=== PATIENT | female | born 1985 | race Caucasian/White ===

== ENCOUNTER 2020-01-23 15:28 | Outpatient (REF) | payer OTHER, SELFPAY ==
[2020-01-23 14:27] LABS: Blood Urea Nitrogen 6 mg/dL (9-16); Estimated Glomerular Filt Rate > 60
--- NOTE | 2020-01-23 16:00 | MR_ITS ---
EXAMINATION: MR CERVICAL SPINE WITHOUT AND WITH CONTRAST CLINICAL INFORMATION: Myelitis. Numbness and tingling in the bilateral feet. Weakness in the left leg COMPARISON: None available. TECHNIQUE: MRI of the cervical spine was obtained using routine sequences following the administration of 9 mL of Gadavist intravenous contrast. FINDINGS: Minimal degenerative retrolisthesis of C5 on C6. Otherwise, normal anatomic alignment. Mild degenerative disc disease from C4-C7 and at T1-T2 with partial disc desiccation. Mild Modic type II discogenic changes. Mild marrow edema and enhancement right-sided transverse process of C7. No additional suspicious marrow edema. The vertebral body heights are maintained. No additional abnormal contrast enhancement. The spinal cord is normal in appearance. Limited evaluation of the soft tissues of the neck without demonstrated abnormalities. The flow voids of the major cervical vessels are maintained. Normal appearance of the cervicomedullary junction and visualized posterior fossa. Normal positioning of the cerebellar tonsils. SPINAL LEVELS: C2-C3: Mild disc-osteophyte complex. There is no uncovertebral joint arthropathy. There is mild left and no right facet joint arthropathy. There is no neural foraminal stenosis. There is no spinal canal stenosis. C3-C4: Normal annular contour. There is no uncovertebral joint arthropathy. There is mild bilateral facet joint arthropathy. There is no neural foraminal stenosis. There is no spinal canal stenosis. C4-C5: Mild to moderate disc-osteophyte complex with superimposed central disc herniation. There is mild bilateral uncovertebral joint arthropathy. There is mild bilateral facet joint arthropathy. There is no neural foraminal stenosis. There is mild indentation of the ventral cord with no overt spinal canal stenosis. C5-C6: Mild to moderate disc-osteophyte complex with superimposed central disc herniation. There is mild bilateral uncovertebral joint arthropathy. There is mild bilateral facet joint arthropathy. There is no neural foraminal stenosis. There is mild indentation of the ventral cord with no overt spinal canal stenosis. C6-C7: Mild disc-osteophyte complex. There is no uncovertebral joint arthropathy. There is no facet joint arthropathy. There is no neural foraminal stenosis. There is no spinal canal stenosis. C7-T1: Normal annular contour. There is no uncovertebral joint arthropathy. There is no facet joint arthropathy. There is no neural foraminal stenosis. There is no spinal canal stenosis. MR/MR cervical spine wo/w con IMPRESSION: 1. No abnormal spinal cord signal abnormality. No demonstrated spinal cord compression. 2. Nonspecific mild edema/enhancement within the C7 right transverse process. This may represent mild stress edema or a small atypical hemangioma. There is no demonstrated displacement of this exam. However, if there is clinical concern for prior trauma or localized symptoms, CT may provide better evaluation for osseous integrity. 3. 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
== END 2020-01-23 15:29 | disposition home or self-care (01) ==
LOC: HO.MRI 15:28
PROVIDERS: PCP Internal Medicine; Visit Provider Psychiatry & Neurology Neurology
DX: G04.91 Myelitis, unspecified (principal)
CPT/HCPCS: 72156; 82565; 84520; A9585

== ENCOUNTER 2020-01-27 18:52 | Outpatient (REF) | payer OTHER, SELFPAY ==
--- NOTE | 2020-01-27 | MR_ITS ---
MR THORACIC SPINE WITHOUT AND WITH CONTRAST CLINICAL INFORMATION: Myelitis. COMPARISON: None available. TECHNIQUE: MRI of the thoracic spine was obtained using routine sequences with and without contrast. Intravenous contrast: Gadavist 9 mL. FINDINGS: There are 12 rib-bearing thoracic type vertebral bodies. Thoracic alignment is normal. The vertebral body heights are maintained. The disc volumes are preserved. There is no bone marrow edema. Bone marrow signal is homogenous and normal. Thoracic cord morphology is normal. There is no thoracic cord compression. Artifact versus intramedullary T2 signal changes throughout the entire thoracic cord seen on the axial series. This could reflect truncation artifact however some of the signal changes appear to be affecting the ventral horns of the min matter. This cannot be confirmed on the sagittal series and therefore may be artifactual. Consider follow-up with a 3T MRI of the thoracic spine. No enhancing thoracic cord lesions. No pathologic intrathecal enhancement. No enhancing intraosseous lesions. No significant soft tissue findings. No significant thoracic disc herniations. No central canal stenosis and no foraminal stenosis within the thoracic spine. MR/MR thoracic spine wo/w con IMPRESSION: Artifact versus intramedullary T2 signal changes throughout the entire thoracic cord seen on the axial series. This could reflect truncation artifact however some of the signal changes appear to be affecting the ventral horns of the min matter. This cannot be confirmed on the sagittal series and therefore may be artifactual. Consider follow-up with a 3T MRI of the thoracic spine. There is no pathologic enhancement.
== END 2020-01-27 19:00 | disposition home or self-care (01) ==
LOC: HO.MRI 18:52
PROVIDERS: PCP Internal Medicine; Visit Provider Psychiatry & Neurology Neurology
DX: G04.91 Myelitis, unspecified (principal)
CPT/HCPCS: 72157; A9585

== ENCOUNTER 2020-09-14 20:27 | Emergency (ER) | payer OTHER, SELFPAY ==
--- NOTE | ~2020-09-14 | US_ITS ---
EXAMINATION: US ABDOMEN LIMITED CLINICAL INFORMATION: Right upper quadrant pain.. COMPARISON: 08/22/[address] dated 09/08/2017 TECHNIQUE: Real-time imaging of the right upper quadrant abdominal viscera. FINDINGS: PANCREAS: The pancreas itself is normal in appearance. Lymph nodes adjacent to the pancreas measured 1 cm in short axis, at the upper limits of normal in size. A 1.0 cm (short axis) lymph node is evident near the pancreatic head. LIVER: There is increased hepatic echogenicity, most consistent with steatosis. There is decreased sonographic through transmission. No focal hepatic lesions are identified. The liver is normal in size. The liver contour is normal. There is no intrahepatic biliary duct dilatation seen. A portocaval lymph node is identified, measuring 1.4 cm in short axis. GALLBLADDER: Normal. The gallbladder is physiologically distended without evidence of stones, sludge, polyps, wall thickening or pericholecystic fluid. COMMON BILE DUCT: Normal in caliber measuring 0.5 cm in diameter. RIGHT KIDNEY: Normal. No hydronephrosis. No renal calculi or focal parenchymal lesions. The kidney measures 11 cm in maximum dimension. FREE FLUID: None. US/US abdomen limited IMPRESSION: Hepatic steatosis. No acute findings. Borderline prominent periportal lymph nodes.
--- NOTE | ~2020-09-14 | XR_ITS ---
EXAMINATION: XR CHEST, 2 VIEWS CLINICAL INFORMATION: Right breast pain. Chest wall pain. COMPARISON: 10/20/2019 TECHNIQUE: PA and lateral views of the chest were obtained. FINDINGS: Lungs are clear. No consolidation, pneumothorax, or pleural effusion. Cardiac and mediastinal contours are normal. Pulmonary vasculature is unremarkable. Trachea is midline. Osseous structures are unremarkable. XR/XR chest 2V IMPRESSION: Normal chest radiographs.
[2020-09-14 21:21] VITALS: BP 122/69; PULSE 81; RESP 18; TEMP 36.4; O2SAT 98; BMI 39.4
[2020-09-14 22:20] LABS: MANUAL DIFF FLAG NO
[2020-09-14 22:22] LABS: Basophils Percent Auto 0.2 % (0-2); Eosinophils Absolute Auto 0.1 X10*3/uL (0.0-0.4); Eosinophils Percent Auto 1.4 % (0-4); Imm Gran Abs Auto 0.03 X10*3/uL (0.00-0.03); Imm Gran Pct Auto 0.3 % (0.0-0.4); Lymphocytes Absolute Auto 3.1 X10*3/uL (1.2-4.9); Lymphocytes Percent Auto 29.8 % (20-40); Mean Corpuscular HGB Conc 33.3 g/dl (31.0-35.0); Mean Corpuscular Hemoglobin 29.5 pg (27.0-33.0); Mean Corpuscular Volume 88.6 fL (80-98); Mean Platelet Volume 9.7 fL (9.4-12.3); Monocytes Absolute Auto 0.6 X10*3/uL (0.1-1.2); Monocytes Percent Auto 5.7 % (2-11); Neutrophils Absolute Auto 6.4 X10*3/uL (2.0-8.3); Neutrophils Percent Auto 62.6 % (45-73); Platelet Count 399 X10*3/uL (160-400); Red Cell Distribution Width 13.3 % (11.0-16.0); White Blood Count 10.2 X10*3/uL (4.8-10.8)
[2020-09-14 22:54] LABS: Alanine Aminotransferase 58 U/L (0-31); Albumin Level 4.2 g/dL (3.5-5.0); Alkaline Phosphatase 99 U/L (39-117); Anion Gap 11 (12-20); Aspartate Amino Transferase 35 U/L (5-31); Bilirubin Total 0.4 mg/dL (0.0-1.0); Blood Urea Nitrogen 8 mg/dL (9-16); Calcium 9.3 mg/dL (8.4-10.2); Carbon Dioxide 27 mmol/L (22-29); Chloride 107 mmol/L (96-108); Creatinine Clr Calc Pharmacy 99.3; Estimated Glomerular Filt Rate > 60; Glucose Random 116 mg/dL (60-115); Potassium 4.3 mmol/L (3.3-5.1); Sodium 141 mmol/L (135-145); Total Protein 7.6 g/dL (6.5-8.0)
--- NOTE | 2020-09-15 01:11 | ED_ITS ---
HPI - General Adult General Chief complaint: General Medical Stated complaint: under breast pain Time Seen by Provider: 09/15/20 01:11 Source: patient Mode of arrival: ambulatory History of Present Illness HPI narrative: This is a 35-year-old female who presents with right inframammary/lower right anterior rib pain that began approximately 2 weeks ago and is not been associated with any sore throat, cough and does not worsen with deep inspiration and patient denies fever, chills, GI symptoms or symptoms. Patient states that she becomes exceedingly uncomfortable with laying back or even sitting. It is worse on self palpation. Related Data Previous Rx's Medication Instructions Recorded ketorolac 10 mg PO Q6H PRN 5 Days #20 tab 09/15/20 Allergies Allergy/AdvReac Type Severity Reaction Status Date / Time peanut [PEANUT] Allergy Severe ANAPHYLAXIS Verified 09/14/20 21:19 Review of Systems Review of Systems: Pertinent positives and negatives as stated in HPI 10 point review systems is otherwise negative. PMFSH Past Medical History Source: nursing notes reviewed Medical History Asthma Bipolar 1 disorder Depression Diabetes Social History Social History Alcohol intake: current Patient Tobacco Use Status: Current everyday Tobacco user Substance Use Type: Marijuana Advance Directives: No Advance Directives Information Provided: No Patient : No Physical Exam Vital Signs: Vital Signs: Last Vital Signs Temp 98.2 F 09/15/20 01:27 Pulse 16 L 09/15/20 04:00 Resp 16 09/15/20 01:27 BP 121/61 09/15/20 01:27 Pulse Ox 98 09/15/20 01:27 Body Mass Index 39.4 VITAL SIGNS: Reviewed. GENERAL: Well developed, well nourished, in no acute distress. HEAD: Normocephalic/atraumatic EYES: PERRLA, EOMI NOSE: Nares patent bilateral OROPHARYNX: no oral lesions noted, posterior pharynx clear NECK: Supple, no adenopathy LUNGS: Normal breath sounds. No adventitious sounds or accessory muscle use. SpO2<98> CHEST WALL: Opinion palpation over anterior rib area, approximately 5/6/7 without crepitus, no erythema/induration noted CARDIOVASCULAR: Regular rate and rhythm without noted murmurs ABDOMEN: Obese, Soft, non-tender, non-distended with bowel sounds. NEUROLOGIC: Alert and oriented x 4. Course Course Course Narrative: 35-year-old female with history and clinical presentation suggestive of possible abscess, breast mass although the latter was not appreciated on exam, doubt rib fracture and no evidence to suggest hepatobiliary pathology or pneumonia. Review of all investigations negative for acute findings. On further questioning it appears that patient coughs a lot after smoking and feels that this may have contributed. All results were discussed at bedside and patient was discharged in stable condition. Medical Decision Making Lab Data Result diagrams: 09/14/20 22:15 09/14/20 22:15 Labs: Lab Results 09/14/20 09/14/20 09/15/20 Range/Units 22:15 22:15 01:30 WBC 10.2 (4.8-10.8) X10*3/uL RBC 4.40 (4.20-5.50) X10*6/uL Hgb 13.0 (12.0-16.0) g/dl Hct 39.0 (37-47) % MCV 88.6 (80-98) fL MCH 29.5 (27.0-33.0) pg MCHC 33.3 (31.0-35.0) g/dl RDW 13.3 (11.0-16.0) % Plt Count 399 (160-400) X10*3/uL MPV 9.7 (9.4-12.3) fL Immature Gran % (Auto) 0.3 (0.0-0.4) % Neut % (Auto) 62.6 (45-73) % Lymph % (Auto) 29.8 (20-40) % [place] % (Auto) 5.7 (2-11) % Eos % (Auto) 1.4 (0-4) % Baso % (Auto) 0.2 (0-2) % Lymph # (Auto) 3.1 (1.2-4.9) X10*3/uL [place] # (Auto) 0.6 (0.1-1.2) X10*3/uL Eos # (Auto) 0.1 (0.0-0.4) X10*3/uL Baso # (Auto) 0.0 (0.0-0.2) X10*3/uL Abs Immat Gran (auto) 0.03 (0.00-0.03) X10*3/uL Absolute Neuts (auto) 6.4 (2.0-8.3) X10*3/uL Absolute Nucleated RBC 0.000 (0.0-0.012) X10*3/uL Nucleated RBC % (auto) 0.0 (0.0-0.2) /100WBC PT 12.2 (10.8-13.0) SEC INR 1.0 (0.9-1.1) Sodium 141 (135-145) mmol/L Potassium 4.3 (3.3-5.1) mmol/L Chloride 107 (96-108) mmol/L Carbon Dioxide 27 (22-29) mmol/L Anion Gap 11 L (12-20) BUN 8 L (9-16) mg/dL Creatinine 0.72 (0.5-1.4) mg/dL Estim Creat Clear Calc 99.3 Estimated GFR > 60 Random Glucose 116 H (60-115) mg/dL Calcium 9.3 (8.4-10.2) mg/dL Total Bilirubin 0.4 (0.0-1.0) mg/dL AST 35 H (5-31) U/L ALT 58 H (0-31) U/L Alkaline Phosphatase 99 (39-117) U/L Total Protein 7.6 (6.5-8.0) g/dL Albumin 4.2 (3.5-5.0) g/dL Discharge Plan Discharge Clinical Impression: Atypical chest pain, Muscle strain of anterior chest wall, Acute c ostochondritis Patient Disposition: Home, Self-Care Instructions: Muscle Strain (ED), Costochondritis (ED) Additional Instructions: 1. Tylenol 1000 mg, orally, every 6 hours as needed for pain control. Do not exceed 4000 mg within 24 hours. 2. Lidocaine patch, this is available [id number] and should be apply to area of maximal pain as directed on the outside packaging. 3. Please follow-up with your primary care provider in the next 2-3 days for re- evaluation. Return to the ER for any acute worsening of her symptoms. Prescriptions: New ketorolac 10 mg tablet 10 mg PO Q6H PRN (Reason: pain) 5 Days Qty: 20 RF: 0 Referrals: Chantale Scott MD [Primary Care Provider] - 2 days
[2020-09-15 01:27] VITALS: BP 121/61; PULSE 72; RESP 16; TEMP 36.8; O2SAT 98
[2020-09-15] MEDS: Ketorolac Tromethamine 15 MG/ML VIAL IVPUSH (01:43)
[2020-09-15 01:48] LABS: Prothrombin Time 12.2 SEC (10.8-13.0)
[2020-09-15 04:00] VITALS: PULSE 16
== END 2020-09-15 06:43 | disposition home or self-care (01) ==
PROVIDERS: Emergency Provider Student in an Organized Health Care Education/Training Program; PCP Internal Medicine
DX: S29.011A Strain of muscle and tendon of front wall of thorax, initial encounter (principal); M94.0 Chondrocostal junction syndrome [Tietze]; R07.89 Other chest pain; E11.9 Type 2 diabetes mellitus without complications; J45.909 Unspecified asthma, uncomplicated; X58.XXXA Exposure to other specified factors, initial encounter; Y93.9 Activity, unspecified; Y92.9 Unspecified place or not applicable; Y99.9 Unspecified external cause status
CPT/HCPCS: 36415; 71046; 76705; 80053; 85025; 85610; 96374; 99284; J1885

== ENCOUNTER 2021-02-14 23:22 | Observation (INO) | payer OTHER, SELFPAY ==
--- NOTE | ~2021-02-14 | XR_ITS ---
EXAMINATION: XR ABDOMEN KUB CLINICAL INDICATION: Abdominal pain COMPARISON: 09/08/2017 TECHNIQUE: AP view of the abdomen. FINDINGS: The bowel gas pattern is nonobstructive. Gas is present throughout much of the colon. No suspicious calcifications are seen. Included lung bases appear well-aerated. No acute osseous findings are seen. XR/XR KUB IMPRESSION: No acute findings identified.
--- NOTE | ~2021-02-14 | CT_ITS ---
EXAMINATION: CT ABDOMEN AND PELVIS WITH CONTRAST CLINICAL INFORMATION: Abdominal pain. COMPARISON: Abdominal ultrasound dated from 09/15/2020. CT abdomen/pelvis dated from 09/08/2017. TECHNIQUE: Multidetector volumetric images were obtained from the superior aspect of the liver through the pubic symphysis following administration 85 mL of Omnipaque 350 intravenous contrast. Sagittal and coronal reformatted images were obtained on the technologist's workstation. Oral contrast: No This CT examination was performed using dose optimization techniques as appropriate, variously including the following: *Automated exposure control *Adjustment of mA and/or kV according to patient size (this includes techniques or standardized protocols for targeted exams where dose is matched to indication/reason for exam; i.e. extremities or head) *Use of iterative reconstruction technique DLP: 759 mGy-cm FINDINGS: LUNG BASES: The visualized lung bases are unremarkable. LIVER, GALLBLADDER, AND BILIARY TREE: The liver measures up to 19.7 cm in maximum craniocaudal dimension which is similar since 2018. There is diffuse decreased parenchymal attenuation when compared to the spleen suggesting hepatic steatosis. There is differential fat infiltration adjacent to the falciform ligament. Otherwise, the liver is normal in shape without focal abnormalities. No evidence of gallbladder stones, gallbladder wall thickening or pericholecystic fluid. No biliary ductal dilatation. PANCREAS: No focal abnormalities. No significant surrounding fat stranding or free fluid. The main pancreatic duct is nondilated. SPLEEN: Unremarkable. ADRENAL GLANDS: Unremarkable. KIDNEYS AND URETERS: The kidneys are normal in size, shape, and attenuation. No hydronephrosis, hydroureter, or calculi seen. No perinephric stranding. BLADDER: Unremarkable. GASTROINTESTINAL TRACT: The stomach and small bowel are nondilated. There are postsurgical changes at the cecal base, likely from prior appendectomy. No pericolic inflammatory changes or bowel obstruction. ABDOMINAL WALL: Tiny fat-containing umbilical hernia. A few foci of air in the fat of the right abdominal wall (3:41) likely from an injection site. LYMPH NODES: No lymphadenopathy by size criteria. VASCULAR: Unremarkable. PELVIC VISCERA: Prior hysterectomy. The left ovary appears to be in a high position and it is asymmetrically enlarged (3:70). OSSEOUS STRUCTURES: No acute or aggressive osseous abnormalities. CT/CT abdomen pelvis w con IMPRESSION: Mild hepatomegaly and hepatic steatosis. No active inflammatory bowel changes or bowel obstruction. Asymmetrically elevated and enlarged left ovary. Correlate with pain and if indicated consider further evaluation with a targeted pelvic ultrasound.
[2021-02-15] VITALS (9 sets, daily range): BP systolic 106–147; BP diastolic 52–85; PULSE 74–114; RESP 16–20; TEMP 36.4–36.8; O2SAT 92–98; BMI 37.3
--- NOTE | 2021-02-15 01:47 | ED.GENADULT ---
HPI - General Adult General Chief complaint: Dyspnea Stated complaint: Throat Pain ? Med reaction Time Seen by Provider: 02/15/21 00:40 Source: patient and family Mode of arrival: ambulatory Limitations: no limitations History of Present Illness HPI narrative: 35-year-old female was seen yesterday at [facility] and was diagnosed with UTI, patient was started on cefpodoxime 200 mg tablet twice a day, patient started the antibiotic earlier today then started to have swelling of her tongue ( patient bit her tongue), no shortness of breath. no change of voice, no rash, no itching. Related Data Home Medications Medication Instructions Recorded Confirmed bupropion HCl 200 mg tablet,12 hr 1 tab PO BID 02/15/21 02/15/21 sustained-release buspirone 10 mg tablet 1 tab PO DAILY 02/15/21 02/15/21 cholecalciferol (vitamin D3) 50 1 tab PO DAILY 02/15/21 02/15/21 mcg (2,000 unit) tablet (Vitamin D3) colestipol 1 gram tablet 1 tab PO DAILY 02/15/21 02/15/21 dicyclomine 20 mg tablet 1 tab PO QID 02/15/21 02/15/21 ergocalciferol (vitamin D2) 50 mcg 1 tab PO DAILY 02/15/21 02/15/21 (2,000 unit) tablet fluticasone propionate 100 1 inh INHALATION DAILY 02/15/21 02/15/21 mcg/actuation blister powder for inhalation (Flovent Diskus) risperidone 0.5 mg tablet 1 tab PO BEDTIME 02/15/21 02/15/21 risperidone 1 mg tablet 1 tab PO BEDTIME 02/15/21 02/15/21 Allergies Allergy/AdvReac Type Severity Reaction Status Date / Time peanut [PEANUT] Allergy Severe ANAPHYLAXIS Verified 09/14/20 21:19 Review of Systems Review of Systems: All other systems are reviewed and are negative Constitutional: Reports as per HPI and Reports no additional constitutional complaints Eyes: Reports as per HPI and Reports no additional eye complaints Reports system reviewed and no additional complaints, except as documented Cardiovascular: Reports as per HPI and Reports no additional cardiovascular complaints Respiratory: Reports as per HPI and Reports no additional respiratory complaints Gastrointestinal: Reports as per HPI and Reports no additional gastrointestinal complaints Genitourinary: Reports no additional female genitourinary complaints Musculoskeletal: Reports no additional musculoskeletal complaints Skin/Breast: Reports system reviewed and no additional complaints, except as docu Psychiatric: Reports no additional psychiatric complaints Endocrine: Reports no additional endocrine complaints Hematologic/Lymphatic: Reports no additional hematologic/lymphatic complaints Allergic/Immunologic: Reports no additional allergic/immunologic complaints Reports system reviewed and no additional complaints, except as documented and Reports Abnormal speech present [facility] Past Medical History Medical History Asthma Bipolar 1 disorder Depression Diabetes Social History Social History Alcohol intake: unknown Patient Tobacco Use Status: Current everyday Tobacco user Use of substances other than those prescribed or required for medical reasons: Yes Substance Use Type: Marijuana Substance Use Frequency: Occasionally Last Used Substance: Hours (ago) Advance Directives: No Advance Directives Information Provided: No Physical Exam Vital Signs: Vital Signs: Last Vital Signs Temp 98.3 F 02/15/21 00:38 Pulse 114 H 02/15/21 00:38 Resp 20 02/15/21 00:38 BP 147/85 H 02/15/21 00:38 Pulse Ox 98 02/15/21 00:38 Body Mass Index 37.3 vital signs have been reviewed as appeared to be correct. Blood pressure normal. Heart rate elevated. Respiration rate normal. Temperature normal. Oxygen saturation normal. Appearance: Alert. Oriented X3. No acute distress. Head: Normal external exam. Normocephalic. Atraumatic. No Duckworth signs noted. No raccoon eyes noted. Mouth exam: Swelling of the tongue, no stridor, patent airway. Eyes: PERRLA. EOMI. Conjunctiva and sclera normal. Eyelids normal. ENT: TM's Normal. Pharynx normal. Uvula midline. Moist mucous membranes. No trismus noted. No drooling noted. No muffled voice noted. Neck: Normal inspection. Neck supple. FROM. No adenopathy. Thyroid Normal. No meningeal signs. No neck mass noted. CVS: Normal heart rate and rhythm. Heart sound normal. No murmurs noted. Pulses normal throughout. Respiratory: No respiratory distress. Painless inspiration. Breath sounds normal. No wheezes/rales/rhonchi noted. Chest nontender. No accessory muscle usage noted or decreased air movement noted. Abdomen: Soft and nontender. Bowel sounds normal in all 4 quadrants. No distention noted. No organomegaly noted. No visible injury noted. Back: No CVA tenderness. Full range of motion noted. Skin: Skin warm and dry. Normal skin color. Normal skin turgor. No rashes/lesions/lacerations noted. Extremities: No lower extremity edema. Extremities exhibit normal range of motion. Extremities nontender. Neuro: Oriented X 3. Cranial nerve exam: II-XII are grossly intact No motor deficit. No sensory deficit. Reflexes normal. Course Course Course Narrative: 35-year-old female came in for allergic reaction to cefpodoxime that was prescribed yesterday at [facility] for treating UTI, patient came in with swelling tongue, patent airway, patient received IV fluids/Solu-Medrol /Benadryl, UA came back clean will not start the patient on new antibiotic will be awaiting for urine culture. Case discussed with Dr. Morales. Admit the patient for airway monitoring. Medical Decision Making Lab Data Lab results reviewed: Yes I reviewed the patient's lab results. Result diagrams: 02/15/21 02:17 02/15/21 02:17 Labs: Lab Results 02/15/21 02/15/21 02/15/21 Range/Units 02:16 02:16 02:17 WBC 11.1 H (4.8-10.8) X10*3/uL RBC 4.24 (4.20-5.50) X10*6/uL Hgb 12.9 (12.0-16.0) g/dl Hct 37.8 (37.0-47.0) % MCV 89.2 (80.0-98.0) fL MCH 30.4 (27.0-33.0) pg MCHC 34.1 (31.0-35.0) g/dl RDW 13.5 (11.0-16.0) % Plt Count 429 H (160-400) X10*3/uL MPV 9.7 (9.4-12.3) fL Immature Gran % (Auto) 0.3 (0.0-0.4) % Neut % (Auto) 66.1 (45-73) % Lymph % (Auto) 26.8 (20-40) % [place] % (Auto) 5.6 (2-11) % Eos % (Auto) 1.0 (0-4) % Baso % (Auto) 0.2 (0-2) % Lymph # (Auto) 3.0 (1.2-4.9) X10*3/uL [place] # (Auto) 0.6 (0.1-1.2) X10*3/uL Eos # (Auto) 0.1 (0.0-0.4) X10*3/uL Baso # (Auto) 0.0 (0.0-0.2) X10*3/uL Abs Immat Gran (auto) 0.03 (0.00-0.03) X10*3/uL Absolute Neuts (auto) 7.4 (2.0-8.3) x10*3/uL Absolute Nucleated RBC 0.000 (0.0-0.012) X10*3/uL Nucleated RBC % (auto) 0.0 (0.0-0.2) /100WBC Sodium (135-145) mmol/L Potassium (3.3-5.1) mmol/L Chloride (96-108) mmol/L Carbon Dioxide (22-29) mmol/L Anion Gap (12-20) BUN (9-16) mg/dL Creatinine (0.5-1.4) mg/dL Estim Creat Clear Calc Estimated GFR Random Glucose (60-115) mg/dL Calcium (8.4-10.2) mg/dL Lipase (8-78) U/L Urine Color YELLOW Urine Appearance CLEAR Urine pH 6.0 (5.0-8.0) Ur Specific Halfway >= 1.030 H (1.005-1.025) Urine Protein NEG (NEG-TRACE) MG/DL Urine Glucose (UA) NEG (NEG) MG/DL Urine Ketones 15 (NEG) MG/DL Urine Blood NEG (NEG) Urine Nitrite NEG (NEG) Ur Leukocyte Esterase NEG (NEG) Urine Test NEGATIVE (NEGATIVE) 02/15/21 Range/Units 02:17 WBC (4.8-10.8) X10*3/uL RBC (4.20-5.50) X10*6/uL Hgb (12.0-16.0) g/dl Hct (37.0-47.0) % MCV (80.0-98.0) fL MCH (27.0-33.0) pg MCHC (31.0-35.0) g/dl RDW (11.0-16.0) % Plt Count (160-400) X10*3/uL MPV (9.4-12.3) fL Immature Gran % (Auto) (0.0-0.4) % Neut % (Auto) (45-73) % Lymph % (Auto) (20-40) % [place] % (Auto) (2-11) % Eos % (Auto) (0-4) % Baso % (Auto) (0-2) % Lymph # (Auto) (1.2-4.9) X10*3/uL [place] # (Auto) (0.1-1.2) X10*3/uL Eos # (Auto) (0.0-0.4) X10*3/uL Baso # (Auto) (0.0-0.2) X10*3/uL Abs Immat Gran (auto) (0.00-0.03) X10*3/uL Absolute Neuts (auto) (2.0-8.3) x10*3/uL Absolute Nucleated RBC (0.0-0.012) X10*3/uL Nucleated RBC % (auto) (0.0-0.2) /100WBC Sodium 139 (135-145) mmol/L Potassium 3.5 (3.3-5.1) mmol/L Chloride 106 (96-108) mmol/L Carbon Dioxide 22 (22-29) mmol/L Anion Gap 15 (12-20) BUN 5 L (9-16) mg/dL Creatinine 0.71 (0.5-1.4) mg/dL Estim Creat Clear Calc 97.5 Estimated GFR > 60 Random Glucose 139 H (60-115) mg/dL Calcium 9.6 (8.4-10.2) mg/dL Lipase 18 (8-78) U/L Urine Color Urine Appearance Urine pH (5.0-8.0) Ur Specific Halfway (1.005-1.025) Urine Protein (NEG-TRACE) MG/DL Urine Glucose (UA) (NEG) MG/DL Urine Ketones (NEG) MG/DL Urine Blood (NEG) Urine Nitrite (NEG) Ur Leukocyte Esterase (NEG) Urine Test (NEGATIVE) Discharge Plan Discharge Clinical Impression: Tongue swelling, Allergic reaction Patient Disposition: Admitted As Inpatient Prescriptions: No Action dicyclomine 20 mg tablet 1 tab PO QID RF: 0 Flovent Diskus 100 mcg/actuation blister with device 1 inh inhalation DAILY RF: 0 buspirone 10 mg tablet 1 tab PO DAILY RF: 0 risperidone 1 mg tablet 1 tab PO BEDTIME RF: 0 colestipol 1 gram tablet 1 tab PO DAILY RF: 0 risperidone 0.5 mg tablet 1 tab PO BEDTIME RF: 0 bupropion HCl 200 mg tablet sustained-release 12 hr 1 tab PO BID RF: 0 cholecalciferol (vitamin D3) [Vitamin D3] 50 mcg (2,000 unit) tablet 1 tab PO DAILY RF: 0 ergocalciferol (vitamin D2) 50 mcg (2,000 unit) tablet 1 tab PO DAILY RF: 0
[2021-02-15] MEDS: 0.9 % Sodium Chloride 1,000 ML 999 ML IVCONT (02:20)
[2021-02-15 02:21] LABS: MANUAL DIFF FLAG NO
[2021-02-15 02:22] LABS: Basophils Percent Auto 0.2 % (0-2); Eosinophils Absolute Auto 0.1 X10*3/uL (0.0-0.4); Hematocrit 37.8 % (37.0-47.0); Hemoglobin 12.9 g/dl (12.0-16.0); Imm Gran Abs Auto 0.03 X10*3/uL (0.00-0.03); Imm Gran Pct Auto 0.3 % (0.0-0.4); Lymphocytes Percent Auto 26.8 % (20-40); Mean Corpuscular HGB Conc 34.1 g/dl (31.0-35.0); Mean Corpuscular Hemoglobin 30.4 pg (27.0-33.0); Mean Corpuscular Volume 89.2 fL (80.0-98.0); Mean Platelet Volume 9.7 fL (9.4-12.3); Monocytes Absolute Auto 0.6 X10*3/uL (0.1-1.2); Monocytes Percent Auto 5.6 % (2-11); Neutrophils Absolute Auto 7.4 x10*3/uL (2.0-8.3); Neutrophils Percent Auto 66.1 % (45-73); Platelet Count 429 X10*3/uL (160-400); Red Blood Count 4.24 X10*6/uL (4.20-5.50); Red Cell Distribution Width 13.5 % (11.0-16.0); White Blood Count 11.1 X10*3/uL (4.8-10.8)
[2021-02-15 02:22] LABS: Color Urine YELLOW; Glucose Urine UA NEG (NEG); Leukocyte Esterase Urine NEG (NEG); Nitrite Urine NEG (NEG); Specific Gravity - Urine >= 1.030 (1.005-1.025); Urine Blood NEG (NEG); Urine Ketones 15 MG/DL (NEG); Urine Protein NEG (NEG-TRACE)
[2021-02-15 02:23] LABS: Appearance Urine CLEAR
[2021-02-15 02:25] LABS: UPreg QC Valid YES; Urine Pregnancy NEGATIVE (NEGATIVE)
[2021-02-15] MEDS: methylPREDNISolone Sod Succ 125 MG/2 ML VIAL IVPUSH (02:29)
[2021-02-15] MEDS: Famotidine/PF 20 MG/2 ML VIAL IVPUSH ×3 (02:29→21:10)
[2021-02-15] MEDS: diphenhydrAMINE HCL 50 MG/ML VIAL 25 MG IVPUSH (02:29)
[2021-02-15 02:41] LABS: Anion Gap 15 (12-20); Blood Urea Nitrogen 5 mg/dL (9-16); Calcium 9.6 mg/dL (8.4-10.2); Carbon Dioxide 22 mmol/L (22-29); Chloride 106 mmol/L (96-108); Creatinine Clr Calc Pharmacy 97.5; Estimated Glomerular Filt Rate > 60; Glucose Random 139 mg/dL (60-115); Lipase 18 U/L (8-78); Potassium 3.5 mmol/L (3.3-5.1); Sodium 139 mmol/L (135-145)
--- NOTE | 2021-02-15 02:56 | PM.IMHP ---
History of Present Illness Date of Service: 02/15/21 Chief Complaint: Tongue swelling/shortness of breath 35-year-old female with a past medical history of anxiety, depression, bipolar disorder, ESTEVAN, question diabetes, history of urinary incontinence/UTIs presented to the hospital today with a chief complaint of tongue swelling/shortness of breath. Patient reported that on Sunday she started to have nausea and vomiting and unable to tolerate p.o. she went to the [facility] ER where she was noted to have UTI and was given cefuroxime IV followed by given ceftriaxone pain and subsequently sent her home. Patient mentioned that after she went home she took the 1st dose of cefpodoxime and felt different and after to the 2nd dose in the evening she felt like her tongue is swollen, unable to breathe; subsequently came to the ER for further evaluation. Denies any itching or hives. Denies any rash. Patient mentioned that she has been having issues with her GI-having nausea vomiting unable to tolerate p.o. for the past few days; also reports an episode of blood in the vomitus; follows with banjo repairer at [facility]. Complains of mild abdominal discomfort; Denies any diarrhea Denies any chest pain palpitations lightheadedness or dizziness. Review of all other systems is negative except mentioned above ER course: Per ER team patient exam was essentially benign; no significant swelling or hives or rash noted; patient was given Solu-Medrol, admitted to the hospital for observation. [facility] Medical History Asthma Bipolar 1 disorder Depression Diabetes Social History Alcohol intake: unknown Patient Tobacco Use Status: Current everyday Tobacco user Use of substances other than those prescribed or required for medical reasons: Yes Substance Use Type: Marijuana Substance Use Frequency: Occasionally Last Used Substance: Hours (ago) Advance Directives: No Advance Directives Information Provided: No Meds Allergies Allergy/AdvReac Type Severity Reaction Status Date / Time peanut [PEANUT] Allergy Severe ANAPHYLAXIS Verified 09/14/20 21:19 Active Medications: Current Medications Sodium Chloride (Ns) 1,000 mls @ 999 mls/hr IVCONT .Q1H1M SAHIL Stop: 02/15/21 03:00 Last Admin: 02/15/21 02:20 Dose: 999 mls/hr Documented by: Home Medications Medication Instructions Recorded Confirmed Last Taken Type bupropion HCl 200 mg tablet,12 hr 1 tab PO BID 02/15/21 02/15/21 Unknown History sustained-release buspirone 10 mg tablet 1 tab PO DAILY 02/15/21 02/15/21 Unknown History cholecalciferol (vitamin D3) 50 1 tab PO DAILY 02/15/21 02/15/21 Unknown History mcg (2,000 unit) tablet (Vitamin D3) colestipol 1 gram tablet 1 tab PO DAILY 02/15/21 02/15/21 Unknown History dicyclomine 20 mg tablet 1 tab PO QID 02/15/21 02/15/21 Unknown History ergocalciferol (vitamin D2) 50 mcg 1 tab PO DAILY 02/15/21 02/15/21 Unknown History (2,000 unit) tablet fluticasone propionate 100 1 inh INHALATION DAILY 02/15/21 02/15/21 Unknown History mcg/actuation blister powder for inhalation (Flovent Diskus) risperidone 0.5 mg tablet 1 tab PO BEDTIME 02/15/21 02/15/21 Unknown History risperidone 1 mg tablet 1 tab PO BEDTIME 02/15/21 02/15/21 Unknown History Physical Exam Vital Signs and Narrative: Vital Signs: Last Vital Signs Temp 98.3 F 02/15/21 00:38 Pulse 114 H 02/15/21 00:38 Resp 20 02/15/21 00:38 BP 147/85 H 02/15/21 00:38 Pulse Ox 98 02/15/21 00:38 Body Mass Index 37.3 Gen: Appears be in no acute distress HEENT: NCAT, Moist mucosa. Tongue is normal in size. No stridor. Pulmonary: Vesicular breath sounds, fair air entry CVS: Normal S1-S2 Abdomen: BS+, Soft, Nontender Extremities: Warm well perfused Neuro: Alert and awake. Results Labs CBC and Chem 7: 02/15/21 02:17 02/15/21 02:17 Labs: Laboratory Results - last 24 hr 02/15/21 02/15/21 02/15/21 02:16 02:16 02:17 MCV 89.2 MCH 30.4 MCHC 34.1 RDW 13.5 Plt Count 429 H MPV 9.7 Immature Gran % (Auto) 0.3 Neut % (Auto) 66.1 Lymph % (Auto) 26.8 [place] % (Auto) 5.6 Eos % (Auto) 1.0 Baso % (Auto) 0.2 Lymph # (Auto) 3.0 [place] # (Auto) 0.6 Eos # (Auto) 0.1 Baso # (Auto) 0.0 Abs Immat Gran (auto) 0.03 Absolute Neuts (auto) 7.4 Absolute Nucleated RBC 0.000 Nucleated RBC % (auto) 0.0 Anion Gap Estim Creat Clear Calc Estimated GFR Random Glucose Calcium Lipase Urine Color YELLOW Urine Appearance CLEAR Urine pH 6.0 Ur Specific [place] >= 1.030 H Urine Protein NEG Urine Glucose (UA) NEG Urine Ketones 15 Urine Blood NEG Urine Nitrite NEG Ur Leukocyte Esterase NEG Urine Test NEGATIVE 02/15/21 02:17 MCV MCH MCHC RDW Plt Count MPV Immature Gran % (Auto) Neut % (Auto) Lymph % (Auto) [place] % (Auto) Eos % (Auto) Baso % (Auto) Lymph # (Auto) [place] # (Auto) Eos # (Auto) Baso # (Auto) Abs Immat Gran (auto) Absolute Neuts (auto) Absolute Nucleated RBC Nucleated RBC % (auto) Anion Gap 15 Estim Creat Clear Calc 97.5 Estimated GFR > 60 Random Glucose 139 H Calcium 9.6 Lipase 18 Urine Color Urine Appearance Urine pH Ur Specific [place] Urine Protein Urine Glucose (UA) Urine Ketones Urine Blood Urine Nitrite Ur Leukocyte Esterase Urine Test Assessment and Plan (1) Tongue swelling: Status: Acute (2) Nausea & vomiting: Status: Acute (3) Hematemesis: Status: Acute 35-year-old female with a past medical history of anxiety, depression, bipolar disorder, ESTEVAN, question diabetes, history of urinary incontinence/UTIs presented to the hospital today with a chief complaint of tongue swelling/shortness of breath, after she took Suboxone tablets, concern for allergic reaction. Admitted for further management. Shortness of breath/tongue swelling: Currently resolved. Breathing comfortably. No stridor or wheezing. Tongue swelling improved. Continue the patient on prednisone, famotidine, pantoprazole, Bentyl p.r.n.. Nausea/vomiting/blood in the vomitus/poor oral intake: IV ppi. NPO. IV fluids. GI consult. If any further episodes of vomiting will obtain guaiac test for the gastric contents. ? Diabetes: Hemoglobin A1c pending. UTI: Patient repeat urinalysis was negative. Follow up cultures. Will hold off antibiotics for now. History of anxiety/depression/bipolar: Continue home bupropion, buspirone, risperidone. DVT prophylaxis: Lovenox Code status: Full code Things to follow up by the Day hospitalist was care taken over at 7:00 a.m. on 02/15/2021: Gastroenterology recommendations Monitor for continued clinical improvement for allergic reaction. Quality Stroke Does the patient have a stroke diagnosis?: No VTE Prior VTE?: No VTE Risk Level:: Medical - moderate - high VTE Device Contraindication: Treatment Not Indicated VTE Drug Contraindication: N/A - Med Ordered
[2021-02-15 03:15] LABS: Basophils Percent Auto 0.2 % (0-2); Eosinophils Percent Auto 0.4 % (0-4); Hematocrit 35.2 % (37.0-47.0); Hemoglobin 11.7 g/dl (12.0-16.0); Imm Gran Abs Auto 0.03 X10*3/uL (0.00-0.03); Imm Gran Pct Auto 0.3 % (0.0-0.4); Lymphocytes Absolute Auto 3.4 X10*3/uL (1.2-4.9); Lymphocytes Percent Auto 31.3 % (20-40); MANUAL DIFF FLAG NO; Mean Corpuscular HGB Conc 33.2 g/dl (31.0-35.0); Mean Corpuscular Hemoglobin 30.1 pg (27.0-33.0); Mean Corpuscular Volume 90.5 fL (80.0-98.0); Mean Platelet Volume 9.8 fL (9.4-12.3); Monocytes Absolute Auto 0.7 X10*3/uL (0.1-1.2); Monocytes Percent Auto 6.4 % (2-11); Neutrophils Absolute Auto 6.6 x10*3/uL (2.0-8.3); Neutrophils Percent Auto 61.4 % (45-73); Platelet Count 406 X10*3/uL (160-400); Red Blood Count 3.89 X10*6/uL (4.20-5.50); Red Cell Distribution Width 13.4 % (11.0-16.0); White Blood Count 10.7 X10*3/uL (4.8-10.8)
[2021-02-15 03:36] LABS: Anion Gap 14 (12-20); Blood Urea Nitrogen 4 mg/dL (9-16); Carbon Dioxide 21 mmol/L (22-29); Chloride 108 mmol/L (96-108); Creatinine Clr Calc Pharmacy 104.9; Estimated Glomerular Filt Rate > 60; Glucose Random 117 mg/dL (60-115); Potassium 3.6 mmol/L (3.3-5.1); Sodium 139 mmol/L (135-145)
[2021-02-15 04:37] LABS: Estimated Average Glucose 94 mg/dL; Hemoglobin A1c % 4.9 %
[2021-02-15 06:11] LABS: COVID-19 Test Negative (Negative); IDNOW Serial# 9DD0AD1C
[2021-02-15] MEDS: Pantoprazole Sodium 40 MG/10 ML VIAL IVPUSH (06:21)
--- NOTE | 2021-02-15 08:07 | PC.NURSE ---
pt a/o x 3 no sob/dari noted skin pink warm dry speaks in full sentences. no tongue swelling noted. pt states, now i can talk and closed my mouth pt denies any diff breathing.l
[2021-02-15] MEDS: 0.9 % Sodium Chloride Flush 3 ML SYRINGE IVFLUSH ×3 (08:10→23:48)
--- NOTE | 2021-02-15 09:16 | MHC.CM.PN ---
Addendum entered by Faiza Sutherland 02/15/21 09:34: Received notification from [facility] that they will be able to accept patient. Addendum entered by Faiza Sutherland 02/15/21 09:22: [facility] is not able to accept patient at this time. Referral broadcasted to all agencies that are contracted with [email or web address] and can assist with medication administration. Original Note: Met with patient in regards to discharge planning. Patient lives with her , is legally blind, uses a walking stick for mobility and had no services prior to coming to the hospital. Patient was active with [facility] for medication administration in the past and is requesting referral back there. Patient voices concerns about medication consistency and her anxiety with taking medication. Referral made via [employer]. PCP verified. Copy of HCP obtained from PCP's office. Patient received 2 Moderna vaccines. Obs notice explained and signed. Patient's will transport patient home when medically stable. Continue to monitor for d/c needs.
[2021-02-15] MEDS: busPIRone HCl 10 MG TABLET PO (10:30)
[2021-02-15] MEDS: buPROPion HCL 100 MG TABLET 200 MG PO ×2 (10:30→21:17)
[2021-02-15] MEDS: Cholecalciferol (Vitamin D3) 25 MCG TABLET 50 MCG PO (10:30)
[2021-02-15] MEDS: Enoxaparin Sodium 40 MG/0.4 ML SYRINGE SUBCUT (10:31)
[2021-02-15] MEDS: predniSONE 20 MG TABLET 40 MG PO (10:32)
[2021-02-15] MEDS: risperiDONE 0.25 MG TABLET PO (11:49)
--- NOTE | 2021-02-15 13:06 | P.EN_ITS ---
Event Note Date of Service: 02/15/21 Event Note: 35-year-old female with a past medical history of anxiety, depress ion, bipolar disorder, ESTEVAN, question diabetes, history of urinary incontinence/UTIs presented to the hospital today with a chief complaint of tongue swelling/shortness of breath, after she took Suboxone tablets, concern for allergic reaction.? Admitted for further management.? Shortness of breath/tongue swelling. Currently resolved.? ? allergic reaction after taking cefpodoxime will stop prednisone Epigastric pain with reported bloody emesis on sunday GI consult May need EGD continue PPI History of anxiety/depression/bipolar Continue home bupropion, buspirone, risperidone. DISPO home depending on GI, inpatient vs o/p EGD DVT prophylaxis SCD boots Code status: Full code Attending Dr. Son
--- NOTE | 2021-02-15 15:39 | PC.NURSE ---
no sign of allergic reaction noted.
[2021-02-15] MEDS: Dicyclomine HCl 10 MG CAPSULE 20 MG PO ×2 (18:37→21:23)
[2021-02-15] MEDS: risperiDONE 0.5 MG TABLET PO (21:10)
[2021-02-15] MEDS: risperiDONE 1 MG TABLET PO (21:10)
--- NOTE | 2021-02-15 21:28 | PC.NURSE ---
Report given to RN on IMC.
[2021-02-15] MEDS: HYDROmorphone HCl 0.5 MG/0.5 ML SYRINGE IVPUSH (23:48)
[2021-02-16] VITALS (7 sets, daily range): BP systolic 98–134; BP diastolic 54–71; PULSE 66–118; RESP 17–22; TEMP 35.5–36.7; O2SAT 98–100
--- NOTE | 2021-02-16 02:24 | CONS_ITS ---
DATE OF SERVICE: 02/15/2021 REFERRING PHYSICIAN: Yariel Morales MD REASON FOR CONSULTATION: History of hematemesis. HISTORY OF PRESENT ILLNESS: The patient is a pleasant 35-year-old woman who was admitted to the hospital after presenting to the emergency room with tongue swelling and shortness of breath following antibiotic treatment. She has a long history of nausea, vomiting, abdominal pain with diarrhea and cramping and has been followed by her primary associate professor of philosophy at [facility]. She states since her hysterectomy earlier in the year, which was done for menorrhagia, she has had difficulty with postprandial nausea, vomiting, diarrhea, and generalized crampy abdominal pain. The diarrhea has been watery. The vomiting usually is postprandial and occurs after eating, although she did report 1 episode of a small amount of hematemesis 2 nights prior to admission. She has reportedly undergone endoscopy and colonoscopy at her primary GI office and has been treated with various medications, but is unsure of her present medical regimen. Since admission to the hospital, she has been treated with omeprazole as well as Pepcid and does report some postprandial nausea, but was able to tolerate breakfast. She has been treated with steroids for her allergic reaction. Evaluation in the emergency department included lab work, which is reviewed. Hematocrit has been stable and she has had no hematemesis in the emergency department. She does have a history of fatty liver and had mild elevations of her transaminases. An ultrasound done in August of this year was consistent with fatty liver. PAST MEDICAL HISTORY: 1. Bipolar disorder. 2. Sleep apnea. 3. Elevated blood sugar. 4. Asthma. 5. Irritable bowel syndrome. 6. Fatty liver. 7. Gastroesophageal reflux disease. CURRENT MEDICATIONS: Her current medication list is reviewed in the chart. ALLERGIES: PEANUTS AND CEFPODOXIME. FAMILY HISTORY: This is reviewed with the patient and is noncontributory. SOCIAL HISTORY: There is tobacco use. She denies significant alcohol intake. REVIEW OF SYSTEMS: SKIN: No pruritus. HEENT: Negative. CARDIOPULMONARY: She denies shortness of breath or chest pain. GASTROINTESTINAL: As above. GENITOURINARY: Negative. NEUROPSYCHIATRIC: Negative. PHYSICAL EXAMINATION: GENERAL: Shows a pleasant female, lying comfortably in bed. VITAL SIGNS: Stable. SKIN: Anicteric. HEENT: Shows no scleral icterus. NECK: Without lymphadenopathy or thyromegaly. LUNGS: Clear. HEART: Shows a regular rate and rhythm. S1, S2. No murmur. ABDOMEN: Soft. She complains of generalized tenderness to palpation. There is no guarding or rebound. Bowel sounds are present. No organomegaly is noted. EXTREMITIES: Without edema. LABORATORY DATA: Reviewed. IMPRESSION: History of hematemesis. She did have one self-limited episode of hematemesis which could have been caused by a Stefani-Antoine tear or gastroesophageal reflux disease. She does not appear to have any significant ongoing GI bleeding at this time and is tolerating a diet. I agree treating her with a proton pump inhibitor as you are doing. I would recommend restarting dicyclomine which she has apparently been on as an outpatient, although she does not recall her medications to help with any abdominal cramping for her IBS. I recommended she follow up with her primary GI provider as an outpatient. Thanks for asking me to see her. I will follow her as needed. MD ELDER Hoover/ANIL / [phone]
[2021-02-16] MEDS: Pantoprazole Sodium 40 MG/10 ML VIAL IVPUSH (05:48)
[2021-02-16 06:54] LABS: Hematocrit 36.4 % (37.0-47.0); Hemoglobin 11.9 g/dl (12.0-16.0); Mean Corpuscular HGB Conc 32.7 g/dl (31.0-35.0); Mean Corpuscular Hemoglobin 29.6 pg (27.0-33.0); Mean Corpuscular Volume 90.5 fL (80.0-98.0); Mean Platelet Volume 10.2 fL (9.4-12.3); Platelet Count 433 X10*3/uL (160-400); Red Blood Count 4.02 X10*6/uL (4.20-5.50); Red Cell Distribution Width 13.7 % (11.0-16.0)
[2021-02-16] MEDS: buPROPion HCL 100 MG TABLET 200 MG PO ×2 (07:52→20:20)
[2021-02-16] MEDS: busPIRone HCl 10 MG TABLET PO (07:53)
[2021-02-16] MEDS: risperiDONE 0.25 MG TABLET PO (07:53)
[2021-02-16] MEDS: Dicyclomine HCl 10 MG CAPSULE 20 MG PO ×4 (07:53→20:20)
[2021-02-16] MEDS: Famotidine/PF 20 MG/2 ML VIAL IVPUSH ×2 (07:54→20:19)
[2021-02-16] MEDS: Cholecalciferol (Vitamin D3) 25 MCG TABLET 50 MCG PO (07:54)
[2021-02-16] MEDS: 0.9 % Sodium Chloride Flush 3 ML SYRINGE IVFLUSH ×3 (07:54→20:20)
[2021-02-16] MEDS: Enoxaparin Sodium 40 MG/0.4 ML SYRINGE SUBCUT (07:57)
[2021-02-16] MEDS: Sennosides 8.6 MG TABLET 17.2 MG PO (11:55)
--- NOTE | 2021-02-16 16:03 | P.PNIM_ITS ---
Subjective Subjective Date of Service: 02/16/21 Interval History: Persistent abdominal pain overnight. States she still can not eat anything without Review of Systems Denies chest pain Denies shortness of breath Admits nausea vomiting Physical Exam Vital Signs: Vital Signs: Last Vital Signs Temp 97.8 F 02/16/21 15:05 Pulse 75 02/16/21 15:05 Resp 20 02/16/21 15:05 BP 119/71 02/16/21 15:05 Pulse Ox 99 02/16/21 15:05 Body Mass Index 37.3 Const: Other: Awake alert uncomfortable due to abdominal pain Resp: Other: Clear to auscultation bilaterally no rales rhonchi wheezes Cardio: Other: No S4; positive S1-S2; no S3 murmurs or gallops GI: Other: Mild diffuse mid epigastric tenderness without rebound Extrem: Other: No edema bilaterally Objective Data Active Medications Acetaminophen (Acetaminophen 325 Mg Tablet) 650 mg PO Q6H PRN PRN Reason: Pain, Mild (Pain Scale 1-3) Al Hydroxide/Mg Hydroxide (Magnesium Hydrox/Alum Hydrox 30 Ml Oral.Susp) 30 ml PO Q4H PRN PRN Reason: stomach upset Bupropion HCl (Bupropion Hcl 100 Mg Tablet) 200 mg PO BID [facility] Last Admin: 02/16/21 07:52 Dose: 200 mg Documented by: DORENE Buspirone HCl (Buspirone Hcl 10 Mg Tablet) 10 mg PO DAILY [facility] Last Admin: 02/16/21 07:53 Dose: 10 mg Documented by: DORENE Dicyclomine HCl (Dicyclomine Hcl 10 Mg Capsule) 20 mg PO QIDACHS [facility] Last Admin: 02/16/21 11:56 Dose: 20 mg Documented by: DORENE Diphenhydramine HCl (Diphenhydramine Hcl 50 Mg/Ml Vial) 25 mg IVPUSH Q6H PRN PRN Reason: Allergic Reaction Enoxaparin Sodium (Enoxaparin Sodium 40 Mg/0.4 Ml Syringe) 40 mg SUBCUT Q24H [facility] Last Admin: 02/16/21 07:57 Dose: 40 mg Documented by: DORENE Famotidine (Famotidine/Pf 20 Mg/2 Ml Vial) 20 mg IVPUSH BID [facility] Last Admin: 02/16/21 07:54 Dose: 20 mg Documented by: DORENE Fluticasone Propionate (Fluticasone Propionate 100 Mcg Blst.W.Dev) 1 puff INHALE DAILY [facility] Last Admin: 02/16/21 07:46 Dose: Not Given Documented by: RAMIRO Non-Admin Reason: Med Not Available Loratadine (Loratadine 10 Mg Tablet) 10 mg PO DAILY [facility] Melatonin (Melatonin 3 Mg Tablet) 6 mg PO BEDTIME PRN PRN Reason: Insomnia Morphine Sulfate (Morphine Sulfate 2 Mg/Ml Cartridge) 2 mg IVPUSH Q4H PRN; Protocol PRN Reason: Pain, Moderate (Pain Scale 4-6 Pantoprazole Sodium (Pantoprazole Sodium 40 Mg/10 Ml Vial) 40 mg IVPUSH DAILY@0630 [facility] Last Admin: 02/16/21 05:48 Dose: 40 mg Documented by: DEIRDRE Pharmacy Consult (Consult Rx Perform Med Rec) 1 each MISCELLANE ONCE PRN PRN Reason: Consult order Risperidone (Risperidone 0.5 Mg Tablet) 0.5 mg PO BEDTIME [facility] Last Admin: 02/15/21 21:10 Dose: 0.5 mg Documented by: ARSLAN Risperidone (Risperidone 1 Mg Tablet) 1 mg PO BEDTIME [facility] Last Admin: 02/15/21 21:10 Dose: 1 mg Documented by: ARSLAN Risperidone (Risperidone 0.25 Mg Tablet) 0.25 mg PO DAILY [facility] Last Admin: 02/16/21 07:53 Dose: 0.25 mg Documented by: DORENE Risperidone (Risperidone 0.25 Mg Tablet) 0.25 mg PO DAILY [facility] Senna (Sennosides 8.6 Mg Tablet) 17.2 mg PO BEDTIME PRN PRN Reason: Constipation Last Admin: 02/16/21 11:55 Dose: 17.2 mg Documented by: DORENE Sodium Chloride (0.9 % Sodium Chloride Flush 3 Ml Syringe) 3 ml IVFLUSH QSHIFT [facility] Last Admin: 02/16/21 07:54 Dose: 3 ml Documented by: DORENE Vitamin D (Cholecalciferol (Vitamin D3) 25 Mcg Tablet) 50 mcg PO DAILY [facility] Last Admin: 02/16/21 07:54 Dose: 50 mcg Documented by: DORENE Labs CBC & Chem 7: 02/16/21 06:08 02/15/21 03:11 Labs: Laboratory Results - last 24 hr 02/16/21 06:08 MCV 90.5 MCH 29.6 MCHC 32.7 RDW 13.7 Plt Count 433 H MPV 10.2 Absolute Nucleated RBC 0.000 Nucleated RBC % (auto) 0.0 Assessment and Plan (1) Hematemesis: Status: Acute (2) Nausea & vomiting: Status: Acute Assessment and Plan: 35-year-old female with a past medical history of anxiety, depression, bipolar disorder, ESTEVAN, question diabetes, history of urinary incontinence/UTIs presented to the hospital today with a chief complaint of tongue swelling/shortness of breath after taking initial dose of Bactrim DS. Continues to have mid epigastric pain worse after eating which is not new 1. Query allergic reaction to back room Symptoms resolved spontaneously after dose of Pepcid and prednisone. Given GI upset no further steroids were given. Follow-up clinically 2. Hematemesis by history Will continue IV PPI/Pepcid. No further vomiting noted Continues with diffuse abdominal pain; limited imaging thus far. Continue current therapies and check CT scan of the abdomen with IV contrast 3. Anxiety/depression/bipolar Continue outpatient therapies included bupropion, Buspar, risperidone. DVT prophylaxis: Lovenox Code status: Full code Quality Stroke Does the patient have a stroke diagnosis?: No VTE Prior VTE?: No VTE Risk Level:: Medical - moderate - high VTE Device Contraindication: Treatment Not Indicated VTE Drug Contraindication: N/A - Med Ordered
[2021-02-16] MEDS: Morphine Sulfate 2 MG/ML CARTRIDGE IVPUSH ×2 (16:18→20:19)
[2021-02-16] MEDS: iohexoL 350 MG/ML 100 ML INFUS..BTL IV (17:13)
[2021-02-16] MEDS: risperiDONE 1 MG TABLET PO (20:20)
[2021-02-16] MEDS: risperiDONE 0.5 MG TABLET PO (20:20)
[2021-02-17] VITALS (7 sets, daily range): BP systolic 104–119; BP diastolic 57–75; PULSE 60–85; RESP 18–20; TEMP 36.1–36.6; O2SAT 95–99
[2021-02-17] MEDS: Pantoprazole Sodium 40 MG/10 ML VIAL IVPUSH (05:47)
[2021-02-17] MEDS: Magnesium Hydrox/Alum Hydrox 30 ML ORAL.SUSP PO (06:44)
[2021-02-17 07:01] LABS: MANUAL DIFF FLAG NO
[2021-02-17 07:11] LABS: Basophils Percent Auto 0.2 % (0-2); Eosinophils Percent Auto 0.4 % (0-4); Hematocrit 36.7 % (37.0-47.0); Hemoglobin 11.9 g/dl (12.0-16.0); Imm Gran Abs Auto 0.03 X10*3/uL (0.00-0.03); Imm Gran Pct Auto 0.3 % (0.0-0.4); Lymphocytes Absolute Auto 4.2 X10*3/uL (1.2-4.9); Lymphocytes Percent Auto 41.9 % (20-40); Mean Corpuscular HGB Conc 32.4 g/dl (31.0-35.0); Mean Corpuscular Hemoglobin 29.7 pg (27.0-33.0); Mean Corpuscular Volume 91.5 fL (80.0-98.0); Monocytes Absolute Auto 0.6 X10*3/uL (0.1-1.2); Neutrophils Absolute Auto 5.1 x10*3/uL (2.0-8.3); Neutrophils Percent Auto 51.2 % (45-73); Platelet Count 390 X10*3/uL (160-400); Red Blood Count 4.01 X10*6/uL (4.20-5.50); Red Cell Distribution Width 13.8 % (11.0-16.0)
[2021-02-17] MEDS: Fluticasone Propionate 100 MCG BLST.W.DEV 1 PUFF INHALE (07:31)
[2021-02-17 07:41] LABS: Alanine Aminotransferase 56 U/L (0-31); Albumin Level 3.8 g/dL (3.5-5.0); Alkaline Phosphatase 67 U/L (39-117); Anion Gap 15 (12-20); Aspartate Amino Transferase 27 U/L (5-31); Bilirubin Total 0.2 mg/dL (0.0-1.0); Blood Urea Nitrogen 11 mg/dL (9-16); Calcium 8.7 mg/dL (8.4-10.2); Carbon Dioxide 25 mmol/L (22-29); Chloride 105 mmol/L (96-108); Creatinine Clr Calc Pharmacy 86.5; Estimated Glomerular Filt Rate > 60; Glucose Fasting 116 mg/dL (60-99); Potassium 3.5 mmol/L (3.3-5.1); Sodium 141 mmol/L (135-145); Total Protein 6.7 g/dL (6.5-8.0)
[2021-02-17] MEDS: Dicyclomine HCl 10 MG CAPSULE 20 MG PO ×3 (08:27→20:14)
[2021-02-17] MEDS: Enoxaparin Sodium 40 MG/0.4 ML SYRINGE SUBCUT (08:27)
[2021-02-17] MEDS: Famotidine/PF 20 MG/2 ML VIAL IVPUSH ×2 (08:27→20:15)
[2021-02-17] MEDS: buPROPion HCL 100 MG TABLET 200 MG PO ×2 (08:28→20:14)
[2021-02-17] MEDS: Loratadine 10 MG TABLET PO (08:28)
[2021-02-17] MEDS: risperiDONE 0.25 MG TABLET PO (08:28)
[2021-02-17] MEDS: busPIRone HCl 10 MG TABLET PO (08:28)
[2021-02-17] MEDS: Cholecalciferol (Vitamin D3) 25 MCG TABLET 50 MCG PO (08:28)
[2021-02-17] MEDS: 0.9 % Sodium Chloride Flush 3 ML SYRINGE IVFLUSH ×3 (08:29→20:15)
--- NOTE | 2021-02-17 13:11 | HO.PM.IMPN ---
Subjective Subjective Date of Service: 02/17/21 Interval History: Still with mid epigastric pain whenever p.o. intake Review of Systems Denies chest pain Denies shortness of breath States nausea vomiting no diarrhea Physical Exam Vital Signs: Vital Signs: Last Vital Signs Temp 97.6 F 02/17/21 12:00 Pulse 62 02/17/21 12:00 Resp 18 02/17/21 12:00 BP 108/60 02/17/21 12:00 Pulse Ox 95 02/17/21 12:00 Body Mass Index 37.3 Const: Other: Awake alert uncomfortable due to abdominal pain Resp: Other: Clear to auscultation bilaterally no rales rhonchi wheezes Cardio: Other: No S4; positive S1-S2; no S3 murmurs or gallops GI: Other: Mild diffuse mid epigastric tenderness without rebound Extrem: Other: No edema bilaterally Objective Data Active Medications Acetaminophen (Acetaminophen 325 Mg Tablet) 650 mg PO Q6H PRN PRN Reason: Pain, Mild (Pain Scale 1-3) Al Hydroxide/Mg Hydroxide (Magnesium Hydrox/Alum Hydrox 30 Ml Oral.Susp) 30 ml PO Q4H PRN PRN Reason: stomach upset Last Admin: 02/17/21 06:44 Dose: 30 ml Documented by: ANA Bupropion HCl (Bupropion Hcl 100 Mg Tablet) 200 mg PO BID [facility] Last Admin: 02/17/21 08:28 Dose: 200 mg Documented by: PAU Buspirone HCl (Buspirone Hcl 10 Mg Tablet) 10 mg PO DAILY [facility] Last Admin: 02/17/21 08:28 Dose: 10 mg Documented by: PAU Dicyclomine HCl (Dicyclomine Hcl 10 Mg Capsule) 20 mg PO QIDACHS [facility] Last Admin: 02/17/21 11:34 Dose: Not Given Documented by: DONNIE Non-Admin Reason: Patient Refused Diphenhydramine HCl (Diphenhydramine Hcl 50 Mg/Ml Vial) 25 mg IVPUSH Q6H PRN PRN Reason: Allergic Reaction Enoxaparin Sodium (Enoxaparin Sodium 40 Mg/0.4 Ml Syringe) 40 mg SUBCUT Q24H [facility] Last Admin: 02/17/21 08:27 Dose: 40 mg Documented by: PAU Famotidine (Famotidine/Pf 20 Mg/2 Ml Vial) 20 mg IVPUSH BID [facility] Last Admin: 02/17/21 08:27 Dose: 20 mg Documented by: PAU Fluticasone Propionate (Fluticasone Propionate 100 Mcg Blst.W.Dev) 1 puff INHALE DAILY [facility] Last Admin: 02/17/21 07:31 Dose: 1 puff Documented by: ANTOINETTE Loratadine (Loratadine 10 Mg Tablet) 10 mg PO DAILY [facility] Last Admin: 02/17/21 08:28 Dose: 10 mg Documented by: PAU Melatonin (Melatonin 3 Mg Tablet) 6 mg PO BEDTIME PRN PRN Reason: Insomnia Morphine Sulfate (Morphine Sulfate 2 Mg/Ml Cartridge) 2 mg IVPUSH Q4H PRN; Protocol PRN Reason: Pain, Moderate (Pain Scale 4-6 Last Admin: 02/16/21 20:19 Dose: 2 mg Documented by: GENEVIEVE Ondansetron HCl (Ondansetron Hcl 4 Mg/2 Ml Vial) 4 mg IVPUSH Q4H PRN PRN Reason: Nausea and Vomiting Pantoprazole Sodium (Pantoprazole Sodium 40 Mg/10 Ml Vial) 40 mg IVPUSH DAILY@0630 [facility] Last Admin: 02/17/21 05:47 Dose: 40 mg Documented by: ANA Pharmacy Consult (Consult Rx Perform Med Rec) 1 each MISCELLANE ONCE PRN PRN Reason: Consult order Risperidone (Risperidone 0.5 Mg Tablet) 0.5 mg PO BEDTIME [facility] Last Admin: 02/16/21 20:20 Dose: 0.5 mg Documented by: GENEVIEVE Risperidone (Risperidone 1 Mg Tablet) 1 mg PO BEDTIME [facility] Last Admin: 02/16/21 20:20 Dose: 1 mg Documented by: GENEVIEVE Risperidone (Risperidone 0.25 Mg Tablet) 0.25 mg PO DAILY [facility] Last Admin: 02/17/21 08:29 Dose: Not Given Documented by: PAU Non-Admin Reason: duplicate Risperidone (Risperidone 0.25 Mg Tablet) 0.25 mg PO DAILY [facility] Last Admin: 02/17/21 08:28 Dose: 0.25 mg Documented by: PAU Senna (Sennosides 8.6 Mg Tablet) 17.2 mg PO BEDTIME PRN PRN Reason: Constipation Last Admin: 02/16/21 11:55 Dose: 17.2 mg Documented by: DORENE Sodium Chloride (0.9 % Sodium Chloride Flush 3 Ml Syringe) 3 ml IVFLUSH QSHIFT [facility] Last Admin: 02/17/21 08:29 Dose: 3 ml Documented by: PAU Vitamin D (Cholecalciferol (Vitamin D3) 25 Mcg Tablet) 50 mcg PO DAILY [facility] Last Admin: 02/17/21 08:28 Dose: 50 mcg Documented by: PAU Labs CBC & Chem 7: 02/17/21 06:38 02/17/21 06:38 Labs: Laboratory Results - last 24 hr 02/17/21 02/17/21 06:38 06:38 MCV 91.5 MCH 29.7 MCHC 32.4 RDW 13.8 Plt Count 390 MPV 10.0 Immature Gran % (Auto) 0.3 Neut % (Auto) 51.2 Lymph % (Auto) 41.9 H [place] % (Auto) 6.0 Eos % (Auto) 0.4 Baso % (Auto) 0.2 Lymph # (Auto) 4.2 [place] # (Auto) 0.6 Eos # (Auto) 0.0 Baso # (Auto) 0.0 Abs Immat Gran (auto) 0.03 Absolute Neuts (auto) 5.1 Absolute Nucleated RBC 0.000 Nucleated RBC % (auto) 0.0 Anion Gap 15 Estim Creat Clear Calc 86.5 Estimated GFR > 60 Fasting Glucose 116 H Calcium 8.7 Total Bilirubin 0.2 AST 27 ALT 56 H Alkaline Phosphatase 67 D Total Protein 6.7 Albumin 3.8 Assessment and Plan (1) Hematemesis: Status: Acute (2) Abdominal pain: Status: Acute Assessment and Plan: 35-year-old female with a past medical history of anxiety, depression, bipolar disorder, ESTEVAN, question diabetes, history of urinary incontinence/UTIs presented to the hospital today with a chief complaint of tongue swelling/shortness of breath after taking initial dose of Bactrim DS. Continues to have mid epigastric pain worse after eating which is not new 1. Query allergic reaction to back room Symptoms resolved spontaneously after dose of Pepcid and prednisone. Given GI upset no further steroids were given. Follow-up clinically 2. Hematemesis /abdominal pain with oral intake Will continue IV PPI/Pepcid. Continues with diffuse abdominal pain; CT scan negative for acute pathology Will discuss EGD which GI in a.m. 3. Anxiety/depression/bipolar Continue outpatient therapies included bupropion, Buspar, risperidone. DVT prophylaxis: Lovenox Code status: Full code Quality Stroke Does the patient have a stroke diagnosis?: No VTE Prior VTE?: No VTE Risk Level:: Medical - moderate - high VTE Device Contraindication: Treatment Not Indicated VTE Drug Contraindication: N/A - Med Ordered
[2021-02-17] MEDS: Dextrose 5 % and 0.45 % NaCl 1,000 ML 125 ML IVCONT ×2 (13:39→23:13)
[2021-02-17] MEDS: Sucralfate Oral Suspension 1 GM/10 ML ORAL.SUSP PO (18:05)
[2021-02-17] MEDS: risperiDONE 0.5 MG TABLET PO (20:15)
[2021-02-17] MEDS: risperiDONE 1 MG TABLET PO (20:15)
[2021-02-17] MEDS: oxyCODONE HCl Immed Release 5 MG TABLET PO (23:13)
[2021-02-18 03:24] VITALS: BP 100/64; PULSE 89; RESP 20; TEMP 36.1; O2SAT 99
[2021-02-18] MEDS: Pantoprazole Sodium 40 MG/10 ML VIAL IVPUSH (06:25)
[2021-02-18] MEDS: Dextrose 5 % and 0.45 % NaCl 1,000 ML 125 ML IVCONT (06:26)
[2021-02-18 06:55] LABS: MANUAL DIFF FLAG NO
[2021-02-18 07:01] LABS: Basophils Percent Auto 0.2 % (0-2); Eosinophils Absolute Auto 0.1 X10*3/uL (0.0-0.4); Eosinophils Percent Auto 0.6 % (0-4); Hemoglobin 11.2 g/dl (12.0-16.0); Imm Gran Abs Auto 0.04 X10*3/uL (0.00-0.03); Imm Gran Pct Auto 0.4 % (0.0-0.4); Lymphocytes Percent Auto 28.8 % (20-40); Mean Corpuscular HGB Conc 32.9 g/dl (31.0-35.0); Mean Corpuscular Hemoglobin 29.8 pg (27.0-33.0); Mean Corpuscular Volume 90.4 fL (80.0-98.0); Mean Platelet Volume 10.1 fL (9.4-12.3); Monocytes Absolute Auto 0.6 X10*3/uL (0.1-1.2); Monocytes Percent Auto 5.8 % (2-11); Neutrophils Absolute Auto 6.6 x10*3/uL (2.0-8.3); Neutrophils Percent Auto 64.2 % (45-73); Platelet Count 353 X10*3/uL (160-400); Red Blood Count 3.76 X10*6/uL (4.20-5.50); Red Cell Distribution Width 13.7 % (11.0-16.0); White Blood Count 10.3 X10*3/uL (4.8-10.8)
[2021-02-18 07:13] LABS: Alanine Aminotransferase 51 U/L (0-31); Albumin Level 3.5 g/dL (3.5-5.0); Alkaline Phosphatase 65 U/L (39-117); Anion Gap 11 (12-20); Aspartate Amino Transferase 26 U/L (5-31); Bilirubin Total 0.4 mg/dL (0.0-1.0); Blood Urea Nitrogen 7 mg/dL (9-16); Calcium 8.4 mg/dL (8.4-10.2); Carbon Dioxide 25 mmol/L (22-29); Chloride 103 mmol/L (96-108); Creatinine Clr Calc Pharmacy 101.7; Estimated Glomerular Filt Rate > 60; Glucose Fasting 140 mg/dL (60-99); Potassium 3.4 mmol/L (3.3-5.1); Sodium 136 mmol/L (135-145); Total Protein 6.2 g/dL (6.5-8.0)
[2021-02-18 07:37] VITALS: BP 112/68; PULSE 85; RESP 20; TEMP 36.4; O2SAT 97
[2021-02-18] MEDS: Cholecalciferol (Vitamin D3) 25 MCG TABLET 50 MCG PO (08:02)
[2021-02-18] MEDS: Dicyclomine HCl 10 MG CAPSULE 20 MG PO ×2 (08:02→13:00)
[2021-02-18] MEDS: busPIRone HCl 10 MG TABLET PO (08:02)
[2021-02-18] MEDS: risperiDONE 0.25 MG TABLET PO (08:02)
[2021-02-18] MEDS: Enoxaparin Sodium 40 MG/0.4 ML SYRINGE SUBCUT (08:03)
[2021-02-18] MEDS: Famotidine/PF 20 MG/2 ML VIAL IVPUSH (08:03)
[2021-02-18] MEDS: 0.9 % Sodium Chloride Flush 3 ML SYRINGE IVFLUSH (08:03)
[2021-02-18] MEDS: buPROPion HCL 100 MG TABLET 200 MG PO (08:03)
[2021-02-18] MEDS: Loratadine 10 MG TABLET PO (08:03)
[2021-02-18] MEDS: Fluticasone Propionate 100 MCG BLST.W.DEV 1 PUFF INHALE (08:06)
[2021-02-18 08:09] VITALS: PULSE 111; O2SAT 98
[2021-02-18 12:00] VITALS: BP 145/86; PULSE 82; RESP 18; TEMP 36.4; O2SAT 98
--- NOTE | 2021-02-18 12:18 | MHC.CM.PN ---
Patient is not yet medically cleared for dc (c/o epigastic pain with PO/IV Pepcid required today).Home with [facility] is the goal for dc and CM will follow for possible need to adjust the dc plan.
[2021-02-18 15:34] VITALS: BP 145/64; PULSE 91; RESP 20; TEMP 36.1; O2SAT 97
--- NOTE | 2021-02-18 15:53 | P.DS_ITS ---
DS: Providers Provider Date of Service: 02/18/21 Date of admission: 02/15/21 02:53 Date of discharge: 02/18/21 Primary care physician: Chantale Scott MD Consults: 02/15/21 02:56 Consult to Gastroenterology Routine Consulting Provider: Marlon Bledsoe Reason for consultation: Blood in vomitus DS: Diagnosis Discharge Diagnosis (1) Hematemesis: Status: Acute (2) Abdominal pain: Status: Acute DS: Summary Hospital Course Hospital Course: 35-year-old female with a past medical history of anxiety, depression, bipolar disorder, ESTEVAN, question diabetes, history of urinary incontinence/UTIs presented to the hospital today with a chief complaint of tongue swelling/shortness of breath after taking initial dose of Bactrim DS.? Continues to have mid epigastric pain worse after eating which is not new. Hospital course patient was admitted to hospital started on a brief course of IV steroids for presumed tongue swelling. Predominant problem was mid epigastric pain that was worse after eating. seen in consultation by Dr. Herrera (GI) who felt the patient did not need further imaging as she was chest scope 3 months ago. He recommended continuation of IV Protonix IV Pepcid and Zofran and outpatient follow-up with patient's private GI. Patient's pain continued despite these conservative therapies; CT scan of the abdomen was done which fail to demonstrate any acute pathology which could account for the patient's pain. She was also seen in consultation by coverage who again felt the given the GI workup within the last 3 months is unlikely to find any acute pathology. Patient continued to complain of similar complaints however they did improve. At this point in time will send her home with omeprazole, Pepcid, Zofran, and short script oxycodone. She will follow-up with her prior GI Time Spent with Patient Time attestation: Total time spent providing and/or coordinating discharge services: Discharge coordination time: Greater than 30 minutes Quality: Stroke Does the patient have a stroke diagnosis?: No Physical Exam Vital Signs: Vital Signs: Last Vital Signs Temp 96.9 F 02/18/21 15:34 Pulse 91 02/18/21 15:34 Resp 20 02/18/21 15:34 BP 145/64 H 02/18/21 15:34 Pulse Ox 97 02/18/21 15:34 Body Mass Index 37.3 Const: Other: Awake alert uncomfortable due to abdominal pain Resp: Other: Clear to auscultation bilaterally no rales rhonchi wheezes Cardio: Other: No S4; positive S1-S2; no S3 murmurs or gallops GI: Other: Mild diffuse mid epigastric tenderness without rebound Extrem: Other: No edema bilaterally DS: Data Data Completed and Pending Labs on day of discharge: Laboratory Results - last 24 hr 02/18/21 02/18/21 06:22 06:22 WBC 10.3 RBC 3.76 L Hgb 11.2 L Hct 34.0 L MCV 90.4 MCH 29.8 MCHC 32.9 RDW 13.7 Plt Count 353 MPV 10.1 Immature Gran % (Auto) 0.4 Neut % (Auto) 64.2 Lymph % (Auto) 28.8 [place] % (Auto) 5.8 Eos % (Auto) 0.6 Baso % (Auto) 0.2 Lymph # (Auto) 3.0 [place] # (Auto) 0.6 Eos # (Auto) 0.1 Baso # (Auto) 0.0 Abs Immat Gran (auto) 0.04 H Absolute Neuts (auto) 6.6 Absolute Nucleated RBC 0.000 Nucleated RBC % (auto) 0.0 Sodium 136 Potassium 3.4 Chloride 103 Carbon Dioxide 25 Anion Gap 11 L BUN 7 L Creatinine 0.68 Estim Creat Clear Calc 101.7 Estimated GFR > 60 Fasting Glucose 140 H Calcium 8.4 Total Bilirubin 0.4 AST 26 ALT 51 H Alkaline Phosphatase 65 Total Protein 6.2 L Albumin 3.5 Discharge Plan Discharge Patient Disposition: Home, Self-Care Discharge Diagnosis: abdominal pain Referrals: Daniel [Outside] - 1 Week Chantale Scott MD [Primary Care Provider] - 1 Week Discharge Medications: New famotidine [Pepcid] 40 mg tablet 40 mg PO BEDTIME Qty: 30 RF: 2 omeprazole 40 mg capsule,delayed release(DR/EC) 40 mg PO DAILY Qty: 30 RF: 0 ondansetron HCl [Zofran] 4 mg tablet 4 mg PO TID PRN (Reason: nausea and vomiting) 5 Days Qty: 15 RF: 0 oxycodone 10 mg tablet 10 mg PO TID PRN (Reason: pain) Qty: 20 RF: 0 Continued Flovent Diskus 100 mcg/actuation blister with device 1 inh inhalation DAILY RF: 0 buspirone 10 mg tablet 1 tab PO DAILY RF: 0 risperidone 1 mg tablet 1 mg PO BEDTIME RF: 0 colestipol 1 gram tablet 1 tab PO DAILY RF: 0 risperidone 0.5 mg tablet 0.5 mg PO BEDTIME RF: 0 bupropion HCl 200 mg tablet sustained-release 12 hr 1 tab PO BID RF: 0 cholecalciferol (vitamin D3) [Vitamin D3] 50 mcg (2,000 unit) tablet 1 tab PO DAILY RF: 0 ergocalciferol (vitamin D2) 50 mcg (2,000 unit) tablet 1 tab PO DAILY RF: 0 pantoprazole 40 mg tablet,delayed release (DR/EC) 1 tab PO DAILY RF: 0 loratadine 10 mg tablet 1 tab PO DAILY RF: 0 risperidone 0.5 mg tablet 0.25 mg PO DAILY RF: 0 Discharge Orders: Discharge Order (Routine); Ordered 02/18/21 Ordered By: Peter Fuentes Diet: advance to usual diet Activity on Discharge: As tolerated Stand Alone Forms: Patient Portal Discharge page Care Plan Goals: meds as ordered Health Concerns: follow-up with GI as scheduled Plan of Treatment: Pepcid, omeprazole, Zofran Assessment: dyspepsia
--- NOTE | 2021-02-18 15:57 | MHC.CM.PN ---
Patient has been medically cleared for dc to home today, with services. A referral was made to [facility], who has been made aware of today's dc.
--- NOTE | 2021-02-18 16:06 | MHC.CM.PN ---
CORRECTION- Patient is going home with [facility], NOT [facility].
--- NOTE | 2021-02-18 16:17 | W.MHC.F2F ---
Service Date Service Date: 02/18/21 Encounter Date of encounter: 02/18/21 Encounter: admission for abdominal pain and vomiting Reasons for Services Signs and symptoms assessed: patient with intractable abdominal pain with nausea and vomiting; unable to leave home Homebound: Leaving the home is medically contraindicated at this time without the asist of a device and/or another person due th the listed conditions above and below. Certification: Based on the above findings, I certify that this patient is confined to the home and needs intermittent prison care, physical therapy and/or speech therapy, or continues to need occupational therapy. The patient is under my care, and I have initiated the establishment of the plan of care. The patient will be followed by a physician who will periodically review the plan of care.
== END 2021-02-18 16:00 | disposition home health service (06) ==
LOC: HO.ED 02-15 03:10 → HO.EDOVER 02-15 03:28 → HO.IMC 02-15 20:33
PROVIDERS: Nurse Practitioner Acute Care; Admitting Provider Hospitalist; Emergency Provider Emergency Medicine; PCP Internal Medicine; Visit Provider Hospitalist
DX: K92.0 Hematemesis (principal); R10.9 Unspecified abdominal pain; K21.9 Gastro-esophageal reflux disease without esophagitis; K76.0 Fatty (change of) liver, not elsewhere classified; R74.01 Elevation of levels of liver transaminase levels; R22.0 Localized swelling, mass and lump, head; T36.1X5A Adverse effect of cephalosporins and other beta-lactam antibiotics, initial encounter; Y92.9 Unspecified place or not applicable; F17.210 Nicotine dependence, cigarettes, uncomplicated; Z20.822 Contact with and (suspected) exposure to COVID-19; Z90.710 Acquired absence of both cervix and uterus; Z88.1 Allergy status to other antibiotic agents; Z91.010 Allergy to peanuts
CPT/HCPCS: 36415; 74018; 74177; 80048; 80053; 81003; 81025; 83036; 83690; 85025; 85027; 87635; 96361; 96372; 96374; 96375; 96376; 99219; 99285; J1170; J1200; J1650; J2270; J2930; Q9967

== ENCOUNTER 2021-12-12 09:10 | Emergency (ER) | payer OTHER, SELFPAY ==
--- NOTE | ~2021-12-12 | XR_ITS ---
EXAMINATION: XR CHEST CLINICAL INFORMATION: Shortness of breath. COMPARISON: September 15, 2020. TECHNIQUE: 2 views of the chest were obtained. FINDINGS: No significant abnormality is noted involving the heart, lungs, mediastinum, bony thorax or soft tissues. XR/XR chest 2V IMPRESSION: Unremarkable examination.
[2021-12-12 09:16] VITALS: BP 135/78; PULSE 91; RESP 20; O2SAT 98; BMI 38.4
--- NOTE | 2021-12-12 10:12 | ED.URI ---
HPI - URI/Sore Throat General Chief Complaint: Upper Respiratory Symptoms Stated Complaint: Cough/SOB/Headache Time Seen by Provider: 12/12/21 10:11 Source: patient Mode of arrival: ambulatory Limitations: no limitations History of Present Illness HPI Narrative: 36 yo female with history of asthma, anxiety, depression, bipolar disorder, ESTEVAN, urinary incontinence who presents to the ER for evaluation of cough and SOB for the last 6 days. She reports 8 days ago she was exposed to RSV when she babysat her friend's child. She has developed symptoms 2 days later. Her symptoms included dry cough that has progressed to the point where she is not sleeping well at night. She has been using her albuterol nebulizers and her prescribed inhalers for her asthma with minimal relief. She has not tried any [id number] antitussives. She denies any fever or chills. No chest pain or difficulty breathing. She reports when she has a coughing fit it is hard for her to catch her breath at times. MD elicited complaint: cough Pertinent past history: asthma Onset (ago): day(s) (6) Consistency: intermittent and progressively worsening Severity: moderate Able to tolerate fluids by mouth: Yes Exacerbating factors: supine positioning Relieving factors: nothing Context: sick contacts Associated symptoms: cough and shortness of breath Treatments prior to arrival: none Related Data Home Medications Medication Instructions Recorded Confirmed bupropion HCl 200 mg tablet,12 hr 1 tab PO BID 02/15/21 02/15/21 sustained-release buspirone 10 mg tablet 1 tab PO DAILY 02/15/21 02/15/21 cholecalciferol (vitamin D3) 50 1 tab PO DAILY 02/15/21 02/15/21 mcg (2,000 unit) tablet (Vitamin D3) colestipol 1 gram tablet 1 tab PO DAILY 02/15/21 02/15/21 ergocalciferol (vitamin D2) 50 mcg 1 tab PO DAILY 02/15/21 02/15/21 (2,000 unit) tablet fluticasone propionate 100 1 inh inhalation DAILY 02/15/21 02/15/21 mcg/actuation blister powder for inhalation (Flovent Diskus) loratadine 10 mg tablet 1 tab PO DAILY 02/15/21 02/15/21 pantoprazole 40 mg tablet,delayed 1 tab PO DAILY 02/15/21 02/15/21 release risperidone 0.5 mg tablet 0.25 mg PO DAILY 02/15/21 02/15/21 risperidone 0.5 mg tablet 0.5 mg PO BEDTIME 02/15/21 02/15/21 risperidone 1 mg tablet 1 mg PO BEDTIME 02/15/21 02/15/21 Previous Rx's Medication Instructions Recorded famotidine 40 mg tablet (Pepcid) 40 mg PO BEDTIME #30 tabs 02/18/21 omeprazole 40 mg capsule,delayed 40 mg PO DAILY #30 caps 02/18/21 release ondansetron HCl 4 mg tablet 4 mg PO TID PRN nausea and 02/18/21 (Zofran) vomiting 5 days #15 tabs oxycodone 10 mg tablet 10 mg PO TID PRN pain #20 tabs 02/18/21 benzonatate 200 mg capsule 200 mg PO TID PRN cough #30 caps 12/12/21 hydrocodone-homatropine 5 mg-1.5 5 ml PO Q6H PRN cough #60 mL 12/12/21 mg/5 mL (5 mL) oral syrup (Hycodan) prednisone 20 mg tablet 40 mg PO DAILY #10 tabs 12/12/21 Allergies Allergy/AdvReac Type Severity Reaction Status Date / Time peanut [PEANUT] Allergy Severe ANAPHYLAXIS Verified 09/14/20 21:19 cefpodoxime Allergy Swelling Verified 02/15/21 03:18 Review of Systems Review of Systems: Constitutional: No Fever, No Chills ENT/Mouth: No sore throat, No Rhinorrhea Cardiovascular: No Chest Pain, No SOB Respiratory: +Cough, No Sputum, + Wheezing, + dyspnea Gastrointestinal: No Nausea, No Vomiting, No Diarrhea, No abdominal Pain Musculoskeletal: No joint pain, No Myalgias Skin: No Skin Lesions, No rash Neuro: No Weakness, No Numbness, No Dizziness, No Headache Psych: + Anxiety/Panic, No Depression Heme/Lymph: No Bruising, No Lymphadenopathy PMFSH Past Medical History Medical History Asthma Bipolar 1 disorder Depression Diabetes Social History Social History Household Members: Spouse and Other Household Members Other:: dogs Housing: House Alcohol intake: unknown Patient Tobacco Use Status: Current everyday Tobacco user Substance Use Type: Marijuana Advance Directives: Yes Advance Directives on File: Yes Advance Directives Date on File: 02/15/21 service: No Current occupational status: disabled Physical Exam Vital Signs: Vital Signs: Last Vital Signs Pulse 91 12/12/21 09:16 Resp 20 12/12/21 09:16 BP 135/78 12/12/21 09:16 Pulse Ox 98 12/12/21 09:16 O2 Del Method 12/12/21 09:16 BMI result Body Mass Index 38.4 Appearance: Alert. Oriented X3. No acute distress. Eyes: Pupils equal, round and reactive to light. ENT: Pharynx normal. Neck: Normal inspection. Neck supple. CVS: Normal heart rate and rhythm. Pulses normal. Respiratory: No respiratory distress. Dry hacking cough. Breath sounds are slightly coarse bilaterally with good air entry. No expiratory or inspiratory wheezes. upper airway with some forced end expiratory adventitious sounds, no stridor, speaking complete sentences Abdomen: Soft and nontender. +BS x4 Skin: Skin warm and dry. Normal skin color. Normal skin turgor. No rashes. Extremities: No lower extremity edema. No calf tenderness. Neuro: Oriented X 3. nonfocal Course Course Course Narrative: 28-year-old female with history of bipolar, asthma, anxiety, depression, incontinence who presents to the ER for evaluation cough and shortness of breath for the last 6 days after known exposure to RSV. She has been using her nebulizers at home with minimal relief. She states she is not sleeping because of the cough. She denies any fever or chills. No sputum production, no chest pain. On arrival to the ER patient's afebrile with normal SpO2. Her lungs are slightly coarse but without expiratory wheezes. She has a dry hacking cough with some upper airway adventitious sounds and forced upper airway wheezing. No stridor. She is able to speak in complete sentences. Her symptoms are most likely due to RSV. She is negative for COVID at home. Chest x-ray today does not show any evidence of pneumonia. Will start her on prednisone and antitussives. She will continue to use her albuterol nebulizers while she is ill and experiencing shortness of breath. She was encourage follow-up with her primary care doctor. Return precautions were discussed. Stable for discharge home with outpatient follow-up. Critical Care Time Critical Care Time Critical Care Time: No Discharge Plan Discharge Clinical Impression: Viral infection Patient Disposition: Home, Self-Care Instructions: Respiratory Syncytial Virus (ED), Acute Bronchitis (ED) Additional Instructions: Your chest x-ray today did not show any evidence of pneumonia. Your oxygen levels were normal. Continue using your albuterol nebulizer treatments at home, every 4-6 hours as needed for wheezing or shortness of breath. Start taking the prescribed prednisone as directed - start tomorrow, you were given 1st dose in the ER today Take the prescribed cough medication as needed - do not drive after taking the cough syrup, it has a narcotic in it that can make you sleepy Follow up with your doctor this week. If you develop new or worsening symptoms call 911 or come back to the ER for further evaluation. Prescriptions: New prednisone 20 mg tablet 40 mg PO DAILY Qty: 10 0RF hydrocodone-homatropine [Hycodan] 5-1.5 mg/5 mL (5 mL) syrup 5 ml PO Q6H PRN (Reason: cough) Qty: 60 0RF Rx Instructions: Partial Fill upon patient request. benzonatate 200 mg capsule 200 mg PO TID PRN (Reason: cough) Qty: 30 0RF No Action Flovent Diskus 100 mcg/actuation blister with device 1 inh inhalation DAILY buspirone 10 mg tablet 1 tab PO DAILY risperidone 1 mg tablet 1 mg PO BEDTIME colestipol 1 gram tablet 1 tab PO DAILY risperidone 0.5 mg tablet 0.5 mg PO BEDTIME bupropion HCl 200 mg tablet sustained-release 12 hr 1 tab PO BID cholecalciferol (vitamin D3) [Vitamin D3] 50 mcg (2,000 unit) tablet 1 tab PO DAILY ergocalciferol (vitamin D2) 50 mcg (2,000 unit) tablet 1 tab PO DAILY pantoprazole 40 mg tablet,delayed release (DR/EC) 1 tab PO DAILY loratadine 10 mg tablet 1 tab PO DAILY risperidone 0.5 mg tablet 0.25 mg PO DAILY famotidine [Pepcid] 40 mg tablet 40 mg PO BEDTIME Qty: 30 2RF omeprazole 40 mg capsule,delayed release(DR/EC) 40 mg PO DAILY Qty: 30 0RF ondansetron HCl [Zofran] 4 mg tablet 4 mg PO TID PRN (Reason: nausea and vomiting) 5 Days Qty: 15 0RF oxycodone 10 mg tablet 10 mg PO TID PRN (Reason: pain) Qty: 20 0RF Referrals: Sakina Schaeffer MD [Primary Care Provider] - Stand Alone Forms: Work/School Release
[2021-12-12] MEDS: predniSONE 10 MG TABLET 50 MG PO (10:40)
[2021-12-12] MEDS: methylPREDNISolone Sod Succ 40 MG/ML VIAL IM (11:05)
[2021-12-12] MEDS: Ondansetron ODT 4 MG TAB.RAPDIS TRANSLINGU (11:05)
[2021-12-12] MEDS: guaiFEN/Codeine SF 200/20/10ML 10 ML LIQUID PO (11:21)
== END 2021-12-12 11:43 | disposition home or self-care (01) ==
PROVIDERS: Emergency Provider Emergency Medicine; PCP Internal Medicine
DX: B34.9 Viral infection, unspecified (principal); R06.02 Shortness of breath; E11.9 Type 2 diabetes mellitus without complications; J45.909 Unspecified asthma, uncomplicated; F17.200 Nicotine dependence, unspecified, uncomplicated; F12.90 Cannabis use, unspecified, uncomplicated; Z79.899 Other long term (current) drug therapy
CPT/HCPCS: 71046; 96372; 99283; 99284; J2920

== ENCOUNTER 2022-06-20 11:41 | Emergency (ER) | payer OTHER, SELFPAY ==
--- NOTE | ~2022-06-20 | XR_ITS ---
EXAMINATION: XR HIP, RIGHT CLINICAL INFORMATION: Right hip pain. COMPARISON: None available. TECHNIQUE: Two views of the right hip. FINDINGS: Bones and soft tissues are normal. No fracture. Alignment is anatomic. Hip joint space is maintained. XR/XR hip RT min 2V IMPRESSION: Unremarkable right hip.
--- NOTE | ~2022-06-20 | US_ITS ---
EXAMINATION: RIGHT LOWER EXTREMITY VENOUS ULTRASOUND CLINICAL INFORMATION: Pain. COMPARISON: None. TECHNIQUE: Doppler spectral analysis and color flow Doppler imaging was performed of the right lower extremity. Compression maneuvers were not performed in all areas secondary to patient discomfort. FINDINGS: The right common femoral, femoral, popliteal and calf veins demonstrate normal color fill-in. Venous flow appears somewhat slowed in the right greater saphenous vein. US/US venous duplex LE RT IMPRESSION: Somewhat limited exam. However, no evidence of deep vein thrombosis of the right lower extremity.
[2022-06-20 11:49] VITALS: BP 134/63; PULSE 94; O2SAT 100
[2022-06-20 12:03] VITALS: BP 136/79; PULSE 90; RESP 18; TEMP 36.8; O2SAT 97; BMI 38.4
--- NOTE | 2022-06-20 12:14 | ED.GENADULT ---
HPI - General Adult General Chief complaint: Arrhythmia/Palpitations Stated complaint: anxiety Time Seen by Provider: 06/20/22 11:57 Source: patient, family, RN notes reviewed and old records reviewed Mode of arrival: EMS Limitations: no limitations History of Present Illness HPI narrative: 36-year-old female past medical history significant for asthma, bipolar disorder, anxiety presents for evaluation of palpitations. Patient reports that her right leg has tingling for the last week with pain that starts in her hip radiates down the leg She reports that she had some tingling in her right leg again this morning as well as in her right hand. She states that she then began to feel like her heart was racing She did complain of some chest tightness has since resolved Denies any history of DVTs Denies any history of coronary artery disease No other complaints or concerns at this time. Related Data Home Medications Medication Instructions Recorded Confirmed bupropion HCl 200 mg tablet,12 hr 1 tab PO BID 02/15/21 02/15/21 sustained-release buspirone 10 mg tablet 1 tab PO DAILY 02/15/21 02/15/21 cholecalciferol (vitamin D3) 50 1 tab PO DAILY 02/15/21 02/15/21 mcg (2,000 unit) tablet (Vitamin D3) colestipol 1 gram tablet 1 tab PO DAILY 02/15/21 02/15/21 ergocalciferol (vitamin D2) 50 mcg 1 tab PO DAILY 02/15/21 02/15/21 (2,000 unit) tablet fluticasone propionate 100 1 inh inhalation DAILY 02/15/21 02/15/21 mcg/actuation blister powder for inhalation (Flovent Diskus) loratadine 10 mg tablet 1 tab PO DAILY 02/15/21 02/15/21 pantoprazole 40 mg tablet,delayed 1 tab PO DAILY 02/15/21 02/15/21 release risperidone 0.5 mg tablet 0.25 mg PO DAILY 02/15/21 02/15/21 risperidone 0.5 mg tablet 0.5 mg PO BEDTIME 02/15/21 02/15/21 risperidone 1 mg tablet 1 mg PO BEDTIME 02/15/21 02/15/21 Previous Rx's Medication Instructions Recorded famotidine 40 mg tablet (Pepcid) 40 mg PO BEDTIME #30 tabs 02/18/21 omeprazole 40 mg capsule,delayed 40 mg PO DAILY #30 caps 02/18/21 release ondansetron HCl 4 mg tablet 4 mg PO TID PRN nausea and 02/18/21 (Zofran) vomiting 5 days #15 tabs oxycodone 10 mg tablet 10 mg PO TID PRN pain #20 tabs 02/18/21 benzonatate 200 mg capsule 200 mg PO TID PRN cough #30 caps 12/12/21 hydrocodone-homatropine 5 mg-1.5 5 ml PO Q6H PRN cough #60 mL 12/12/21 mg/5 mL (5 mL) oral syrup (Hycodan) prednisone 20 mg tablet 40 mg PO DAILY #10 tabs 12/12/21 Allergies Allergy/AdvReac Type Severity Reaction Status Date / Time peanut [PEANUT] Allergy Severe ANAPHYLAXIS Verified 06/20/22 12:10 cefpodoxime Allergy Swelling Verified 06/20/22 12:10 Review of Systems Constitutional: Constitutional: Reports as per HPI, Denies chills, Denies fatigue, Denies fever(s) and Denies headache(s) ENT: Denies headache(s) Cardiovascular: Cardiovascular: Denies chest pain, Reports palpitations and Denies dyspnea Respiratory: Respiratory: Denies cough and Denies dyspnea Gastrointestinal: Gastrointestinal: Denies abdominal pain, Denies constipation and Denies vomiting Genitourinary: Genitourinary: Denies dysuria Neurologic: Denies headache(s) and Denies focal weakness Endocrine: Endocrine: Denies fatigue and Reports palpitations PMFSH Past Medical History Medical History Asthma Bipolar 1 disorder Depression Diabetes Social History Social History Household Members: Spouse and Other Household Members Other:: dogs Housing: House Alcohol intake: unknown Patient Tobacco Use Status: Current everyday Tobacco user Substance Use Type: Marijuana Advance Directives: Yes Advance Directives on File: Yes Advance Directives Date on File: 02/15/21 service: No Current occupational status: disabled Physical Exam ED Vital Signs: Vital Signs - 24 hr 06/20/22 12:03 Temperature 98.3 F Pulse Rate 90 Respiratory Rate 18 Blood Pressure 136/79 Pulse Oximetry 97 Oxygen Delivery Method Room Air BMI result Body Mass Index 38.4 Const General: healthy appearing, comfortable, no acute distress, alert and awake Nutritional Appearance: well nourished Orientation/consciousness: patient oriented x3 [facility] Head: Yes normocephalic and Yes atraumatic Throat: Yes posterior oropharynx normal Eyes Eyelids: Yes eyelids normal Conjunctivae: conjunctivae normal Sclerae: sclerae normal Corneas: corneas normal Pupils: Equal, round and reactive pupils present EOM: EOMs intact bilaterally Neck Neck: Yes full ROM Resp Effort & Inspection: normal respiratory effort, able to speak in complete sentences, no audible wheezes and not labored Auscultation: clear to auscultation bilaterally Cardio Rate: regular rate Rhythm: regular rhythm GI Inspection: No distended Palpation (GI): Soft to palpation, not firm, nontender, no guarding and not rigid Auscultation: normoactive bowel sounds Skin General skin exam: no rashes or lesions noted and elasticity normal Neuro General: patient oriented x3 Cranial nerves: Yes CN's II-XII intact bilaterally, Yes Equal, round and reactive pupils present and Yes Bilaterally intact EOM present Cognition (Neuro): normal cognition Extrem Other: Moving all extremities well without any obvious deformities. There is tenderness to palpation of the right hip. Straight leg raise negative bilaterally. No pedal edema Course Reevaluation(s) Reevaluation #1: Patient's vital signs within normal limits. She continues to complain of right hip numbness. EKG, labs, hip x-ray and ultrasound all negative for acute findings. Patient likely has bursitis on the right hip. Other symptoms likely attributed to anxiety. All this was discussed with the patient and she is stable for discharge. Her come pick her up Time: 14:25 Medical Decision Making Medical Decision Making MDM Narrative: 36-year-old female presents via EMS complaining of palpitations and numbness and tingling. This is most consistent with an anxiety attack. The patient's vital found the staple removal pain we will get an EKG, labs, ultrasound right lower extremity to evaluate for DVT. X-ray the right hip to evaluate for arthritis. This may be the cause of the patient's right hip pain that radiates down the leg. Differential Diagnosis Anxiety Panic disorder DVT Hip bursitis Cardiac arrhythmia PE less likely Lab Data 06/20/22 12:21 03/28/23 12:21 Labs: Lab Results 06/20/22 06/20/22 Range/Units 12:21 12:21 WBC 8.8 (4.8-10.8) X10*3/uL RBC 4.53 D (4.20-5.50) X10*6/uL Hgb 13.5 D (12.0-16.0) g/dl Hct 40.2 (37.0-47.0) % MCV 88.7 (80.0-98.0) fL MCH 29.8 (27.0-33.0) pg MCHC 33.6 (31.0-35.0) g/dl RDW 13.2 (11.0-16.0) % Plt Count 384 (160-400) X10*3/uL MPV 10.1 (9.4-12.3) fL Immature Gran % (Auto) 0.2 (0.0-0.4) % Neut % (Auto) 71.2 (45-73) % Lymph % (Auto) 22.3 (20-40) % [place] % (Auto) 5.5 (2-11) % Eos % (Auto) 0.6 (0-4) % Baso % (Auto) 0.2 (0-2) % Lymph # (Auto) 2.0 (1.2-4.9) X10*3/uL [place] # (Auto) 0.5 (0.1-1.2) X10*3/uL Eos # (Auto) 0.1 (0.0-0.4) X10*3/uL Baso # (Auto) 0.0 (0.0-0.2) X10*3/uL Abs Immat Gran (auto) 0.02 (0.00-0.03) X10*3/uL Absolute Neuts (auto) 6.3 (2.0-8.3) x10*3/uL Absolute Nucleated RBC 0.000 (0.0-0.012) X10*3/uL Nucleated RBC % (auto) 0.0 (0.0-0.2) /100WBC Sodium 141 (135-145) mmol/L Potassium 4.2 D (3.3-5.1) mmol/L Chloride 108 (96-108) mmol/L Carbon Dioxide 23 (22-29) mmol/L Anion Gap 14 (12-20) BUN 7 L (9-16) mg/dL Creatinine 0.84 (0.5-1.4) mg/dL Estim Creat Clear Calc 83.0 Estimated GFR > 60 Random Glucose 105 (60-115) mg/dL Calcium 9.3 D (8.4-10.2) mg/dL Discharge Plan Discharge Clinical Impression: Anxiety, Bursitis of hip, right Patient Disposition: Home, Self-Care Instructions: Hip Bursitis (ED) Additional Instructions: Your workup in the emergency department was reassuring. This includes her blood work, EKG, x-ray the right hip and ultrasound. Your pain and numbness to the right hip and leg is likely related to hip bursitis. Take ibuprofen 600 mg every 6 hours for the next 3 days to treat this Prescriptions: No Action Flovent Diskus 100 mcg/actuation blister with device 1 inh inhalation DAILY buspirone 10 mg tablet 1 tab PO DAILY risperidone 1 mg tablet 1 mg PO BEDTIME colestipol 1 gram tablet 1 tab PO DAILY risperidone 0.5 mg tablet 0.5 mg PO BEDTIME bupropion HCl 200 mg tablet sustained-release 12 hr 1 tab PO BID cholecalciferol (vitamin D3) [Vitamin D3] 50 mcg (2,000 unit) tablet 1 tab PO DAILY ergocalciferol (vitamin D2) 50 mcg (2,000 unit) tablet 1 tab PO DAILY pantoprazole 40 mg tablet,delayed release (DR/EC) 1 tab PO DAILY loratadine 10 mg tablet 1 tab PO DAILY risperidone 0.5 mg tablet 0.25 mg PO DAILY famotidine [Pepcid] 40 mg tablet 40 mg PO BEDTIME Qty: 30 2RF omeprazole 40 mg capsule,delayed release(DR/EC) 40 mg PO DAILY Qty: 30 0RF ondansetron HCl [Zofran] 4 mg tablet 4 mg PO TID PRN (Reason: nausea and vomiting) 5 Days Qty: 15 0RF oxycodone 10 mg tablet 10 mg PO TID PRN (Reason: pain) Qty: 20 0RF prednisone 20 mg tablet 40 mg PO DAILY Qty: 10 0RF hydrocodone-homatropine [Hycodan] 5-1.5 mg/5 mL (5 mL) syrup 5 ml PO Q6H PRN (Reason: cough) Qty: 60 0RF Rx Instructions: Partial Fill upon patient request. benzonatate 200 mg capsule 200 mg PO TID PRN (Reason: cough) Qty: 30 0RF
--- NOTE | 2022-06-20 12:15 | ECG_ITS ---
Test Reason : ARRYTHMIA Blood Pressure : / mmHG Vent. Rate : 080 BPM Atrial Rate : 080 BPM P-R Int : 128 ms QRS Dur : 074 ms QT Int : 408 ms P-R-T Axes : 057 068 038 degrees QTc Int : 470 ms Normal sinus rhythm Nonspecific T wave abnormality Abnormal ECG When compared with ECG of 20-OCT-2019 02:24, No significant change was found Referred By: Chidi Matute Electronically Signed By:MACHELLE PULIDO
[2022-06-20 12:25] LABS: MANUAL DIFF FLAG NO
[2022-06-20 12:28] LABS: Basophils Percent Auto 0.2 % (0-2); Eosinophils Absolute Auto 0.1 X10*3/uL (0.0-0.4); Eosinophils Percent Auto 0.6 % (0-4); Hematocrit 40.2 % (37.0-47.0); Hemoglobin 13.5 g/dl (12.0-16.0); Imm Gran Abs Auto 0.02 X10*3/uL (0.00-0.03); Imm Gran Pct Auto 0.2 % (0.0-0.4); Lymphocytes Percent Auto 22.3 % (20-40); Mean Corpuscular HGB Conc 33.6 g/dl (31.0-35.0); Mean Corpuscular Hemoglobin 29.8 pg (27.0-33.0); Mean Corpuscular Volume 88.7 fL (80.0-98.0); Mean Platelet Volume 10.1 fL (9.4-12.3); Monocytes Absolute Auto 0.5 X10*3/uL (0.1-1.2); Monocytes Percent Auto 5.5 % (2-11); Neutrophils Absolute Auto 6.3 x10*3/uL (2.0-8.3); Neutrophils Percent Auto 71.2 % (45-73); Platelet Count 384 X10*3/uL (160-400); Red Blood Count 4.53 X10*6/uL (4.20-5.50); Red Cell Distribution Width 13.2 % (11.0-16.0); White Blood Count 8.8 X10*3/uL (4.8-10.8)
[2022-06-20 12:45] LABS: Anion Gap 14 (12-20); Blood Urea Nitrogen 7 mg/dL (9-16); Calcium 9.3 mg/dL (8.4-10.2); Carbon Dioxide 23 mmol/L (22-29); Chloride 108 mmol/L (96-108); Estimated Glomerular Filt Rate > 60; Glucose Random 105 mg/dL (60-115); Potassium 4.2 mmol/L (3.3-5.1); Sodium 141 mmol/L (135-145)
[2022-06-20 14:50] VITALS: BP 121/80; PULSE 73; RESP 16; O2SAT 100
== END 2022-06-20 14:51 | disposition home or self-care (01) ==
PROVIDERS: Physician Assistant; Emergency Provider Emergency Medicine; PCP Internal Medicine
DX: F41.9 Anxiety disorder, unspecified (principal); M70.71 Other bursitis of hip, right hip; Z79.899 Other long term (current) drug therapy
CPT/HCPCS: 36415; 73502; 80048; 85025; 93005; 93971; 99283; 99284

== ENCOUNTER 2022-09-13 21:24 | Emergency (ER) | payer OTHER, SELFPAY ==
--- NOTE | ~2022-09-13 | XR_ITS ---
EXAMINATION: XR HAND, LEFT CLINICAL INFORMATION: Injury. COMPARISON: None available. TECHNIQUE: PA, lateral, and oblique views of the left hand. FINDINGS: The bones and soft tissues are normal. No fracture. Alignment is anatomic. Joint spaces are maintained. No erosions or soft tissue calcifications. XR/XR hand LT 2V IMPRESSION: Normal left hand.
[2022-09-13 21:39] VITALS: BP 132/84; PULSE 89; RESP 18; TEMP 36.5; O2SAT 99; BMI 34.3
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
[2022-09-13 22:55] VITALS: BP 132/84; PULSE 89; RESP 18; TEMP 36.5; O2SAT 99
--- NOTE | 2022-09-13 22:58 | PC.NURSE ---
Pt ca&ox3, no signs of distress. Provider in with pt. Will continue to monitor.
[2022-09-13] MEDS: Ibuprofen 600 MG TABLET PO (23:01)
--- NOTE | 2022-09-13 23:02 | PC.NURSE ---
Pt medicated per may. leslie.
== END 2022-09-13 23:16 | disposition home or self-care (01) ==
PROVIDERS: Emergency Provider Internal Medicine
DX: S63.617A Unspecified sprain of left little finger, initial encounter (principal); Y04.2XXA Assault by strike against or bumped into by another person, initial encounter; Y93.89 Activity, other specified; Y92.481 Parking lot as the place of occurrence of the external cause; Y99.9 Unspecified external cause status
CPT/HCPCS: 29130; 73120; 99283; 99284

== ENCOUNTER 2023-03-19 08:32 | Emergency (ER) | payer OTHER, SELFPAY ==
--- NOTE | ~2023-03-19 | XR_ITS ---
EXAMINATION: XR CHEST CLINICAL INFORMATION: Cough COMPARISON: 2021 TECHNIQUE: Frontal view of the chest was obtained. FINDINGS: No significant abnormality is noted involving the heart, lungs, mediastinum, bony thorax or soft tissues. XR/XR chest 1V IMPRESSION: Unremarkable examination.
[2023-03-19 08:40] VITALS: BP 116/84; PULSE 106; RESP 26; TEMP 37.1; O2SAT 98; BMI 34.8
--- NOTE | 2023-03-19 09:34 | ED.URI ---
HPI - URI/Sore Throat General Chief Complaint: Upper Respiratory Symptoms Stated Complaint: cough ear pain vomiting Time Seen by Provider: 03/19/23 09:03 Source: patient Mode of arrival: ambulatory Limitations: no limitations History of Present Illness HPI Narrative: 37 year old female with pmhx significant for bipolar 1 disorder, asthma, and diabetes presents to the ED today for evaluation of upper respiratory symptoms x1 day. Admits to attending her day program 2 days ago. The next morning, woke up with a cough, chest discomfort on coughing, nasal congestion, chills, and bilateral ear pain. Cough is nonproductive of sputum. Has been using her albuterol nebulizer at home without relief. Reports ear pain is worse on the left. Denies drainage from the ears. Denies fever, sore throat, dyspnea, shortness of breath, wheezing, abdominal pain, n/v, diarrhea, LE swelling/pain. Denies known sick contacts. Denies recent travel or long car rides. Related Data Home Medications Medication Instructions Recorded Confirmed bupropion HCl 200 mg tablet,12 hr 1 tab PO BID 02/15/21 02/15/21 sustained-release buspirone 10 mg tablet 1 tab PO DAILY 02/15/21 02/15/21 cholecalciferol (vitamin D3) 50 1 tab PO DAILY 02/15/21 02/15/21 mcg (2,000 unit) tablet (Vitamin D3) colestipol 1 gram tablet 1 tab PO DAILY 02/15/21 02/15/21 ergocalciferol (vitamin D2) 50 mcg 1 tab PO DAILY 02/15/21 02/15/21 (2,000 unit) tablet fluticasone propionate 100 1 inh inhalation DAILY 02/15/21 02/15/21 mcg/actuation blister powder for inhalation (Flovent Diskus) loratadine 10 mg tablet 1 tab PO DAILY 02/15/21 02/15/21 pantoprazole 40 mg tablet,delayed 1 tab PO DAILY 02/15/21 02/15/21 release risperidone 0.5 mg tablet 0.25 mg PO DAILY 02/15/21 02/15/21 risperidone 0.5 mg tablet 0.5 mg PO BEDTIME 02/15/21 02/15/21 risperidone 1 mg tablet 1 mg PO BEDTIME 02/15/21 02/15/21 Previous Rx's Medication Instructions Recorded famotidine 40 mg tablet (Pepcid) 40 mg PO BEDTIME #30 tabs 02/18/21 omeprazole 40 mg capsule,delayed 40 mg PO DAILY #30 caps 02/18/21 release ondansetron HCl 4 mg tablet 4 mg PO TID PRN nausea and 02/18/21 (Zofran) vomiting 5 days #15 tabs oxycodone 10 mg tablet 10 mg PO TID PRN pain #20 tabs 02/18/21 benzonatate 200 mg capsule 200 mg PO TID PRN cough #30 caps 12/12/21 hydrocodone-homatropine 5 mg-1.5 5 ml PO Q6H PRN cough #60 mL 12/12/21 mg/5 mL (5 mL) oral syrup (Hycodan) prednisone 20 mg tablet 40 mg (2 x 20 mg) PO DAILY #10 tabs 12/12/21 amoxicillin 875 mg-potassium 1 tab PO BID 10 days #20 tabs 03/19/23 clavulanate 125 mg tablet ondansetron 4 mg disintegrating 4 mg PO DAILY PRN nausea and 03/19/23 tablet vomiting 5 days #10 tabs prednisone 20 mg tablet 20 mg PO DAILY 5 days #5 tabs 03/19/23 Allergies Allergy/AdvReac Type Severity Reaction Status Date / Time peanut [PEANUT] Allergy Severe ANAPHYLAXIS Verified 03/19/23 08:40 cefpodoxime Allergy Swelling Verified 03/19/23 08:40 Review of Systems Review of Systems: Constitutional: No fever, chills, fatigue, night sweats, weight changes ENT/Mouth: +ear pain, No hearing loss, +nasal congestion, No sinus pain, rhinorrhea, sore throat Eyes: No eye pain, swelling, redness, vision changes, discharge Cardio: No chest pain, palpitations, ALMANZAR, orthopnea, peripheral edema Pulm: No SOB, +cough, No sputum, wheezing, dyspnea, hemoptysis GI: No nausea, vomiting, hematemesis, abdominal pain, diarrhea, constipation, hematochezia, melena : No irregular bleeding, dysuria, frequency, urgency, hesitancy, hematuria, flank pain, urinary flow changes, urinary incontinence or retention MSK: No back pain, neck pain, joint pain, myalgias Skin: No lesions, rashes Neuro: No weakness, numbness, paresthesias, LOC, dizziness, headache All other systems reviewed and are negative. [facility] Past Medical History Attestation statement: The following information was validated with the patient. Source: old records reviewed and nursing notes reviewed Medical History Depression Bipolar 1 disorder Asthma Diabetes Social History Social History Household Members: Spouse and Other Household Members Other:: dogs Housing: House Alcohol intake: unknown Patient Tobacco Use Status: Current everyday Tobacco user Substance Use Type: Marijuana Advance Directives: Yes Advance Directives on File: Yes Advance Directives Date on File: 02/15/21 service: No Current occupational status: disabled Physical Exam Vital Signs: Vital Signs: Last Vital Signs Temp 101.3 F H 03/19/23 09:44 Pulse 98 03/19/23 09:44 Resp 20 03/19/23 09:44 BP 120/69 03/19/23 09:44 Pulse Ox 99 03/19/23 09:44 O2 Del Method Room Air 03/19/23 09:44 BMI result Body Mass Index 34.8 Vital signs are notable for tachypnea and tachycardia Const: General: cooperative, no acute distress, alert and awake Orientation/consciousness: patient oriented x3 Limitations: no limitations HEENT: Other: + no pain on manipulation of the right pinna or tragus. No mastoid tenderness. right EAC erythematous. Right TM erythematous, bulging. Intact. No drainage from the ear. + pain on manipulation of the left pinna. No mastoid tenderness. Left EAC erythematous. Left TM erythematous, bulging. Intact. No drainage from the ear. + posterior oropharynx without erythema or edema. Uvula midline. No tonsillar exudates or peritonsillar masses. Controlling secretions and speaking complete sentences. Head: Yes normal to inspection Ears: hearing grossly normal bilaterally and no periauricular adenopathy General nose exam: Normal external nose present and No nasal discharge present Face and sinus: Yes normal facial exam and Yes sinuses nontender Eyes: General: appearance normal, both eyes and all related structures Periorbital: periorbital findings normal Conjunctivae: conjunctivae normal Sclerae: sclerae normal Pupils: Equal, round and reactive pupils present Neck: Neck: Yes normal visual inspection and Yes no lymphadenopathy Chest: Chest palpation & inspection: normal inspection of the chest and normal palpation of entire chest wall Resp: Effort & Inspection: normal respiratory effort, able to speak in complete sentences, Actively coughing, no respiratory distress, no tripod positioning and no use of accessory muscles Auscultation: clear to auscultation bilaterally and no wheezes Cardio: Rate: regular rate Rhythm: regular rhythm GI: Inspection: Yes normal to inspection Palpation (GI): Soft to palpation, nontender and no guarding Skin: General skin exam: no rashes or lesions noted Neuro: General: patient oriented x3, gait normal and moves all extremities Cranial nerves: Yes Equal, round and reactive pupils present Extrem: General: Yes normal to inspection Course Course Course Narrative: 943-- patient tested positive for influenza A. Chest x-ray unremarkable. Patient initially noted to be tachycardic and is tachypneic however on repeat vitals, now resolved. She is noted to be febrile to 101.3. Tylenol ordered. 1025-- patient tolerating it Tylenol and water after Zofran administration. She is well appearing. She received a dose of Solu-Medrol in ED today. Will send prednisone and Zofran to patient's pharmacy. Will also send Augmentin for treatment of bilateral otitis externa. I do not have concern for mastoiditis or malignant otitis externa at this time. Discussed worrisome signs and symptoms and when to return to the emergency department. Patient has remained stable throughout ED visit today. All questions answered at this time. Patient is agreeable with disposition and stable for discharge. Medications Administered Discontinued Medications Generic Name Dose Route Start Last Admin Trade Name Yumiko PRN Reason Stop Dose Admin Acetaminophen 975 mg 03/19/23 09:47 03/19/23 09:50 Acetaminophen 325 Mg Tablet PO 03/19/23 09:48 975 mg ONCE ONE Administration Methylprednisolone Sodium Succinate 60 mg 03/19/23 09:26 03/19/23 09:46 Methylprednisolone Sod Succ 125 Mg/2 Ml Vial IM 03/19/23 09:27 60 mg ONCE ONE Administration Ondansetron HCl 4 mg 03/19/23 09:52 03/19/23 09:55 Ondansetron Odt 4 Mg Tab.Rapdis TRANSLINGU 03/19/23 09:53 4 mg ONCE ONE Administration Medical Decision Making Medical Decision Making [facility] Narrative: 37 year old female with pmhx significant for bipolar 1 disorder, asthma, and diabetes presents to the ED today for evaluation of upper respiratory symptoms x1 day. Vital signs initially notable for tachycardia tachypnea. Now normalized. Patient is febrile to 101.3. Tylenol given. She is nontoxic-appearing and in no acute distress. On exam, there is no pain on manipulation of the right pinna or tragus. No mastoid tenderness. right EAC erythematous. Right TM erythematous, bulging. Intact. No drainage from the ear. There is pain on manipulation of the left pinna. No mastoid tenderness. Left EAC erythematous. Left TM erythematous, bulging. Intact. No drainage from the ear. Lungs are CTA bilaterally. No wheezing. Coughing on exam. Posterior oropharynx without erythema or edema, no tonsillar exudates or peritonsillar masses. Uvula midline. Controlling secretions speaking complete sentences. Clinical concern for viral syndrome, pneumonia, asthma exacerbation, otitis externa, otitis media. Unlikely epiglottitis, [employer], retropharyngeal abscess, mono, strep throat, malignant otitis externa, respiratory distress. Plan for serology, chest x-ray and re-evaluation. Differential Diagnosis Differential Diagnoses: The differential diagnosis associated with the presentation includes As above. Admission/Observation Not indicated. Lab Data [facility] Lab Attestation statement: I reviewed the patient's lab results. As above. Labs: Lab Results 03/19/23 Range/Units 08:49 Influenza Type A (PCR) POSITIVE A (Negative) Influenza Type B (PCR) NEGATIVE (Negative) RSV RNA Qual (PCR) NEGATIVE (Negative) SARS-CoV-2 RNA (RT-PCR) NEGATIVE (Negative) Independent Interpretation I performed an independent interpretation of an: Plain X-Ray Interpretation: Chest x-ray without consolidation or infiltrate, agree with radiologist's interpretation. Radiology Impression Discussion of test interpretation with radiology: I have reviewed the radiologist's reading. Radiologist Impression: XR chest 1V IMPRESSION: Unremarkable examination. External Record Review External record reviewed: Inpatient record Prescription Management I considered prescription management with: Pain Medication, Antibiotic and Other (steroid) Chronic Conditions Patient?s care impacted by: Diabetes and Other (asthma) Social Determinants Patient?s care significantly limited by Social Determinants of Health including: Other Social Determinant of Health Critical Care Time Critical Care Time Critical Care Time: No Discharge Plan Discharge Clinical Impression: Influenza A, Bilateral acute otitis media Patient Disposition: Home, Self-Care Instructions: Influenza (ED), Flu Shot (Vaccine) for Adults (ED) Additional Instructions: Today you tested positive for influenza A. Your chest xray was normal. You received a dose of steroids in ED today. Prednisone has been sent to your pharmacy. Take this over the next 5 days as directed. Zofran has been sent to your pharmacy. Take this as needed for nausea/vomiting. You may purchase [id number] cough medicine. Take Ibuprofen or Tylenol as needed for fevers or body aches.?? Practice social distancing and good hand hygiene. Drink plenty of fluids. Follow-up with your primary care provider this week. Return to the emergency department with new or worsening symptoms. In case of emergency call 911 You can purchase a pulse oximeter from your local pharmacy or grocery store, and monitor your oxygen saturation if it goes below 94% you should return to the emergency department for further evaluation. You were also noted to have a bilateral ear infection. Augmentin is an antibiotic that has been sent to your pharmacy. Take this as directed and do not skip any doses or finish them early as this may cause infection to worsen or return. Please follow-up with your primary care provider to ensure infection has resolved after treatment. If symptoms persist or worsen despite treatment return to the emergency department. The case of an emergency call 911. On Augmentin, softer bowel movements are to be expected. Call your provider if you move her bowels more than 4 times a day, your bowel movements are was all liquid, or even a rash. Prescriptions: New prednisone 20 mg tablet 20 mg PO DAILY 5 Days Qty: 5 0RF amoxicillin-pot clavulanate 875-125 mg tablet 1 tab PO BID 10 Days Qty: 20 0RF ondansetron 4 mg tablet,disintegrating 4 mg PO DAILY PRN (Reason: nausea and vomiting) 5 Days Qty: 10 0RF No Action Flovent Diskus 100 mcg/actuation blister with device 1 inh inhalation DAILY buspirone 10 mg tablet 1 tab PO DAILY risperidone 1 mg tablet 1 mg PO BEDTIME colestipol 1 gram tablet 1 tab PO DAILY risperidone 0.5 mg tablet 0.5 mg PO BEDTIME bupropion HCl 200 mg tablet sustained-release 12 hr 1 tab PO BID cholecalciferol (vitamin D3) [Vitamin D3] 50 mcg (2,000 unit) tablet 1 tab PO DAILY ergocalciferol (vitamin D2) 50 mcg (2,000 unit) tablet 1 tab PO DAILY pantoprazole 40 mg tablet,delayed release (DR/EC) 1 tab PO DAILY loratadine 10 mg tablet 1 tab PO DAILY risperidone 0.5 mg tablet 0.25 mg PO DAILY famotidine [Pepcid] 40 mg tablet 40 mg PO BEDTIME Qty: 30 2RF omeprazole 40 mg capsule,delayed release(DR/EC) 40 mg PO DAILY Qty: 30 0RF ondansetron HCl [Zofran] 4 mg tablet 4 mg PO TID PRN (Reason: nausea and vomiting) 5 Days Qty: 15 0RF oxycodone 10 mg tablet 10 mg PO TID PRN (Reason: pain) Qty: 20 0RF prednisone 20 mg tablet 40 mg PO DAILY Qty: 10 0RF hydrocodone-homatropine [Hycodan] 5-1.5 mg/5 mL (5 mL) syrup 5 ml PO Q6H PRN (Reason: cough) Qty: 60 0RF Rx Instructions: Partial Fill upon patient request. benzonatate 200 mg capsule 200 mg PO TID PRN (Reason: cough) Qty: 30 0RF Referrals: Physician,Unknown J [Primary Care Provider] -
[2023-03-19 09:39] LABS: Influenza A PCR POSITIVE (Negative); Influenza B PCR NEGATIVE (Negative); Resp Syncy Virus RNA Qual PCR NEGATIVE (Negative); SARS COV2 PCR INHOUSE NEGATIVE (Negative)
[2023-03-19 09:44] VITALS: BP 120/69; PULSE 98; RESP 20; TEMP 38.5; O2SAT 99
[2023-03-19] MEDS: methylPREDNISolone Sod Succ 125 MG/2 ML VIAL 60 MG IM (09:46)
[2023-03-19] MEDS: Acetaminophen 325 MG TABLET 975 MG PO (09:50)
[2023-03-19] MEDS: Ondansetron ODT 4 MG TAB.RAPDIS TRANSLINGU (09:55)
--- NOTE | 2023-03-19 09:58 | PC.NURSE ---
medicated per the MAR, unable to take tylenol at this time d/t vomiting. zofran provided.
--- NOTE | 2023-03-19 10:11 | PC.NURSE ---
reports improvement with nausea, able to take PO tylenol
== END 2023-03-19 10:48 | disposition home or self-care (01) ==
PROVIDERS: Emergency Provider Student in an Organized Health Care Education/Training Program
DX: J10.1 Influenza due to other identified influenza virus with other respiratory manifestations (principal); H66.93 Otitis media, unspecified, bilateral; E11.9 Type 2 diabetes mellitus without complications; J45.909 Unspecified asthma, uncomplicated; Z20.822 Contact with and (suspected) exposure to COVID-19; Z20.828 Contact with and (suspected) exposure to other viral communicable diseases
CPT/HCPCS: 0241U; 71045; 96372; 99283; 99284; J2930

== ENCOUNTER 2023-05-13 09:56 | Emergency (ER) | payer OTHER, SELFPAY ==
--- NOTE | ~2023-05-13 | XR_ITS ---
EXAMINATION: XR LUMBOSACRAL SPINE CLINICAL INFORMATION: Pain no trauma COMPARISON: None available. TECHNIQUE: Three views of the lumbosacral spine. FINDINGS: The vertebral bodies and posterior elements are normal. The disc spaces are preserved and the vertebral alignment is normal. The paraspinal soft tissues are normal. Stimulator projecting over the right pelvis the lead of which projecting over the left side of the sacrum. XR/XR lumbar spine 2-3V IMPRESSION: No significant osseous changes to explain patient's pain symptoms.
[2023-05-13 10:04] VITALS: BP 124/69; PULSE 82; RESP 20; TEMP 36.4; O2SAT 99; BMI 34.3
--- NOTE | 2023-05-13 10:34 | ED_ITS ---
HPI - Back Pain/Injury General Chief Complaint: Back Pain/Injury Stated Complaint: Back pain Time Seen by Provider: 05/13/23 10:03 Source: patient Mode of arrival: ambulatory Limitations: no limitations History of Present Illness HPI Narrative: 37 yo female with history of diet controlled DM, asthma, bipolar disorder here with complaints of 2 months of lower back pain with no known injury or trauma. Initially thought it originated in her hip so she went to orthopedics who felt this pain was from her back. Has first appt with PCP to discuss her concerns. Was taking motrin/tylenol for the first few weeks but didnt feel it was helping so she has not taken anything in more then one month. Pain is in the lower back and radiates to both legs L>R. No associated numbness/tingling. NO numbness in the groin. No bowel or bladder incontinence. No fevers, chills. Related Data Home Medications Medication Instructions Recorded Confirmed bupropion HCl 200 mg tablet,12 hr 1 tab PO BID 02/15/21 02/15/21 sustained-release buspirone 10 mg tablet 1 tab PO DAILY 02/15/21 02/15/21 cholecalciferol (vitamin D3) 50 1 tab PO DAILY 02/15/21 02/15/21 mcg (2,000 unit) tablet (Vitamin D3) colestipol 1 gram tablet 1 tab PO DAILY 02/15/21 02/15/21 ergocalciferol (vitamin D2) 50 mcg 1 tab PO DAILY 02/15/21 02/15/21 (2,000 unit) tablet fluticasone propionate 100 1 inh inhalation DAILY 02/15/21 02/15/21 mcg/actuation blister powder for inhalation (Flovent Diskus) loratadine 10 mg tablet 1 tab PO DAILY 02/15/21 02/15/21 pantoprazole 40 mg tablet,delayed 1 tab PO DAILY 02/15/21 02/15/21 release risperidone 0.5 mg tablet 0.25 mg PO DAILY 02/15/21 02/15/21 risperidone 0.5 mg tablet 0.5 mg PO BEDTIME 02/15/21 02/15/21 risperidone 1 mg tablet 1 mg PO BEDTIME 02/15/21 02/15/21 Previous Rx's Medication Instructions Recorded famotidine 40 mg tablet (Pepcid) 40 mg PO BEDTIME #30 tabs 02/18/21 omeprazole 40 mg capsule,delayed 40 mg PO DAILY #30 caps 02/18/21 release ondansetron HCl 4 mg tablet 4 mg PO TID PRN nausea and 02/18/21 (Zofran) vomiting 5 days #15 tabs oxycodone 10 mg tablet 10 mg PO TID PRN pain #20 tabs 02/18/21 benzonatate 200 mg capsule 200 mg PO TID PRN cough #30 caps 12/12/21 hydrocodone-homatropine 5 mg-1.5 5 ml PO Q6H PRN cough #60 mL 12/12/21 mg/5 mL (5 mL) oral syrup (Hycodan) prednisone 20 mg tablet 40 mg (2 x 20 mg) PO DAILY #10 tabs 12/12/21 amoxicillin 875 mg-potassium 1 tab PO BID 10 days #20 tabs 03/19/23 clavulanate 125 mg tablet ondansetron 4 mg disintegrating 4 mg PO DAILY PRN nausea and 03/19/23 tablet vomiting 5 days #10 tabs prednisone 20 mg tablet 20 mg PO DAILY 5 days #5 tabs 03/19/23 cyclobenzaprine 10 mg tablet 10 mg PO TID PRN muscle spasm #15 05/13/23 tabs lidocaine 5 % topical patch 1 patch topical DAILY #15 ea 05/13/23 (Lidoderm) naproxen 500 mg tablet 500 mg PO BID PRN pain #30 tabs 05/13/23 Allergies Allergy/AdvReac Type Severity Reaction Status Date / Time peanut [PEANUT] Allergy Severe ANAPHYLAXIS Verified 03/19/23 08:40 cefpodoxime Allergy Swelling Verified 03/19/23 08:40 Review of Systems Review of Systems: Yes all other systems are reviewed and are negative Constitutional: Constitutional: Reports no additional constitutional complaints, Denies body ache(s), Denies chills, Denies fever(s), Denies headache(s) and Denies weakness Eyes: Eyes: Reports no additional eye complaints and Denies change in vision ENT: Reports system reviewed and no additional complaints, except as documented, Denies dizziness, Denies headache(s), Denies nasal congestion, Denies nasal discharge and Denies neck pain Cardiovascular: Cardiovascular: Reports no additional cardiovascular complaints, Denies chest pain, Denies leg edema and Denies dyspnea Respiratory: Respiratory: Reports no additional respiratory complaints, Denies cough and Denies dyspnea Gastrointestinal: Gastrointestinal: Reports no additional gastrointestinal complaints, Denies abdominal pain, Denies diarrhea, Denies nausea and Denies vomiting Genitourinary: Genitourinary: Reports no additional female genitourinary complaints and Denies urinary incontinence Musculoskeletal: Musculoskeletal: Reports no additional musculoskeletal complaints, Reports back pain, Denies arthralgias, Denies joint swelling, Denies neck pain, Denies numbness and Denies tingling Integumentary/Breasts: Skin/Breast: Reports system reviewed and no additional complaints, except as docu and Denies rash Neurologic: Reports system reviewed and no additional complaints, except as documented, Denies Abnormal speech present, Denies dizziness, Denies headache(s), Denies numbness, Denies tingling and Denies weakness PMFSH Past Medical History Attestation statement: The following information was validated with the patient. Source: old records reviewed and nursing notes reviewed Medical History Depression Bipolar 1 disorder Asthma Diabetes Social History Social History Household Members: Spouse and Other Household Members Other:: dogs Housing: House Alcohol intake: unknown Patient Tobacco Use Status: Current everyday Tobacco user Smoked in Last 30 Days: Yes Use of substances other than those prescribed or required for medical reasons: No Substance Use Type: Marijuana Advance Directives: Yes Advance Directives on File: Yes Advance Directives Date on File: 02/15/21 service: No Current occupational status: disabled Physical Exam Vital Signs: Vital Signs: Last Vital Signs Temp 97.5 F 05/13/23 10:04 Pulse 82 05/13/23 10:04 Resp 20 05/13/23 10:04 BP 124/69 05/13/23 10:04 Pulse Ox 99 05/13/23 10:04 O2 Del Method Room Air 05/13/23 10:04 BMI result Body Mass Index 34.3 Const: General: cooperative, healthy appearing, comfortable and no acute distress Orientation/consciousness: patient oriented x3 Limitations: no limitations HEENT: Head: Yes normal to inspection Ears: hearing grossly normal bilaterally and TM's normal bilaterally General nose exam: Normal external nose present Face and sinus: Yes normal facial exam Mouth: Normal oral and palatal mucosa present Throat: Yes posterior oropharynx normal, Yes tonsils normal and Yes uvula midline Eyes: General: appearance normal, both eyes and all related structures Pupils: Equal, round and reactive pupils present Neck: Neck: Yes normal visual inspection, Yes full ROM, Yes no lymphadenopathy and Yes no meningeal signs Chest: Chest palpation & inspection: normal inspection of the chest Resp: Effort & Inspection: normal respiratory effort Auscultation: clear to auscultation bilaterally Cardio: Rate: regular rate Rhythm: regular rhythm Peripheral pulses: Peripheral pulses 2+ throughout GI: Inspection: Yes normal to inspection Palpation (GI): Soft to palpation and nontender Auscultation: normal bowel sounds Back/Spine/Pelvis: Other: Tenderness to the lumbar mid spine and bilateral soft tissues with no midline step-offs or deformities. Pain is worsened with flexion and extension of the lumbar spine Thoracic/Lumbar Spine: thoracic and lumbar spine normal to inspection Skin: General skin exam: no rashes or lesions noted Neuro: General: patient oriented x3, moves all extremities, no meningeal signs, no focal motor deficits and normal sensation to monofilament Cranial nerves: Yes Equal, round and reactive pupils present Cognition (Neuro): normal cognition Speech: No Abnormal speech present Gait exam (Neuro): Normal gait present Motor exam (neuro): 5/5 motor strength present throughout Sensory Exam: Normal double simultaneous stimulation for sensation Deep tendon reflexes (DTR's): Right patellar reflex intensity grade: 2+ and Left patellar reflex intensity grade: 2+ Extrem: General: Yes normal to inspection, Yes no pedal edema and Yes no calf tenderness Course Course Course Narrative: x-ray show no bony abnormality. Patient is still having some pain but it is improved from previous after receiving analgesia here in the emergency room. She is ambulatory for short distances. Will discharge her home with NSAIDs, muscle relaxants, medicated patches recommendations follow up outpatient with primary care doctor. Reviewed worrisome signs and symptoms of when to return to the emergency room. Comfortable plan for discharge home. Medications Administered Discontinued Medications Generic Name Dose Route Start Last Admin Trade Name Freq PRN Reason Stop Dose Admin Cyclobenzaprine HCl 10 mg 05/13/23 10:41 05/13/23 10:51 Cyclobenzaprine Hcl 10 Mg Tablet PO 05/13/23 10:42 10 mg ONCE ONE Administration Ketorolac Tromethamine 30 mg 05/13/23 10:41 05/13/23 10:51 Ketorolac Tromethamine 30 Mg/Ml Vial IM 05/13/23 10:42 30 mg ONCE ONE Administration Medical Decision Making Medical Decision Making MDM Narrative: 37 yo female with history of diet controlled DM, asthma, bipolar disorder here with complaints of 2 months of lower back pain with no known injury or trauma. Initially thought it originated in her hip so she went to orthopedics who felt this pain was from her back. Has first appt with PCP to discuss her concerns. Was taking motrin/tylenol for the first few weeks but didnt feel it was helping so she has not taken anything in more then one month. Pain is in the lower back and radiates to both legs L>R. No associated numbness/tingling. NO numbness in the groin. No bowel or bladder incontinence. No fevers, chills. Tenderness to the lumbar mid spine and bilateral soft tissues with no midline step-offs or deformities. Pain is worsened with flexion and extension of the lumbar spine normal neurological exam with no focal deficits or red flag symptoms. Will provide analgesia, obtain x-rays Differential Diagnosis Differential Diagnoses: The differential diagnosis associated with the presentation includes lumbar strain, herniated disc, lumbar radiculopathy low suspicion for cord compression, cauda equina, malignancy, epidural abscess, fracture, AAA, renal colic, pyelonephritis Admission/Observation Consideration of admission/observation: Escalation of care including admission/observation considered low suspicion for cord compression, cauda equina, malignancy, epidural abscess requiring urgent MRI, NSY consultation Independent Interpretation I performed an independent interpretation of an: Plain X-Ray Interpretation: I independently reviewed the x-ray and agree with the radiology report Radiology Impression Discussion of test interpretation with radiology: I have reviewed the radiologist's reading. Radiologist Impression: [address] [address] XRay Report Signed Patient: Brianna Callaway MR#: [id number] : 1985 Acct:[id number] Age/Sex: 37 / F ADM Date: 05/13/23 Loc: HO.ED Attending Dr: Ordering Physician: Carine Lundy NP Date of Service: 05/13/23 Procedure(s): XR lumbar spine 2-3V Accession Number(s): [id number] cc: SHERRIE METCALF MD; Carine Lundy NP~ EXAMINATION: XR LUMBOSACRAL SPINE CLINICAL INFORMATION: Pain no trauma COMPARISON: None available. TECHNIQUE: Three views of the lumbosacral spine. FINDINGS: The vertebral bodies and posterior elements are normal. The disc spaces are preserved and the vertebral alignment is normal. The paraspinal soft tissues are normal. Stimulator projecting over the right pelvis the lead of which projecting over the left side of the sacrum. XR/XR lumbar spine 2-3V IMPRESSION: No significant osseous changes to explain patient's pain symptoms. Independent Historian Clinical information obtained from an independent historian. History obtained from or confirmed by: Friend Tests considered The following testing was considered but not selected: low suspicion for cord compression, cauda equina, malignancy, epidural abscess requiring urgent MRI Prescription Management I considered prescription management with: Pain Medication Discharge Plan Discharge Clinical Impression: Back pain Patient Disposition: Home, Self-Care Instructions: Back Pain (ED) Additional Instructions: heat or ice Gentle stretching No heavy lifting or bending Keep your appointment on the with her primary care doctor return for worsening symptoms as discussed Prescriptions: New cyclobenzaprine 10 mg tablet 10 mg PO TID PRN (Reason: muscle spasm) Qty: 15 0RF naproxen 500 mg tablet 500 mg PO BID PRN (Reason: pain) Qty: 30 0RF lidocaine [Lidoderm] 5 % adhesive patch,medicated 1 patch topical DAILY Qty: 15 0RF Rx Instructions: leave on most painful area for up to 12 hrs No Action Flovent Diskus 100 mcg/actuation blister with device 1 inh inhalation DAILY buspirone 10 mg tablet 1 tab PO DAILY risperidone 1 mg tablet 1 mg PO BEDTIME colestipol 1 gram tablet 1 tab PO DAILY risperidone 0.5 mg tablet 0.5 mg PO BEDTIME bupropion HCl 200 mg tablet sustained-release 12 hr 1 tab PO BID cholecalciferol (vitamin D3) [Vitamin D3] 50 mcg (2,000 unit) tablet 1 tab PO DAILY ergocalciferol (vitamin D2) 50 mcg (2,000 unit) tablet 1 tab PO DAILY pantoprazole 40 mg tablet,delayed release (DR/EC) 1 tab PO DAILY loratadine 10 mg tablet 1 tab PO DAILY risperidone 0.5 mg tablet 0.25 mg PO DAILY famotidine [Pepcid] 40 mg tablet 40 mg PO BEDTIME Qty: 30 2RF omeprazole 40 mg capsule,delayed release(DR/EC) 40 mg PO DAILY Qty: 30 0RF ondansetron HCl [Zofran] 4 mg tablet 4 mg PO TID PRN (Reason: nausea and vomiting) 5 Days Qty: 15 0RF oxycodone 10 mg tablet 10 mg PO TID PRN (Reason: pain) Qty: 20 0RF prednisone 20 mg tablet 40 mg PO DAILY Qty: 10 0RF hydrocodone-homatropine [Hycodan] 5-1.5 mg/5 mL (5 mL) syrup 5 ml PO Q6H PRN (Reason: cough) Qty: 60 0RF Rx Instructions: Partial Fill upon patient request. benzonatate 200 mg capsule 200 mg PO TID PRN (Reason: cough) Qty: 30 0RF prednisone 20 mg tablet 20 mg PO DAILY 5 Days Qty: 5 0RF amoxicillin-pot clavulanate 875-125 mg tablet 1 tab PO BID 10 Days Qty: 20 0RF ondansetron 4 mg tablet,disintegrating 4 mg PO DAILY PRN (Reason: nausea and vomiting) 5 Days Qty: 10 0RF Referrals: Sherrie Metcalf MD [Primary Care Provider] - 2 weeks
[2023-05-13] MEDS: Cyclobenzaprine HCl 10 MG TABLET PO (10:51)
[2023-05-13] MEDS: Ketorolac Tromethamine 30 MG/ML VIAL IM (10:51)
[2023-05-13 12:57] VITALS: BP 114/40; PULSE 63; RESP 19; TEMP 36.6; O2SAT 99
== END 2023-05-13 13:06 | disposition home or self-care (01) ==
PROVIDERS: Emergency Provider Emergency Medicine; PCP Internal Medicine
DX: M54.50 Low back pain, unspecified (principal); Z79.899 Other long term (current) drug therapy
CPT/HCPCS: 72100; 96372; 99284; J1885

== ENCOUNTER 2023-12-17 17:09 | Emergency (ER) | payer OTHER, SELFPAY ==
--- NOTE | ~2023-12-17 | CT_ITS ---
EXAMINATION: CT ABDOMEN AND PELVIS WITHOUT CONTRAST CLINICAL INFORMATION: Pain. COMPARISON: February 16, 2021. TECHNIQUE: Multidetector volumetric imaging was performed from the superior aspect of the liver through the pubic symphysis. Sagittal and coronal reformatted images were obtained on the technologist's workstation. This CT examination was performed using dose optimization techniques as appropriate, variously including the following: *Automated exposure control *Adjustment of mA and/or kV according to patient size (this includes techniques or standardized protocols for targeted exams where dose is matched to indication/reason for exam; i.e. extremities or head) *Use of iterative reconstruction technique DLP: 617 mGy-cm FINDINGS: LUNG BASES: The visualized lung bases are unremarkable. LIVER, GALLBLADDER, AND BILIARY TREE: The liver is normal in size, shape, and attenuation. No focal hepatic lesion or biliary ductal dilatation is present. The gallbladder is unremarkable with no evidence of radiopaque gallstones, gallbladder wall thickening, or obvious pericholecystic inflammatory changes. PANCREAS: Unremarkable. SPLEEN: Unremarkable. ADRENAL GLANDS: Unremarkable. KIDNEYS AND URETERS: The kidneys are normal in size, shape, and attenuation. No hydronephrosis, hydroureter, or calculi seen. No perinephric stranding. BLADDER: Unremarkable. GASTROINTESTINAL TRACT: The small and large bowel are unremarkable. The appendix is not seen. There are surgical clips at the base of the cecum. ABDOMINAL WALL: No significant hernia is appreciated. LYMPH NODES: Normal. VASCULAR: Unremarkable. PELVIC VISCERA: Unremarkable. OSSEOUS STRUCTURES: Unremarkable. CT/CT abdomen pelvis wo IV con IMPRESSION: No significant abnormality. Fleischner guidelines were followed. Electronically signed by: Chevy Pelayo MD 12/18/2023 01:52 AM EDT
[2023-12-17 17:26] VITALS: BP 146/81; PULSE 100; RESP 19; TEMP 36.6; O2SAT 100; BMI 35.3
--- NOTE | 2023-12-17 17:27 | ED.GENADULT ---
HPI - General Adult General Chief complaint: Abdominal Pain Stated complaint: abd pain Time Seen by Provider: 12/17/23 23:07 Source: patient Mode of arrival: ambulatory Limitations: no limitations History of Present Illness ED Provider: Dr. Fitch HPI narrative: Patient presents with epigastric pain for one week states that she can't eat anything. She has had similar episodes in the past, she has had a cholecystectomy, appendectomy, , hernia surgery in the past. Related Data Home Medications ?Medication ?Instructions ?Recorded ?Confirmed bupropion HCl 200 mg tablet,12 hr 1 tab PO BID 02/15/21 02/15/21 sustained-release buspirone 10 mg tablet 1 tab PO DAILY 02/15/21 02/15/21 cholecalciferol (vitamin D3) 50 1 tab PO DAILY 02/15/21 02/15/21 mcg (2,000 unit) tablet (Vitamin D3) colestipol 1 gram tablet 1 tab PO DAILY 02/15/21 02/15/21 ergocalciferol (vitamin D2) 50 mcg 1 tab PO DAILY 02/15/21 02/15/21 (2,000 unit) tablet fluticasone propionate 100 1 inh inhalation DAILY 02/15/21 02/15/21 mcg/actuation blister powder for inhalation (Flovent Diskus) loratadine 10 mg tablet 1 tab PO DAILY 02/15/21 02/15/21 pantoprazole 40 mg tablet,delayed 1 tab PO DAILY 02/15/21 02/15/21 release risperidone 0.5 mg tablet 0.25 mg PO DAILY 02/15/21 02/15/21 risperidone 0.5 mg tablet 0.5 mg PO BEDTIME 02/15/21 02/15/21 risperidone 1 mg tablet 1 mg PO BEDTIME 02/15/21 02/15/21 Previous Rx's ?Medication ?Instructions ?Recorded famotidine 40 mg tablet (Pepcid) 40 mg PO BEDTIME #30 tabs 02/18/21 omeprazole 40 mg capsule,delayed 40 mg PO DAILY #30 caps 02/18/21 release ondansetron HCl 4 mg tablet 4 mg PO TID PRN nausea and 02/18/21 (Zofran) vomiting 5 days #15 tabs oxycodone 10 mg tablet 10 mg PO TID PRN pain #20 tabs 02/18/21 benzonatate 200 mg capsule 200 mg PO TID PRN cough #30 caps 12/12/21 hydrocodone-homatropine 5 mg-1.5 5 ml PO Q6H PRN cough #60 mL 12/12/21 mg/5 mL (5 mL) oral syrup (Hycodan) prednisone 20 mg tablet 40 mg (2 x 20 mg) PO DAILY #10 tabs 12/12/21 amoxicillin 875 mg-potassium 1 tab PO BID 10 days #20 tabs 03/19/23 clavulanate 125 mg tablet ondansetron 4 mg disintegrating 4 mg PO DAILY PRN nausea and 03/19/23 tablet vomiting 5 days #10 tabs prednisone 20 mg tablet 20 mg PO DAILY 5 days #5 tabs 03/19/23 cyclobenzaprine 10 mg tablet 10 mg PO TID PRN muscle spasm #15 05/13/23 tabs lidocaine 5 % topical patch 1 patch topical DAILY #15 ea 05/13/23 (Lidoderm) naproxen 500 mg tablet 500 mg PO BID PRN pain #30 tabs 05/13/23 pantoprazole 40 mg tablet,delayed 40 mg PO DAILY #20 tabs 12/18/23 release (Protonix) Allergies Allergy/AdvReac Type Severity Reaction Status Date / Time peanut [PEANUT] Allergy Severe ANAPHYLAXIS Verified 12/17/23 17:28 cefpodoxime Allergy Swelling Verified 12/17/23 17:28 Review of Systems Review of Systems: Yes all other systems are reviewed and are negative Neurologic: Denies Sensory deficit (Neuro) [facility] Past Medical History Medical History Depression Bipolar 1 disorder Asthma Diabetes Social History Social History Household Members: Spouse and Other Household Members Other:: dogs Housing: House Alcohol intake: unknown Patient Tobacco Use Status: Current everyday Tobacco user Smoked in Last 30 Days: Yes Use of substances other than those prescribed or required for medical reasons: Yes Substance Use Type: Marijuana Substance Use Frequency: Chronic Longstanding Advance Directives: Yes Advance Directives on File: Yes Advance Directives Date on File: 02/15/21 Do you have a plan to hurt others: No Plan Patient : No service: No Current occupational status: disabled Physical Exam ED Vital Signs: Vital Signs - 24 hr 12/17/23 17:26 12/18/23 01:02 Temperature 98 F 97.8 F Pulse Rate 100 88 Respiratory Rate 19 19 Blood Pressure 146/81 H 137/82 Pulse Oximetry 100 98 Oxygen Delivery Method Room Air BMI result Body Mass Index 35.3 Const Other: Patient with pain ambulating well Nutritional Appearance: obese Orientation/consciousness: oriented to person and patient oriented x3 Limitations: no limitations HENMT Head: Yes normal to inspection Ears: external ears normal General nose exam: Normal external nose present Mouth: Normal oral and palatal mucosa present and oropharynx normal Throat: Yes posterior oropharynx normal Eyes General: appearance normal, both eyes and all related structures Neck Neck: Yes normal visual inspection Chest Chest palpation & inspection: normal inspection of the chest Resp Auscultation: clear to auscultation bilaterally Cardio Jugular venous distension: no JVD Rate: regular rate Rhythm: regular rhythm Heart sounds: S1 normal heart sound present and S2 normal heart sound present GI Other: diffuse tenderness with guarding General: Yes no CVA tenderness Back/Spine/Pelvis Back: no CVA tenderness Skin General skin exam: no rashes or lesions noted Neuro General: oriented to person and patient oriented x3 Cranial nerves: Yes CN's II-XII intact bilaterally Motor exam (neuro): 5/5 motor strength present throughout Sensory Exam: No Sensory deficit (Neuro) Extrem General: Yes normal to inspection Psych Appearance: grossly normal Course Course Course Narrative: RME performed by Kelsey Richards PA-C. Patient is a 38 year old assigned female at presenting to the emergency department with epigastric pain. Detailed physical exam and review of systems are deferred to the hospitality host. Labs and swabs ordered. Patient placed back in the waiting room pending room availability and results. Reevaluation(s) Reevaluation #1: Patient with epigastric pain, physical significant for diffuse pain, CT negative will dc on protonix for gastritis Time: 03:37 Medications Administered Discontinued Medications Generic Name Dose Route Start Last Admin Trade Name Freq PRN Reason Stop Dose Admin Ketorolac Tromethamine 60 mg 12/17/23 23:14 12/17/23 23:21 Ketorolac Tromethamine 60 Mg/2 Ml Vial IM 12/17/23 23:15 60 mg ONCE ONE Administration Medical Decision Making Differential Diagnosis Differential Diagnoses: The differential diagnosis associated with the presentation includes (perforated bowel, pancreatitis, hepatitis, gastritis were all considered) Admission/Observation Consideration of admission/observation: Escalation of care including admission/observation considered (upon arrival patient was considered for admission) Lab Data 12/17/23 18:43 12/17/23 18:43 Labs: Lab Results 12/17/23 Range/Units 18:43 WBC 12.2 H (4.8-10.8) X10*3/uL RBC 4.42 (4.20-5.50) X10*6/uL Hgb 13.5 (12.0-16.0) g/dl Hct 39.4 (37.0-47.0) % MCV 89.1 (80.0-98.0) fL MCH 30.5 (27.0-33.0) pg MCHC 34.3 (31.0-35.0) g/dl RDW 13.1 (11.0-16.0) % Plt Count 379 (160-400) X10*3/uL MPV 10.0 (9.4-12.3) fL Immature Gran % (Auto) 0.3 (0.0-0.4) % Neut % (Auto) 63.2 (45-73) % Lymph % (Auto) 28.8 (20-40) % [place] % (Auto) 6.5 (2-11) % Eos % (Auto) 1.0 (0-4) % Baso % (Auto) 0.2 (0-2) % Lymph # (Auto) 3.5 (1.2-4.9) X10*3/uL [place] # (Auto) 0.8 (0.1-1.2) X10*3/uL Eos # (Auto) 0.1 (0.0-0.4) X10*3/uL Baso # (Auto) 0.0 (0.0-0.2) X10*3/uL Abs Immat Gran (auto) 0.04 H (0.00-0.03) X10*3/uL Absolute Neuts (auto) 7.7 (2.0-8.3) x10*3/uL Absolute Nucleated RBC 0.000 (0.0-0.012) X10*3/uL Nucleated RBC % (auto) 0.0 (0.0-0.2) /100WBC Sodium 140 (135-145) mmol/L Potassium 4.0 (3.3-5.1) mmol/L Chloride 109 H (96-108) mmol/L Carbon Dioxide 22 (22-29) mmol/L Anion Gap 13 (12-20) BUN 8 L (9-16) mg/dL Creatinine 0.76 (0.5-1.4) mg/dL Estim Creat Clear Calc 85.7 Estimated GFR > 60 Random Glucose 88 (60-115) mg/dL Calcium 9.6 (8.4-10.2) mg/dL Magnesium 2.0 (1.6-2.6) mg/dL Total Bilirubin 0.3 (0.0-1.0) mg/dL AST 19 (5-31) U/L ALT 32 H (0-31) U/L Alkaline Phosphatase 76 (39-117) U/L Total Protein 8.1 H (6.5-8.0) g/dL Albumin 4.4 (3.5-5.0) g/dL Beta HCG, Quant < 2 mIU/mL Influenza Type A (PCR) NEGATIVE (Negative) Influenza Type B (PCR) NEGATIVE (Negative) RSV RNA Qual (PCR) NEGATIVE (Negative) SARS-CoV-2 RNA (RT-PCR) NEGATIVE (Negative) Independent Interpretation I performed an independent interpretation of an: CT Scan (no free air) Radiology Impression Discussion of test interpretation with radiology: I have reviewed the radiologist's reading. (and agree) Prescription Management I considered prescription management with: Antibiotic (no evidence of diverticulitis will not place on abx) Chronic Conditions Patient?s care impacted by: Other (psychiatric illness) Social Determinants Patient?s care significantly limited by Social Determinants of Health including: Low income Discharge Plan Discharge Clinical Impression: Gastritis Patient Disposition: Home, Self-Care Instructions: Gastritis (ED) Prescriptions: New pantoprazole [Protonix] 40 mg tablet,delayed release (DR/EC) 40 mg PO DAILY Qty: 20 0RF No Action Flovent Diskus 100 mcg/actuation blister with device 1 inh inhalation DAILY buspirone 10 mg tablet 1 tab PO DAILY risperidone 1 mg tablet 1 mg PO BEDTIME colestipol 1 gram tablet 1 tab PO DAILY risperidone 0.5 mg tablet 0.5 mg PO BEDTIME bupropion HCl 200 mg tablet sustained-release 12 hr 1 tab PO BID cholecalciferol (vitamin D3) [Vitamin D3] 50 mcg (2,000 unit) tablet 1 tab PO DAILY ergocalciferol (vitamin D2) 50 mcg (2,000 unit) tablet 1 tab PO DAILY pantoprazole 40 mg tablet,delayed release (DR/EC) 1 tab PO DAILY loratadine 10 mg tablet 1 tab PO DAILY risperidone 0.5 mg tablet 0.25 mg PO DAILY famotidine [Pepcid] 40 mg tablet 40 mg PO BEDTIME Qty: 30 2RF omeprazole 40 mg capsule,delayed release(DR/EC) 40 mg PO DAILY Qty: 30 0RF ondansetron HCl [Zofran] 4 mg tablet 4 mg PO TID PRN (Reason: nausea and vomiting) 5 Days Qty: 15 0RF oxycodone 10 mg tablet 10 mg PO TID PRN (Reason: pain) Qty: 20 0RF prednisone 20 mg tablet 40 mg PO DAILY Qty: 10 0RF hydrocodone-homatropine [Hycodan] 5-1.5 mg/5 mL (5 mL) syrup 5 ml PO Q6H PRN (Reason: cough) Qty: 60 0RF Rx Instructions: Partial Fill upon patient request. benzonatate 200 mg capsule 200 mg PO TID PRN (Reason: cough) Qty: 30 0RF prednisone 20 mg tablet 20 mg PO DAILY 5 Days Qty: 5 0RF amoxicillin-pot clavulanate 875-125 mg tablet 1 tab PO BID 10 Days Qty: 20 0RF ondansetron 4 mg tablet,disintegrating 4 mg PO DAILY PRN (Reason: nausea and vomiting) 5 Days Qty: 10 0RF cyclobenzaprine 10 mg tablet 10 mg PO TID PRN (Reason: muscle spasm) Qty: 15 0RF naproxen 500 mg tablet 500 mg PO BID PRN (Reason: pain) Qty: 30 0RF lidocaine [Lidoderm] 5 % adhesive patch,medicated 1 patch topical DAILY Qty: 15 0RF Rx Instructions: leave on most painful area for up to 12 hrs Referrals: Poornima Metcalf MD [Primary Care Provider] - 3 days Print Language: Vincentian
[2023-12-17 18:49] LABS: MANUAL DIFF FLAG NO
[2023-12-17 18:50] LABS: Basophils Percent Auto 0.2 % (0-2); Eosinophils Absolute Auto 0.1 X10*3/uL (0.0-0.4); Hematocrit 39.4 % (37.0-47.0); Hemoglobin 13.5 g/dl (12.0-16.0); Imm Gran Abs Auto 0.04 X10*3/uL (0.00-0.03); Imm Gran Pct Auto 0.3 % (0.0-0.4); Lymphocytes Absolute Auto 3.5 X10*3/uL (1.2-4.9); Lymphocytes Percent Auto 28.8 % (20-40); Mean Corpuscular HGB Conc 34.3 g/dl (31.0-35.0); Mean Corpuscular Hemoglobin 30.5 pg (27.0-33.0); Mean Corpuscular Volume 89.1 fL (80.0-98.0); Monocytes Absolute Auto 0.8 X10*3/uL (0.1-1.2); Monocytes Percent Auto 6.5 % (2-11); Neutrophils Absolute Auto 7.7 x10*3/uL (2.0-8.3); Neutrophils Percent Auto 63.2 % (45-73); Platelet Count 379 X10*3/uL (160-400); Red Blood Count 4.42 X10*6/uL (4.20-5.50); Red Cell Distribution Width 13.1 % (11.0-16.0); White Blood Count 12.2 X10*3/uL (4.8-10.8)
[2023-12-17 19:04] LABS: Alanine Aminotransferase 32 U/L (0-31); Albumin Level 4.4 g/dL (3.5-5.0); Alkaline Phosphatase 76 U/L (39-117); Anion Gap 13 (12-20); Aspartate Amino Transferase 19 U/L (5-31); Bilirubin Total 0.3 mg/dL (0.0-1.0); Blood Urea Nitrogen 8 mg/dL (9-16); Calcium 9.6 mg/dL (8.4-10.2); Carbon Dioxide 22 mmol/L (22-29); Chloride 109 mmol/L (96-108); Creatinine Clr Calc Pharmacy 85.7; Estimated Glomerular Filt Rate > 60; Glucose Random 88 mg/dL (60-115); Sodium 140 mmol/L (135-145); Total Protein 8.1 g/dL (6.5-8.0)
[2023-12-17 19:17] LABS: HCG Quantitative < 2 mIU/mL
[2023-12-17 19:29] LABS: Influenza A PCR NEGATIVE (Negative); Influenza B PCR NEGATIVE (Negative); Resp Syncy Virus RNA Qual PCR NEGATIVE (Negative); SARS COV2 PCR INHOUSE NEGATIVE (Negative)
[2023-12-17] MEDS: Ketorolac Tromethamine 60 MG/2 ML VIAL IM (23:21)
[2023-12-18 01:02] VITALS: BP 137/82; PULSE 88; RESP 19; TEMP 36.6; O2SAT 98
[2023-12-18] MEDS: Famotidine 20 MG TABLET PO (03:45)
[2023-12-18 03:49] VITALS: BP 137/82; PULSE 88; RESP 19; TEMP 36.6; O2SAT 98
== END 2023-12-18 03:59 | disposition home or self-care (01) ==
PROVIDERS: Physician Assistant Medical; Emergency Provider Emergency Medicine; PCP Internal Medicine
DX: K29.70 Gastritis, unspecified, without bleeding (principal); R10.13 Epigastric pain; E11.9 Type 2 diabetes mellitus without complications; J45.909 Unspecified asthma, uncomplicated; Z79.899 Other long term (current) drug therapy; Z03.818 Encounter for observation for suspected exposure to other biological agents ruled out
CPT/HCPCS: 0241U; 36415; 74176; 80053; 83735; 84702; 85025; 96372; 99284; J1885

== ENCOUNTER 2024-10-01 14:44 | Outpatient (AMB) | payer OTHER, SELFPAY ==
--- NOTE | 2024-10-01 14:56 | A.OFFVIS_ITS ---
Vital Signs 10/01/24 14:58 Height 4 ft 10 in Weight 150 lb BMI 31.3 BP 159/86 H Blood Pressure Location Lt brachial Position Sitting Respiration 18 Pulse 87 Pulse Source Pulse Oximeter Pulse Oximetry (%) 98 Intake Visit Reasons: Neuritis/Fybromialgia Provider Relations Advocate Required: No Allergies peanut (PEANUT) Allergy (Severe, Verified 10/01/24 15:00) ANAPHYLAXIS cefpodoxime Allergy (Verified 10/01/24 15:00) Swelling HPI Comments Details: Brianna is very pleasant 39 years old lady who presents in my office with complain on pain all over the body. Was in her normal health until February of 2024 not complaining on multiple arthralgias in all over the body however in February she got her bladder stimulator sacral stimulator implanted and since then she started to complain on pain in the back pain in bilateral shoulders pain in bilateral scapular areas pain in bilateral groins pain in bilateral k nees and pain in bilateral feet. With diagnosis of fibromyalgia she was sent to me. However attention was attracted to the fact that patient reports breaking rash with attempt to wear metallic jewelry. [facility] Medical History Depression Bipolar 1 disorder Asthma Diabetes Social History Household Members: Spouse and Other Household Members Other:: dogs Housing: House Alcohol intake: unknown Patient Tobacco Use Status: Current everyday Tobacco user Substance Use Type: Marijuana Advance Directives Date on File: 02/15/21 service: No Current occupational status: disabled Review of Systems Const All systems reviewed & are unremarkable except as noted in HPI and below ENT Reports Normal hearing present Neuro Reports Normal hearing present, Denies Abnormal speech present, Denies confusion and Denies Sensory deficit (Neuro) Psych Denies confusion Physical Exam Vital Signs: Last Vital Signs Pulse 87 10/01/24 14:58 Resp 18 10/01/24 14:58 BP 159/86 H 10/01/24 14:58 Pulse Ox 98 10/01/24 14:58 BMI result Body Mass Index 31.3 Const General: no acute distress; No confusion Nutritional Appearance: obese morbidly obese Orientation/consciousness: patient oriented x3 and No confusion Eyes General: appearance normal, both eyes and all related structures Pupils: Equal, round and reactive pupils present EOM: EOMs intact bilaterally Neck Neck: Yes full ROM Chest Chest palpation & inspection: normal inspection of the chest Resp Effort & Inspection: normal respiratory effort, able to speak in complete sentences, normal respiratory pattern, no audible wheezes and no cough Cardio Jugular venous distension: no JVD GI Inspection: Yes normal to inspection Neuro General: patient oriented x3, gait normal and No confusion Cranial nerves: Yes CN's II-XII intact bilaterally, Yes Equal, round and reactive pupils present, Yes Normal hearing present and Yes Ability to bilaterally elevate shoulders present Speech: No Abnormal speech present Gait exam (Neuro): Normal gait present Motor exam (neuro): 5/5 motor strength present throughout Sensory Exam: No Sensory deficit (Neuro) Extrem General: No pedal edema Psych Speech and movement: Normal speech and movement present Affect: normal affect Attitude: cooperative Thought process: Normal thought process present Thought content: Normal thought content present Insight: Good insight present (Psych) Judgement: Good judgement present (Psych) Assessment & Plan Assessment & Plan (1) Allergy to metal: Code(s): Z91.09 - Other allergy status, other than to drugs and biological substances Category: Medical Plan Arthralgia could be a result of metallic allergy for implantable device. I will refer this patient to metal grocery specialist to diagnose and establish if she has a allergic reaction. I truly believe that removal of the device could help this patient's pain. She may start to were diaper again because of her incontinence but she will not be in pain. If after the establishment of diagnosis and removal of the device she will continue to have pain in the above-mentioned areas of the body she is welcome to come back and we will discuss treatment of her condition further. Orders: Referrals Allergy & Immunology Referral Z91.09 - Other allergy status, other than to drugs and biological substances Coding Level of Care Code New Pt Level 3 (98809) Diagnoses Allergy to metal Z91.09
[2024-10-01 14:58] VITALS: BP 159/86; PULSE 87; RESP 18; O2SAT 98; BMI 31.3
--- OUTSIDE RECORDS SUMMARY | 2024-10-01 15:13 | XMS_ITS | Clinical Summary ---
Author Organization [facility] Address [address] [place] [address] Phone Care Team Providers Care Antique Finisher Name Role Phone Lana Branch Primary Care Provider + Allergies Active Allergy Reactions Criticality Noted Date Comments Adhesive Tape-Silicones 04/22/2021 Cat Dander 03/23/2020 Cefpodoxime Anaphylaxis High 03/21/2021 Dog Dander 03/23/2020 House Dust Mite 03/23/2020 Lactose 09/06/2017 Peanut 02/06/2017 Medications albuterol 2.5 mg /3 mL (0.083 %) nebulizer solution Take 1 Vial by nebulization every 4 hours as needed for Wheezing, Shortness of Breath or Cough. 01/05/20 23 Active atorvastatin (LIPITOR) 40 mg tablet Take 1 Tablet by mouth daily. 09/07/19 24 Active azelastine (ASTELIN) 137 mcg (0.1 %) nasal spray INSTILL 2 SPRAYS IN EACH NOSTRIL TWICE A DAY DIRECTED 06/02/19 22 Active cholecalciferol (VITAMIN D-3) 50 mcg (2,000 unit) tablet Take 1 Tablet by mouth daily. 11/07/19 23 Active colestipoL (COLESTID) 1 gram tablet Take 2 Tablets by mouth 2 times daily (with meals). 02/23/20 22 Active diclofenac (VOLTAREN) 1 % topical gel Apply 4 g topically 2 times daily. 03/14/20 23 Active dicyclomine (BENTYL) 20 mg tablet Take 1 Tablet by mouth 4 times daily as needed (abd cram) for up to 90 days. 07/08/19 22 Active docusate sodium (COLACE) 100 mg capsule Take 1 Capsule by mouth 2 times daily as needed for Constipation for up to 360 days. Active famotidine (PEPCID) 40 mg tablet Take 40 mg by mouth daily. 03/16/20 21 Active fluticasone propionate (FLONASE) 50 mcg/actuation nasal spray 1 Meherrin by Nasal route 2 times daily. 02/23/20 22 Active fluticasone propionate (FLOVENT DISKUS) 50 mcg/actuation diskus inhaler by Nasal route. 11/22/19 23 Active FREESTYLE LANCETS [facility] Use to test blood sugar one times daily 02/23/20 22 Active hydrocortisone (ANUSOL-HC) [address] 1 Suppository rectally 2 times daily for 14 days. 11/20/19 24 Active ketoconazole 1 % shampoo Apply 1 g topically daily. Rub into scalp, leave in for 10 minutes, then rinse out thoroughly. Active lidocaine (LIDODERM) 5 % patch 05/14/19 24 Active loratadine (CLARITIN) 10 mg tablet Take 1 Tablet by mouth daily. 07/06/19 24 Active montelukast (SINGULAIR) 10 mg tablet Take 1 Tablet by mouth. 11/22/19 23 Active ondansetron ODT (ZOFRAN-ODT) 4 mg disintegrating tablet DISSOLVE 1 TABLET BY MOUTH EVERY 8 HOURS NEEDED FOR NAUSEA 08/14/19 24 Active pantoprazole (PROTONIX) 40 mg EC tablet Take 1 tablet by mouth daily for 180 days. 03/21/20 21 Active potassium chloride (KLOR-CON) 10 mEq CR tablet Take 1 Tablet by mouth daily. 12/20/19 24 Active sucralfate (CARAFATE) 1 gram tablet TAKE 1 TABLET BY MOUTH FOUR TIMES A DAY (BEFORE MEALS & NIGHTLY) 120 tablet 02/29/20 24 Active ketoconazole (NIZORAL) 2 % shampoo Apply to scalp topically a few times per week leave on for 10 minutes then rinse 120 mL 1 05/01/19 25 Active hydrocortisone (ANUSOL-HC) 2.5 % rectal creamIndications:H emorrhoids, unspecified hemorrhoid type Insert into the rectum 4 (four) times a day if needed for hemorrhoids (rectal discomfort). Apply to affected areas 30 g 05/19/19 25 026 Active EPINEPHrine (EpiPen 2-Emre) 0.3 mg/0.3 mL injection Inject 0.3 mL (0.3 mg total) into the thigh 1 (one) time if needed for anaphylaxis for up to 1 dose. 2 each 1 07/15/19 25 Active triamcinolone (KENALOG) 0.1 % ointmentIndication s:Eczema, unspecified type Apply topically 2 (two) times a day if needed for irritation or rash. 60 g 07/22/19 25 025 Active Hospital, Clinic, or Other Facility Administered Medication Ordered Dose Route Frequency Start Date End Date Status cyanocobalamin (VITAMIN B-12) injection 1,000 mcgIndications:B12 deficiency 1000 mcg IM Every 30 days 02/20/2024 Active Active Problems Problem Noted Date Diagnosed Date B12 deficiency 02/26/2024 PTSD (post-traumatic stress disorder) 01/18/2024 Overview (01/18/2024): F/u [facility] H. pylori infection 11/18/2020 IBS (irritable bowel syndrome) 08/27/2020 Marijuana use 08/27/2020 Urinary incontinence without sensory awareness 0 06/06/2020 Overview (01/18/2024): Last Assessment & Plan: Encouraged patient to follow-up with urologist Obstructive sleep apnea 12/12/2019 Overview (01/18/2024): [facility] Polysomnogram: Date 12/09/2019; Wt 189#; BMI 40; SE 78%; SM 81%; REM 0%; RDI 6 (AHI 6), Central apneas 0; Obstructive apneas 12; Mixed apneas 0; hypopneas 13; RERAs 0; average oxygen saturation 97% (lowest 92% - without saturations <88% for 5% or more of study); PLMs 0. - Obstructive Sleep Apnea - mild overall (no REM sleep); mostly hypopneas and obstructive apneas; without sleep related hypoventilation by 2019 polysomnogram. Fatty liver 04/17/2019 Overview (01/18/2024): Ordered Hepatitis panel, US of liver, TSH, and Will discontinue statin therapy at this time. Anxiety 08/21/2017 Asthma 08/21/2017 Bipolar disorder ([facility] V24, [facility] V28) 07/25 Major depression 08/21/2017 Hyperlipidemia 08/21/2017 Allergic rhinitis GERD (gastroesophageal reflux disease) Eczema Overview (07/21/2024): DX:Eczema Obesity (BMI 30.0-34.9) Fibromyalgia Resolved Problems Problem Noted Date Diagnosed Date Resolved Date Diarrhea 02/23/2020 07/21/2024 Overview (01/18/2024): Normal cnsp and biopsy negative for collagenous collitis Last Assessment & Plan: I recommended she follow up with GI to discuss results and further evaluation of her ongoing diarrhea. I did explain that the only test that was not performed on her stool was C Diff as it was a solid sample that day and did not thus meet criteria. If she has watery diarrhea at times as she describes, she was instructed to discuss with GI and ask if Cdiff can be repeated. She voiced understanding and agreed. Atypical chest pain 11/18/2019 07/22/19 Overview (01/18/2024): Normal echo on11/03/19 Normal loop recorder March 2020 Snoring 09/23/2019 07/21/2024 Overview (01/18/2024): 08/2019 Home Sleep Study did not reveal sleep apnea or nocturnal hypoxia. Severe obesity (BMI >= 40) ( [facility] V24, [facility] V28) 03/12/2019 07/21/2024 Diabetes mellitus type 2, un complicated ([facility] V24, [facility] V28) 08/21/2017 07/21/2024 Encounters Date Type Department Care Team Description 09/12/2024 10:00 AM EDT Clinical Support Internal Medicine - [address] [place] [address] 09/03/2024 1:00 PM EDT Office Visit Orthopedic Surgery [facility] [address] [facility] [address] [place] [phone] Adria Powell DPM Joint stiffness (Primary Dx); Fibromyalgia; Neuritis 08/13/2024 Telephone Gastroenterology [address] [phone] Susan Arambula NP Provider call back 08/12/2024 10:00 AM EDT Clinical Support Internal Medicine [address] [phone] 2024 Telephone Internal Medicine [address] [phone] Katrin Conte MA faxed form ([facility]) 07/21/2024 3:30 PM EDT Office Visit Internal Medicine [facility] [address] [phone] Lana Branch PA Routine physical examination (Primary Dx); Fibromyalgia; Eczema, unspecified type; B12 deficiency; Pure hypercholesterolemia 07/14/2024 2:11 PM EDT - 07/14/2024 11:59 PM EDT Hospital Encounter [facility] [address] [place] [phone] Neuritis; Fibromyalgia Discharge Disposition: Home or Self Care 07/02/2024 10:00 AM EDT Clinical Support Internal Medicine [address] [phone] Savannah Koehler, RN B12 deficiency (Primary Dx) from Last 3 Months Immunizations Name Administration Dates Next Due Influenza Quadravalent, MDCK , 0.5ml, preservative free (Flucelvax) 6mo and older 01/06/2022,12/14/2020,01/26/2020 Influenza, Unspecified 01/09/2024 PPD Test 02/20/2018 Tdap Tetanus diptheria acell ular pertussis (Boostrix; Adacel) 7yo and older 05/22/2017 Surgical History Surgery Date Site/Laterality Comments APPENDECTOMY 11/10/2015 PROCEDURE: HISTORICAL APPENDECTOMY; COMMENT: Appendicitis SECTION PROCEDURE: HISTORICAL ; COMMENT: 2003, 2008 HERNIA REPAIR 2016 PROCEDURE: HISTORICAL HERNIA REPAIR/UMB OTHER SURGICAL HISTORY 2016 Left PROCEDURE: ---- OTHER ----; COMMENT: removal ovarian cyst TUBAL LIGATION 2008 PROCEDURE: HISTORICAL TUBAL LIGATION OTHER SURGICAL HISTORY 12/2019 PROCEDURE: NV TOTAL ABDOMINAL HYSTERECT W/WO RMVL TUBE OVARY Medical History Medical History Date Comments Asthma DX:Asthma Bipolar disorder ([facility] V2 4, [facility] V28) DX:Bipolar disorder ([facility]) Anxiety DX:Anxiety Major depression DX:Major depres johnathon PTSD (post-traumatic stress disorder) DX:PTSD (post-traumatic stress disorder) Hyperlipidemia 03/05/2017 DX:Hyperlipidemi a Preeclampsia DX:Preeclampsia Eczema 12/13/2017 DX:Eczema Fatty liver DX:Fatty liver Allergic rhinitis GERD (gastroesophageal reflux disease) IBS (irritable bowel syndrome) Obesity (BMI 30.0-34.9) Fibromyalgia Social History Tobacco Use Types Packs/Day Years Used Date Smoking Tobacco: Every Day Cigarettes Smokeless Tobacco: Never Alcohol Use Standard Drinks/Week Comments No 0 (1 standard drink = 0.6 oz pur e alcohol) Housing Instability Answer Date Recorde d Are you worried that in the next 2 months you may not have stable housing? No 06/24/2024 Food Access & Nutrition Answer Date Rec orded Do you have access to a vari ety of food including fruits and vegetables? Yes 06/24/2024 Access to Healthcare Answer Date Record ed Within the last 3 months, ho w many times did you visit the emergency department for your medical care? 0 06/24/2024 Health Literacy Answer Date Recorded How often do you need to hav e someone help you when you read instructions, pamphlets, or other written material from your doctor or pharmacy? Always 06/24/2024 Caregiver: How often do you need to have someone help you when you read instructions, pamphlets, or other written material from your doctor or pharmacy? Not on file 06/24/2024 Financial Risk Answer Date Recorded How hard is it for you to pa y for the very basics like food, housing, medical care, and air conditioning / heating? Not very hard 06/24/2024 Transportation Answer Date Recorded Has the lack of transportati on kept you from meetings, work, or from getting things needed for daily living? No Has the lack of transportati on kept you from medical appointments or from getting medications? No 06/24/2024 Social Isolation Answer Date Recorded How often do you feel lonely or isolated from those around you? Sometimes 06/24/2024 Food Risk Answer Date Recorded Within the past 12 months we worried whether our food would run out before we got money to buy more. Never true 06/24/2024 Within the past 12 months th e food we bought just didn't last and we didn't have money to get more. Never true 06/24/2024 Dependent Care Answer Date Recorded Do you need help finding or paying for care for your loved ones. For example, director of early childhood or elderly care for an older adult? No 06/24/2024 Education Answer Date Recorded Do you think completing more education or training, like finishing a GED, going to college, or learning a trade, would be helpful for you? Yes 06/24/2024 Employment and Income Answer Date Recor ded During the last four weeks, have you been actively looking for work? No 06/24/2024 Living Situation Answer Date Recorded What is your living situation? 0 06/24/2024 Comments Unknown Sex and Gender Information Value Date Recorded Sex Assigned at Female 04/08/2024 8:57 AM EST Legal Sex Female 10:01 PM EST Gender Identity Female 04/08/2024 8:57 AM EST Sexual Orientation Lesbian or Jorgensen 04/08/2024 8: 58 AM EST Obstetrics History Last Filed Vital Signs Vital Sign Reading Time Taken Comments Blood Pressure 118/80 07/21/2024 3:13 PM EDT Pulse 88 07/21/2024 3:13 PM EDT Temperature 36.6 C (97.8 F) 07/21/2024 3:13 PM EDT Respiratory Rate - - Oxygen Saturation 98% 07/21/2024 3:13 PM EDT Inhaled Oxygen Concentration - - Weight 75.6 kg (166 lb 9.6 oz) 07/21/2024 3:13 P M EDT Height 147.3 cm (4' 10 ) 07/21/2024 3:13 PM EDT Body Mass Index 34.82 07/21/2024 3:13 PM EDT Plan of Treatment Upcoming Encounters Date Type Department Care Team (Late st Contact Info) Description 10/08/2024 10:30 AM EDT Evaluation [facility] [place] 175 [facility] [address] [place] [phone] Cullen Mcnair, PT [address] [place] [address] 10/14/2024 9:30 AM EDT Clinical Support Internal Medicine [facility] 175 [facility] [address] [place] [phone] 10/16/2024 9:00 AM EDT Office Visit Orthopedic Surgery [place] [address] [phone] Adria Powell DPM [address] [phone] 12/03/2024 10:15 AM EDT Office Visit Orthopedic Surgery [place] [address] [phone] Adria Powell DPM [address] [phone] 01/21/2025 9:30 AM EDT Office Visit Internal Medicine [facility] [address] [phone] Lana Branch, PA [address] [phone] Health Maintenance Due Date Last Done Comments Hepatitis B Vaccines (1 of 3 - 19+ 3-dose series) 08/03/2002 Pneumococcal Vaccine: Pediatrics (0 to 5 Years) and At-Risk Patients (6 to 49 Years) (1 of 2 - PCV) 08/03/2002 Cervical Cancer Screening: Pap Smear 03/14/2020 03/14/2017, 03/14/2017 HIV Screening 03/04/2022 COVID-19 Vaccine ( season) 2023 06/16/2020, 05/19/2020 Influenza Vaccine (#1) 2024 4, 01/06/2022, 12/14/2020, Additional history exists Breast Cancer Screening 03/08/2025 03/08/20 23, 12/01/2021, 07/07/2020, Additional history exists Depression Screening 06/24/2025 06/24/2024 Social Influencers of Health Screening 06/24/2025 06/24/2024 DTaP,Tdap,and Td Vaccines (2 - Td or Tdap) 05/22/2027 05/22/2017 Cholesterol Screening (Lipid Panel) 08/22/2028 08/23/2023, 08/23/2023 Hepatitis C Screening Completed 04/18/2019 HIB Vaccines Aged Out No longer eligi ble based on patient's age to complete this topic HPV Vaccines Aged Out No longer eligi ble based on patient's age to complete this topic Hepatitis A Vaccines Aged Out No long er eligible based on patient's age to complete this topic IPV Vaccines Aged Out No longer eligi ble based on patient's age to complete this topic MMR Vaccines Aged Out No longer eligi ble based on patient's age to complete this topic Meningococcal ACWY Vaccine Aged Out N o longer eligible based on patient's age to complete this topic Meningococcal B Vaccine Aged Out No l onger eligible based on patient's age to complete this topic RSV Immunization Patients Under 20 months Aged Out No longer eligible based on patient's age to complete this topic Varicella Vaccines Aged Out No longer eligible based on patient's age to complete this topic Goals Goal Patient Goal Type Associated Problems Recent Progress Patient-Stated? Author PLOF General Yes Cullen Mcnair PT STG General No Cullen Mcnair, PT Note: Pt will report an average pain level decrease of 2/10 Pt will improve sleep by 1hr/night Pt will improve sitting capacity to 30 min Pt will improve active R hip flexion to 90deg LTG General No Cullen Mcnair PT Note: Pt will be able to sit through a 2 hr movie Pt will be able to negotiate stairs to enter/exiting home without having to rest due to back/R LE pain Pt will be able to fully prepare meal without having to rest due to current Sx. Procedures Procedure Name Priority Date/Time Associated Diagnosis Comments EMG 2 LIMBS Routine 07/14/2024 3:14 PM EDT Neuritis Fibromyalgia LIPID PANEL Routine 08/23/2023 [facility] SCREENING DIGITAL Routine 03/08/2023 12:31 PM EST Encounter for screening mammogram for malignant neoplasm of breast HEPATITIS C SCREENING Routine 04/18/2019 HM HPV Routine 03/14/2017 from Last 3 Months or Most Recently Relevant to Health Maintenance Results * EMG two limbs (07/14/2024 3:14 PM EDT) Narrative Brianna Jaime MD - 07/14/2024 4:26 PM EDT See report in chart review Procedure Note Brianna Jaime MD - 07/14/2024 See report in chart review Adria Powell DPM NEUROLOGY ORDERABLES Elidia l Result * (ABNORMAL) Lipid panel (08/23/2023) LDL/HDL Ratio 6(A) 0 - 4 Triglycerides 110 0 - 150 mg/dL Cholesterol 265(A) 0 - 200 mg/dL HDL 47 >=40 mg/dL LDL Cholesterol 196(A) 0 - 100 mg/dL Blood Venous blood specimen / Unknown Historical Provider LAB BLOOD ORDERABLES Elidia l Result * [facility] SCREENING DIGITAL (03/08/2023 12:31 PM EST) Anatomical Region Laterality Modality Mammography 03/07/2023 12:4 0 PM EST Narrative 03/08/2023 12:[address] [facility] Diagnostic Imaging Department [address] [place] [id number] Patient: XENA FORTE /Age/Sex: 1985 - 37 - F Unit#: [id number] Location/Status: SPDIMAM/REG CLI Mnemonic/Ordering Site: [facility] Ordering Physician: SHERRIE METCALF MD [facility] Screening Digital - 03/07/23 - 1519 Report Status:Signed EXAM: [facility] Screening Digital EXAM DATE AND TIME: 03/07/2023 3:19 PM HISTORY: Screening. COMPARISON: 12/01/21, 07/07/20, 04/23/19 ([facility], [place], [place]) TECHNIQUE: Bilateral digital breast tomosynthesis was performed in the CC and MLO projections. Computer aided detection with [employer] 3D 3.1 was employed. TISSUE DENSITY: a. The breasts are almost entirely fatty. FINDINGS: No suspicious masses, grouped microcalcifications, or areas of architectural distortion are seen. The skin and vascularity are unremarkable. IMPRESSION: Stable mammographic appearance of the breasts. No evidence of malignancy is seen. A negative mammogram in the presence of a clinically suspicious palpable abnormality does not preclude the possibility of malignancy or alter the indications for biopsy. BI-RADS: Category 1: Negative RECOMMENDATION(S): 1: Routine screening mammogram BILATERAL in 1 year. Dictating Physician: DARIANA SCHMIDT MD Electronically Signed by: DARIANA SCHMIDT MD Dic Date/Time: 03/08/23 1231 Sign date/Time: 03/08/23 1231 Procedure Note Dariana Schmidt MD - 05/01/2023 [facility] Diagnostic Imaging Department [address] [place] [id number] Patient: XENA FORTE /Age/Sex: 1985 - 37 - F Unit#: [id number] Location/Status: [facility] CLI Mnemonic/Ordering Site: [facility] Ordering Physician: SHERRIE METCALF MD [facility] Screening Digital - 03/07/23 - 1519 Report Status:Signed EXAM: [facility] Screening Digital EXAM DATE AND TIME: 03/07/2023 3:19 PM HISTORY: Screening. COMPARISON: 12/01/21, 07/07/20, 04/23/19 ([facility], [place], [place]) TECHNIQUE: Bilateral digital breast tomosynthesis was performed in the CCand MLO projections. Computer aided detection with [employer] 3D 3.1was employed. TISSUE DENSITY: a. The breasts are almost entirely fatty. FINDINGS: No suspicious masses, grouped microcalcifications, or areas ofarchitectural distortion are seen. The skin and vascularity are unremarkable. IMPRESSION: Stable mammographic appearance of the breasts. No evidence of malignancyis seen. A negative mammogram in the presence of a clinically suspicious palpable abnormality does not preclude the possibility of malignancy or alter the indications for biopsy. BI-RADS: Category 1: Negative RECOMMENDATION(S): 1: Routine screening mammogram BILATERAL in 1 year. Dictating Physician: DARIANA SCHMIDT MD Electronically Signed by: DARIANA SCHMIDT MD Dic Date/Time: 03/08/23 1231 Sign date/Time: 03/08/23 1231 Sherrie Metcalf MD IMG BI PROCEDURES Final Result * Hepatitis C Screening (04/18/2019) Hepatitis C Screening abstracted Historical Provider HEALTH MAINTENANCE Final Result * Cervical Cancer Screening: HPV (03/14/2017) Cervical Cancer Screening: HPV no interpretation , abstracted Historical Provider HEALTH MAINTENANCE Final Result from Last 3 Months or Most Recently Relevant to Health Maintenance Insurance [facility] Care Teams Antique Finisher Relationship Specialty Start Date End Date Lana Branch PA [address] [place] [address] PCP - General 01/24/24
== END 2024-10-01 15:29 | disposition home or self-care (01) ==
LOC: HO.PMC 14:44
PROVIDERS: PCP Physician Assistant; Referring Provider Podiatrist Foot & Ankle Surgery; Visit Provider Anesthesiology
DX: Z91.09 Other allergy status, other than to drugs and biological substances (principal)
CPT/HCPCS: 99203

== ENCOUNTER → 2024-10-01 14:44 | Outpatient (BNVA) | payer OTHER, SELFPAY | PROVIDERS: PCP Physician Assistant; Referring Provider Podiatrist Foot & Ankle Surgery; Visit Provider Anesthesiology | DX: Z91.09 Other allergy status, other than to drugs and biological substances (principal) | CPT/HCPCS: 99202 ==

== ENCOUNTER 2024-12-16 10:15 | Outpatient (AMB) | payer OTHER, SELFPAY ==
--- OUTSIDE RECORDS SUMMARY | 2024-12-15 08:30 | XMS_ITS | Encounter Summary ---
Author Organization [facility] Address [address] [place] [address] Care Team Providers Care Ict Help Desk Officer Name Role Phone Lana Branch Primary Care Provider + Reason for Visit * Consultation (Routine) - Authorized Specialty Diagnoses / Procedures Referred By Lynn miranda Referred To Contact Physical Therapy Diagnoses Joint stiffness Fibromyalgia Neuritis Adria Powell, DPM 175 [facility] [address] [place] [address] Phone: tel: fax: Referral ID Status Reason Start Date Expiration Date Visits Requested Visits Authorized [id number] Authorized Specialty Services Required 09/03/2024 09/03/2025 21 21 Encounter Details Date Type Department Care Team ([facility] Contact Info) Description 12/15/2024 8:30 AM EDT Treatment [facility] [place] [address] [address] Cullen Mcnair, PT 175 [place] [address] Joint stiffness (Primary Dx) Social History Tobacco Use Types Packs/Day Years [...] care for your loved ones. For example, child care cook or elderly care for an older adult? [...] or Jorgensen 04/08/2024 8: 58 AM EST documented as of this encounter Progress Notes * Cullen Mcnair PT - 12/15/2024 8:30 AM EDT [facility] - Outpatient PHYSICAL THERAPY DAILY TREATMENT NOTE - OP Date: 12/15/2024 Visit Number: [id number] Patient Name: Brianna Callaway : 1985 Age: 39 y.o. Gender: female Diagnosis: ICD-10-CM ICD-9-CM 1. Joint stiffness M25.60 719.50 Date of Onset/Surgery: 10/07/2023 Referring Provider: Adria Powell DPM Insurance: Payor: [email or web address] PLAN / Plan: [employer]ICA[employer] / Product Type: *No Product type* / Patient Identified by: Cullen Mcnair PT Language: Speaks and understands Occitan as preferred language with no yarn examiner required Medications: Current Outpatient Medications on File Prior to Visit Medication Sig Dispense Refill albuterol 2.5 mg /3 mL (0.083 %) nebulizer solution Take 1 Vial by nebulization every 4 hours as needed for Wheezing, Shortness of Breath or Cough. atorvastatin (LIPITOR) 40 mg tablet Take 1 Tablet by mouth daily. azelastine (ASTELIN) 137 mcg (0.1 %) nasal spray INSTILL 2 SPRAYS IN EACH NOSTRIL TWICE A DAY DIRECTED cholecalciferol (VITAMIN D-3) 50 mcg (2,000 unit) tablet colestipoL (COLESTID) 1 gram tablet Take 2 Tablets by mouth 2 times daily (with meals). dexAMETHasone (DECADRON) 4 mg/mL injection 1 mL (4 mg total) by Other route every 12 (twelve) hours. Use with Physical therapy under iontophoresis 30 mL 2 diclofenac (VOLTAREN) 1 % topical gel Apply 4 g topically 2 times daily. dicyclomine (BENTYL) 20 mg tablet Take 1 Tablet by mouth 4 times daily as needed (abd cram) for up to 90 days. docusate sodium (COLACE) 100 mg capsule Take 1 Capsule by mouth 2 times daily as needed for Constipation for up to 360 days. EPINEPHrine (EpiPen 2-Emre) 0.3 mg/0.3 mL injection Inject 0.3 mL (0.3 mg total) into the thigh 1 (one) time if needed for anaphylaxis for up to 1 dose. 2 each 1 famotidine (PEPCID) 40 mg tablet Take 40 mg by mouth daily. fluticasone propionate (FLONASE) 50 mcg/actuation nasal spray 1 [place] by Nasal route 2 times daily. fluticasone propionate (FLOVENT DISKUS) 50 mcg/actuation diskus inhaler by Nasal route. FREESTYLE LANCETS [facility] Use to test blood sugar one times daily hydrocortisone (ANUSOL-HC) 2.5 % rectal cream Insert into the rectum 4 (four) times a day if neededfor hemorrhoids (rectal discomfort). Apply to affected areas 30 g 0 hydrocortisone (ANUSOL-HC) [address] 1 Suppository rectally 2 times daily for 14 days. ketoconazole (NIZORAL) 2 % shampoo Apply to scalp topically a few times per week leave on for 10 minutes then rinse 120 mL 1 ketoconazole 1 % shampoo Apply 1 g topically daily. Rub into scalp, leave in for 10 minutes, then rinse out thoroughly. lidocaine (LIDODERM) 5 % patch loratadine (CLARITIN) 10 mg tablet Take 1 Tablet by mouth daily. montelukast (SINGULAIR) 10 mg tablet Take 1 Tablet by mouth. ondansetron ODT (ZOFRAN-ODT) 4 mg disintegrating tablet DISSOLVE 1 TABLET BY MOUTH EVERY 8 HOURS ASNEEDED FOR NAUSEA pantoprazole (PROTONIX) 40 mg EC tablet Take 1 tablet by mouth daily for 180 days. potassium chloride (KLOR-CON) 10 mEq CR tablet Take 1 Tablet by mouth daily. sucralfate (CARAFATE) 1 gram tablet TAKE 1 TABLET BY MOUTH FOUR TIMES A DAY (BEFORE MEALS & NIGHTLY) 120 tablet 0 Current Facility-Administered Medications on File Prior to Visit Medication Dose Route Frequency Provider Last Rate Last Admin cyanocobalamin (VITAMIN B-12) injection 1,000 mcg 1,000 mcg intramuscular q30 days JOE Canales 1,000 mcg at 10/14/24 0905 Allergies: is allergic to cefpodoxime, adhesive tape-silicones, cat dander, dog dander, house dust mite, lactose, and peanut. Precautions: *BLADDER SIMULATOR* with HX back pain Fall risk: No SUBJECTIVE Subjective Report: Pt 15 min late. Reports continued to do well. Some temporary mild pain the other day when WB, otherwise good. Chart Reviewed: Yes Pain: No pain TREATMENT INTERVENTION: [NuStep x 5 min lv 5 Slant board x 5 20 sec holds ASSESSMENT/Response to Treatment Good No ionto this visit. Pt will return in aprox 3 wks for a re-eval. At that point it'll be aprox1 month without iontophoresis. PLAN POC Development/Review: No Change in the Plan of Care; Participants: Patient Interventions Time Entry: Modalities: Therapeutic procedures: Therapeutic Exercise Time Entry: 15 Total Treatment Time:15 Documentation completed by Cullen Mcnair PT documented in this encounter Plan of Treatment Upcoming Encounters Date Type Department Care Team (Late st Contact Info) Description 12/31/2024 11:00 AM EDT Treatment [facility] [place] 175 [facility] [address] [place] [phone] Cullen Mcnair PT 175 [place] [address] 01/21/2025 9:30 AM EDT Office Visit Internal Medicine - [place] 175 [facility] [address] [place] [id number] Lana Branch PA 175 [facility] [address] [place] [address] 03/05/2025 10:15 AM EST Office Visit Orthopedic Surgery - [place] [address] [facility] [address] [place] [phone] Adria Powell DPM 175 [facility] [address] [place] [phone] documented as of this encounter Goals Goal Patient Goal Type Associated Problems Recent Progress Patient-Stated? Author PLOF General Yes Tabby, Freddy, PT less pain General Yes Cullen Mcnair, PT STG x [address] [facility] 11/13/2024 General No Cullen Mcnair PT Note: [x] = goal MET [] = goal NOT MET [] Pt will be able to negotiate front steps reciprocally without being limited by ankle/foot pain , [] Pt will improve SLS on right to 12 seconds, [] Pt will improve great toe flexion to 20 deg LTG x [address] [facility] 11/13/24 General No Cullen Mcnair PT Note: [x] = goal MET [] = goal NOT MET [] Pt will wake < 3/wk due to pain [] Pt will be able to go on toes to reach top cupboards [] Pt will have no limitations in stair negotiation as it relates to R foot pain documented as of this encounter Visit Diagnoses Diagnosis Joint stiffness- Primary Stiffness of joint, not elsewhere classified, unspecified site documented in this encounter Additional Health Concerns Assessment Noted Time PHQ-9 Depression Total Score: 9 06/25/19 25 1:39 PM EDT documented as of this encounter Care Teams Ict Help Desk Officer Relationship Specialty Start Date End Date Lana Branch PA [address] [place] [address] PCP - General 01/24/24 documented as of this encounter
--- NOTE | 2024-12-16 10:21 | MHC.OFFVIS ---
Intake Visit Reasons: follow Allergies peanut (PEANUT) Allergy (Severe, Verified 12/16/24 10:27) ANAPHYLAXIS cefpodoxime Allergy (Verified 12/16/24 10:27) Swelling Medication List - Last Reconciled 12/16/24 by Blossom Casiano CNP atorvastatin (Lipitor) 40 mg PO DAILY azelastine 2 sprays intranasal BID benzonatate 200 mg PO TID PRN cholecalciferol (vitamin D3) (Vitamin D3) 1 tab PO DAILY colestipol (Colestid) 2 grams PO BID diclofenac sodium 1% 4 grams topical BID docusate sodium (Colace) 100 mg PO BID ergocalciferol (vitamin D2) 1 tab PO DAILY famotidine (Pepcid) 40 mg PO BEDTIME fluticasone propionate 100 mcg/actuation (Flovent Diskus) 1 inh inhalation DAILY lidocaine 5% (Lidoderm) 1 patch topical DAILY lidocaine 5% (Lidoderm) 1 patch topical DAILY loratadine 1 tab PO DAILY naproxen 500 mg PO BID PRN omeprazole 40 mg PO DAILY ondansetron 4 mg PO DAILY PRN 5 days HPI Comments Details: She was having more headaches over the last month. Pain was all over head, throbbing-type, with photophobia. No sonophobia, nausea, or vomiting. Head was sensitive to touch. Paresethesia to R side of head like animals crawling at times. Using dual ibuprofen-Tylenol as needed with minimal relief. Ongoing generalized body pains with lot of pain to hips, cannot sleep on sides. Has not been taking gabapentin or cyclobenzaprine as medication causing constipation, has IBS and following with GI. Saw pain management in 09/2024 who thought symptoms/arthralgia may be related to allergy to metal from bladder stimulator, and has appointment with [facility] later this week. Ongoing intermittent numbness and tingling in feet since 2023. Whole body hurts, weather makes it worse. Meds work for 1-2 hrs. She has?severe back pain, sometimes from the neck all the way down to her feet.? She says that this started about 2 months after she had a bladder stimulator implanted in her lower right buttock area in 11/2022. She also says that she has fibromyalgia and her current medications do not help.? In the past, she has been seen for poor balance and tripping and falling frequently. Feet swell. Has a lot of numbness and tingling in feet since around 2023. Lot of bladder control problems with urgency. Still complains of decreased vision in both eyes. She has a history of bipolar disorder, depression, anxiety and PTSD. She's had vision problems since 2014, but was doing okay with her glasses till she started to lose her vision. She says that she had an eye exam on 08/03/17 and was told that she is legally blind because she cannot see on her sides. Her hearing is also going. She says she can see straight ahead. She also noted that the eye doctor did not find anything wrong with. She also gets constant headaches without any other associated symptoms. [facility] Medical History Depression Bipolar 1 disorder Asthma Diabetes Social History Household Members: Spouse and Other Household Members Other:: dogs Housing: House Alcohol intake: unknown Patient Tobacco Use Status: Current everyday Tobacco user Substance Use Type: Marijuana Advance Directives Date on File: 02/15/21 service: No Current occupational status: disabled Review of Systems Const Denies chills, Denies daytime sleepiness, Reports difficulty sleeping, Denies fatigue, Denies fever(s), Denies frequent falls, Reports headache(s), Denies increased appetite, Denies poor appetite, Denies snoring, Denies weakness, Denies weight gain and Denies weight loss Eyes Denies loss of vision ENT Denies vertigo, Reports dizziness, Reports headache(s) and Reports neck pain Card Denies chest pain at rest, Denies chest pain with activity, Denies syncope, Denies leg edema, Denies palpitations, Denies dyspnea and Denies dyspnea on exertion Resp Denies cough, Denies dyspnea, Denies dyspnea on exertion and Denies snoring GI Denies abdominal pain, Denies constipation, Denies heartburn, Denies diarrhea and Denies nausea Denies urinary frequency, Denies urinary incontinence and Denies urinary urgency Musc Denies abnormal gait, Reports back pain, Reports myalgias, Reports arthralgias, Reports neck pain, Reports numbness and Reports tingling Neuro Denies abnormal gait, Denies vertigo, Reports dizziness, Denies syncope, Denies frequent falls, Reports headache(s), Denies lack of coordination, Denies loss of vision, Reports memory loss, Reports numbness, Denies Other visual disturbances, Denies restless legs, Denies seizure-like activity, Reports tingling, Denies paresthesias, Denies tremor(s) and Denies weakness Psych Reports anxiety, Reports depression, Denies auditory hallucinations, Reports memory loss and Denies visual hallucinations Endo Denies fatigue and Denies palpitations Physical Exam Const Other: General Appearance:? normal, in no acute distress. Heart:? S1, S2 normal, no murmurs. Lungs:? clear anteriorly and posteriorly. Musculoskeletal:? normal. Extremities:? no edema. Psych:? alert, oriented, cognitive function intact, cooperative with exam. Neuro Other: Abnormal Neurological Findings:?DTRs 3+. Plantars are flexor on left and equivocal on right. Mental Status: alert and oriented X 3. Normal attention, orientation, memory, and affect. Cranial Nerves: Pupils are equal, round, and reactive to light. External ocular muscles are intact. Visual martínez are full, no ptosis. Face is symmetrical, no facial weakness or droop. Facial sensations are normal. Tongue protrudes in midline. Palate elevates symmetrically. Shoulder shrugging is normal Motor Examination: Normal muscle tone, bulk and strength. No atrophy or fasciculations. No drift of the extended upper extremities. DTRs 3+. Plantars are flexor on left and equivocal on right. Sensory Exam: Normal light touch, temperature, pinprick, vibration, and joint-position sensations. Rhomberg sign is absent. Coordination: No ataxia. No titubation. Gait Exam: Within normal limits. Cerebellar Signs: [id number] is okay. Extrapyramidal System: No tremor, rigidity with normal facial expressions. No bradykinesia. No bradyphrenia. Normal arm swing and posture. No propulsion or retropulsion. Speech: Normal. Assessment & Plan Assessment & Plan (1) Back pain: Code(s): M54.9 - Dorsalgia, unspecified Category: Medical Qualifiers: Back pain location: back pain in unspecified location Chronicity: unspecified Back pain laterality: unspecified Qualified Code(s): M54.9 - Dorsalgia, unspecified Plan: She was having side effect of constipation with gabapentin three times a day and cyclobenzaprine twice a day. Will try lower dose to see if that will help reduce side effects. Increase fluid and fiber intake which may also help to reduce side effect. Decrease gabapentin 400mg 1 capsule at bedtime. May continue cyclobenzaprine 10mg 1 tablet twice a day as needed for muscle spasms/pain. (2) Fibromyalgia: Code(s): M79.7 - Fibromyalgia Category: Medical Plan: Amitriptyline may also help with pain. (3) Tension headache: Code(s): G44.209 - Tension-type headache, unspecified, not intractable Category: Medical Plan: Start amitriptyline 25mg 1 tablet at bedtime x1 week, then 2 tablets at bedtime, use/side effects reviewed. Medications: New amitriptyline 25 mg orally 1 tablet at bedtime x1 week then 2 tablets at bedtime; 60 tabs 2RF 30 days gabapentin 400 mg PO BEDTIME 30 caps 2RF 30 days cyclobenzaprine 10 mg PO BID PRN 60 tabs 1RF muscle spasm 30 days Coding Level of Care Code Est Pt Level 4 (76759) Diagnoses Back pain, unspecified back location, unspecified back pain laterality, unspecified chronicity M54.9 Back pain location: back pain in unspecified location Chronicity: unspecified Back pain laterality: unspecified Fibromyalgia M79.7 Tension headache G44.209
--- OUTSIDE RECORDS SUMMARY | 2024-12-16 12:27 | XMS_ITS | Clinical Summary ---
Author Organization [facility] Address [address] [place] [address] Phone Care Team Providers Care Community Relations Specialist Name Role Phone Danna Miller MD Primary Care Prov ider Allergies No known active allergies Medications thiamine 50 MG tablet Take 1 tablet (50 mg total) by mouth daily. 30 tablet 12 06/25/2018 Active Active Problems No known active problems Social History Tobacco Use Types Packs/Day Years Used Date Smoking Tobacco: Every Day Smokeless Tobacco: Never Alcohol Use Standard Drinks/Week Comments Yes 1 (1 standard drink = 0.6 oz pur e alcohol) Very occasional Education Answer Date Recorded Are you interested in more education? Not on tina e 07/21/2022 Are you concerned about learning? Not on file 07/21/2022 No 07/21/2022 No 07/21/2022 Digital Access Answer Date Recorded No 08/19/2022 No 08/19/2022 No 08/19/2022 Reliable internet access at home? Not on file 08/19/2022 Device with a working camera? Not on file Comments Unknown Sex and Gender Information Value Date Recorded Sex Assigned at Not on file Legal Sex Female 1:02 PM EST Gender Identity Not on file Sexual Orientation Not on file Plan of Treatment Health Maintenance Due Date Last Done Comments DEPRESSION SCREENING 1995 SMOKING Hx and SMOKELESS TOBACCO SCREENING 08/03/1996 HEPATITIS C SCREENING 08/03/2001 HIV ONE-TIME SCREENING (18-6 5 YEARS) 08/03/2001 PNEUMOCOCCAL VACCINES (0-49 years) (1 of 2 - PCV) 08/03/2002 PAP SMEAR 08/03/2004 MAMMOGRAM 2023 INFLUENZA VACCINE (#1) 2024 01/26/2020 COVID-19 VACCINE (3 - 2024-2 6 season) 2024 06/16/2020, 05/19/2020 Adult Td,Tdap Booster 05/22/2027 05/22/2017 HEPATITIS A VACCINES Aged Out No long er eligible based on patient's age to complete this topic HIB VACCINES Aged Out No longer eligi ble based on patient's age to complete this topic MENINGOCOCCAL VACCINES (ACWY) Aged Out No longer eligible based on patient's age to complete this topic MENINGOCOCCAL VACCINES (B) Aged Out N o longer eligible based on patient's age to complete this topic Medical Devices Not on file Insurance [employer] [place] [address] [place] [address] [employer] ACO [facility] [employer] [address] [place], [place] [address] [facility] [address] [place] [address] [facility] [facility] [place] [address] [place] [address] [facility] [facility] [facility] A[facility] Care Teams Community Relations Specialist Relationship Specialty Start Date End Date Danna Miller MD [address] [place] [id number] PCP - General Internal Medicine 06/17/18 Additional Source Comments The information contained in this document represents components of the legal health record. It is not the complete legal health record.[facility]
--- OUTSIDE RECORDS SUMMARY | 2024-12-16 12:27 | XMS_ITS | Clinical Summary ---
Author Organization 175 [facility] Address 175 [place] [address] Phone Care Team Providers Care Ext Js Developer Name Role Phone Lana Branch Primary Care [...] (VITAMIN D-3) 50 mcg (2,000 unit) tablet 11/07/19 23 Active colestipoL (COLESTID) 1 gram [...] propionate (FLONASE) 50 mcg/actuation nasal spray 1 [place] by Nasal route 2 times daily. 02/23/20 22 Active fluticasone propionate (FLOVENT DISKUS) 50 mcg/actuation diskus inhaler by Nasal route. 11/22/19 23 Active FREESTYLE LANCETS [facility] Use to test blood sugar one times [...] & NIGHTLY) 120 tablet 02/29/20 24 Active hydrocortisone (ANUSOL-HC) 2.5 % rectal creamIndications:H [...] dose. 2 each 1 07/15/19 25 Active ketoconazole (NIZORAL) 2 % shampoo Apply to scalp topically a few times per week leave on for 10 minutes then rinse 120 mL 1 10/22/19 25 Active dexAMETHasone (DECADRON) 4 mg/mL injection 1 mL (4 mg total) by Other route every 12 (twelve) hours. Use with Physical therapy under iontophoresis 30 mL 2 11/14/19 25 Active triamcinolone (KENALOG) 0.1 % ointmentIndication s:Eczema, unspecified type Apply topically 2 (two) times a day if needed for irritation or rash. 60 g 07/22/19 25 025 Hospital, Clinic, or Other Facility Administered Medication Ordered Dose Route Frequency Start Date End Date Status cyanocobalamin (VITAMIN B-12) injection 1,000 mcgIndications:B12 deficiency 1000 mcg IM Every 30 days 02/20/2024 Active Active Problems Problem Noted Date Diagnosed Date B12 deficiency 02/26/2024 PTSD (post-traumatic stress disorder) 01/18/2024 Overview (01/18/2024): F/u Sulaiman Gresham H. pylori infection 11/18/2020 IBS (irritable bowel syndrome) 08/27/2020 Marijuana use 08/27/2020 Urinary incontinence without sensory awareness 0 06/06/2020 Overview (01/18/2024): Last Assessment & Plan: Encouraged patient to follow-up with urologist Obstructive sleep apnea 12/12/2019 Overview (01/18/2024): [facility] Polysomnogram: Date 12/09/2019; Wt [...] time. Anxiety 08/21/2017 Asthma 08/21/2017 Bipolar disorder ([facility] V24, [facility] V28) 07/25 Major depression 08/21/2017 Hyperlipidemia 08/21/2017 [...] and agreed. Atypical chest pain 11/18/2019 07/22/19 25 Overview (01/18/2024): Normal echo on11/03/19 Normal loop recorder March 2020 Snoring 09/23/2019 07/21/2024 Overview (01/18/2024): 08/2019 Home Sleep Study did not reveal sleep apnea or nocturnal hypoxia. Severe obesity (BMI >= 40) ( [facility] V24, [facility] V28) 03/12/2019 07/21/2024 Diabetes mellitus type 2, un complicated ([facility] V24, [facility] V28) 08/21/2017 07/21/2024 Encounters Date Type Department Care Team Description 12/15/2024 8:30 AM EDT Treatment [facility] [address] [address] Cullen Mcnair, PT Joint stiffness (Primary Dx) 12/09/2024 Telephone Internal Medicine [address] [phone] Lana Branch, JOE 12/04/2024 8:30 AM EDT Treatment [facility] [address] [address] Cullen Mcnair, PT Joint stiffness (Primary Dx) 12/03/2024 10:15 AM EDT Office Visit Orthopedic Surgery [facility] [address] [phone] Adria Powell, DPM Acquired hallux valgus of left foot (Primary Dx) 12/02/2024 9:30 AM EDT Treatment [address] [address] Joao Brock, CESAR Joint stiffness (Primary Dx) 12/01/2024 Telephone Internal Medicine [address] [phone] Lana Branch, JOE 11/26/2024 8:00 AM EDT Treatment [address] [phone] Ravindra Littlejohn, STOCK CLIPPER Joint stiffness (Primary Dx) 11/14/2024 Telephone Internal Medicine [address] [phone] Sergey Rodriguez MA 11/13/2024 8:30 AM EDT Evaluation [address] [address] Cullen Mcnair, PT Joint stiffness; Fibromyalgia; Neuritis 10/16/2024 9:00 AM EDT Office Visit Orth[facility] [address] [phone] Adria Powell, DPRicky Joint stiffness (Primary Dx); Fibromyalgia; Neuritis 10/16/2024 Telephone Internal Medicine - [address] [place] [address] Lana Branch PA 10/14/2024 9:30 AM EDT Clinical Support Internal Medicine [facility] 175 [facility] [address] [place] [address] B12 deficiency (Primary Dx) from Last 3 [...] HISTORICAL ; COMMENT: 2003, 2008 HERNIA REPAIR 2015 PROCEDURE: HISTORICAL HERNIA REPAIR/UMB OTHER SURGICAL HISTORY 2016 Left PROCEDURE: ---- OTHER ----; COMMENT: removal ovarian cyst TUBAL LIGATION 2008 PROCEDURE: HISTORICAL TUBAL LIGATION OTHER SURGICAL HISTORY 12/2019 PROCEDURE: VA TOTAL ABDOMINAL HYSTERECT W/WO RMVL TUBE OVARY Medical History Medical History Date Comments Asthma DX:Asthma Bipolar disorder ([facility] V2 4, [facility] V28) DX:Bipolar disorder ([facility]) Anxiety DX:Anxiety Major depression DX:Major depres johnathon [...] for your loved ones. For example, child development instructor or elderly care for an older adult? [...] EDT Inhaled Oxygen Concentration - - Weight 75.3 kg (166 lb) 10/16/2024 8:46 AM EDT Height 147.3 cm (4' 9.99 ) 10/16/2024 8:46 AM ED T Body Mass Index 34.7 10/16/2024 8:46 AM EDT Plan of Treatment Upcoming Encounters Date Type Department Care Team (Late st Contact Info) Description 12/31/2024 11:[address] [facility] Outpatient Rehabilitation [facility] 175 [facility] [address] [place] [phone] Cullen Mcnair, PT 175 [place] [address] 01/21/2025 9:30 AM EDT Office Visit Internal Medicine - [place] 175 [facility] 200 [place] [phone] Lana Branch PA 175 [facility] 200 [place] [address] 03/05/2025 10:15 AM EST Office Visit Orthopedic Surgery - [place] 250 175 [facility] [address] [place] [phone] Adria Powell, DPM 175 [facility] [address] [place] [address] Health Maintenance Due Date Last Done Comments Hepatitis B Vaccines (1 of 3 - 19+ 3-dose series) 08/03/2002 Pneumococcal Vaccine: Pediatrics (0 to 5 Years) and At-Risk Patients (6 to 49 Years) (1 of 2 - PCV) 08/03/2002 Cervical Cancer Screening: Pap Smear 03/14/2020 03/14/2017, 03/14/2017 HIV Screening 03/04/2022 COVID-19 Vaccine (3 - 2024- season) 2024 06/16/2020, 05/19/2020 Influenza Vaccine (#1) 2024 4, 01/06/2022, 12/14/2020, Additional history exists Breast Cancer Screening 03/08/2025 03/08/20 23, 12/01/2021, 07/07/2020, Additional history exists Social Influencers of Health Screening 06/24/2025 06/24/2024 DTaP,Tdap,and Td Vaccines (2 - Td or Tdap) 05/22/2027 05/22/2017 Cholesterol Screening (Lipid Panel) 08/22/2028 08/23/2023, 08/23/2023 RSV Immunization Adult Patients (1 - 1-dose 75+ series) 08/03/2058 Hepatitis C Screening Completed 04/18/2019 Depression Screening Completed 06/24/2024 HIB Vaccines Aged Out No longer eligi [...] Patient-Stated? Author PLOF General Yes Cullen Mcnair M, PT less pain General Yes Cullen Mcnair, PT STG x [address] [facility] 11/13/2024 General No Cullen Mcnair, PT Note: [x] = goal MET [] = goal NOT MET [] Pt will be able to negotiate front steps reciprocally without being limited by ankle/foot pain , [] Pt will improve SLS on right to 12 seconds, [] Pt will improve great toe flexion to 20 deg LTG x [address] [facility] 11/13/24 General No Cullen Mcnair, PT Note: [x] = goal MET [] = goal NOT MET [] Pt will wake < 3/wk due to pain [] Pt will be able to go on toes to reach top cupboards [] Pt will have no limitations in stair negotiation as it relates to R foot pain Procedures Procedure Name Priority Date/Time Associated Diagnosis Comments CBC WITH AUTO DIFFERENTIAL Routine 10/16/2024 9:12 AM EDT B12 deficiency VITAMIN D 25 HYDROXY Routine 10/16/2024 9:12 AM EDT Fibromyalgia MAGNESIUM Routine 10/16/2024 9:12 AM EDT Fibromyalgia HEMOGLOBIN A1C Routine 10/16/2024 9:12 AM EDT Pure hypercholesterolemia VITAMIN B12 Routine 10/16/2024 9:12 AM EDT B12 deficiency CBC AND DIFFERENTIAL Routine 10/16/2024 9:12 AM EDT B12 deficiency COMPREHENSIVE METABOLIC PANEL Routine 10/16/2024 9:12 AM EDT Pure hypercholesterolemia LIPID PANEL Routine 08/23/2023 MONSE SCREENING DIGITAL Routine 03/08/2023 12:31 PM EST Encounter for screening mammogram for malignant neoplasm of breast HM HEPATITIS C SCREENING Routine 04/18/2019 HPV Routine 03/14/2017 from Last 3 Months or Most Recently Relevant to Health Maintenance Results * CBC auto differential (10/16/2024 9:12 AM EDT) WBC 8.9 4.8 - 10.8 K/mcL LAB HEMETOLOGY METHOD 10/16/2024 10:20 AM [facility] RBC 4.40 3.80 - 4.80 M/mcL LAB HEMETOLOGY METHOD 10/16/2024 10:20 AM [facility] Hemoglobin 13.1 11.5 - 16.0 g/dL LAB HEMETOLOGY METHOD 10/16/2024 10:20 AM [facility] Hematocrit 40.9 35.0 - 47.0 % LAB HEMETOLOGY METHOD 10/16/2024 10:20 AM [facility] MCV 92.5 79.0 - 98.0 FL LAB HEMETOLOGY METHOD 10/16/2024 10:20 AM [facility] MCH 29.6 27.0 - 32.0 pcg LAB HEMETOLOGY METHOD 10/16/2024 10:20 AM [facility] MCHC 32.0 32.0 - 37.0 g/dL LAB HEMETOLOGY METHOD 10/16/2024 10:20 AM [facility] RDW 13.3 11.0 - 15.0 % LAB HEMETOLOGY METHOD 10/16/2024 10:20 AM [facility] Platelets 394 130 - 400 K/mcL LAB HEMETOLOGY METHOD 10/16/2024 10:20 AM [facility] MPV 10.4 7.0 - 11.0 FL LAB HEMETOLOGY METHOD 10/16/2024 10:20 AM [facility] NRBC 0.0 <1.0 % LAB HEMETOLOGY METHOD 10/16/2024 10:20 AM EDT [facility] NRBC Absolute 0.00 <0.10 K/mcL LAB HEMETOLOGY METHOD 10/16/2024 10:20 AM [facility] Neutrophils Relative 60.9 % LAB HEMETOLOGY METHOD 10/16/2024 10:20 AM [facility] Lymphocytes Relative 32.8 % LAB HEMETOLOGY METHOD 10/16/2024 10:20 AM [facility] Monocytes Relative 4.6 % LAB HEMETOLOGY METHOD 10/16/2024 10:20 AM [facility] Eosinophils Relative 1.2 % LAB HEMETOLOGY METHOD 10/16/2024 10:20 AM [facility] Basophils Relative 0.2 % LAB HEMETOLOGY METHOD 10/16/2024 10:20 AM [facility] Immature Granulocytes Relative 0.3 % LAB HEMETOLOGY METHOD 10/16/2024 10:20 AM [facility] Neutrophils Absolute 5.39 1.50 - 7.00 K/mcL LAB HEMETOLOGY METHOD 10/16/2024 10:20 AM [facility] Lymphocytes Absolute 2.91 1.00 - 5.00 K/mcL LAB HEMETOLOGY METHOD 10/16/2024 10:20 AM [facility] Monocytes Absolute 0.41 0.20 - 1.00 K/mcL LAB HEMETOLOGY METHOD 10/16/2024 10:20 AM [facility] Eosinophils Absolute 0.11 0.00 - 0.50 K/mcL LAB HEMETOLOGY METHOD 10/16/2024 10:20 AM [facility] Basophils Absolute 0.02 0.00 - 0.20 K/mcL LAB HEMETOLOGY METHOD 10/16/2024 10:20 AM [facility] Immature Granulocytes Absolute 0.03 0.00 - 0.03 K/mcL LAB HEMETOLOGY METHOD 10/16/2024 10:20 AM EDT [facility] Blood Venous blood specimen / Unknown Venipuncture / Unknown 10/16/2024 9:12 AM EDT 10/16/2024 9:12 AM EDT us Lana DIAZ LAB BLOOD ORDERABLES Fin al Result Performing Organization Address [facility]/ZIP Co de Phone Number [facility] [address] [place] [address], [place] [phone] * (ABNORMAL) Vitamin D 25 hydroxy (10/16/2024 9:12 AM EDT) Vit D, 25-Hydroxy 19.8(L) 30.0 - 80.0 ng/mL LAB CHEMISTRY METHOD 10/16/2024 4:47 PM EDT [facility] Blood Venous blood specimen / Unknown Venipuncture / Unknown 10/16/2024 9:12 AM EDT 10/16/2024 9:12 AM EDT us Lana DIAZ LAB BLOOD ORDERABLES Fin al Result Performing Organization Address [facility]/ZIP Co de Phone Number [facility] [address] [place] [address], [place] [phone] * Magnesium (10/16/2024 9:12 AM EDT) Magnesium 2.0 1.9 - 2.6 mg/dL LAB CHEMISTRY METHOD 10/16/2024 2:30 PM EDT [facility] Blood Venous blood specimen / Unknown Venipuncture / Unknown 10/16/2024 9:12 AM EDT 10/16/2024 9:12 AM EDT us Lana DIAZ LAB BLOOD ORDERABLES Fin al Result Performing Organization Address [facility]/ZIP Co de Phone Number [facility] [address] [place] [address], [place] [phone] * Hemoglobin A1c (10/16/2024 9:12 AM EDT) [facility] Hemoglobin A1C 5.3 <6.5 % LAB CHEMISTRY METHOD 10/16/2024 1:27 PM EDT [facility] Mean Bld Glu Estim. 105 mg/dL LAB CHEMISTRY METHOD 10/16/2024 1:27 PM EDT [facility] Blood Venous blood specimen / Unknown Venipuncture / Unknown 10/16/2024 9:12 AM EDT 10/16/2024 9:12 AM EDT Lana DIAZ LAB BLOOD ORDERABLES Fin al Result Performing Organization Address [facility] Co de Phone Number [facility] [address] [place] [address], [place] [phone] * (ABNORMAL) Vitamin B12 (10/16/2024 9:12 AM EDT) [facility] Vitamin B-12 939(H) 250 - 900 pcg/mL LAB CHEMISTRY METHOD 10/16/2024 3:05 PM EDT [facility] Blood Venous blood specimen / Unknown Venipuncture / Unknown 10/16/2024 9:12 AM EDT 10/16/2024 9:12 AM EDT us Lana DIAZ LAB BLOOD ORDERABLES Fin al Result Performing Organization Address [facility]/ZIP Co de Phone Number [facility] [address] [place] [address], [place] [phone] * (ABNORMAL) Comprehensive metabolic panel (10/16/2024 9:12 AM EDT) [facility] Sodium 139 133 - 145 mmol/L LAB CHEMISTRY METHOD 10/16/2024 3:05 PM [facility] Potassium 4.5 3.5 - 5.5 mmol/L LAB CHEMISTRY METHOD 10/16/2024 3:05 PM [facility] Chloride 107 96 - 110 mmol/L LAB CHEMISTRY METHOD 10/16/2024 3:05 PM [facility] CO2 28 21 - 32 mmol/L LAB CHEMISTRY METHOD 10/16/2024 3:05 PM [facility] Anion Gap 4 3 - 11 LAB CHEMISTRY METHOD 10/16/2024 3:05 PM [facility] Glucose 112(H) 70 - 100 mg/dL LAB CHEMISTRY METHOD 10/16/2024 3:05 PM [facility] BUN 8 5 - 25 mg/dL LAB CHEMISTRY METHOD 10/16/2024 3:05 PM [facility] Creatinine 0.85 0.50 - 1.10 mg/dL LAB CHEMISTRY METHOD 10/16/2024 3:05 PM [facility] eGFR 88 >=60 mL/min/1. 73m2 LAB CHEMISTRY METHOD 10/16/2024 3:05 PM [facility] Comment:Calculation based on the Chronic Kidney Disease Epidemiology Collaboration (CKD-EPI) equation refit without adjustment for race. BUN/Creatinine Ratio 9.4 LAB CHEMISTRY METHOD 10/16/2024 3:05 PM [facility] Calcium 9.5 8.5 - 10.5 mg/dL LAB CHEMISTRY METHOD 10/16/2024 3:05 PM [facility] AST (SGOT) 19 10 - 42 unit/L LAB CHEMISTRY METHOD 10/16/2024 3:05 PM [facility] ALT (SGPT) 34 10 - 60 unit/L LAB CHEMISTRY METHOD 10/16/2024 3:05 PM [facility] Alkaline Phosphatase 87 42 - 121 unit/L LAB CHEMISTRY METHOD 10/16/2024 3:05 PM EDT [facility] Total Protein 7.5 6.0 - 8.0 g/dL LAB CHEMISTRY METHOD 10/16/2024 3:05 PM EDT [facility] Albumin 3.8 3.2 - 5.0 g/dL LAB CHEMISTRY METHOD 10/16/2024 3:05 PM EDT [facility] Total Bilirubin 0.2 0.0 - 1.4 mg/dL LAB CHEMISTRY METHOD 10/16/2024 3:05 PM EDT [facility] Blood Venous blood specimen / Unknown Venipuncture / Unknown 10/16/2024 9:12 AM EDT 10/16/2024 9:12 AM EDT Lana DIAZ LAB BLOOD ORDERABLES Fin al Result [facility] [address] [place] [address], * (ABNORMAL) Lipid panel (08/23/2023) LDL/HDL Ratio 6(A) 0 - 4 Triglycerides 110 0 - 150 mg/dL Cholesterol 265(A) 0 - 200 mg/dL HDL 47 >=40 mg/dL LDL Cholesterol 196(A) 0 - 100 mg/dL Blood Venous blood specimen / Unknown Historical Provider LAB BLOOD ORDERABLES Elidia l Result * MONSE SCREENING DIGITAL (03/08/2023 12:31 PM EST) Anatomical Region Laterality Modality Mammography 03/07/2023 12:4 0 PM EST Narrative 03/08/2023 12:31 PM EST [facility] Diagnostic Imaging Department [address] [place] [address] Patient: XENA FORTE /Age/Sex: 1985 - 37 - F Unit#: [id number] Location/Status: SPDIMAM/REG CLI Mnemonic/Ordering Site: DIGKS/SPMAM Ordering Physician: SHERRIE METCALF MD [facility] Screening Digital - 03/07/23 - 1519 Report Status:Signed EXAM: [facility] Screening Digital EXAM DATE AND TIME: 03/07/2023 3:19 PM HISTORY: Screening. COMPARISON: 12/01/21, 07/07/20, 04/23/19 ([facility] [place], [place]) TECHNIQUE: Bilateral digital breast tomosynthesis was performed in the CC and MLO projections. Computer aided detection with [employer] 3D 3.1 was employed. TISSUE DENSITY: a. [...] Procedure Note Dariana Schmidt MD - 05/01/2023 [facility] Diagnostic Imaging Department [address] [place] [id number] Patient: XENA FORTE /Age/Sex: 1985 - 37 - F Unit#: [id number] Location/Status: SPDIMAM/REG CLI Mnemonic/Ordering Site: [facility] Ordering Physician: SHERRIE METCALF MD [facility] Screening Digital - 03/07/23 - 1519 Report Status:Signed EXAM: [facility] Screening Digital EXAM DATE AND TIME: 03/07/2023 3:19 PM HISTORY: Screening. COMPARISON: 12/01/21, 07/07/20, 04/23/19 ([place], [place]) TECHNIQUE: Bilateral digital breast tomosynthesis was performed in the CCand MLO projections. Computer aided detection with [employer] AI 3D 3.1was employed. TISSUE DENSITY: a. The [...] Date/Time: 03/08/23 1231 Sign date/Time: 03/08/23 1231 us Sherrie Metcalf MD IMG BI PROCEDURES Final Result * Hepatitis C Screening (04/18/2019) Hepatitis C Screening abstracted Historical Provider HEALTH MAINTENANCE Final Result * Cervical Cancer Screening: HPV (03/14/2017) Cervical Cancer Screening: HPV no interpretation , abstracted Historical Provider HEALTH MAINTENANCE Final Result from Last 3 Months or Most Recently Relevant to Health Maintenance Insurance [facility] Care Teams Ext Js Developer Relationship Specialty Start Date End Date Lana Branch PA [address] [place] [address] PCP - General 01/24/24
--- OUTSIDE RECORDS SUMMARY | 2024-12-16 12:27 | XMS_ITS | Encounter Summary ---
Author Organization [employer] Address [address] [place] [address] Care Team Providers Care [employer] Professional Name Role Phone Lana Branch Primary Care Provider + Reason for Visit * Reason Onset Date Comments Fax PE 12/09/2024 Encounter Details Date Type Department Care Team ([facility] st Contact Info) Description 12/09/2024 Telephone Internal Medicine - [place] 175 [facility] [address] [place] [phone] Lana Branch PA 175 [facility] 200 [place] [address] Social History Tobacco Use Types Packs/Day Years [...] Record ed Within the last 3 months, scarlet lópez many times did you visit the emergency [...] care for your loved ones. For example, children's program coordinator or elderly care for an older adult? [...] as of this encounter Progress Notes * Tonya Santiago MA - 12/09/2024 2:46 PM EDT Last physical notes were faxed to number provided. * Carly Guzman - 12/09/2024 1:25 PM EDT [facility] and requested a copy of the patients last physical appt. Please advise # [phone] documented in this encounter Plan of Treatment Upcoming Encounters Date Type Department Care Team (Late st Contact Info) Description 12/31/2024 11:00 AM EDT Treatment [facility] Outpatient Rehabilitation [facility] 175 [facility] [address] [place] [phone] Cullen Mcnair, PT 175 [place] [address] 01/21/2025 9:30 AM EDT Office Visit Internal Medicine [facility] 175 [facility] [address] [place] [phone] Lana Branch PA 175 [facility] [address] [place] [address] 03/05/2025 10:15 AM EST Office Visit Orthopedic Surgery - [place] 250 175 [facility] [address] [place] [phone] Adria Powell DPM 175 [facility] [address] [place] [phone] documented as of this encounter Goals Goal Patient Goal Type Associated Problems Recent Progress Patient-Stated? Author PLOF General Yes Cullen Mcnair PT less pain General Yes Cullen Mcnair PT STG x 8 visits from [facility] 11/13/2024 General No Cullen Mcnair PT Note: [x] = goal MET [] = goal NOT MET [] Pt will be able to negotiate front steps reciprocally without being limited by ankle/foot pain , [] Pt will improve SLS on right to 12 seconds, [] Pt will improve great toe flexion to 20 deg LTG x 14 visits from [facility] 11/13/24 General No Cullen Mcnair, PT Note: [x] = goal MET [] = goal NOT MET [] Pt will wake < 3/wk due to pain [] Pt will be able to go on toes to reach top cupboards [] Pt will have no limitations in stair negotiation as it relates to R foot pain documented as of this encounter Visit Diagnoses Not on filedocumented in this encounter Additional Health Concerns Assessment Noted Time PHQ-9 Depression Total Score: 9 06/25/19 25 1:39 PM EDT documented as of this encounter Care Teams [employer] Professional Relationship Specialty Start Date End Date Lana Branch PA [address] [place] [address] PCP - General 01/24/24 documented as of this encounter
== END 2024-12-16 10:46 | disposition home or self-care (01) ==
LOC: HO.HSM 10:16
PROVIDERS: PCP Physician Assistant; Referring Provider Internal Medicine; Visit Provider Registered Nurse
DX: M54.9 Dorsalgia, unspecified (principal); M79.7 Fibromyalgia; G44.209 Tension-type headache, unspecified, not intractable
CPT/HCPCS: 99214

== ENCOUNTER → 2024-12-16 10:15 | Outpatient (BNVA) | payer OTHER, SELFPAY | PROVIDERS: PCP Physician Assistant; Referring Provider Internal Medicine; Visit Provider Registered Nurse | DX: G44.209 Tension-type headache, unspecified, not intractable (principal); M79.7 Fibromyalgia; M54.9 Dorsalgia, unspecified; K59.03 Drug induced constipation; T42.6X5A Adverse effect of other antiepileptic and sedative-hypnotic drugs, initial encounter; T48.1X5A Adverse effect of skeletal muscle relaxants [neuromuscular blocking agents], initial encounter; Z79.899 Other long term (current) drug therapy | CPT/HCPCS: 99212 ==

== ENCOUNTER 2025-01-09 10:45 | Emergency (ER) | payer OTHER, SELFPAY ==
--- NOTE | ~2025-01-09 | US_ITS ---
EXAMINATION: US ABDOMEN LIMITED CLINICAL INFORMATION: Right upper quadrant abdominal pain. Evaluate gallbladder and bile ducts.. COMPARISON: 09/15/2020. Correlation made with CT abdomen and pelvis 12/17/2023. TECHNIQUE: Real-time imaging of the gallbladder and bile ducts was performed. FINDINGS: GALLBLADDER: The gallbladder is physiologically distended without evidence of stones, sludge, polyps, wall thickening or pericholecystic fluid. There was a positive sonographic Camarillo's sign as per the technologist. COMMON BILE DUCT: Normal in caliber measuring 0.3 cm in diameter. Imaged aspects of the liver demonstrated normal echogenicity. FREE FLUID: None. US/US abdomen limited IMPRESSION: 1. Normal-appearing gallbladder and bile ducts. Of note, there was a positive sonographic Camarillo's sign. Electronically signed by: Corby Chamorro MD 01/09/2025 12:34 PM EDT
[2025-01-09 10:51] VITALS: BP 140/97; BP 142/92; PULSE 90; PULSE 95; RESP 16; TEMP 37.1; O2SAT 98; O2SAT 99; BMI 38.9
[2025-01-09 10:55] VITALS: BP 140/97; PULSE 95; RESP 16; TEMP 37.1; O2SAT 98
[2025-01-09 10:57] LABS: Glucose, Whole Blood 126 mg/dL (60-115)
[2025-01-09 11:16] LABS: MANUAL DIFF FLAG NO
[2025-01-09 11:24] LABS: Hematocrit 40.8 % (37.0-47.0); Hemoglobin 13.7 g/dl (12.0-16.0); Imm Gran Abs Auto 0.03 X10*3/uL (0.00-0.03); Imm Gran Pct Auto 0.3 % (0.0-0.4); Lymphocytes Absolute Auto 2.2 X10*3/uL (1.2-4.9); Mean Corpuscular HGB Conc 33.6 g/dl (31.0-35.0); Mean Corpuscular Hemoglobin 30.1 pg (27.0-33.0); Mean Corpuscular Volume 89.7 fL (80.0-98.0); NRBC Abs Auto 0.000 X10*3/uL (0.0-0.012); NRBC Pct Auto 0.0 /100WBC (0.0-0.2); Platelet Count 450 X10*3/uL (160-400); Red Blood Count 4.55 X10*6/uL (4.20-5.50); White Blood Count 8.9 X10*3/uL (4.8-10.8)
[2025-01-09 11:27] VITALS: RESP 14
--- NOTE | 2025-01-09 11:57 | ED.ABDPAIN ---
HPI - Abdominal Pain General Chief Complaint: Abdominal Pain Stated Complaint: UPPER ABD PAIN,VOMITING PER EMS Time Seen by Provider: 01/09/25 10:52 Source: patient, EMS and old records reviewed Mode of arrival: ambulatory Limitations: no limitations History of Present Illness ED Provider: MARGY BROWNING narrative: 39 yo female with PMH of headaches, migraines, fibromyalgia, bipolar, HLD, GERD, here with c/o upper abdominal pain x 1 day after eating a non fried plantain and pork meal. She states this AM she threw up what looked like blood x 1. She has pain in upper abdomen. No lower GIB symptoms. She denies fevers. She states every time she eats she gets this pain. She has a hx of gastroparesis - she only threw up x 1 MD elicited complaint: abdominal pain Pertinent past history: other Onset (ago): day(s) (1) Pain Consistency: constant Location: epigastric and RUQ Severity: moderate Quality: aching Radiation: none Migration to: no migration Exacerbating factors: eating Relieving factors: nothing Context: history of similar episodes Associated symptoms: nausea, vomiting and hematemesis Related Data Home Medications ?Medication ?Instructions ?Recorded ?Confirmed cholecalciferol (vitamin D3) 50 1 tab PO DAILY 02/15/21 02/15/21 mcg (2,000 unit) tablet (Vitamin D3) ergocalciferol (vitamin D2) 50 mcg 1 tab PO DAILY 02/15/21 02/15/21 (2,000 unit) tablet fluticasone propionate 100 1 inh inhalation DAILY 02/15/21 02/15/21 mcg/actuation blister powder for inhalation (Flovent Diskus) loratadine 10 mg tablet 1 tab PO DAILY 02/15/21 02/15/21 atorvastatin 40 mg tablet (Lipitor) 40 mg PO DAILY 09/29/24 azelastine 137 mcg (0.1 %) nasal 2 spray intranasal BID 09/29/24 spray colestipol 1 gram tablet (Colestid) 2 g PO BID 09/29/24 diclofenac sodium 1 % topical gel 4 g topical BID 09/29/24 docusate sodium 100 mg capsule 100 mg PO BID 09/29/24 (Colace) lidocaine 5 % topical patch 1 patch topical DAILY 09/29/24 (Lidoderm) Previous Rx's ?Medication ?Instructions ?Recorded famotidine 40 mg tablet (Pepcid) 40 mg PO BEDTIME #30 tabs 02/18/21 omeprazole 40 mg capsule,delayed 40 mg PO DAILY #30 caps 02/18/21 release benzonatate 200 mg capsule 200 mg PO TID PRN cough #30 caps 12/12/21 ondansetron 4 mg disintegrating 4 mg PO DAILY PRN nausea and 03/19/23 tablet vomiting 5 days #10 tabs lidocaine 5 % topical patch 1 patch topical DAILY #15 ea 05/13/23 (Lidoderm) naproxen 500 mg tablet 500 mg PO BID PRN pain #30 tabs 05/13/23 amitriptyline 25 mg tablet 25 mg PO .COMPLEX 30 days #60 tabs 12/16/24 cyclobenzaprine 10 mg tablet 10 mg PO BID PRN muscle spasm 30 12/16/24 days #60 tabs gabapentin 400 mg capsule 400 mg PO BEDTIME 30 days #30 caps 12/16/24 Allergies Allergy/AdvReac Type Severity Reaction Status Date / Time peanut (PEANUT) Allergy Severe ANAPHYLAXIS Verified 01/09/25 10:52 cefpodoxime Allergy Swelling Verified 01/09/25 10:52 Review of Systems Review of Systems Constitutional : No Weight loss, No Fever, No Chills ENT/Mouth : No sore throat, No Rhinorrhea Eyes: No Swelling, No Redness Cardiovascular : No Chest Pain, No SOB, NoEdema Respiratory : No Cough, No Sputum, No Wheezing Gastrointestinal : Positive Nausea, Positive Vomiting, no Diarrhea, positive abdominal Pain, No Hematochezia, No Melena Genitourinary : No Dysuria, No Urinary Frequency, No Hematuria, No Urgency Musculoskeletal : No joint pain, No Myalgias, No Joint Swelling Skin : No Skin Lesions, No rash All other systems reviewed and are negative. [facility] Past Medical History Attestation statement: The following information was validated with the patient. Source: old records reviewed Medical History Depression Bipolar 1 disorder Asthma Diabetes Social History Social History Household Members: Spouse and Other Household Members Other:: dogs Housing: House Alcohol intake: unknown Patient Tobacco Use Status: Current everyday Tobacco user Smoked in Last 30 Days: Yes Use of substances other than those prescribed or required for medical reasons: Yes Substance Use Type: Marijuana Advance Directives: Yes Advance Directives on File: Yes Advance Directives Date on File: 02/15/21 Do you have a plan to hurt others: No Plan Patient : No service: No Current occupational status: disabled Physical Exam ED Vital Signs: Vital Signs - 24 hr 01/09/25 10:51 01/09/25 10:55 01/09/25 11:27 Temperature 98.7 F 98.7 F Pulse Rate 95 95 Respiratory Rate 16 16 14 Blood Pressure 140/97 H 140/97 H Pulse Oximetry 98 98 Oxygen Delivery Method Room Air Room Air 01/09/25 13:24 01/09/25 14:38 Temperature 97.8 F Pulse Rate 73 73 Respiratory Rate 16 16 Blood Pressure 135/70 135/70 Pulse Oximetry 98 98 Oxygen Delivery Method Room Air Room Air BMI result Body Mass Index 38.9 Appearance: Alert. Oriented X3. No acute distress. Eyes: Pupils equal, round and reactive to light. ENT: Pharynx normal. Neck: Normal inspection. Neck supple. CVS: Normal heart rate and rhythm. Pulses normal. Respiratory: No respiratory distress. Breath sounds normal. Abdomen: Soft and moderate epigastric ttp no rebound or guard Skin: Skin warm and dry. Normal skin color. Normal skin turgor. Extremities: No lower extremity edema. No calf ttp Neuro: Oriented X 3. No motor deficit. No sensory deficit. CN2-12 intact Medical Decision Making Medical Decision Making [facility] Narrative: 39 yo female with PMH of headaches, migraines, fibromyalgia, bipolar, HLD, GERD, here with c/o RUQ pain after eating pork reports she vomited blood x 1 but no lower GIB symptoms. At this time will need labs, US for biliary colic. I do believe there is a component of chronic pain. At this time no signs of active GIB will obtain CBC and monitor Differential Diagnosis Differential Diagnoses: The differential diagnosis associated with the presentation includes GERD, gastritis, pancreatitis, biliary colic, chronic pain Admission/Observation Consideration of admission/observation: Escalation of care including admission/observation considered labs reassuring, US negative VS stable normal H/H and normal BUN not on blood thinners given no further hematemesis low susp for further hemorrhage tolerating PO stable for DC Lab Data [facility] Lab Attestation statement: I reviewed the patient's lab results. 01/09/25 11:12 01/09/25 11:55 Labs: Lab Results 01/09/25 01/09/25 01/09/25 Range/Units 10:53 11:12 11:55 WBC 8.9 (4.8-10.8) X10*3/uL RBC 4.55 (4.20-5.50) X10*6/uL Hgb 13.7 (12.0-16.0) g/dl Hct 40.8 (37.0-47.0) % MCV 89.7 (80.0-98.0) fL MCH 30.1 (27.0-33.0) pg MCHC 33.6 (31.0-35.0) g/dl RDW 13.4 (11.0-16.0) % Plt Count 450 H (160-400) X10*3/uL MPV 9.6 (9.4-12.3) fL Immature Gran % (Auto) 0.3 (0.0-0.4) % Neut % (Auto) 68.6 (45-73) % Lymph % (Auto) 25.1 (20-40) % [place] % (Auto) 5.0 (2-11) % Eos % (Auto) 0.8 (0-4) % Baso % (Auto) 0.2 (0-2) % Lymph # (Auto) 2.2 (1.2-4.9) X10*3/uL [place] # (Auto) 0.4 (0.1-1.2) X10*3/uL Eos # (Auto) 0.1 (0.0-0.4) X10*3/uL Baso # (Auto) 0.0 (0.0-0.2) X10*3/uL Abs Immat Gran (auto) 0.03 (0.00-0.03) X10*3/uL Absolute Neuts (auto) 6.1 (2.0-8.3) x10*3/uL Absolute Nucleated RBC 0.000 (0.0-0.012) X10*3/uL Nucleated RBC % (auto) 0.0 (0.0-0.2) /100WBC Sodium 139 (135-145) mmol/L Potassium 3.8 (3.3-5.1) mmol/L Chloride 110 H (96-108) mmol/L Carbon Dioxide 22 (22-29) mmol/L Anion Gap 11 L (12-20) BUN 10 (9-16) mg/dL Creatinine 0.65 (0.5-1.4) mg/dL Estim Creat Clear Calc 104.8 Estimated GFR > 60 POC Glucose 126 H (60-115) mg/dL Random Glucose 94 (60-115) mg/dL Calcium 9.1 (8.4-10.2) mg/dL Magnesium 1.8 (1.6-2.6) mg/dL Total Bilirubin 0.5 (0.0-1.0) mg/dL Direct Bilirubin 0.2 (0.0-0.5) mg/dL AST 22 (5-31) U/L ALT 27 (0-31) U/L Alkaline Phosphatase 75 (39-117) U/L Total Protein 7.7 (6.5-8.0) g/dL Albumin 4.5 (3.5-5.0) g/dL Lipase 18 (8-78) U/L Independent Interpretation I performed an independent interpretation of an: Ultrasound (normal ) Radiology Impression Discussion of test interpretation with radiology: I have reviewed the radiologist's reading. Independent Historian Clinical information obtained from an independent historian. History obtained from or confirmed by: EMS External Record Review External record reviewed: Inpatient record and Outpatient record Prescription Management I considered prescription management with: Other Medications Administered Discontinued Medications Generic Name Dose Route Start Last Admin Trade Name Freq PRN Reason Stop Dose Admin Acetaminophen 1,000 mg in 100 mls @ 400 mls/hr 01/09/25 13:22 01/09/25 14:08 Ofirmev IV 01/09/25 13:36 Infused ONCE ONE Infusion Morphine Sulfate 4 mg 01/09/25 10:56 01/09/25 11:27 Morphine Sulfate 4 Mg/Ml Cartridge IVPUSH 01/09/25 10:57 4 mg ONCE ONE Administration Protocol Ondansetron HCl 4 mg 01/09/25 10:56 01/09/25 11:27 Ondansetron Hcl 4 Mg/2 Ml Vial IVPUSH 01/09/25 10:57 4 mg ONCE ONE Administration Pantoprazole Sodium 40 mg 01/09/25 10:56 01/09/25 11:27 Pantoprazole Sodium 40 Mg/10 Ml Vial IVPUSH 01/09/25 10:57 40 mg ONCE ONE Administration Discharge Plan Discharge Clinical Impression: Abdominal pain Qualifiers: Abdominal location: epigastric Qualified Code(s): R10.13 - Epigastric pain Gastritis Qualifiers: Gastritis type: unspecified gastritis Chronicity: acute Gastritis bleeding: with bleeding Qualified Code(s): K29.01 - Acute gastritis with bleeding Patient Disposition: Home, Self-Care Instructions: Gastritis (ED), Abdominal Pain (ED) Additional Instructions: your labs and ultrasound were normal you need to eat a bland diet for 48 hours continue your medication but hold aspirin containing products return for worsening pain, fevers, vomiting, unable to eat or drink or any other concerns. Prescriptions: No Action Flovent Diskus 100 mcg/actuation blister with device 1 inh inhalation DAILY cholecalciferol (vitamin D3) [Vitamin D3] 50 mcg (2,000 unit) tablet 1 tab PO DAILY ergocalciferol (vitamin D2) 50 mcg (2,000 unit) tablet 1 tab PO DAILY loratadine 10 mg tablet 1 tab PO DAILY famotidine [Pepcid] 40 mg tablet 40 mg PO BEDTIME Qty: 30 2RF omeprazole 40 mg capsule,delayed release(DR/EC) 40 mg PO DAILY Qty: 30 0RF benzonatate 200 mg capsule 200 mg PO TID PRN (Reason: cough) Qty: 30 0RF ondansetron 4 mg tablet,disintegrating 4 mg PO DAILY PRN (Reason: nausea and vomiting) 5 Days Qty: 10 0RF naproxen 500 mg tablet 500 mg PO BID PRN (Reason: pain) Qty: 30 0RF lidocaine [Lidoderm] 5 % adhesive patch,medicated 1 patch topical DAILY Qty: 15 0RF Rx Instructions: leave on most painful area for up to 12 hrs atorvastatin [Lipitor] 40 mg tablet 40 mg PO DAILY lidocaine [Lidoderm] 5 % adhesive patch,medicated 1 patch topical DAILY Rx Instructions: leave on most painful area for up to 12 hrs docusate sodium [Colace] 100 mg capsule 100 mg PO BID azelastine 137 mcg (0.1 %) spray,non-aerosol 2 spray intranasal BID Rx Instructions: administer into each nostril colestipol [Colestid] 1 gram tablet 2 g PO BID diclofenac sodium 1 % gel 4 g topical BID Rx Instructions: apply to single knee, ankle, foot; for foot includes sole/toes/top of foot cyclobenzaprine 10 mg tablet 10 mg PO BID PRN (Reason: muscle spasm) 30 Days Qty: 60 1RF gabapentin 400 mg capsule 400 mg PO BEDTIME 30 Days Qty: 30 2RF amitriptyline 25 mg tablet 25 mg PO .COMPLEX 30 Days Qty: 60 2RF Rx Instructions: 25 mg orally 1 tablet at bedtime x1 week then 2 tablets at bedtime; Interventions: ED Discharge Assessment Last Done: 01/09/25 14:38 Discharge Date/Time: 01/09/25 14:40 Print Language: Welsh
[2025-01-09 12:16] LABS: Alanine Aminotransferase 27 U/L (0-31); Albumin Level 4.5 g/dL (3.5-5.0); Alkaline Phosphatase 75 U/L (39-117); Anion Gap 11 (12-20); Aspartate Amino Transferase 22 U/L (5-31); Blood Urea Nitrogen 10 mg/dL (9-16); Calcium 9.1 mg/dL (8.4-10.2); Carbon Dioxide 22 mmol/L (22-29); Chloride 110 mmol/L (96-108); Creatinine Clr Calc Pharmacy 104.8; Estimated Glomerular Filt Rate > 60; Lipase 18 U/L (8-78); Magnesium 1.8 mg/dL (1.6-2.6); Potassium 3.8 mmol/L (3.3-5.1); Sodium 139 mmol/L (135-145); Total Protein 7.7 g/dL (6.5-8.0)
[2025-01-09 13:24] VITALS: BP 135/70; PULSE 73; RESP 16; O2SAT 98
--- NOTE | 2025-01-09 13:31 | PC.NURSE ---
Patient presents to ED c/o ABD [ain rated 01/02 which started yesterday Patient reports n/v with small amounts of blood Denies fever hx of gastroparesis Iv [address] = normal gallbladder and bile ducts Patient medicated with morphine, zofran, and pantoprazole Provider in to see patient Plan of care on going
--- OUTSIDE RECORDS SUMMARY | 2025-01-09 13:51 | XMS_ITS | Encounter Summary ---
Author Organization [employer] Address [address] [place] [address] Care Team Providers Care Pilot Safety Inspector Name Role Phone Lana Branch Primary Care Provider + Reason for Visit * Reason Onset Date Comments Fax PE 12/09/2024 Encounter Details Date Type Department Care Team ([facility] st Contact Info) Description 12/09/2024 Telephone Internal Medicine - [place] 175 [facility] [address] [place] [phone] Lana Branch PA 175 [facility] [address] [place] [address] Social History Tobacco Use Types Packs/Day Years [...] care for your loved ones. For example, registered nurse maternal child or elderly care for an older adult? [...] Date Recorded What is your living situation? Unrecognized valu e 06/24/2024 Comments Unknown Sex and Gender Information [...] Carly Guzman - 12/09/2024 1:25 PM EDT [facility] called and requested a copy of the patients last physical appt. Please advise # [phone] documented in this encounter Plan of Treatment Upcoming Encounters Date Type Department Care Team (Late st Contact Info) Description 01/21/2025 9:30 AM EDT Office Visit Internal Medicine - [place] [address] [phone] Lana Branch PA [address] [address] 03/05/2025 10:15 AM EST Office Visit Orthopedic Surgery - [place] [address] [phone] Adria Powell, DPM [address] [phone] documented as of this encounter Goals Goal Patient Goal Type Associated Problems Recent Progress Patient-Stated? Author PLOF General Yes Cullen Mcnair, PT documented as of this encounter Visit Diagnoses Not on filedocumented in this encounter Additional Health Concerns Assessment Noted Time PHQ-9 Depression Total Score: 9 06/25/19 25 1:39 PM EDT documented as of this encounter Care Teams Pilot Safety Inspector Relationship Specialty Start Date End Date Lana Branch PA [address] [place] [address] PCP - General 01/24/24 documented as of this encounter
--- OUTSIDE RECORDS SUMMARY | 2025-01-09 13:51 | XMS_ITS | Encounter Summary ---
Author Organization [employer] Address [address] [place] [address] Care Team Providers Care Hospital Superintendent Name Role Phone Lana Branch Primary Care Provider + Encounter Details Date Type Department Care Team ([facility] st Contact Info) Description 01/09/2025 Telephone Internal Medicine - [place] [address] [facility] [address] [place] [phone] Lana Branch PA [address] [facility] [address] [place] [address] Social History Tobacco Use Types Packs/Day Years [...] care for your loved ones. For example, childcare administrator or elderly care for an older adult? [...] as of this encounter Progress Notes * Savannah Koehler RN - 01/09/2025 12:07 PM EDT [facility] for vomitus with blood * Elyssa Nice - 01/09/2025 11:30 AM EDT Judy lópez/ LAN Batista: Patient was having abdominal pain and blood while vomiting today, was sent to [facility]. CB# just in case: [phone] documented in this encounter Plan of Treatment Upcoming Encounters Date Type Department Care Team (Late st Contact Info) Description 01/21/2025 9:30 AM EDT Office Visit Internal Medicine [facility] [address] [phone] Lana Branch PA [address] [address] 03/05/2025 10:15 AM EST Office Visit Orthopedic Surgery [facility] [address] [phone] Adria Powell, DPM [address] [phone] documented as of this encounter Goals Goal Patient Goal Type Associated Problems Recent Progress Patient-Stated? Author PLOF General Yes Cullen Mcnair, PT documented as of this encounter Visit Diagnoses Not on filedocumented in this encounter Additional Health Concerns Assessment Noted Time PHQ-9 Depression Total Score: 9 06/25/19 25 1:39 PM EDT documented as of this encounter Care Teams Hospital Superintendent Relationship Specialty Start Date End Date Lana Branch PA [address] [place] [address] PCP - General 01/24/24 documented as of this encounter
--- OUTSIDE RECORDS SUMMARY | 2025-01-09 13:51 | XMS_ITS | Clinical Summary ---
Author Organization 175 [facility] Address 175 [place] [address] Phone Care Team Providers Care Job Estimator Name Role Phone Lana Branch Primary Care [...] propionate (FLONASE) 50 mcg/actuation nasal spray 1 West by Nasal route 2 times daily. 02/23/20 22 Active fluticasone propionate (FLOVENT DISKUS) 50 mcg/actuation diskus inhaler by Nasal route. 11/22/19 23 Active FREESTYLE LANCETS [facility] Use to test blood sugar one times [...] to 1 dose. 2 each 1 07/15/19 Active ketoconazole (NIZORAL) 2 % shampoo Apply to scalp topically a few times per week leave on for 10 minutes then rinse 120 mL 1 10/22/19 Active dexAMETHasone (DECADRON) 4 mg/mL injection 1 mL (4 mg total) by Other route every 12 (twelve) hours. Use with Physical therapy under iontophoresis 30 mL 2 11/14/19 Active Hospital, Clinic, or Other Facility Administered [...] urologist Obstructive sleep apnea 12/12/2019 Overview (01/18/2024): [facility] Polysomnogram: Date 12/09/2019; Wt 189#; [...] time. Anxiety 08/21/2017 Asthma 08/21/2017 Bipolar disorder ([facility] V24, [facility] V28) 07/25 Major depression 08/21/2017 Hyperlipidemia 08/21/2017 [...] hypoxia. Severe obesity (BMI >= 40) ( [facility]/HCC V24, [facility] V28) 03/12/2019 07/21/2024 Diabetes mellitus type 2, un complicated (CMS/HCC V24, CMS/[facility] V28) 08/21/2017 07/21/2024 Encounters Date Type Department Care Team Description 01/09/2025 Telephone Internal Medicine - [address] [place] [address] Lana Branch PA 12/31/2024 11:00 AM EDT Treatment [address] [place] [address] AtbbyCullen lucas M, PT Joint stiffness (Primary Dx) 12/15/2024 8:30 AM EDT Treatment [address] [address] Cullen Mcnair, PT Joint stiffness (Primary Dx) 12/09/2024 Telephone Internal Medicine [address] [phone] Lana Branch PA 12/04/2024 8:30 AM EDT Treatment [address] [address] Cullen Mcnair, PT Joint stiffness (Primary Dx) 12/03/2024 10:15 AM EDT Office Visit Orthopedic Surgery [facility] [address] [phone] Adria Powell, DPM Acquired hallux valgus of left foot (Primary Dx) 12/02/2024 9:30 AM EDT Treatment [address] [address] Joao Brock, CESAR Joint stiffness (Primary Dx) 12/01/2024 Telephone Internal Medicine [address] [phone] Lana Branch PA 11/26/2024 8:00 AM EDT Treatment [address] [address] Ravindra Littlejohn, CLERICAL SUPERVISOR Joint stiffness (Primary Dx) 11/14/2024 Telephone Internal Medicine [address] [address] Sergey Rodriguez MA 11/13/2024 8:30 AM EDT Evaluation [address] [phone] Cullen Mcnair, PT Joint stiffness; Fibromyalgia; Neuritis 10/16/2024 9:00 AM EDT Office Visit Orthopedic Surgery [facility] 250 175 [facility] [address] [place] [address] Adria Powell, DPM Joint stiffness (Primary Dx); Fibromyalgia; Neuritis 10/16/2024 Telephone Internal Medicine - [place] 175 [facility] [address] [place] [address] Lana Branch PA 10/14/2024 9:30 AM EDT Clinical Support Internal Medicine [facility] 175 [facility] [address] [place] [address] B12 deficiency (Primary Dx) from Last 3 Months Immunizations Immunization Administration Dates Next Due Influenza Quadravalent, MDCK [...] TUBAL LIGATION OTHER SURGICAL HISTORY 12/2019 PROCEDURE: WA TOTAL ABDOMINAL HYSTERECT W/WO RMVL TUBE OVARY Medical History Medical History Date Comments Asthma DX:Asthma Bipolar disorder (CMS/HCC V2 4, CMS/HCC V28) DX:Bipolar disorder (HCC) Anxiety DX:Anxiety Major depression DX:Major depres johnathon [...] for your loved ones. For example, children's institution attendant or elderly care for an older adult? [...] AM EDT Office Visit Internal Medicine - [place] [address] [phone] Lana Branch PA 175 [facility] 200 [place] [address] 03/05/2025 10:15 AM EST Office Visit Orthopedic Surgery - [place] [address] [phone] Adria Powell DPM [address] [phone] Health Maintenance Due Date Last Done Comments Hepatitis B Vaccines (1 of 3 - 19+ 3-dose series) 08/03/2002 Pneumococcal Vaccine: Pediatrics (0 to 5 Years) and At-Risk Patients (6 to 49 Years) (1 of 2 - PCV) 08/03/2002 HPV Vaccines (1 - 3-dose SCDM series) 08/03/2010 Cervical Cancer Screening: Pap Smear 03/14/2020 03/14/2017, 03/14/2017 HIV Screening 03/04/2022 COVID-19 Vaccine (3 - season) 2024 06/16/2020, 05/19/2020 Influenza Vaccine (#1) [...] Author PLOF General Yes Cullen Mcnair, PT Procedures Procedure Name Priority Date/Time Associated Diagnosis [...] EDT Pure hypercholesterolemia LIPID PANEL Routine 08/23/2023 SANDI SCREENING DIGITAL Routine 03/08/2023 12:31 PM EST Encounter for screening mammogram for malignant neoplasm of breast HEPATITIS C SCREENING Routine 04/18/2019 HPV Routine 03/14/2017 from Last 3 Months or Most Recently Relevant to Health Maintenance Results * CBC auto differential (10/16/2024 9:12 AM EDT) WBC 8.9 4.8 - 10.8 K/mcL LAB HEMETOLOGY METHOD 10/16/2024 10:20 AM EDT [facility] RBC 4.40 3.80 - 4.80 M/mcL LAB HEMETOLOGY METHOD 10/16/2024 10:20 AM EDT [facility] Hemoglobin 13.1 11.5 - 16.0 g/dL LAB HEMETOLOGY METHOD 10/16/2024 10:20 AM EDT [facility] Hematocrit 40.9 35.0 - 47.0 % LAB HEMETOLOGY METHOD 10/16/2024 10:20 AM EDT [facility] MCV 92.5 79.0 - 98.0 FL [...] [facility] NRBC Absolute 0.00 <0.10 K/mcL LAB [...] LAB HEMETOLOGY METHOD 10/16/2024 10:20 AM EDT [facility] Neutrophils Absolute 5.39 1.50 - 7.00 K/mcL LAB HEMETOLOGY METHOD 10/16/2024 10:20 AM EDT [facility] Lymphocytes Absolute 2.91 1.00 - 5.00 K/mcL LAB HEMETOLOGY METHOD 10/16/2024 10:20 AM EDT [facility] Monocytes Absolute 0.41 0.20 - 1.00 K/mcL LAB HEMETOLOGY METHOD 10/16/2024 10:20 AM EDT [facility] Eosinophils Absolute 0.11 0.00 - 0.50 K/mcL LAB HEMETOLOGY METHOD 10/16/2024 10:20 AM EDT [facility] Basophils Absolute 0.02 0.00 - 0.20 K/mcL LAB HEMETOLOGY METHOD 10/16/2024 10:20 AM EDT [facility] Immature Granulocytes Absolute 0.03 0.00 - 0.03 K/mcL LAB HEMETOLOGY METHOD 10/16/2024 10:20 AM [facility] Blood Venous blood specimen / Unknown Venipuncture / Unknown 10/16/2024 9:12 AM EDT 10/16/2024 9:12 AM EDT us Lana DIAZ LAB BLOOD ORDERABLES Fin al Result [facility] [address] [place] [address], * (ABNORMAL) Vitamin D 25 hydroxy (10/16/2024 9:12 AM EDT) Vit D, 25-Hydroxy 19.8(L) 30.0 - 80.0 ng/mL LAB CHEMISTRY METHOD 10/16/2024 4:47 PM EDT [facility] Blood Venous blood specimen / Unknown Venipuncture / Unknown 10/16/2024 9:12 AM EDT 10/16/2024 9:12 AM EDT us Lana DIAZ LAB BLOOD ORDERABLES Fin al Result Performing Organization Address City/[facility]/ZIP Co de Phone Number [facility] [address] [place] [address], [place] [phone] * Magnesium (10/16/2024 9:12 AM EDT) Magnesium 2.0 1.9 - 2.6 mg/dL LAB CHEMISTRY METHOD 10/16/2024 2:30 PM EDT [facility] Blood Venous blood specimen / Unknown Venipuncture / Unknown 10/16/2024 9:12 AM EDT 10/16/2024 9:12 AM EDT us Lana DIAZ LAB BLOOD ORDERABLES Fin al Result Performing Organization Address [facility] de Phone Number [facility] [address] [place] [address], [place] [phone] * Hemoglobin A1c (10/16/2024 9:12 AM EDT) Hemoglobin A1C 5.3 <6.5 % LAB CHEMISTRY METHOD 10/16/2024 1:27 PM EDT [facility] Mean Bld Glu Estim. 105 mg/dL LAB CHEMISTRY METHOD 10/16/2024 1:27 PM EDT [facility] Blood Venous blood specimen / Unknown Venipuncture / Unknown 10/16/2024 9:12 AM EDT 10/16/2024 9:12 AM EDT us Lana DIAZ LAB BLOOD ORDERABLES Fin al Result [facility] [address] [place] [address], [place] [phone] * (ABNORMAL) Vitamin B12 (10/16/2024 9:12 AM EDT) [facility] Vitamin B-12 939(H) 250 - 900 pcg/mL LAB CHEMISTRY METHOD 10/16/2024 3:05 PM EDT [facility] Blood Venous blood specimen / Unknown Venipuncture / Unknown 10/16/2024 9:12 AM EDT 10/16/2024 9:12 AM EDT Lana DIAZ LAB BLOOD ORDERABLES Fin al Result Performing Organization Address City/State/[facility] Co de Phone Number [facility] [address] [place] [address], [place] [phone] * (ABNORMAL) Comprehensive metabolic panel (10/16/2024 9:12 AM EDT) [facility] Sodium 139 133 - 145 [...] PM [facility] Total Protein 7.5 6.0 - 8.0 g/dL LAB CHEMISTRY METHOD 10/16/2024 3:05 PM [facility] Albumin 3.8 3.2 - 5.0 g/dL LAB CHEMISTRY METHOD 10/16/2024 3:05 PM [facility] Total Bilirubin 0.2 0.0 - 1.4 mg/dL LAB CHEMISTRY METHOD 10/16/2024 3:05 PM [facility] Blood Venous blood specimen / Unknown Venipuncture / Unknown 10/16/2024 9:12 AM EDT 10/16/2024 9:12 AM EDT us Lana DIAZ LAB BLOOD ORDERABLES Fin al Result [facility] [address] [place] [address], * (ABNORMAL) Lipid panel (08/23/2023) LDL/HDL Ratio 6(A) 0 - 4 Triglycerides 110 0 - 150 mg/dL Cholesterol 265(A) 0 - 200 mg/dL HDL 47 >=40 mg/dL LDL Cholesterol 196(A) 0 - 100 mg/dL Blood Venous blood specimen / Unknown us Historical Provider LAB BLOOD ORDERABLES Elidia l Result * [facility] SCREENING DIGITAL (03/08/2023 12:31 PM EST) Anatomical Region Laterality Modality Mammography 03/07/2023 12:4 0 PM EST Narrative 03/08/2023 12:31 PM EST [facility] Diagnostic Imaging Department [address] [place] [address] Patient: XENA FORTE IRVIN SeguraB./Age/Sex: 1985 - 37 - F Unit#: [id number] Location/Status: SPDIMAM/REG CLI Mnemonic/Ordering Site: DIGSC/SPMAM Ordering Physician: SHERRIE METCALF MD Sandi Screening Digital - 03/07/23 - [id number] Report Status:Signed EXAM: [facility] Screening Digital EXAM DATE AND TIME: 03/07/2023 3:19 PM HISTORY: Screening. COMPARISON: 12/01/21, 07/07/20, 04/23/19 ([facility], [place], [place]) TECHNIQUE: Bilateral digital breast tomosynthesis was performed in the CC and MLO projections. Computer aided detection with Fashionspace 3D 3.1 was employed. TISSUE DENSITY: a. [...] Procedure Note Dariana Schmidt MD - 05/01/2023 [facility] Diagnostic Imaging Department [address] [place] [address] Patient: ROMIE FORTESusy BRYAN /Age/Sex: 1985 - 37 - F Unit#: [id number] Location/Status: [facility]/REG CLI Mnemonic/Ordering Site: [facility] Ordering Physician: SHERRIE METCALF MD Sandi Screening Digital - 03/07/23 - [id number] Report Status:Signed EXAM: [facility] Screening Digital EXAM DATE AND TIME: 03/07/2023 3:19 PM HISTORY: Screening. COMPARISON: 12/01/21, 07/07/20, 04/23/19 ([place], [place]) TECHNIQUE: Bilateral digital breast tomosynthesis was performed in the CCand MLO projections. Computer aided detection with Fashionspace 3D 3.1was employed. TISSUE DENSITY: a. The [...] BILATERAL in 1 year. Dictating Physician: DARIANA CSHMIDT MD Electronically Signed by: DARIANA SCHMIDT MD [...] Most Recently Relevant to Health Maintenance Insurance [facility] Care Teams Job Estimator Relationship Specialty Start Date End Date Lana Branch PA [address] [place] [address] PCP - General 01/24/24
[2025-01-09 14:38] VITALS: BP 135/70; PULSE 73; RESP 16; TEMP 36.6; O2SAT 98
== END 2025-01-09 14:40 | disposition home or self-care (01) ==
PROVIDERS: Emergency Provider Emergency Medicine
DX: K29.01 Acute gastritis with bleeding (principal); R10.821 Right upper quadrant rebound abdominal tenderness; R10.11 Right upper quadrant pain; R11.2 Nausea with vomiting, unspecified; R10.13 Epigastric pain; Z79.899 Other long term (current) drug therapy
CPT/HCPCS: 36415; 76705; 80048; 80076; 82947; 83690; 83735; 85025; 96365; 96375; 99284; 99285; J0131; J2270; J2405; J2470

== ENCOUNTER → 2025-01-09 10:56 | Outpatient (BNV) | payer OTHER, SELFPAY | PROVIDERS: Emergency Provider Emergency Medicine; Visit Provider Radiology Diagnostic Radiology | DX: R10.11 Right upper quadrant pain (principal) | CPT/HCPCS: 76705 ==

== ENCOUNTER 2025-01-11 17:21 | Emergency (ER) | payer OTHER, SELFPAY ==
--- NOTE | 2025-01-11 17:39 | ED.GENADULT ---
HPI - General Adult General Chief complaint: Abdominal Pain Stated complaint: returning w increase pain/weakness Related Data Home Medications ?Medication ?Instructions ?Recorded ?Confirmed cholecalciferol (vitamin D3) 50 1 tab PO DAILY 02/15/21 02/15/21 mcg (2,000 unit) tablet (Vitamin D3) ergocalciferol (vitamin D2) 50 mcg 1 tab PO DAILY 02/15/21 02/15/21 (2,000 unit) tablet fluticasone propionate 100 1 inh inhalation DAILY 02/15/21 02/15/21 mcg/actuation blister powder for inhalation (Flovent Diskus) loratadine 10 mg tablet 1 tab PO DAILY 02/15/21 02/15/21 atorvastatin 40 mg tablet (Lipitor) 40 mg PO DAILY 09/29/24 azelastine 137 mcg (0.1 %) nasal 2 spray intranasal BID 09/29/24 spray colestipol 1 gram tablet (Colestid) 2 g PO BID 09/29/24 diclofenac sodium 1 % topical gel 4 g topical BID 09/29/24 docusate sodium 100 mg capsule 100 mg PO BID 09/29/24 (Colace) lidocaine 5 % topical patch 1 patch topical DAILY 09/29/24 (Lidoderm) Previous Rx's ?Medication ?Instructions ?Recorded famotidine 40 mg tablet (Pepcid) 40 mg PO BEDTIME #30 tabs 02/18/21 omeprazole 40 mg capsule,delayed 40 mg PO DAILY #30 caps 02/18/21 release benzonatate 200 mg capsule 200 mg PO TID PRN cough #30 caps 12/12/21 ondansetron 4 mg disintegrating 4 mg PO DAILY PRN nausea and 03/19/23 tablet vomiting 5 days #10 tabs lidocaine 5 % topical patch 1 patch topical DAILY #15 ea 05/13/23 (Lidoderm) naproxen 500 mg tablet 500 mg PO BID PRN pain #30 tabs 05/13/23 amitriptyline 25 mg tablet 25 mg PO .COMPLEX 30 days #60 tabs 12/16/24 cyclobenzaprine 10 mg tablet 10 mg PO BID PRN muscle spasm 30 12/16/24 days #60 tabs gabapentin 400 mg capsule 400 mg PO BEDTIME 30 days #30 caps 12/16/24 Allergies Allergy/AdvReac Type Severity Reaction Status Date / Time peanut (PEANUT) Allergy Severe ANAPHYLAXIS Verified 01/11/25 17:42 cefpodoxime Allergy Swelling Verified 01/11/25 17:42 [facility] Past Medical History Medical History Depression Bipolar 1 disorder Asthma Diabetes Social History Social History Household Members: Spouse and Other Household Members Other:: dogs Housing: House Alcohol intake: unknown Patient Tobacco Use Status: Current everyday Tobacco user Substance Use Type: Marijuana Advance Directives: Yes Advance Directives on File: Yes Advance Directives Date on File: 02/15/21 service: No Current occupational status: disabled Physical Exam ED Vital Signs: BMI result Body Mass Index 33.6 Course Course Course Narrative: This is a rapid medical exam performed by Chioma Head NP: Additional HPI, ROS, PE not included below will be deferred to primary provider. Patient is a 39y/o F seen here on 01/09 presenting with ongoing epigastric abdominal pain, vomiting. Feels lightheaded. Tried to eat soup today but vomited afterwards. Current pain 8/10. Plan: labs Patient left the emergency department before myself or any of the other clinicians could review or explain physical exam findings, test results, need or lack there of for additional testing, treatment options, or a treatment plan. Medical Decision Making Lab Data 01/11/25 17:53 01/11/25 17:53 Labs: Lab Results 01/11/25 Range/Units 17:53 WBC 12.3 H (4.8-10.8) X10*3/uL RBC 4.31 (4.20-5.50) X10*6/uL Hgb 13.2 (12.0-16.0) g/dl Hct 38.0 (37.0-47.0) % MCV 88.2 (80.0-98.0) fL MCH 30.6 (27.0-33.0) pg MCHC 34.7 (31.0-35.0) g/dl RDW 13.3 (11.0-16.0) % Plt Count 444 H (160-400) X10*3/uL MPV 9.7 (9.4-12.3) fL Immature Gran % (Auto) 0.4 (0.0-0.4) % Neut % (Auto) 63.6 (45-73) % Lymph % (Auto) 28.1 (20-40) % Charles % (Auto) 6.9 (2-11) % Eos % (Auto) 0.7 (0-4) % Baso % (Auto) 0.3 (0-2) % Lymph # (Auto) 3.4 (1.2-4.9) X10*3/uL Charles # (Auto) 0.9 (0.1-1.2) X10*3/uL Eos # (Auto) 0.1 (0.0-0.4) X10*3/uL Baso # (Auto) 0.0 (0.0-0.2) X10*3/uL Abs Immat Gran (auto) 0.05 H (0.00-0.03) X10*3/uL Absolute Neuts (auto) 7.8 (2.0-8.3) x10*3/uL Absolute Nucleated RBC 0.000 (0.0-0.012) X10*3/uL Nucleated RBC % (auto) 0.0 (0.0-0.2) /100WBC Sodium 140 (135-145) mmol/L Potassium 3.4 (3.3-5.1) mmol/L Chloride 107 (96-108) mmol/L Carbon Dioxide 23 (22-29) mmol/L Anion Gap 13 (12-20) BUN 7 L (9-16) mg/dL Creatinine 0.69 (0.5-1.4) mg/dL Estim Creat Clear Calc 91.0 Estimated GFR > 60 Random Glucose 110 (60-115) mg/dL Calcium 9.5 (8.4-10.2) mg/dL Magnesium 2.0 (1.6-2.6) mg/dL Total Bilirubin 0.4 (0.0-1.0) mg/dL AST 22 (5-31) U/L ALT 26 (0-31) U/L Alkaline Phosphatase 71 (39-117) U/L Total Protein 8.0 (6.5-8.0) g/dL Albumin 4.7 (3.5-5.0) g/dL Lipase 22 (8-78) U/L Beta HCG, Quant < 2 mIU/mL Discharge Plan Discharge Clinical Impression: Abdominal pain Qualifiers: Abdominal location: epigastric Qualified Code(s): R10.13 - Epigastric pain Patient Disposition: Left W/O Completing Treatment Prescriptions: No Action Flovent Diskus 100 mcg/actuation blister with device 1 inh inhalation DAILY cholecalciferol (vitamin D3) [Vitamin D3] 50 mcg (2,000 unit) tablet 1 tab PO DAILY ergocalciferol (vitamin D2) 50 mcg (2,000 unit) tablet 1 tab PO DAILY loratadine 10 mg tablet 1 tab PO DAILY famotidine [Pepcid] 40 mg tablet 40 mg PO BEDTIME Qty: 30 2RF omeprazole 40 mg capsule,delayed release(DR/EC) 40 mg PO DAILY Qty: 30 0RF benzonatate 200 mg capsule 200 mg PO TID PRN (Reason: cough) Qty: 30 0RF ondansetron 4 mg tablet,disintegrating 4 mg PO DAILY PRN (Reason: nausea and vomiting) 5 Days Qty: 10 0RF naproxen 500 mg tablet 500 mg PO BID PRN (Reason: pain) Qty: 30 0RF lidocaine [Lidoderm] 5 % adhesive patch,medicated 1 patch topical DAILY Qty: 15 0RF Rx Instructions: leave on most painful area for up to 12 hrs atorvastatin [Lipitor] 40 mg tablet 40 mg PO DAILY lidocaine [Lidoderm] 5 % adhesive patch,medicated 1 patch topical DAILY Rx Instructions: leave on most painful area for up to 12 hrs docusate sodium [Colace] 100 mg capsule 100 mg PO BID azelastine 137 mcg (0.1 %) spray,non-aerosol 2 spray intranasal BID Rx Instructions: administer into each nostril colestipol [Colestid] 1 gram tablet 2 g PO BID diclofenac sodium 1 % gel 4 g topical BID Rx Instructions: apply to single knee, ankle, foot; for foot includes sole/toes/top of foot cyclobenzaprine 10 mg tablet 10 mg PO BID PRN (Reason: muscle spasm) 30 Days Qty: 60 1RF gabapentin 400 mg capsule 400 mg PO BEDTIME 30 Days Qty: 30 2RF amitriptyline 25 mg tablet 25 mg PO .COMPLEX 30 Days Qty: 60 2RF Rx Instructions: 25 mg orally 1 tablet at bedtime x1 week then 2 tablets at bedtime; Discharge Date/Time: 01/11/25 20:33
[2025-01-11 17:40] VITALS: BP 153/84; PULSE 110; RESP 16; TEMP 36.4; O2SAT 97; BMI 33.6
[2025-01-11 17:58] LABS: MANUAL DIFF FLAG NO
--- OUTSIDE RECORDS SUMMARY | 2025-01-11 18:00 | XMS_ITS | Encounter Summary ---
Author Organization [facility] Address [address] [place] [address] Care Team Providers Care Supervisor Reinforced Steel Placing Name Role Phone Chantale Scott MD Unavailable Unavailable Sakina Schaeffer MD Primary Care Provider [phone] Poornima Metcalf MD Primary Care Provider Sakina Schaeffer MD Primary Care Provider Poornima Metcalf MD Primary Care Provider Lana Branch PA-C Primary Care Provider + Reason for Visit * Reason Onset Date Comments Faxed Order 03/14/2021 home health cert and plan of care Encounter Details Date Type Department Care Team Description 03/14/2021 Telephone Adult Medicine [address] [phone] Sakina Schaeffer MD [address] [place] [address] [phone] Faxed Order (home health cert and plan of care) Social History Tobacco Use Types Packs/Day Years Used Date Smoking Tobacco: Every Day Cigarettes 0.5 8 Smokeless Tobacco: Never Comments:quit 01/09/2020 Alcohol Use Standard Drinks/Week Comments No 0 (1 standard drink = 0.6 oz pur e alcohol) Sex Assigned at Date Recorded Female 07/07/2020 2:30 PM E DT Job Start Date Occupation Industry Not on file Not on file Not on file COVID-19 Exposure Response Date Recorded In the last month, have you been in contact with someone who was confirmed or suspected to have Coronavirus / COVID-19? No / Unsure 02/23/2021 3:18 PM EST documented as of this encounter Miscellaneous Notes * Telephone Encounter - Vicenta Blankenship - 03/14/2021 2:36 PM EST [facility] HOME [facility]ARE FAXING ORDERS TO BE SIGNED AND FAXED BACK TO [phone] documented in this encounter Plan of Treatment Not on file documented as of this encounter Visit Diagnoses Not on filedocumented in this encounter Additional Health Concerns Infection Onset Date Last Indicated Resolved Time COVID-19 11/07/2021 11/07/2021 01/06/2022 8:30 AM EDT documented as of this encounter Care Teams Supervisor [employer] Relationship Specialty Start Date End Date Sakina Schaeffer MD [address] [place] [address] PCP - General Internal Medicine 02/01/21 10/02/22 Poornima Metcalf MD [address] [place] [id number] PCP - General Internal Medicine 10/03/22 12/05/22 Sakina Schaeffer MD [address] [place] [id number] PCP - General Internal Medicine 12/06/22 12/24/22 Poornima Metcalf MD [address] [place] [phone] PCP - General Internal Medicine 12/25/22 01/23/24 Lana Branch PA-C [address] [place] [phone] PCP - General Internal Medicine 01/24/24 Chantale Scott MD Internal Medicine 05/20/19 documented as of this encounter
--- OUTSIDE RECORDS SUMMARY | 2025-01-11 18:00 | XMS_ITS | Encounter Summary ---
Author Organization [facility] Address [address] [place] [address] Care Team Providers Care Associate Data Scientist Name Role Phone Chantale Scott MD Unavailable Unavailable Sakina Schaeffer MD Primary Care Provider Poornima Metcalf MD Primary Care Provider Sakina Schaeffer MD Primary Care Provider Poornima Metcalf MD Primary Care Provider [phone] Lana Branch PA-C Primary Care Provider + Encounter Details Date Type Department Care Team Description 01/23/2022 [facility] Gastroenterology [address] [place] [phone] Pino Ernandez PA-C Social History Tobacco Use Types Packs/Day Years [...] Exposure Response Date Recorded In the last 10 days, have yo u been in contact with someone who was confirmed or suspected to have Coronavirus/COVID-19? No / Unsure 01/06/2022 8:17 AM EDT documented as of this encounter Miscellaneous Notes * Telephone Encounter - Faby SarabiaBrandyCh - 01/24/2022 9:24 AM EDT STEPHENIE: 10/17/21 upcoming appointment: 04/19/22 30 Day supply documented in this encounter Plan of Treatment Not on file documented as of this encounter Visit Diagnoses Not on filedocumented in this encounter Care Teams Associate Data Scientist Relationship Specialty Start Date End Date Sakina Schaeffer MD [address] [place] [phone] PCP - General Internal Medicine 02/01/21 10/02/22 Poornima Metcalf MD [address] [place] [id number] PCP - General Internal Medicine 10/03/22 12/05/22 Sakina Schaeffer MD [address] [place] [phone] PCP - General Internal Medicine 12/06/22 12/24/22 Poornima Metcalf MD [address] [place] [phone] PCP - General Internal Medicine 12/25/22 01/23/24 Lana Branch PA-C [address] [place] [phone] PCP - General Internal Medicine 01/24/24 Chantale Scott MD Internal Medicine 05/20/19 documented as of this encounter
--- OUTSIDE RECORDS SUMMARY | 2025-01-11 18:00 | XMS_ITS | Encounter Summary ---
Author Organization [facility] Address [address] [place] [address] Care Team Providers Care Roto Mixer Operator Name Role Phone Peter Ann MD Primary Care Provider [phone] Chantale Scott MD Unavailable Unavailable Chantale Scott MD Primary Care Provider Unavail able Sakina Schaeffer MD Primary Care Provider [phone] Poornima Metcalf MD Primary Care Provider [phone] Sakina Schaeffer MD Primary Care Provider [phone] Poornima Metcalf MD Primary Care Provider [phone] Lana Branch PA-C Primary Care Provider + Reason for Visit * Reason Onset Date Comments Sleep Study 09/23/2019 Encounter Details Date Type Department Care Team Description 09/23/2019 Telephone Pediatrics - [place] [address] [place] [address] Tracey Denson FNP [address] [place] [address] Sleep Study Social History Tobacco Use Types Packs/Day Years Used Date Smoking Tobacco: Some Days Cigarettes 0.5 8 Smokeless Tobacco: Never Comments:smokes only 1-2 cig daily now. Alcohol Use Standard Drinks/Week Comments No 0 (1 standard drink = 0.6 oz pur e alcohol) Sex Assigned at Date Recorded Female 07/07/2020 2:30 PM E DT Job Start Date Occupation Industry Not on file Not on file Not on file documented as of this encounter Miscellaneous Notes * Telephone Encounter - MCKINLEY Mcclendon - 09/23/2019 4:43 PM EDT [facility] Sleep Study did not reveal sleep apnea or nocturnal hypoxia. Has consult with Zoraida for dyspnea the end of October 2019. Interpretation: This study did not demonstrate sufficient respiratory disturbances to meet diagnostic criteria for obstructive sleep apnea (pAHI >5 events per hour). The PAT apnea-hypopnea index was 1 event per hour. Average oxygen saturation was 96% and oxygen veronica was 92%. A mild degree of snoring was recorded. ICSD-3 Diagnosis - ICD-1-CPT Code CPT Code HST-Type III (G0399) 1) Deferred Recommendations: Clinical correlation. If snoring is disruptive, a mandibular advancement device, moderate weight loss, and/or ENT evaluation to assess for medically or surgically remediable sources of mild upper airway obstruction may be helpful. If there is continued concern regarding obstructive sleep apnea or other sleep related breathing or movement disorder, a facility based polysomnogram may be considered. documented in this encounter Plan of Treatment Not on file documented as of this encounter Visit Diagnoses Diagnosis Snoring Other dyspnea and respiratory abnormality documented in this encounter Additional Health Concerns Infection Onset Date Last Indicated Resolved Time COVID-19 11/07/2021 11/07/2021 01/06/2022 8:30 AM EDT documented as of this encounter Care Teams Roto Mixer Operator Relationship Specialty Start Date End Date Peter Ann MD [address] [place] [address] PCP - General Cardiology 05/20/19 02/12/20 Chantale Scott MD [address] [facility] [address] [place] [address] PCP - General Internal Medicine 02/13/20 01/31/21 Sakina Schaeffer MD [address] [place] [address] PCP - General Internal Medicine 02/01/21 10/02/22 Poornima Metcalf MD [address] [place] [address] PCP - General Internal Medicine 10/03/22 12/05/22 Sakina Schaeffer MD [address] [place] [address] PCP - General Internal Medicine 12/06/22 12/24/22 Poornima Metcalf MD [address] [place] [address] PCP - General Internal Medicine 12/25/22 01/23/24 Lana Branch PA-C [address] [place] [address] PCP - General Internal Medicine 01/24/24 Chantale Scott MD [address] [place] [address] Internal Medicine 05/20/19 documented as of this encounter
--- OUTSIDE RECORDS SUMMARY | 2025-01-11 18:00 | XMS_ITS | Encounter Summary ---
Author Organization [facility] Address [address] [place] [address] Care Team Providers Care Asphalt Machine Operator Name Role Phone Chantale Scott MD Unavailable Unavailable Chantale Scott MD Primary Care Provider Unavail able Sakina Schaeffer MD Primary Care Provider [phone] Poornima Metcalf MD Primary Care Provider [phone] Sakina Schaeffer MD Primary Care Provider [phone] Poornima Metcalf MD Primary Care Provider [phone] Lana Branch PA-C Primary Care Provider + Reason for Visit * Reason Onset Date Comments Medication 04/20/2020 colon Encounter Details Date Type Department Care Team Description 04/20/2020 Refill Gastroenterology - [address] [place] [address] Jody Schuster MD [address] [place] [address] Medication (colon) Social History Tobacco Use Types Packs/Day Years Used Date Smoking Tobacco: Former Cigarettes 0.5 8 Smokeless Tobacco: Never Comments:quit [...] or suspected to have Coronavirus / COVID-19? Unable to assess 04/23/2020 7:36 AM EST documented as of this encounter Miscellaneous Notes * Telephone Encounter - Marcso Rodriguez - 04/21/2020 12:13 PM EST Prep on backorder at pharmacy Please advise documented in this encounter Plan of Treatment Not on file documented as of this encounter Visit Diagnoses Not on filedocumented in this encounter Additional Health Concerns Infection Onset Date Last Indicated Resolved Time COVID-19 11/07/2021 11/07/2021 01/06/2022 8:30 AM EDT documented as of this encounter Care Teams Asphalt Machine Operator Relationship Specialty Start Date End Date Chantale Scott MD PCP - General Internal Medicine 02/13/20 01/31/21 Sakina Schaeffer MD [address] [place] [address] PCP - General Internal Medicine 02/01/21 10/02/22 Poornima Metcalf MD [address] [place] [address] PCP - General Internal Medicine 10/03/22 12/05/22 Sakina Schaeffer MD [address] [place] [address] PCP - General Internal Medicine 12/06/22 12/24/22 Poornima Metcalf MD [address] [place] [address] PCP - General Internal Medicine 12/25/22 01/23/24 Lana Branch PA-C [address] [place] [address] PCP - General Internal Medicine 01/24/24 Chantale Scott MD Internal Medicine 05/20/19 documented as of this encounter
--- OUTSIDE RECORDS SUMMARY | 2025-01-11 18:00 | XMS_ITS | Encounter Summary ---
Author Organization [facility] Address [address] [place] [address] Care Team Providers Care Innovations Paraprofessional Name Role Phone Danna Burden MD Primary Care Provider Un available Chantale Scott MD Primary Care Provider Unavail able Peter Ann MD Primary Care Provider [phone] Chantale Scott MD Unavailable Unavailable Chantale Scott MD Primary Care Provider Unavail able Sakina Schaeffer MD Primary Care Provider Poornima Metcalf MD Primary Care Provider [phone] Sakina Schaeffer MD Primary Care Provider [phone] Poornima Metcalf MD Primary Care Provider [phone] Lana Branch PA-C Primary Care Provider + Reason for Visit * Reason Onset Date Comments medication problems 08/16/2018 Encounter Details Date Type Department Care Team Description 08/16/2018 Telephone Adult Medicine [address] [address] Danna Burden MD medication problems Social History Tobacco Use Types Packs/Day Years Used Date Smoking Tobacco: Every Day Cigarettes 0.5 8 Smokeless Tobacco: Never Alcohol Use Standard Drinks/Week Comments No 0 (1 standard drink = 0.6 oz pur e alcohol) Sex Assigned at Date Recorded Female 07/07/2020 2:30 PM E DT Job Start Date Occupation Industry Not on file Not on file Not on file documented as of this encounter Miscellaneous Notes * Telephone Encounter - Anna Wilkins PA-C - 08/16/2018 10:54 AM EDT Thank you, imitrex discontinued. * Telephone Encounter - Mimi Gurrola R.N. - 08/16/2018 9:14 AM EDT Pt has hx of migraines , now has pain since last Sunday . This is not the worst headache ever She took 1 Imitrex and the pain got worse and her jaw locked, she had no swelling of her face lips or tongue. She took another Imitrex a short while ago Pt has no chest pain or SOB, denies any N/V/D or fever, she has not been ill, no rashes , she has not had any weakness/ numbness or dizziness, denies any change to vision , pain is located all over her head and down her neck , she does not C/O stiff neck, pt has used Imitrex this am with an increase in pain Pt to the ed with the worse headache ever and ? Reaction to Imitrex * Telephone Encounter - Karen Hilton - 08/16/2018 9:10 AM EDT What is the name of the medication patient is having a problem with?: sumatriptan (IMITREX) 50 MG tablet What is the problem?: patient states that her headaches have been getting worse since takiing this medication, and her jaw locks, patient is also having some dizziness and lightheadedness Is the patient calling about the problem? YES If the patient is not the caller who is? Is this a NEW medication?: YES How long has the patient been taking this medication? One day Who prescribed this medication for the patient? Anna Wilkins Who is patients PCP?: Danna Burden Payor: [employer] / Plan: [facility] / Product Type: MEDICAID RISK documented in this encounter Plan of Treatment Not on file documented as of this encounter Visit Diagnoses Not on filedocumented in this encounter Additional Health Concerns Infection Onset Date Last Indicated Resolved Time COVID-19 11/07/2021 11/07/2021 01/06/2022 8:30 AM EDT documented as of this encounter Care Teams Innovations Paraprofessional Relationship Specialty Start Date End Date Danna Burden MD PCP - General Internal Medicine 01/30/17 Chantale Scott MD PCP - General Internal Medicine 11/14/18 05/19/19 Peter Ann MD [address] [facility] [address] [place] [address] PCP - General Cardiology 05/20/19 02/12/20 Chantale Scott MD PCP - General Internal Medicine 02/13/20 01/31/21 Sakina Schaeffer MD [address] [place] [address] PCP - General Internal Medicine 02/01/21 10/02/22 Poornima Metcalf MD [address] [place] [address] PCP - General Internal Medicine 10/03/22 12/05/22 Sakina Schaeffer MD [address] [place] [address] PCP - General Internal Medicine 12/06/22 12/24/22 Poornima Metcalf MD [address] [place] [address] PCP - General Internal Medicine 12/25/22 01/23/24 Lana Branch PA-C [address] [place] [address] PCP - General Internal Medicine 01/24/24 Chantale Scott MD Internal Medicine 05/20/19 documented as of this encounter
--- OUTSIDE RECORDS SUMMARY | 2025-01-11 18:00 | XMS_ITS | Encounter Summary ---
Author Organization [facility] Address [address] [place] [address] Care Team Providers Care Sheriff'S Sergeant Name Role Phone Peter Ann MD Primary Care Provider [phone] Chantale Scott MD Unavailable Unavailable Chantale Scott MD Primary Care Provider Unavail able Sakina Schaeffer MD Primary Care Provider [phone] Poornima Metcalf MD Primary Care Provider [phone] Sakina Schaeffer MD Primary Care Provider [phone] Poornima Metcalf MD Primary Care Provider [phone] Lana Branch PA-C Primary Care Provider + Reason for Visit * Reason Onset Date Comments APPOINTMENT 09/22/2019 Encounter Details Date Type Department Care Team Description 09/22/2019 Telephone Pulmonology - [place] 175 [facility] [address] [place] [address] Zoraida Carlin APRN 175 [facility] [address] [place] [address] APPOINTMENT Social History Tobacco Use Types Packs/Day Years [...] Telephone Encounter - MCKINLEY Mcclendon - 09/23/2019 4:41 PM EDT * Telephone Encounter - Gely Rodriguez - 09/22/2019 1:22 PM EDT I call patient to book a consult with Zoraida 40 min for Dyspnea left a voice mail message. If patient Call please the appointment. Notes are in pulmo folder documented in this encounter Plan of Treatment Not on file documented as of this encounter Visit Diagnoses Not on filedocumented in this encounter Additional Health Concerns Infection Onset Date Last Indicated Resolved Time COVID-19 11/07/2021 11/07/2021 01/06/2022 8:30 AM EDT documented as of this encounter Care Teams Sheriff'S Sergeant Relationship Specialty Start Date End Date Peter Ann MD 300 [facility] [address] [place] [address] PCP - General Cardiology 05/20/19 02/12/20 Chantale Scott MD [address] [address] PCP - General Internal Medicine 02/13/20 01/31/21 Sakina Schaeffer MD [address] [place] [address] PCP - General Internal Medicine 02/01/21 10/02/22 Poornima Metcalf MD [address] [place] [address] PCP - General Internal Medicine 10/03/22 12/05/22 Sakina Schaeffer MD [address] [place] [address] PCP - General Internal Medicine 12/06/22 12/24/22 Poornima Metcalf MD [address] [place] [address] PCP - General Internal Medicine 12/25/22 01/23/24 Lana Branch PA-C [address] [place] [address] PCP - General Internal Medicine 01/24/24 Chantale Scott MD [address] [place] [address] Internal Medicine 05/20/19 documented as of this encounter
--- OUTSIDE RECORDS SUMMARY | 2025-01-11 18:00 | XMS_ITS | Encounter Summary ---
Author Organization [facility] Address [address] [place] [address] Care Team Providers Care Senior Insight Manager International Name Role Phone Peter Ann MD Primary Care Provider [phone] Chantale Scott MD Unavailable Unavailable Chantale Scott MD Primary Care Provider Unavail able Sakina Schaeffer MD Primary Care Provider [phone] Poornima Metcalf MD Primary Care Provider [phone] Sakina Schaeffer MD Primary Care Provider [phone] Poornima Metcalf MD Primary Care Provider [phone] Lana Branch PA-C Primary Care Provider + Reason for Visit * Reason Onset Date Comments Provider Call Back 01/14/2020 Encounter Details Date Type Department Care Team Description 01/14/2020 Telephone OBGYN - [place] [address] [place] [address] Joao Aldrich DO Provider Call Back Social History Tobacco Use Types Packs/Day Years [...] have Coronavirus / COVID-19? No / Unsure 01/07/2020 9:49 AM EDT documented as of this encounter Miscellaneous Notes * Telephone Encounter - Joao Aldrich DO - 01/15/2020 8:26 AM EDT I spoke with the patient over the phone. She states yesterday she had chest pain and palpitations so she went to the ER, had a CXR, CT and bloodwork that were all negative. She states the chest pain has resolved. She was not hydrating well but will start drinking more water. She does report that she is ambulating well at home. She denies fevers overnight last night and states her pain is well cont rolled with Ibuprofen. She is currently without complaints. I reviewed concerning symptoms and reasons to call including fever >101F, increasing pain, redness/drainage of the incision, heavy vaginal bleeding, swelling/pain of lower extremity. Patient expressed understanding and agreed to call josephineurn to the ER if she develops any concerning symptoms. Joao Aldrich DO * Telephone Encounter - Joao Aldrich DO - 01/14/2020 4:43 PM EDT I called the patient twice, no answer by her or her . Agree with instructions provided to patient regarding elevated temperature (no fever), back pain, and diarrhea. I will try to call the patient again tomorrow. * Telephone Encounter - Radha Shaw R.N. - 01/14/2020 3:44 PM EDT Spoke with pt- states Dr Aldrich called her and left a message to return her call. Advised that I do not see what provider called her for but I will send message to provider. States she has a low grade temperature, highest was 100. Advised to increase fluids. Pt agrees. States pain is tolerable with 600 mg Ibuprofen every 6 hours -she denies taking narcotics for pain.Also has back pain-advised heat to area. Also c/o of diarrhea. States she has not been eating much. Advised Imodium and increasing fluids and food intake. Pt agrees. Pt advised to call if temp 101 or more, increase in pain, no relief from diarrhea, or n/v occurs. Pt agrees. All questions answered. * Telephone Encounter - Randi Chapaes - 01/14/2020 11:33 AM EDT Pt states rec'd call from Dr Aldrich and would like a call back. Pt is having fever and diarrhea.Had surgery at [facility] Sunday01/09/20. documented in this encounter Plan of Treatment Not on file documented as of this encounter Visit Diagnoses Not on filedocumented in this encounter Additional Health Concerns Infection Onset Date Last Indicated Resolved Time COVID-19 11/07/2021 11/07/2021 01/06/2022 8:30 AM EDT documented as of this encounter Care Teams Senior Insight Manager International Relationship Specialty Start Date End Date Peter Ann MD [address] [place] [address] PCP - General Cardiology 05/20/19 02/12/20 Chantale Scott MD [address] [place] [address] PCP - General Internal Medicine 02/13/20 01/31/21 Sakina Schaeffer MD [address] [place] [address] PCP - General Internal Medicine 02/01/21 10/02/22 Poornima Metcalf MD [address] [place] [address] PCP - General Internal Medicine 10/03/22 12/05/22 Sakina Schaeffer MD [address] [place] [address] PCP - General Internal Medicine 12/06/22 12/24/22 Poornima Metcalf MD [address] [place] [address] PCP - General Internal Medicine 12/25/22 01/23/24 Lana Branch PA-C [address] [place] [address] PCP - General Internal Medicine 01/24/24 Chantale Scott MD [address] [place] [address] Internal Medicine 05/20/19 documented as of this encounter
--- OUTSIDE RECORDS SUMMARY | 2025-01-11 18:00 | XMS_ITS | Encounter Summary ---
Author Organization [facility] Address [address] [place] [address] Care Team Providers Care Sweet Pickled Fruit Maker Name Role Phone Peter Ann MD Primary Care Provider [phone] Chantale Scott MD Unavailable Unavailable Chantale Scott MD Primary Care Provider Unavail able Sakina Schaeffer MD Primary Care Provider [phone] Poornima Metcalf MD Primary Care Provider [phone] Sakina Schaeffer MD Primary Care Provider [phone] Poornima Metcalf MD Primary Care Provider [phone] Lana Branch PA-C Primary Care Provider + Reason for Visit * Reason Onset Date Comments TEST RESULTS 12/26/2019 Encounter Details Date Type Department Care Team Description 12/26/2019 Telephone OBGYN - [place] [address] [place] [address] Joao Aldrich DO TEST RESULTS Social History Tobacco Use Types Packs/Day Years [...] have Coronavirus / COVID-19? No / Unsure 12/23/2019 9:38 AM EDT documented as of this encounter Miscellaneous Notes * Telephone Encounter - Joao Aldrich DO - 12/29/2019 9:07 AM EDT I spoke with the patient over the phone regarding normal ultrasound results and treatment options for AUB. Patient has tried medical management and desires definitive surgical management at this time. Plan for hysterectomy. Patient to return for preoperative visit once her surgery is scheduled. Joao Aldrich DO * Telephone Encounter - Meli Limon - 12/29/2019 8:45 AM EDT Pt states she is returning a call from Dr Aldrich- same number * Telephone Encounter - Sruthi Nelson C.M.A. - 12/26/2019 10:57 AM EDT I called and spoke with the pt. She is aware of her ultrasound results. Pt is inquiring about what the next stop is going to be. Please advise. DL * Telephone Encounter - Meli Limon - 12/26/2019 10:18 AM EDT Inform patient: ANY URGENT OR ABNORMAL RESULTS WIILL RESULT IN A CALL BACK TO THE PATIENT EFE. Type of test: :ultrasound Date test was performed: 12/24/19 Where was the test performed: [facility] Who ordered this test?: Joao Is the doctor here today?: YES Can the message wait until the doctor returns?: NO IF PATIENT'S PCP IS NOT IN INSTRUCT PATIENT THAT THEY WILL RECEIVE A CALL BACK WHEN THE PCP IS IN THE OFFICE NEXT. documented in this encounter Plan of Treatment Not on file documented as of this encounter Visit Diagnoses Not on filedocumented in this encounter Additional Health Concerns Infection Onset Date Last Indicated Resolved Time COVID-19 11/07/2021 11/07/2021 01/06/2022 8:30 AM EDT documented as of this encounter Care Teams Sweet Pickled Fruit Maker Relationship Specialty Start Date End Date Peter Ann MD 300 [facility] [address] [place] [address] PCP - General Cardiology 05/20/19 02/12/20 Chantale Scott MD 300 [facility] [address] [place] [address] PCP - General Internal Medicine 02/13/20 01/31/21 Sakina Schaeffer MD [address] [place] [address] PCP - General Internal Medicine 02/01/21 10/02/22 Poornima Metcalf MD [address] [place] [address] PCP - General Internal Medicine 10/03/22 12/05/22 Sakina Schaeffer MD [address] [place] [address] PCP - General Internal Medicine 12/06/22 12/24/22 Poornima Metcalf MD [address] [place] [address] PCP - General Internal Medicine 12/25/22 01/23/24 Lana Branch PA-C [address] [place] [address] PCP - General Internal Medicine 01/24/24 Chantale Scott MD 300 [facility] [address] [place] [address] Internal Medicine 05/20/19 documented as of this encounter
--- OUTSIDE RECORDS SUMMARY | 2025-01-11 18:00 | XMS_ITS | Encounter Summary ---
Author Organization [facility] Address [address] [place] [address] Care Team Providers Care Confectionery Cooker Name Role Phone Chantale Scott MD Unavailable Unavailable Poornima Metcalf MD Primary Care Provider [phone] Lana Branch PA-C Primary Care Provider + Encounter Details Date Type Department Care Team Description 05/31/2023 [facility] [address] [id number] Amado Sidhu MD [address] [address] Social History Tobacco Use Types Packs/Day Years [...] on file documented as of this encounter Plan of Treatment Not on file documented as of this encounter Visit Diagnoses Not on filedocumented in this encounter Care Teams Confectionery Cooker Relationship Specialty Start Date End Date Poornima Metcalf MD PCP - General Internal Medicine 12/25/22 01/23/24 Lana Branch PA-C PCP - General Internal Medicine 01/24/24 Chantale Scott MD Internal Medicine 05/20/19 documented as of this encounter
--- OUTSIDE RECORDS SUMMARY | 2025-01-11 18:00 | XMS_ITS | Encounter Summary ---
[facility] Organization [facility] Address [address] [place] [address] Care Team Providers Care Carding Utility Tender Name Role Phone Chantale Scott MD Unavailable Unavailable Chantale Scott MD Primary Care Provider Unavail able Sakina Schaeffer MD Primary Care Provider Poornima Metcalf MD Primary Care Provider Sakina Schaeffer MD Primary Care Provider [phone] Poornima Metcalf MD Primary Care Provider Lana Branch PA-C Primary Care Provider + Reason for Visit * Reason Onset Date Comments Faxed Order 10/06/2020 Encounter Details Date Type Department Care Team Description 10/06/2020 Telephone Adult [address] [address] Chantale Scott MD Faxed Order Social History Tobacco Use Types Packs/Day Years [...] encounter Miscellaneous Notes * Telephone Encounter - Val Felipe - 10/06/2020 12:31 PM EDT [facility] IS FAXING ORDERS TO BE SIGN AND FAX BACK TO [phone]. documented in this encounter Plan of Treatment Not on file documented as of this encounter Visit Diagnoses Not on filedocumented in this encounter Additional Health Concerns Infection Onset Date Last Indicated Resolved Time COVID-19 11/07/2021 11/07/2021 01/06/2022 8:30 AM EDT documented as of this encounter Care Teams Carding Utility Tender Relationship Specialty Start Date End Date Chantale Scott MD PCP - General Internal Medicine 02/13/20 01/31/21 Sakina Schaeffer MD [address] [place] [address] PCP - General Internal Medicine 02/01/21 10/02/22 Poornima Metcalf MD [address] [place] [address] PCP - General Internal Medicine 10/03/22 12/05/22 Sakina Schaeffer MD [address] [place] [address]13 PCP - General Internal Medicine 12/06/22 12/24/22 Poornima Metcalf MD [address] [place] [address] PCP - General Internal Medicine 12/25/22 01/23/24 Lana Branch PA-C [address] [place] [address] PCP - General Internal Medicine 01/24/24 Chantale Scott MD Internal Medicine 05/20/19 documented as of this encounter
--- OUTSIDE RECORDS SUMMARY | 2025-01-11 18:00 | XMS_ITS | Encounter Summary ---
Author Organization [facility] Address [address] [place] [address] Care Team Providers Care Web Content Coordinator Name Role Phone Chantale Scott MD Unavailable Unavailable Sakina Schaeffer MD Primary Care Provider [phone] Poornima Metcalf MD Primary Care Provider Sakina Schaeffer MD Primary Care Provider Poornima Metcalf MD Primary Care Provider Lana Branch PA-C Primary Care Provider + Reason for Visit * Reason Onset Date Comments Faxed Order 04/29/2021 Change medicatio n order Encounter Details Date Type Department Care Team Description 04/29/2021 Telephone Adult Medicine [address] [id number] Sakina Schaeffer MD [address] [place] [address] [phone] Faxed Order (Change medication order) Social History Tobacco Use Types Packs/Day Years [...] have Coronavirus / COVID-19? No / Unsure 04/22/2021 10:29 AM EST documented as of this encounter Miscellaneous Notes * Telephone Encounter - Vicenta Blankenship - 04/29/2021 11:34 AM EST [facility] FAXING ORDERS TO BE SIGNED AND FAXED BACK TO [phone] documented in this encounter Plan of Treatment Not on file documented as of this encounter Visit Diagnoses Not on filedocumented in this encounter Additional Health Concerns Infection Onset Date Last Indicated Resolved Time COVID-19 11/07/2021 11/07/2021 01/06/2022 8:3 0 AM EDT documented as of this encounter Care Teams Web Content Coordinator Relationship Specialty Start Date End Date Sakina Schaeffer MD [address] [place], [place] [phone] PCP - General Internal Medicine 02/01/21 10/02/22 Poornima Metcalf MD [address] [place] [address] PCP - General Internal Medicine 10/03/22 12/05/22 Sakina Schaeffer MD [address] [place] [address] PCP - General Internal Medicine 12/06/22 12/24/22 Poornima Metcalf MD [address] [place] [address] PCP - General Internal Medicine 12/25/22 01/23/24 Lana Branch PA-C [address] [place] [address] PCP - General Internal Medicine 01/24/24 Chantale Scott MD Internal Medicine 05/20/19 documented as of this encounter
--- OUTSIDE RECORDS SUMMARY | 2025-01-11 18:00 | XMS_ITS | Encounter Summary ---
Author Organization [facility] Address [address] [place] [address] Care Team Providers Care Latin Teacher Name Role Phone Chantale Scott MD [facility] Poornima Metcalf MD Primary Care Provider [phone] Lana Branch PA-C Primary Care Provider + Reason for Visit * Reason Onset Date Comments Provider Call Back 06/06/2023 Encounter Details Date Type Department Care Team Description 06/06/2023 Telephone Gastroenterology - [place] [address] [facility] [address] [place] [phone] Susan Arambula APRN [address] [facility] [place] [address] Provider Call Back Social History Tobacco Use [...] encounter Miscellaneous Notes * Telephone Encounter - Glenys Crowell - 06/06/2023 11:31 AM EDT All set. Scheduled. Thank you! * Telephone Encounter - Meli Langford M.A. - 06/06/2023 10:32 AM EDT Melvina, Can you move this pt up to [place] schedule for 06/06 cancellation so she can be seen sooner please? Thanks Rosalia * Telephone Encounter - Glenys Crowell - 06/06/2023 9:00 AM EDT Previous cam patient calling stating she has had bloody stool for 1 week. I scheduled next available, she is requesting a call to discuss if possible. Please advise documented in this encounter Plan of Treatment Not on file documented as of this encounter Visit Diagnoses Not on filedocumented in this encounter Care Teams Latin Teacher Relationship Specialty Start Date End Date Poornima Metcalf MD PCP - General Internal Medicine 12/25/22 01/23/24 Lana Branch PA-C PCP - General Internal Medicine 01/24/24 Chantale Scott MD Internal Medicine 05/20/19 documented as of this encounter
--- OUTSIDE RECORDS SUMMARY | 2025-01-11 18:00 | XMS_ITS | Encounter Summary ---
Author Organization [facility] Address [address] [place] [address] Care Team Providers Care Party Plan Sales Director Name Role Phone Chantale Scott MD Unavailable Unavailable Sakina Schaeffer MD Primary Care Provider [phone] Poornima Metcalf MD Primary Care Provider [phone] Sakina Schaeffer MD Primary Care Provider [phone] Poornima Metcalf MD Primary Care Provider [phone] Lana Branch PA-C Primary Care Provider + Encounter Details Date Type Department Care Team Description 03/30/2021 Home Health Certification Medical Records [address] [place] [id number] [facility], [facility] Social History Tobacco Use Types Packs/Day Years [...] have Coronavirus / COVID-19? No / Unsure 03/21/2021 1:36 PM EST documented as of this encounter Plan of Treatment Not on file documented as of this encounter Visit Diagnoses Not on filedocumented in this encounter Additional Health Concerns Infection Onset Date Last Indicated Resolved Time COVID-19 11/07/2021 11/07/2021 01/06/2022 8:30 AM EDT documented as of this encounter Care Teams Party Plan Sales Director Relationship Specialty Start Date End Date Sakina Schaeffer MD [address] [place] [address] PCP - General Internal Medicine 02/01/21 10/02/22 Poornima Metcalf MD [address] [place] [address] PCP - General Internal Medicine 10/03/22 12/05/22 Sakina Schaeffer MD [address] [place] [address] PCP - General Internal Medicine 12/06/22 12/24/22 Poornima Metcalf MD [address] [place] [address] PCP - General Internal Medicine 12/25/22 01/23/24 Lana Branch PA-C [address] [place] [address] PCP - General Internal Medicine 01/24/24 Chantale Scott MD Internal Medicine 05/20/19 documented as of this encounter
--- OUTSIDE RECORDS SUMMARY | 2025-01-11 18:00 | XMS_ITS | Encounter Summary ---
Author Organization [facility] Address [address] [place] [address] Care Team Providers Care Shower Attendant Name Role Phone Chantale Scott MD Unavailable Unavailable Chantale Scott MD Primary Care Provider Unavail able Sakina Schaeffer MD Primary Care Provider [phone] Poornima Metcalf MD Primary Care Provider [phone] Sakina Schaeffer MD Primary Care Provider [phone] Poornima Metcalf MD Primary Care Provider [phone] Lana Branch PA-C Primary Care Provider + Reason for Visit * Reason Onset Date Comments Medication 04/21/2020 colon resend to different pharmacy Encounter Details Date Type Department Care Team Description 04/21/2020 Refill Gastroenterology - [address] [place] [address] Jody Schuster MD [address] [place] [address] [phone] Medication (colon resend to different pharmacy) Social History Tobacco Use Types Packs/Day Years [...] AM EST documented as of this encounter Plan of Treatment Not on file documented as of this encounter Visit Diagnoses Not on filedocumented in this encounter Additional Health Concerns Infection Onset Date Last Indicated Resolved Time COVID-19 11/07/2021 11/07/2021 01/06/2022 8:30 AM EDT documented as of this encounter Care Teams Shower Attendant Relationship Specialty Start Date End Date Chantale Scott MD PCP - General Internal Medicine 02/13/20 01/31/21 Sakina Schaeffer MD [address] [place] [address] PCP - General Internal Medicine 02/01/21 10/02/22 Poornima Metcalf MD [address] [place] [address] PCP - General Internal Medicine 10/03/22 12/05/22 Sakina Schaeffer MD [address] [place] [address] PCP - General Internal Medicine 12/06/22 12/24/22 Poornima Metcalf MD [address] [place] [address]11 PCP - General Internal Medicine 12/25/22 01/23/24 Lana Branch PA-C [address] [place] [address] PCP - General Internal Medicine 01/24/24 Chantlae Scott MD Internal Medicine 05/20/19 documented as of this encounter
--- OUTSIDE RECORDS SUMMARY | 2025-01-11 18:00 | XMS_ITS | Encounter Summary ---
Author Organization [facility] Address [address] [place] [address] Care Team Providers Care Mental Health Advanced Practice Nurse Name Role Phone Chantale Scott MD Unavailable Unavailable Sakina Schaeffer MD Primary Care Provider Poornima Metaclf MD Primary Care Provider Sakina Schaeffer MD Primary Care Provider Poornima Metcalf MD Primary Care Provider [phone] Lana Branch PA-C Primary Care Provider + Reason for Visit * Reason Onset Date Comments Faxed Order 04/28/2021 Encounter Details Date Type Department Care Team Description 04/28/2021 Telephone Adult Medicine [address] [phone] Sakina Schaeffer MD [address] [place] [address] [phone] Faxed Order Social History Tobacco Use Types [...] encounter Miscellaneous Notes * Telephone Encounter - Alexissandramarkus Graves - 05/06/2021 2:10 PM EST Additional orders from [facility] to be signed and faxed back to [phone] * Telephone Encounter - Val Felipe - 04/28/2021 11:10 AM EST [facility] IS FAXING ORDERS TO BE SIGN AND FAX BACK TO [phone]. documented in this encounter Plan of Treatment Not on file documented as of this encounter Visit Diagnoses Not on filedocumented in this encounter Additional Health Concerns Infection Onset Date Last Indicated Resolved Time COVID-19 11/07/2021 11/07/2021 01/06/2022 8:30 AM EDT documented as of this encounter Care Teams Mental Health Advanced Practice Nurse Relationship Specialty Start Date End Date Sakina Schaeffer MD [address] [place] [address] PCP - General Internal Medicine 02/01/21 10/02/22 Poornima Metcalf MD [address] [place] [address] PCP - General Internal Medicine 10/03/22 12/05/22 Sakina Schaeffer MD [address] [place] [address] PCP - General Internal Medicine 12/06/22 12/24/22 Poornima Metcalf MD [address] [place] [address]841 PCP - General Internal Medicine 12/25/22 01/23/24 Lana Branch PA-C [address] [place] [address] PCP - General Internal Medicine 01/24/24 Chantale Scott MD Internal Medicine 05/20/19 documented as of this encounter
--- OUTSIDE RECORDS SUMMARY | 2025-01-11 18:00 | XMS_ITS | Encounter Summary ---
[facility] Address [address] [place] [address] Care Team Providers Care Dinkey Mechanic Name Role Phone Danna Burden MD Primary Care Provider Un available Chantale Scott MD Primary Care Provider Unavail able Peter Ann MD Primary Care Provider [phone] Chantale Scott MD Unavailable Unavailable Chantale Scott MD Primary Care Provider Unavail able Sakina Schaeffer MD Primary Care Provider Poornima Metcalf MD Primary Care Provider [phone] Sakina Schaeffer MD Primary Care Provider Poornima Metcalf MD Primary Care Provider [phone] Lana Branch PA-C Primary Care Provider + Reason for Visit * Reason Onset Date Comments Faxed Order 09/30/2018 Encounter Details Date Type Department Care Team Description 09/30/2018 Telephone Adult Medicine [address] [address] Danna Burden MD Faxed Order Social History Tobacco Use [...] encounter Miscellaneous Notes * Telephone Encounter - Christina Rodriguez - 09/30/2018 2:36 PM EDT Orders from [facility] to be signed and faxed back to [phone] documented in this encounter Plan of Treatment Not on file documented as of this encounter Visit Diagnoses Not on filedocumented in this encounter Additional Health Concerns Infection Onset Date Last Indicated Resolved Time COVID-19 11/07/2021 11/07/2021 01/06/2022 8:30 AM EDT documented as of this encounter Care Teams Dinkey Mechanic Relationship Specialty Start Date End Date Danna Burden MD PCP - General Internal Medicine 01/30/17 Chantale Scott MD PCP - General Internal Medicine 11/14/18 05/19/19 Peter Ann MD [address] [place] [address] [place] [address] PCP - General Cardiology 05/20/19 02/12/20 Chantale Scott MD PCP - General Internal Medicine 02/13/20 01/31/21 Sakina Schaeffer MD [address] [place] [address] PCP - General Internal Medicine 02/01/21 10/02/22 Poornima Metcalf MD [address] [place] [address]167 PCP - General Internal Medicine 10/03/22 12/05/22 Sakina Schaeffer MD [address] [place] [address]643 PCP - General Internal Medicine 12/06/22 12/24/22 Poornima Metcalf MD [address] [place] [address] PCP - General Internal Medicine 12/25/22 01/23/24 Lana Branch PA-C [address] [place] [address] PCP - General Internal Medicine 01/24/24 Chantale Scott MD Internal Medicine 05/20/19 documented as of this encounter
--- OUTSIDE RECORDS SUMMARY | 2025-01-11 18:00 | XMS_ITS | Encounter Summary ---
Author Organization [facility] Address [address] [place] [address] Care Team Providers Care Coding Specialist Home Health Name Role Phone Chantale Scott MD Unavailable Unavailable Sakina Schaeffer MD Primary Care Provider Poornima Metcalf MD Primary Care Provider Sakina Schaeffer MD Primary Care Provider Poornima Metcalf MD Primary Care Provider Lana Branch PA-C Primary Care Provider + Reason for Visit * Reason Onset Date Comments APPOINTMENT 04/04/2021 Encounter Details Date Type Department Care Team Description 04/04/2021 Telephone Gastroenterology - [address] [place] [phone] Pino Ernandez PA-C APPOINTMENT Social History Tobacco Use Types Packs/Day [...] encounter Miscellaneous Notes * Telephone Encounter - Cathy Leach - 04/04/2021 8:42 AM EST Left message appointment cancelled provider out of the office, please reschedule. documented in this encounter Plan of Treatment Not on file documented as of this encounter Visit Diagnoses Not on filedocumented in this encounter Additional Health Concerns Infection Onset Date Last Indicated Resolved Time COVID-19 11/07/2021 11/07/2021 01/06/2022 8:30 AM EDT documented as of this encounter Care Teams Coding Specialist Home Health Relationship Specialty Start Date End Date Sakina Schaeffer MD [address] [place] [address] PCP - General Internal Medicine 02/01/21 10/02/22 Poornima Metcalf MD [address] [place] [address] PCP - General Internal Medicine 10/03/22 12/05/22 Sakina Schaeffer MD [address] [place] [address] PCP - General Internal Medicine 12/06/22 12/24/22 Poornima Metcalf MD [address] [place] [address] PCP - General Internal Medicine 12/25/22 01/23/24 Lana Branch PA-C [address] [place] [address] PCP - General Internal Medicine 01/24/24 Chantale Scott MD Internal Medicine 05/20/19 documented as of this encounter
--- OUTSIDE RECORDS SUMMARY | 2025-01-11 18:00 | XMS_ITS | Encounter Summary ---
[facility] Address [address] [place] [address] Care Team Providers Care Metal Organ Pipe Maker Name Role Phone Chantale Scott MD Unavailable Unavailable Chantale Scott MD Primary Care Provider Unavail able Sakina Schaeffer MD Primary Care Provider [phone] Poornima Metcalf MD Primary Care Provider [phone] Sakina Schaeffer MD Primary Care Provider [phone] Poornima Metcalf MD Primary Care Provider [phone] Lana Branch PA-C Primary Care Provider + Encounter Details Date Type Department Care Team Description 04/26/2020 Hospital Medical Records [address] [place] [address] Jody Schuster MD [address] [place] [address] Social History Tobacco Use Types Packs/Day Years [...] have Coronavirus / COVID-19? No / Unsure 04/29/2020 4:03 PM EST documented as of this encounter Plan of Treatment Not on file documented as of this encounter Visit Diagnoses Not on filedocumented in this encounter Additional Health Concerns Infection Onset Date Last Indicated Resolved Time COVID-19 11/07/2021 11/07/2021 01/06/2022 8:30 AM EDT documented as of this encounter Care Teams Metal Organ Pipe Maker Relationship Specialty Start Date End Date Chantale Scott MD PCP - General Internal Medicine 02/13/20 01/31/21 Sakina Schaeffer MD [address] [place] [address] PCP - General Internal Medicine 02/01/21 10/02/22 Poornima Metcalf MD [address] [place] [address] PCP - General Internal Medicine 10/03/22 12/05/22 Sakina Schaeffer MD [address] [place] [address]46 PCP - General Internal Medicine 12/06/22 12/24/22 Poornima Metcalf MD [address] [place] [address]41 PCP - General Internal Medicine 12/25/22 01/23/24 Lana Branch PA-C [address] [place] [address] PCP - General Internal Medicine 01/24/24 Chantale Scott MD Internal Medicine 05/20/19 documented as of this encounter
--- OUTSIDE RECORDS SUMMARY | 2025-01-11 18:00 | XMS_ITS | Encounter Summary ---
Author Organization [facility] Address [address] [place] [address] Care Team Providers Care Die Cast Operator Name Role Phone Chantale Scott MD Unavailable Unavailable Poornima Metcalf MD Primary Care Provider [phone] Lana Branch PA-C Primary Care Provider + Encounter Details Date Type Department Care Team Description 06/21/2023 Movie Shot Camera Operator Report Medical Records [address] [place] [address] Manuel Wray, Social History Tobacco Use Types Packs/Day Years [...] on filedocumented in this encounter Care Teams Die Cast Operator Relationship Specialty Start Date End Date Poornima Metcalf MD PCP - General Internal Medicine 12/25/22 01/23/24 Lana Branch PA-C PCP - General Internal Medicine 01/24/24 Chantale Scott MD Internal Medicine 05/20/19 documented as of this encounter
--- OUTSIDE RECORDS SUMMARY | 2025-01-11 18:00 | XMS_ITS | Encounter Summary ---
Author Organization [facility] Address [address] [place] [address] Care Team Providers Care Elevator Constructor Hydraulic Name Role Phone Peter Ann MD Primary Care Provider [phone] Chantale Scott MD Unavailable Unavailable Chantale Scott MD Primary Care Provider Unavail able Sakina Schaeffer MD Primary Care Provider [phone] Poronima Metcalf MD Primary Care Provider [phone] Sakina Schaeffer MD Primary Care Provider [phone] Poornima Metcalf MD Primary Care Provider [phone] Lana Branch PA-C Primary Care Provider + Reason for Visit * Reason Onset Date Comments APPOINTMENT 01/08/2020 Encounter Details Date Type Department Care Team Description 01/08/2020 Telephone OBGYN - [place] [address] [place] [address] Joao Aldrich, DO APPOINTMENT Social History Tobacco Use Types Packs/Day [...] encounter Miscellaneous Notes * Telephone Encounter - Meli Limon - 01/08/2020 11:53 AM EDT Pt had pre-op sched w/ Dr Aldrich 01/08 @ 12:15 pm- provider out documented in this encounter Plan of Treatment Not on file documented as of this encounter Visit Diagnoses Not on filedocumented in this encounter Additional Health Concerns Infection Onset Date Last Indicated Resolved Time COVID-19 11/07/2021 11/07/2021 01/06/2022 8:30 AM EDT documented as of this encounter Care Teams Elevator Constructor Hydraulic Relationship Specialty Start Date End Date Peter Ann MD [address] [address] PCP - General Cardiology 05/20/19 02/12/20 Chantale Scott MD [address] [address] PCP - General Internal Medicine 02/13/20 01/31/21 Sakina Schaeffer MD [address] [place] [address] PCP - General Internal Medicine 02/01/21 10/02/22 Poornima Metcalf MD [address] [place] [address] PCP - General Internal Medicine 10/03/22 12/05/22 Sakina Schaeffer MD [address] [place] [address] PCP - General Internal Medicine 12/06/22 12/24/22 Poornima Metcalf MD [address] [place] [address]84 PCP - General Internal Medicine 12/25/22 01/23/24 Lana Branch PA-C [address] [place] [address] PCP - General Internal Medicine 01/24/24 Chantale Scott MD [address] [place] [address] [address] [place] [address] Internal Medicine 05/20/19 documented as of this encounter
--- OUTSIDE RECORDS SUMMARY | 2025-01-11 18:00 | XMS_ITS | Encounter Summary ---
Author Organization [facility] Address [address] [place] [address] Care Team Providers Care Clockmaker Name Role Phone Chantale Scott MD Unavailable Unavailable Sakina Schaeffer MD Primary Care Provider Poornima Metcalf MD Primary Care Provider [phone] Sakina Schaeffer MD Primary Care Provider Poornima Metcalf MD Primary Care Provider Lana Branch PA-C Primary Care Provider + Reason for Visit * Reason Onset Date Comments Faxed Order 05/19/2021 Encounter Details Date Type Department Care Team Description 05/19/2021 Telephone Adult Medicine [address] [phone] Sakina Schaeffer MD [address] [place] [address] [phone] Faxed Order Social History Tobacco Use Types [...] have Coronavirus / COVID-19? No / Unsure 05/13/2021 12:55 PM EST documented as of this encounter Miscellaneous Notes * Telephone Encounter - Bharati Miguel - 05/19/2021 12:52 PM EST Faxed order from [facility] [place]. Please sign, date, and fax back. documented in this encounter Plan of Treatment Not on file documented as of this encounter Visit Diagnoses Not on filedocumented in this encounter Additional Health Concerns Infection Onset Date Last Indicated Resolved Time COVID-19 11/07/2021 11/07/2021 01/06/2022 8:30 AM EDT documented as of this encounter Care Teams Clockmaker Relationship Specialty Start Date End Date Sakina Schaeffer MD [address] [place], [place] [phone] PCP - General Internal Medicine 02/01/21 10/02/22 Poornima Metcalf MD [address] [place] [address] PCP - General Internal Medicine 10/03/22 12/05/22 Sakina Schaeffer MD [address] [place] [address] 33646 PCP - General Internal Medicine 12/06/22 12/24/22 Poornima Metcalf MD [address] [place] [address] PCP - General Internal Medicine 12/25/22 01/23/24 Lana Branch PA-C [address] [place] [address] 95167 PCP - General Internal Medicine 01/24/24 Chantale Scott MD Internal Medicine 05/20/19 documented as of this encounter
--- OUTSIDE RECORDS SUMMARY | 2025-01-11 18:00 | XMS_ITS | Encounter Summary ---
Author Organization [facility] Address [address] [place] [address] Care Team Providers Care Engineering Technical Specialist Name Role Phone Chantale Scott MD Unavailable Unavailable Chantale Scott MD Primary Care Provider Unavail able Sakina Schaeffer MD Primary Care Provider [phone] Poornima Metcalf MD Primary Care Provider [phone] Sakina Schaeffer MD Primary Care Provider Poornima Metcalf MD Primary Care Provider [phone] Lana Branch PA-C Primary Care Provider + Encounter Details Date Type Department Care Team Description 10/25/2020 Telephone Adult [address] [address] Chantale Scott MD Social History Tobacco Use Types Packs/Day Years [...] have Coronavirus / COVID-19? No / Unsure 10/25/2020 1:30 PM EDT documented as of this encounter Plan of Treatment Not on file documented as of this encounter Visit Diagnoses Not on filedocumented in this encounter Additional Health Concerns Infection Onset Date Last Indicated Resolved Time COVID-19 11/07/2021 11/07/2021 01/06/2022 8:30 AM EDT documented as of this encounter Care Teams Engineering Technical Specialist Relationship Specialty Start Date End Date Chantale Scott MD PCP - General Internal Medicine 02/13/20 01/31/21 Sakina Schaeffer MD [address] [place] [address] PCP - General Internal Medicine 02/01/21 10/02/22 Poornima Metcalf MD [address] [place] [address] PCP - General Internal Medicine 10/03/22 12/05/22 Sakina Schaeffer MD [address] [place] [address]992 PCP - General Internal Medicine 12/06/22 12/24/22 Poornima Metcalf MD [address] [place] [address] PCP - General Internal Medicine 12/25/22 01/23/24 Lana Branch PA-C [address] [place] [address] PCP - General Internal Medicine 01/24/24 Chantale Scott MD Internal Medicine 05/20/19 documented as of this encounter
--- OUTSIDE RECORDS SUMMARY | 2025-01-11 18:00 | XMS_ITS | Encounter Summary ---
Author Organization [facility] Address [address] [place] [address] Care Team Providers Care Tree Girdler Name Role Phone Chantale Scott MD Unavailable Unavailable Poornima Metcalf MD Primary Care Provider [phone] Lana Branch PA-C Primary Care Provider + Encounter Details Date Type Department Care Team Description 10/16/2023 SCAN [facility] [address] [phone] Adria Powell DPM [address] [address] Social History Tobacco Use Types Packs/Day Years [...] on filedocumented in this encounter Care Teams Tree Girdler Relationship Specialty Start Date End Date Poornima Metcalf MD PCP - General Internal Medicine 12/25/22 01/23/24 Lana Branch PA-C PCP - General Internal Medicine 01/24/24 Chantale Scott MD Internal Medicine 05/20/19 documented as of this encounter
--- OUTSIDE RECORDS SUMMARY | 2025-01-11 18:00 | XMS_ITS | Encounter Summary ---
Author Organization [facility] Address [address] [place] [address] Care Team Providers Care Rotary Dump Operator Name Role Phone Chantale Scott MD Unavailable Unavailable Chantale Scott MD Primary Care Provider Unavail able Sakina Schaeffer MD Primary Care Provider Poornima Metcalf MD Primary Care Provider [phone] Sakina Schaeffer MD Primary Care Provider [phone] Poornima Metcalf MD Primary Care Provider [phone] Lana Branch PA-C Primary Care Provider + Reason for Visit * Reason Onset Date Comments Faxed Order 11/01/2020 Encounter Details Date Type Department Care Team Description 11/01/2020 Telephone Adult [address] [address] Chantale Scott MD Faxed Order Social History [...] PM EDT documented as of this encounter Miscellaneous Notes * Telephone Encounter - Pilar Mcknight - 11/01/2020 1:25 PM EDT Orders from Adult [facility], top part of the sheet needs to be filled out/ checked off in order brittani considered complete. Please fill out and fax back. documented in this encounter Plan of Treatment Not on file documented as of this encounter Visit Diagnoses Not on filedocumented in this encounter Additional Health Concerns Infection Onset Date Last Indicated Resolved Time COVID-19 11/07/2021 11/07/2021 01/06/2022 8:30 AM EDT documented as of this encounter Care Teams Rotary Dump Operator Relationship Specialty Start Date End Date Chantale Scott MD PCP - General Internal Medicine 02/13/20 01/31/21 Sakina Schaeffer MD [address] [place] [address] PCP - General Internal Medicine 02/01/21 10/02/22 Poornima Metcalf MD [address] [place] [address] PCP - General Internal Medicine 10/03/22 12/05/22 Sakina Schaeffer MD [address] [place] [address] PCP - General Internal Medicine 12/06/22 12/24/22 Poornima Metcalf MD [address] [place] [address] PCP - General Internal Medicine 12/25/22 01/23/24 Lana Branch PA-C [address] [place] [address] PCP - General Internal Medicine 01/24/24 Chantale Scott MD Internal Medicine 05/20/19 documented as of this encounter
--- OUTSIDE RECORDS SUMMARY | 2025-01-11 18:00 | XMS_ITS | Encounter Summary ---
Author Organization [facility] Address [address] [place] [address] Care Team Providers Care Chief Of Party Name Role Phone Chantale Scott MD Unavailable Unavailable Poornima Metcalf MD Primary Care Provider [phone] Lana Branch PA-C Primary Care Provider + Encounter Details Date Type Department Care Team Description 05/24/2023 Photo Tech Report Medical Records [address] [place] [address] Manuel Wray, Social History Tobacco Use Types [...] on filedocumented in this encounter Care Teams Chief Of Party Relationship Specialty Start Date End Date Poornima Metcalf MD PCP - General Internal Medicine 12/25/22 01/23/24 Lana Branch PA-C PCP - General Internal Medicine 01/24/24 Chantale Scott MD Internal Medicine 05/20/19 documented as of this encounter
--- OUTSIDE RECORDS SUMMARY | 2025-01-11 18:00 | XMS_ITS | Encounter Summary ---
Author Organization [facility] Address [address] [place] [address] Care Team Providers Care Oncology Nurse Name Role Phone Chantale Scott MD Unavailable Unavailable Chantale Scott MD Primary Care Provider Unavail able Sakina Schaeffer MD Primary Care Provider [phone] Poornima Metcalf MD Primary Care Provider [phone] Sakina Schaeffer MD Primary Care Provider [phone] Poornima Metcalf MD Primary Care Provider [phone] Lana Branch PA-C Primary Care Provider + Encounter Details Date Type Department Care Team Description 04/05/2020 Orders Only Medical Records [address] [place] [address] Chantale Scott MD Social History Tobacco Use [...] have Coronavirus / COVID-19? No / Unsure 03/31/2020 3:59 PM EST documented as of this encounter Plan of Treatment Not on file documented as of this encounter Procedures Procedure Name Priority Date/Time Associated Diagnosis Comments OUTSIDE LOOP RECORDER Routine 02/07/2020 documented in this encounter Results * OUTSIDE LOOP RECORDER (02/07/2020) Chantale Scott MD CARDIOLOGY documented in this encounter Visit Diagnoses Not on filedocumented in this encounter Additional Health Concerns Infection Onset Date Last Indicated Resolved Time COVID-19 11/07/2021 11/07/2021 01/06/2022 8:30 AM EDT documented as of this encounter Care Teams Oncology Nurse Relationship Specialty Start Date End Date Chantale Scott MD PCP - General Internal Medicine 02/13/20 01/31/21 Sakina Schaeffer MD [address] [place] [address] PCP - General Internal Medicine 02/01/21 10/02/22 Poornima Metcalf MD [address] [place] [address] PCP - General Internal Medicine 10/03/22 12/05/22 Sakina Schaeffer MD [address] [place] [address] PCP - General Internal Medicine 12/06/22 12/24/22 Poornima Metcalf MD [address] [place] [address] 97[address] PCP - General Internal Medicine 12/25/22 01/23/24 Lana Branch PA-C [address] [place] [address] PCP - General Internal Medicine 01/24/24 Chantale Scott MD Internal Medicine 05/20/19 documented as of this encounter
--- OUTSIDE RECORDS SUMMARY | 2025-01-11 18:00 | XMS_ITS | Encounter Summary ---
Author [facility] Address [address] [place] [address] Care Team Providers Care National Accounts Sales Name Role Phone Peter Ann MD Primary Care Provider [phone] Chantale Scott MD Unavailable Unavailable Chantale Scott MD Primary Care Provider Unavail able Sakina Schaeffer MD Primary Care Provider [phone] Poornima Metcalf MD Primary Care Provider [phone] Sakina Schaeffer MD Primary Care Provider [phone] Poornima Metcalf MD Primary Care Provider [phone] Lana Branch PA-C Primary Care Provider + Encounter Details Date Type Department Care Team Description 12/30/2019 Retail Business Development Manager Report Medical Records [address] [place] [address] Jessica Jaime MD Social History Tobacco Use Types Packs/Day [...] have Coronavirus / COVID-19? No / Unsure 01/02/2020 3:15 PM EDT documented as of this encounter Plan of Treatment Not on file documented as of this encounter Visit Diagnoses Not on filedocumented in this encounter Additional Health Concerns Infection Onset Date Last Indicated Resolved Time COVID-19 11/07/2021 11/07/2021 01/06/2022 8:30 AM EDT documented as of this encounter Care Teams National Accounts Sales Relationship Specialty Start Date End Date Peter Ann MD [address] [address] PCP - General Cardiology 05/20/19 02/12/20 Chantale Scott MD [address] [place] [address] PCP - General Internal Medicine 02/13/20 01/31/21 Sakina Schaeffer MD [address] [place] [address] PCP - General Internal Medicine 02/01/21 10/02/22 Poornima Metcalf MD [address] [place] [address] PCP - General Internal Medicine 10/03/22 12/05/22 Sakina Schaeffer MD [address] [place] [address] PCP - General Internal Medicine 12/06/22 12/24/22 Poornima Metcalf MD [address] [place] [address] PCP - General Internal Medicine 12/25/22 01/23/24 Lana Branch PA-C [address] [place] [address] PCP - General Internal Medicine 01/24/24 Chantale Scott MD [address] [place] [address] Internal Medicine 05/20/19 documented as of this encounter
--- OUTSIDE RECORDS SUMMARY | 2025-01-11 18:00 | XMS_ITS | Encounter Summary ---
Author [facility] Address [address] [place] [address] Care Team Providers Care Senior Sql Server Database Developer Name Role Phone Chantale Scott MD Unavailable Unavailable Sakina Schaeffer MD Primary Care Provider Poornima Metcalf MD Primary Care Provider Sakina Schaeffer MD Primary Care Provider Poornima Metcalf MD Primary Care Provider Lana Branch PA-C Primary Care Provider + Reason for Visit * Reason Onset Date Comments Faxed Order 03/09/2021 Encounter Details Date Type Department Care Team Description 03/09/2021 Telephone Adult Medicine [address] [phone] Sakina Schaeffer MD [address] [place] [address] [phone] Faxed Order Social History Tobacco Use Types [...] encounter Miscellaneous Notes * Telephone Encounter - Sonia Rodriguez - 03/09/2021 3:16 PM EST Faxed order from [facility] Order date 02/23/21 documented in this encounter Plan of Treatment Not on file documented as of this encounter Visit Diagnoses Not on filedocumented in this encounter Additional Health Concerns Infection Onset Date Last Indicated Resolved Time COVID-19 11/07/2021 11/07/2021 01/06/2022 8:30 AM EDT documented as of this encounter Care Teams Senior Sql Server Database Developer Relationship Specialty Start Date End Date Sakina Schaeffer MD [address] [place] [address] PCP - General Internal Medicine 02/01/21 10/02/22 Poornima Metcalf MD [address] [place] [address] PCP - General Internal Medicine 10/03/22 12/05/22 Sakina Schaeffer MD [address] [place] [address] PCP - General Internal Medicine 12/06/22 12/24/22 Poornima Metcalf MD [address] [place] [address] PCP - General Internal Medicine 12/25/22 01/23/24 Lana Branch PA-C [address] [place] [address] PCP - General Internal Medicine 01/24/24 Chantale Scott MD Internal Medicine 05/20/19 documented as of this encounter
--- OUTSIDE RECORDS SUMMARY | 2025-01-11 18:00 | XMS_ITS | Encounter Summary ---
Author Organization [facility] Address [address] [place] [address] Care Team Providers Care Diving Coach Name Role Phone Chantale Scott MD Unavailable Unavailable Chantale Scott MD Primary Care Provider Unavail able Sakina Schaeffer MD Primary Care Provider [phone] Poornima Metcalf MD Primary Care Provider [phone] Sakina Schaeffer MD Primary Care Provider [phone] Poornima Metcalf MD Primary Care Provider [phone] Lana Branch PA-C Primary Care Provider + Reason for Visit * Reason Onset Date Comments Faxed Order 03/24/2020 Encounter Details Date Type Department Care Team Description 03/24/2020 Telephone Adult [address] [address] Chantale Scott MD Faxed Order Social History [...] have Coronavirus / COVID-19? No / Unsure 03/23/2020 9:44 AM EST documented as of this encounter Miscellaneous Notes * Telephone Encounter - Val Felipe - 03/24/2020 9:30 AM EST [facility] IS FAXING ORDERS TO BE SIGNED AND FAX BACK TO [phone]. documented in this encounter Plan of Treatment Not on file documented as of this encounter Visit Diagnoses Not on filedocumented in this encounter Additional Health Concerns Infection Onset Date Last Indicated Resolved Time COVID-19 11/07/2021 11/07/2021 01/06/2022 8:30 AM EDT documented as of this encounter Care Teams Diving Coach Relationship Specialty Start Date End Date Chantale Scott MD PCP - General Internal Medicine 02/13/20 01/31/21 Sakina Schaeffer MD [address] [place] [address] PCP - General Internal Medicine 02/01/21 10/02/22 Poornima Metcalf MD [address] [place] [address] PCP - General Internal Medicine 10/03/22 12/05/22 Sakina Schaeffer MD [address] [place] [address] PCP - General Internal Medicine 12/06/22 12/24/22 Poornima Metcalf MD [address] [place] [address] PCP - General Internal Medicine 12/25/22 01/23/24 Lana Branch PA-C [address] [place] [address] PCP - General Internal Medicine 01/24/24 Chantale Scott MD Internal Medicine 05/20/19 documented as of this encounter
--- OUTSIDE RECORDS SUMMARY | 2025-01-11 18:00 | XMS_ITS | Encounter Summary ---
Author Organization [facility] Address [address] [place] [address] Care Team Providers Care Ecommerce Marketing Manager Name Role Phone Chantale Scott MD Unavailable Unavailable Chantale Scott MD Primary Care Provider Unavail able Sakina Schaeffer MD Primary Care Provider Poornima Metcalf MD Primary Care Provider [phone] Sakina Schaeffer MD Primary Care Provider [phone] Poornima Metcalf MD Primary Care Provider [phone] Lana Branch PA-C Primary Care Provider + Reason for Visit * Reason Onset Date Comments er follow up 06/19/2020 Encounter Details Date Type Department Care Team Description 06/19/2020 Telephone Adult [address] [address] Chantale Scott MD er follow up Social History Tobacco Use Types Packs/Day Years [...] have Coronavirus / COVID-19? No / Unsure 06/22/2020 12:36 PM EDT documented as of this encounter Miscellaneous Notes * Telephone Encounter - Val R Destinee - 06/19/2020 12:39 PM EDT ER follow-up appointment booked YES 06/23/2020 If ER or UC follow up, can be booked with APC or MD. If hospital admission follow up MUST be booked with a physician Appointment time: 3:30 PM Provider visit is scheduled with: Blossom Coello PA-C Hospital/ center patient was treated at: [facility] Date of visit: 06/18/2020 Was this only an ER/UC visit or was the patient admitted to the hospital? ER visit onlyER visit only If patient was admitted what was the date of discharge? Reason/diagnosis for visit or stay: BACK PAIN Was visit or stay related to an injury? NO If yes, what was the date of injury (DOI)? N/A If yes, was the injury due to N/A Tests performed: Lab: YES X-ray: YES EKG: NO Other tests. If yes, what?; N/A documented in this encounter Plan of Treatment Not on file documented as of this encounter Visit Diagnoses Not on filedocumented in this encounter Additional Health Concerns Infection Onset Date Last Indicated Resolved Time COVID-19 11/07/2021 11/07/2021 01/06/2022 8:30 AM EDT documented as of this encounter Care Teams Ecommerce Marketing Manager Relationship Specialty Start Date End Date Chantale Scott MD PCP - General Internal Medicine 02/13/20 01/31/21 Sakina Schaeffer MD [address] [place], [place] [phone] PCP - General Internal Medicine 02/01/21 10/02/22 Poornima Metcalf MD [address] [place] [address] PCP - General Internal Medicine 10/03/22 12/05/22 Sakina Schaeffer MD [address] [place] [address] PCP - General Internal Medicine 12/06/22 12/24/22 Poornima Metcalf MD [address] [place] [address] PCP - General Internal Medicine 12/25/22 01/23/24 Lana Branch PA-C [address] [place] [address] PCP - General Internal Medicine 01/24/24 Chantale Scott MD Internal Medicine 05/20/19 documented as of this encounter
--- OUTSIDE RECORDS SUMMARY | 2025-01-11 18:00 | XMS_ITS | Encounter Summary ---
Author [facility] Address [address] [place] [address] Care Team Providers Care Atg Java Developer Name Role Phone Chantale Scott MD Unavailable Unavailable Chantale Scott MD Primary Care Provider Unavail able Sakina Schaeffer MD Primary Care Provider [phone] Poornima Metcalf MD Primary Care Provider [phone] Sakina Schaeffer MD Primary Care Provider [phone] Poornima Metcalf MD Primary Care Provider [phone] Lana Branch PA-C Primary Care Provider + Encounter Details Date Type Department Care Team Description 08/06/2020 Telephone Gastroenterology - [address] [place] [address] Pino Ernandez PA-C Social History Tobacco [...] have Coronavirus / COVID-19? No / Unsure 07/07/2020 2:56 PM EDT documented as of this encounter Plan of Treatment Not on file documented as of this encounter Visit Diagnoses Not on filedocumented in this encounter Additional Health Concerns Infection Onset Date Last Indicated Resolved Time COVID-19 11/07/2021 11/07/2021 01/06/2022 8:30 AM EDT documented as of this encounter Care Teams Atg Java Developer Relationship Specialty Start Date End Date Chantale Scott MD PCP - General Internal Medicine 02/13/20 01/31/21 Sakina Schaeffer MD [address] [place] [address] PCP - General Internal Medicine 02/01/21 10/02/22 Poornima Metcalf MD [address] [place] [address] PCP - General Internal Medicine 10/03/22 12/05/22 Sakina Schaeffer MD [address] [place] [address] PCP - General Internal Medicine 12/06/22 12/24/22 Poornima Metcalf MD [address] [place] [address] PCP - General Internal Medicine 12/25/22 01/23/24 Lana Barnch PA-C [address] [place] [address] PCP - General Internal Medicine 01/24/24 Chantale Scott MD Internal Medicine 05/20/19 documented as of this encounter
--- OUTSIDE RECORDS SUMMARY | 2025-01-11 18:00 | XMS_ITS | Encounter Summary ---
[facility] Address [address] [place] [address] Care Team Providers Care Shell Molder Name Role Phone Chantale Scott MD Unavailable Unavailable Poornima Metcalf MD Primary Care Provider [phone] Lana Branch PA-C Primary Care Provider + Reason for Visit * Reason Onset Date Comments [facility] Call 03/13/2023 Encounter Details Date Type Department Care Team Description 03/13/2023 Telephone Internal Medicine - [address], [address] [place], [place] [phone] Poornima Metcalf MD [address] [place] [phone] [facility] Call Social History Tobacco Use Types Packs/Day Years [...] encounter Miscellaneous Notes * Telephone Encounter - Kalyani Keene RN - 03/15/2023 10:22 AM EST Call to # [phone] - line busy - must be wrong number - if she calls back please confirm correct # * Telephone Encounter - Kalyani Keene RN - 03/13/2023 3:03 PM EST Called again, line still busy * Telephone Encounter - Kalyani Keene RN - 03/13/2023 2:46 PM EST Call to # [phone], got busy signal x2 * Telephone Encounter - Janie Eisenberg - 03/13/2023 1:20 PM EST [facility] [place] live Nurse ingrid call and she will like a call back report medication fall out on the sink the patient is aware that it fell but ingrid wanted to make sure she report it to the office . [phone] documented in this encounter Plan of Treatment Not on file documented as of this encounter Visit Diagnoses Not on filedocumented in this encounter Care Teams Shell Molder Relationship Specialty Start Date End Date Poornima Metcalf MD PCP - General Internal Medicine 12/25/22 01/23/24 Lana Branch PA-C PCP - General Internal Medicine 01/24/24 Chantale Scott MD Internal Medicine 05/20/19 documented as of this encounter
--- OUTSIDE RECORDS SUMMARY | 2025-01-11 18:00 | XMS_ITS | Encounter Summary ---
[facility] Organization [facility] Address [address] [place] [address] Care Team Providers Care Party Plan Sales Unit Sales Leader Name Role Phone Chantale Scott MD Unavailable Unavailable Chantale Scott MD Primary Care Provider Unavail able Sakina Schaeffer MD Primary Care Provider [phone] Poornima Metcalf MD Primary Care Provider [phone] Sakina Schaeffer MD Primary Care Provider [phone] Poornima Metcalf MD Primary Care Provider [phone] Lana Branch PA-C Primary Care Provider + Reason for Visit * Reason Onset Date Comments Provider Call Back 04/15/2020 Encounter Details Date Type Department Care Team Description 04/15/2020 Telephone Gastroenterology [address] [place] [address] Pino Ernandez PA-C Provider Call Back Social History Tobacco Use [...] have Coronavirus / COVID-19? No / Unsure 04/12/2020 3:23 PM EST documented as of this encounter Miscellaneous Notes * Telephone Encounter - Pino Ernandez PA-C - 04/15/2020 2:38 PM EST I'm actually waiting on the parasite result. I sent her a Zomazz message stating that the stool studies were normal so far * Telephone Encounter - Mendy Bustillo M.A. - 04/15/2020 1:01 PM EST Please advise if you would like colonoscopy scheduled. * Telephone Encounter - Latrice Curry - 04/15/2020 10:36 AM EST Patient is calling because her stool samples cam back normal and per Cam during the last appointment with the patient is the stool came back normal the next step would be a colonoscopy. If so, pleasehave one of the schedulers give the patient a call to schedule procedure. documented in this encounter Plan of Treatment Not on file documented as of this encounter Visit Diagnoses Not on filedocumented in this encounter Additional Health Concerns Infection Onset Date Last Indicated Resolved Time COVID-19 11/07/2021 11/07/2021 01/06/2022 8:30 AM EDT documented as of this encounter Care Teams Party Plan Sales Unit Sales Leader Relationship Specialty Start Date End Date Chantale Scott MD PCP - General Internal Medicine 02/13/20 01/31/21 Sakina Schaeffer MD [address] [place] [id number] PCP - General Internal Medicine 02/01/21 10/02/22 Poornima Metcalf MD [address] [place] [address] [id number] PCP - General Internal Medicine 10/03/22 12/05/22 Sakina Schaeffer MD [address] [place] [address] PCP - General Internal Medicine 12/06/22 12/24/22 Poornima Metcalf MD [address] [place] [id number] PCP - General Internal Medicine 12/25/22 01/23/24 Lana Branch PA-C [address] [place] [address] PCP - General Internal Medicine 01/24/24 Chantale Scott MD Internal Medicine 05/20/19 documented as of this encounter
--- OUTSIDE RECORDS SUMMARY | 2025-01-11 18:00 | XMS_ITS | Encounter Summary ---
[facility] Organization [facility] Address [address] [place] [address] Care Team Providers Care Bar Machine Operator Multiple Spindle Name Role Phone Chantale Scott MD Unavailable Unavailable Sakina Schaeffer MD Primary Care Provider Poornima Metcalf MD Primary Care Provider Sakina Schaeffer MD Primary Care Provider Poornima Metcalf MD Primary Care Provider Lana Branch PA-C Primary Care Provider + Reason for Visit * Reason Onset Date Comments Faxed Order 03/10/2021 Encounter Details Date Type Department Care Team Description 03/10/2021 Telephone Adult Medicine [address] [phone] Sakina Schaeffer MD [address] [place] [address] [phone] Faxed Order Social History Tobacco Use Types [...] * Telephone Encounter - Sonia Rodriguez - 03/10/2021 8:16 AM EST Faxed order from [employer] [phone] Or [phone] 04/26/21-07/24/21 documented in this encounter Plan of Treatment Not on file documented as of this encounter Visit Diagnoses Not on filedocumented in this encounter Additional Health Concerns Infection Onset Date Last Indicated Resolved Time COVID-19 11/07/2021 11/07/2021 01/06/2022 8:30 AM EDT documented as of this encounter Care Teams Bar Machine Operator Multiple Spindle Relationship Specialty Start Date End Date Sakina Schaeffer MD [address] [place] [address] PCP - General Internal Medicine 02/01/21 10/02/22 Poornima Metcalf MD [address] [place] [address] 16445 PCP - General Internal Medicine 10/03/22 12/05/22 Sakina Schaeffer MD [address] [place] [address] 45266 PCP - General Internal Medicine 12/06/22 12/24/22 Poornima Metcalf MD [address] [place] [address] [id number] PCP - General Internal Medicine 12/25/22 01/23/24 Lana Branch PA-C [address] [place] [id number] PCP - General Internal Medicine 01/24/24 Chantale Scott MD Internal Medicine 05/20/19 documented as of this encounter
--- OUTSIDE RECORDS SUMMARY | 2025-01-11 18:01 | XMS_ITS | Encounter Summary ---
Author Organization [facility] Address [address] [place] [address] Care Team Providers Care Housing Development Specialist Name Role Phone Danna Burden MD Primary Care Provider Un available Chantale Scott MD Primary Care Provider Unavail able Peter Ann MD Primary Care Provider [phone] Chantale Scott MD Unavailable Unavailable Chantale Scott MD Primary Care Provider Unavail able Sakina Schaeffer MD Primary Care Provider [phone] Poornima Metcalf MD Primary Care Provider [phone] Sakina Schaeffer MD Primary Care Provider [phone] Poornima Metcalf MD Primary Care Provider [phone] Lana Branch PA-C Primary Care Provider + Encounter Details Date Type Department Care Team Description 05/21/2018 Release of Information Medical Records [address] [place] [id number] Abstract, Provider Social History Tobacco Use Types Packs/Day Years [...] documented as of this encounter Care Teams Housing Development Specialist Relationship Specialty Start Date End Date Danna Burden MD PCP - General Internal Medicine 01/30/17 Chantale Scott MD PCP - General Internal Medicine 11/14/18 05/19/19 Peter Ann MD [address] [facility] [address] [place] [address] PCP - General Cardiology 05/20/19 02/12/20 Chantale Scott MD PCP - General Internal Medicine 02/13/20 01/31/21 Sakina Schaeffer MD [address] [place] [address]93 PCP - General Internal Medicine 02/01/21 10/02/22 Poornima Metcalf MD [address] [place] [address] 16982 PCP - General Internal Medicine 10/03/22 12/05/22 Sakina Schaeffer MD [address] [place] [address] 80681 PCP - General Internal Medicine 12/06/22 12/24/22 Poornima Metcalf MD [address] [place] [address] 14716 PCP - General Internal Medicine 12/25/22 01/23/24 Lana Branch PA-C [address] [place] [address] PCP - General Internal Medicine 01/24/24 Chantale Scott MD Internal Medicine 05/20/19 documented as of this encounter
--- OUTSIDE RECORDS SUMMARY | 2025-01-11 18:01 | XMS_ITS | Clinical Summary ---
Author Organization [address] [facility] Address [address] [place] [address] Phone Care Team Providers Care Washateria Attendant Name Role Phone Lana Branch Primary Care [...] propionate (FLONASE) 50 mcg/actuation nasal spray 1 [place] by Nasal route 2 times daily. 02/23/20 22 Active fluticasone propionate (FLOVENT DISKUS) 50 mcg/actuation diskus inhaler by Nasal route. 11/22/19 23 Active FREESTYLE LANCETS [facility] Use to test blood sugar one times [...] urologist Obstructive sleep apnea 12/12/2019 Overview (01/18/2024): [facility] Sleep [facility] Polysomnogram: Date 12/09/2019; Wt [...] time. Anxiety 08/21/2017 Asthma 08/21/2017 Bipolar disorder ([facility] V24, [facility] V28) 07/25 Major depression 08/21/2017 Hyperlipidemia 08/21/2017 [...] hypoxia. Severe obesity (BMI >= 40) ( [facility]/HCC V24, [facility] V28) 03/12/2019 07/21/2024 Diabetes mellitus type 2, un complicated (CMS/HCC V24, CMS/[facility] V28) 08/21/2017 07/21/2024 Encounters Date Type Department Care Team Description 01/09/2025 Telephone Internal Medicine - [address] [place] [address] Lana Branch PA 12/31/2024 11:00 AM EDT Treatment [address] [place] [address] TabbyCullen lucas M, PT Joint stiffness (Primary Dx) 12/15/2024 8:30 AM EDT Treatment [address] [address] Cullen Mcnair, PT Joint stiffness (Primary Dx) 12/09/2024 Telephone Internal Medicine [address] [address] Lana Branch PA 12/04/2024 8:30 AM EDT Treatment [address] [address] Cullen Mcnair, PT Joint stiffness (Primary Dx) 12/03/2024 10:15 AM EDT Office Visit Orthopedic Surgery [facility] [address] [phone] Adria Powell, DPM Acquired hallux valgus of left foot (Primary Dx) 12/02/2024 9:30 AM EDT Treatment [address] [address] Joao Brock, CESAR Joint stiffness (Primary Dx) 12/01/2024 Telephone Internal Medicine [address] [address] Lana Branch PA 11/26/2024 8:00 AM EDT Treatment [address] [address] Ravindra Littlejohn, SCARF GLUER Joint stiffness (Primary Dx) 11/14/2024 Telephone Internal Medicine [address] [address] Sergey Rodriguez MA 11/13/2024 8:30 AM EDT Evaluation [address] [address] Cullen Mcnair, PT Joint stiffness; Fibromyalgia; Neuritis 10/16/2024 9:00 AM EDT Office Visit Orthopedic Surgery [facility] [address] 175 [facility] [address] [place] [address] Adria Powell, DPM Joint stiffness (Primary Dx); Fibromyalgia; Neuritis 10/16/2024 Telephone Internal Medicine - [place] 175 [facility] [address] [place] [address] Lana Branch PA 10/14/2024 9:30 AM EDT Clinical Support Internal Medicine [facility] 175 [facility] [address] [place] [address] B12 deficiency (Primary Dx) from [...] TUBAL LIGATION OTHER SURGICAL HISTORY 12/2019 PROCEDURE: MS TOTAL ABDOMINAL HYSTERECT W/WO RMVL TUBE OVARY [...] care for your loved ones. For example, early childhood education instructor or elderly care for an older [...] AM EDT Office Visit Internal Medicine - [place] [address] [address] Lana Branch PA 175 [facility] 200 [place] [address] 03/05/2025 10:15 AM EST Office Visit Orthopedic Surgery - [place] [address] [phone] Adria Powell DPM [address] [phone] Health Maintenance Due Date Last Done Comments [...] LAB HEMETOLOGY METHOD 10/16/2024 10:[address] [facility] RBC 4.40 3.80 - 4.80 M/mcL LAB HEMETOLOGY METHOD 10/16/2024 10:[address] [facility] Hemoglobin 13.1 11.5 - 16.0 g/dL LAB HEMETOLOGY METHOD 10/16/2024 10:[address] [facility] Hematocrit 40.9 35.0 - 47.0 % LAB HEMETOLOGY METHOD 10/16/2024 10:[address] [facility] MCV 92.5 79.0 - 98.0 FL LAB HEMETOLOGY METHOD 10/16/2024 10:20 AM [facility] MCH 29.6 27.0 - 32.0 pcg LAB HEMETOLOGY METHOD 10/16/2024 10:20 AM [facility] MCHC 32.0 32.0 - 37.0 g/dL LAB HEMETOLOGY METHOD 10/16/2024 10:20 AM [facility] RDW 13.3 11.0 - 15.0 % LAB HEMETOLOGY METHOD 10/16/2024 10:20 AM [facility] Platelets 394 130 - 400 K/mcL LAB HEMETOLOGY METHOD 10/16/2024 10:20 AM [facility] MPV 10.4 7.0 - 11.0 FL LAB HEMETOLOGY METHOD 10/16/2024 10:20 AM [facility] NRBC 0.0 <1.0 % LAB HEMETOLOGY METHOD 10/16/2024 10:20 AM [facility] NRBC Absolute 0.00 <0.10 K/mcL LAB HEMETOLOGY METHOD 10/16/2024 10:20 AM [facility] Neutrophils Relative 60.9 % LAB HEMETOLOGY METHOD 10/16/2024 10:20 AM [facility] Lymphocytes Relative 32.8 % LAB HEMETOLOGY METHOD 10/16/2024 10:20 AM [facility] Monocytes Relative 4.6 % LAB HEMETOLOGY METHOD 10/16/2024 10:20 AM [facility] Eosinophils Relative 1.2 % LAB HEMETOLOGY METHOD 10/16/2024 10:20 AM [facility] Basophils Relative 0.2 % LAB HEMETOLOGY METHOD 10/16/2024 10:20 AM [facility] Immature Granulocytes Relative 0.3 % LAB HEMETOLOGY METHOD 10/16/2024 10:[address] [facility] Neutrophils Absolute 5.39 1.50 - 7.00 K/mcL LAB HEMETOLOGY METHOD 10/16/2024 10:[address] [facility] Lymphocytes Absolute 2.91 1.00 - 5.00 K/mcL LAB HEMETOLOGY METHOD 10/16/2024 10:[address] [facility] Monocytes Absolute 0.41 0.20 - 1.00 K/mcL LAB HEMETOLOGY METHOD 10/16/2024 10:[address] [facility] Eosinophils Absolute 0.11 0.00 - 0.50 K/mcL LAB HEMETOLOGY METHOD 10/16/2024 10:[address] [facility] Basophils Absolute 0.02 0.00 - 0.20 K/mcL LAB HEMETOLOGY METHOD 10/16/2024 10:[address] [facility] Immature Granulocytes Absolute 0.03 0.00 - 0.03 K/mcL LAB HEMETOLOGY METHOD 10/16/2024 10:20 AM [facility] Blood Venous blood specimen / Unknown Venipuncture / Unknown 10/16/2024 9:12 AM EDT 10/16/2024 9:12 AM EDT us Lana DIAZ LAB BLOOD ORDERABLES Fin al Result [facility] [address] [place] [address], * (ABNORMAL) Vitamin D 25 hydroxy (10/16/2024 9:12 AM EDT) Vit D, 25-Hydroxy 19.8(L) 30.0 - 80.0 ng/mL LAB CHEMISTRY METHOD 10/16/2024 4:[address] [facility] Blood Venous blood specimen / Unknown Venipuncture / Unknown 10/16/2024 9:12 AM EDT 10/16/2024 9:12 AM EDT us Lana DIAZ LAB BLOOD ORDERABLES Fin al Result Performing Organization Address City/[facility]/ZIP Co de Phone Number [facility] [address] [place] [address], [place] [phone] * Magnesium (10/16/2024 9:12 AM EDT) Magnesium 2.0 1.9 - 2.6 mg/dL LAB CHEMISTRY METHOD 10/16/2024 2:[address] [facility] Blood Venous blood specimen / Unknown Venipuncture / Unknown 10/16/2024 9:12 AM EDT 10/16/2024 9:12 AM EDT us Lana DIAZ LAB BLOOD ORDERABLES Fin al Result Performing Organization Address [facility] de Phone Number [facility] [address] [place] [address], [place] [phone] * Hemoglobin A1c (10/16/2024 9:12 AM EDT) Hemoglobin A1C 5.3 <6.5 % LAB CHEMISTRY METHOD 10/16/2024 1:[address] [facility] Mean Bld Glu Estim. 105 mg/dL LAB CHEMISTRY METHOD 10/16/2024 1:[address] [facility] Blood Venous blood specimen / Unknown Venipuncture / Unknown 10/16/2024 9:12 AM EDT 10/16/2024 9:12 AM EDT us Lana IDAZ LAB BLOOD ORDERABLES Fin al Result [facility] [address] [place] [address], [place] [phone] * (ABNORMAL) Vitamin B12 (10/16/2024 9:12 AM EDT) [facility] Vitamin B-12 939(H) 250 - 900 pcg/mL LAB CHEMISTRY METHOD 10/16/2024 3:[address] [facility] Blood Venous blood specimen / Unknown Venipuncture / Unknown 10/16/2024 9:12 AM EDT 10/16/2024 9:12 AM EDT Lana DIAZ LAB BLOOD ORDERABLES Fin al Result Performing Organization Address City/State/[facility] Co de Phone Number [facility] [address] [place] [address], [place] [phone] * (ABNORMAL) Comprehensive metabolic panel (10/16/2024 9:12 AM EDT) [facility] Sodium 139 133 - 145 mmol/L LAB CHEMISTRY METHOD 10/16/2024 3:05 PM [facility] Potassium 4.5 3.5 - 5.5 mmol/L LAB CHEMISTRY METHOD 10/16/2024 3:05 PM [facility] Chloride 107 96 - 110 mmol/L LAB CHEMISTRY METHOD 10/16/2024 3:05 PM [facility] CO2 28 21 - 32 mmol/L LAB CHEMISTRY METHOD 10/16/2024 3:05 PM [facility] Anion Gap 4 3 - 11 LAB CHEMISTRY METHOD 10/16/2024 3:05 PM [facility] Glucose 112(H) 70 - 100 mg/dL LAB CHEMISTRY METHOD 10/16/2024 3:05 PM [facility] BUN 8 5 - 25 mg/dL LAB CHEMISTRY METHOD 10/16/2024 3:05 PM [facility] Creatinine 0.85 0.50 - 1.10 mg/dL LAB CHEMISTRY METHOD 10/16/2024 3:05 PM [facility] eGFR 88 >=60 mL/min/1. 73m2 LAB CHEMISTRY METHOD 10/16/2024 3:05 PM [facility] Comment:Calculation based on the Chronic Kidney Disease Epidemiology Collaboration (CKD-EPI) equation refit without adjustment for race. BUN/Creatinine Ratio 9.4 LAB CHEMISTRY METHOD 10/16/2024 3:05 PM [facility] Calcium 9.5 8.5 - 10.5 mg/dL LAB CHEMISTRY METHOD 10/16/2024 3:05 PM [facility] AST (SGOT) 19 10 - 42 unit/L LAB CHEMISTRY METHOD 10/16/2024 3:05 PM [facility] ALT (SGPT) 34 10 - 60 unit/L LAB CHEMISTRY METHOD 10/16/2024 3:05 PM [facility] Alkaline Phosphatase 87 42 - 121 unit/L LAB CHEMISTRY METHOD 10/16/2024 3:05 PM [facility] Total Protein 7.5 6.0 - 8.0 g/dL LAB CHEMISTRY METHOD 10/16/2024 3:05 PM [facility] Albumin 3.8 3.2 - 5.0 g/dL LAB CHEMISTRY METHOD 10/16/2024 3:05 PM [facility] Total Bilirubin 0.2 0.0 - 1.4 mg/dL LAB CHEMISTRY METHOD 10/16/2024 3:05 PM [facility] Blood Venous blood specimen / Unknown Venipuncture / Unknown 10/16/2024 9:12 AM EDT 10/16/2024 9:12 AM EDT us Lana DIAZ LAB BLOOD ORDERABLES Fin al Result [facility] [address] [place] [address], * (ABNORMAL) Lipid panel (08/23/2023) LDL/HDL Ratio 6(A) 0 - 4 Triglycerides 110 0 - 150 mg/dL Cholesterol 265(A) 0 - 200 mg/dL HDL 47 >=40 mg/dL LDL Cholesterol 196(A) 0 - 100 mg/dL Blood Venous blood specimen / Unknown us Historical Provider LAB BLOOD ORDERABLES Elidia l Result * [facility] SCREENING DIGITAL (03/08/2023 12:31 PM EST) Anatomical Region Laterality Modality Mammography 03/07/2023 12:4 0 PM EST Narrative 03/08/2023 12:31 PM EST [facility] Diagnostic Imaging Department [address] [place] [address] Patient: XENA FORTE IRVIN SeguraB./Age/Sex: 1985 - 37 - F Unit#: [id number] Location/Status: SPDIMAM/REG CLI Mnemonic/Ordering Site: DIGSC/SPMAM Ordering Physician: SHERRIE METCALF MD Sandi Screening Digital - 03/07/23 - [id number] Report Status:Signed EXAM: [facility] Screening Digital EXAM DATE AND TIME: 03/07/2023 3:19 PM HISTORY: Screening. COMPARISON: 12/01/21, 07/07/20, 04/23/19 ([facility] Medical [facility], [place], [place]) TECHNIQUE: Bilateral digital breast tomosynthesis was performed in the CC and MLO projections. Computer aided detection with Riffyn 3D 3.1 was employed. TISSUE DENSITY: a. [...] Procedure Note Dariana Schmidt MD - 05/01/2023 [facility] Diagnostic Imaging Department [address] [place] [address] Patient: ROMIE FORTESusy BRYAN /Age/Sex: 1985 - 37 - F Unit#: [id number] Location/Status: [facility]/REG CLI Mnemonic/Ordering Site: [facility] Ordering Physician: SHERRIE METCALF MD Sandi Screening Digital - 03/07/23 - [id number] Report Status:Signed EXAM: [facility] Screening Digital EXAM DATE AND TIME: 03/07/2023 3:19 PM HISTORY: Screening. COMPARISON: 12/01/21, 07/07/20, 04/23/19 ([place], [place]) TECHNIQUE: Bilateral digital breast tomosynthesis was performed in the CCand MLO projections. Computer aided detection with Riffyn 3D 3.1was employed. TISSUE DENSITY: a. The [...] Most Recently Relevant to Health Maintenance Insurance [place] [address] Care Teams Washateria Attendant Relationship Specialty Start Date End Date Lana Branch PA [address] [place] [address] PCP - General 01/24/24
--- OUTSIDE RECORDS SUMMARY | 2025-01-11 18:01 | XMS_ITS | Encounter Summary ---
Author Organization [facility] Address [address] [place] [address] Care Team Providers Care Manager Meat Name Role Phone Peter Ann MD Primary Care Provider [phone] Hernan Scott MD Unavailable Unavailable Hernan Scott MD Primary Care Provider Unavail able Sakina Schaeffer MD Primary Care Provider [phone] Poornima Metcalf MD Primary Care Provider [phone] Sakina Schaeffer MD Primary Care Provider [phone] Poornima Metcalf MD Primary Care Provider [phone] Lana Branch PA-C Primary Care Provider + Reason for Visit * Reason Onset Date Comments Provider Call Back 02/11/2020 Encounter Details Date Type Department Care Team Description 02/11/2020 Telephone [facility] - [place] [address] [place] [address] Joao Aldrich DO Provider Call Back Social [...] have Coronavirus / COVID-19? No / Unsure 02/13/2020 11:09 AM EST documented as of this encounter Miscellaneous Notes * Telephone Encounter - Radha Shaw R.N. - 02/11/2020 3:12 PM EST Spoke with pt-c/o severe abdominal pain an diarrhea since having surgery on 01/09/20. Pt was seen in ER last night and advised to f/u with surgeon. Appointment scheduled. Unable to print ER records at this time. ER records copied and pasted into this message for provider's review. [facility] EDM *LIVE* ED Physician Documentation Summary Report Patient: XENA FORTE 34/F Service Date: 02/10/20 Account: [id number] : 1985 Service Time: 2329 PCP: AWA MR#: [id number] HPI General Chief Complaint: Abdominal Pain Stated Complaint: HYSTERECTOMY LAST MONTH Time Seen by MD: 23:10 Source: patient, RN notes reviewed, old records Exam Limitations: no limitations Documentation Initial Comments 34 year old female complaining of Hysterectomy Last Month HPI Comment This is a 34-year-old female presents to the ED complaining of lower abdominal pain x1 week. She reports that she had a partial hysterectomy due to dysfunctional uterine bleeding 1 month ago. She states that for the last week she said pain across her lower abdomen. She states it is worse on the right side and at times radiates to her right groin. She states when she urinates she feels a lot of pressure in her abdomen and states the pain is worse with sitting. She reports for the last month thatsubhae has had diarrhea and it is worsening over the last week. She reports now it is very watery, 7 or 8 episodes daily. She denies any fever, chills, nausea, vomiting, constipation, dysuria, urgency, frequency, vaginal bleeding or discharge. She states she called her surgeon and they wanted to see her tomorrow to check a urine culture. She states that the pain has become too great and had to come to the emergency room tonight. Past abdominal surgical history also significant for appendectomy, left ovarian cyst removal, x2. Has not been on any antibiotics recently. No other significant GI history. Past Medical History Past Medical History PMH and Allergies Reviewed: Yes PMH Collected at Triage Allergies: Coded Allergies: peanut (Verified Allergy, Severe, THROAT SWELLING, HIVES, 02/10/20) adhesive (Verified Allergy, Mild, PRURITUS, 02/10/20) lactose (Verified Adverse Reaction, Mild, UNKNOWN, 02/10/20) Social History Smoking Status: Current Every Day Smoker Alcohol History: rare Drug History: denies Family History Family History: no pertinent family hx Past Inpatient Medical History Inpatient Medical Hx: no pertinent medical hx Inpatient Surgical Hx: no pertinent surgical hx Inpatient Psychosocial Hx: no pertinent psych hx Review Of Systems Review Of Systems Review of Systems Comment GENERAL: No fever, no chills, no acute distress SKIN: no rashes, no lesions, no pruritis, no hives ENT: No sore throat CARDIOVASCULAR: No chest pain, no palpitations, no peripheral edema RESPIRATORY: No cough, no dyspnea, no sputum, no wheeze MUSCULOSKELETAL: No myalgias, no back pain, and no neck pain, no joint pain, no extremity pain. GI: + abdominal pain, no nausea, no vomiting, + diarrhea. No melena, no bright red blood per rectum, no constipation. GENITOURINARY: No dysuria, no urgency, no frequency, no vaginal bleeding or discharge NEUROLOGY: No headache IMMUNOLOGY: No immunocompromise HEMATOLOGY: No bleeding, no bruising Exam Exam Vital Signs Vital Signs Date Time Temp Pulse Resp B/P (MAP) Pulse Ox O2 Delivery O2 Flow Rate FiO2 02/11/20 04:20 36.8 76 18 100 02/11/20 04:14 36.8 76 18 108/64 (79) 100 Room Air 02/11/20 01:24 18 02/11/20 00:56 36.8 95 16 99 02/11/20 00:55 95 16 105/55 (72) 99 Room Air 02/10/20 21:51 36.8 98 20 99 02/10/20 21:49 36.8 98 20 142/72 99 Room Air Vital Signs Reviewed: on nursing documentation Exam Comment GENERAL: Well-Appearing, well-nourished patient, in no acute distress, resting comfortably on stretcher. SKIN: [place], warm, dry. No rashes. EYES: EOMI, no conjunctival injection, no discharge ENT: Wearing a mask CARDIAC: Heart regular rate and rhythm; no rubs, no gallops or murmurs. No peripheral edema. PULMONARY: Clear to auscultation bilaterally without any adventitious lung sounds. Breath sounds equal bilaterally. ABDOMINAL: + bowel sounds, low transverse incision is well-healed without dehiscence, erythema or increased warmth. Abdomen is soft, diffusely tender to palpation, more so across the lower abdomen (pt pulls away during exam), nondistended, no rebound or guarding. No peritoneal signs. : Deferred. MUSCULOSKELETAL: Moving all extremities, normal tone, full range of motion. NEURO: Alert and oriented X 3, no focal deficit PSYCHIATRIC: Normal affect, fluid speech, good eye contact and appropriate demeanor. Course Course Differential Diagnosis Infectious colitis Enteritis Inflammatory colitis UTI Postoperative infection/complication less likely Course Comment ED Observation Note Encounter: 02/11/2020 12:24 AM Vital Signs reviewed. PMHx & SHx reviewed. FMHx: Assessment & Plan: Check labs, UA Stool panel CT abdomen pelvis IV fluids, Toradol Patient is vomiting after drinking oral contrast. Given Zofran 4 mg IV \02/11/2020 5:01 AM work-up reviewed and no findings to explain patient's abdominal pain. Patient does have an elevation in LFTs. She does report diarrhea for 1 month. She was unable to provide a stool sample while in the department. Hepatitis panel was added on. Discussed with patient, she reportsthat she had hepatitis A several years ago and that she also has a history of fatty liver and has known about her elevated LFTs. Patient advised that they are higher than they have been. Reevaluated,she has no focal tenderness over her gallbladder/right upper quadrant. She is mostly tender in the right lower quadrant. She reports that her HUMANITIES DEPARTMENT CHAIR prescribed Azo for her and told her to wait to take this until after her urinalysis. Patient advised that her urinalysis which is done here today so she may start Azo. Stable for discharge, will follow up with her HUMANITIES DEPARTMENT CHAIR surgeon. Advise return here with worsening symptoms or other concerns. Orders Orders Orders Procedure Category Date Status Time Abd Pain Lower Ed Nsg ED 02/10/20 Transmitted Protocol 21:51 Draw Venous Blood For ED 02/10/20 Transmitted Labs 21:51 NPO ED 02/10/20 Transmitted 21:51 Cbc With Diff LAB 02/10/20 Complete 21:51 Basic Metabolic Panel LAB 02/10/20 Complete BMP 21:51 Ua With Culture If LAB 02/10/20 Complete Indicated 21:51 Urine Poc ED 02/10/20 Transmitted 21:51 Ed Observation Status ED 02/10/20 Transmitted 23:11 Peripheral Iv Access ED 02/10/20 Transmitted 23:35 C. Diff Toxin Assay KENNETH 02/10/20 Logged 23:35 Fecal White Cells KENNETH 02/10/20 Logged 23:35 Stool Culture KENNETH 02/10/20 Logged 23:35 Shiga Toxin Assay KENNETH 02/10/20 Logged 23:35 Ketorolac PHA 02/10/20 Complete Tromethamine 23:35 Sodium Chloride 0.9% PHA 02/10/20 Complete (Normal Saline 1000 23:35 Lipase LAB 02/10/20 Complete 21:58 Liver Hepatic LAB 02/10/20 Complete Function Panel 21:58 Ct Abdomen & Pelvis W CT 02/11/20 Complete Cont 00:01 Ondansetron Hcl/Pf PHA 02/11/20 Complete (Ondansetron Hcl/Pf) 00:10 Hepatits Panel Acute LAB 02/10/20 Complete 21:58 Hepatitis A Antibody LAB 02/10/20 Complete IGM 21:58 Laboratory Tests Test 02/10/20 21:58 02/10/20 22:52 White Blood Count 11.3 x10-3/uL Red Blood Count 4.2 x10-6/uL Hemoglobin 11.9 g/dL Hematocrit 37.1 % Mean Corpuscular Volume 89.2 fL Mean Corpuscular Hemoglobin 28.6 pg Mean Corpuscular Hemoglobin Concent 32.1 g/dL Red Cell Distribution Width 13.8 % Platelet Count 402 x10-3/uL Mean Platelet Volume 10.1 fL Immature Granulocyte % (Auto) 0.3 % Neutrophils (%) (Auto) 64.7 % Lymphocytes (%) (Auto) 27.4 % Monocytes (%) (Auto) 6.2 % Eosinophils (%) (Auto) 1.1 % Basophils (%) (Auto) 0.3 % Neutrophils # (Auto) 7.30 x10-3/uL Lymphocytes # (Auto) 3.08 x10-3/uL Monocytes # (Auto) 0.70 x10-3/uL Eosinophils # (Auto) 0.12 x10-3/uL Basophils # (Auto) 0.03 x10-3/uL Immature Granulocyte # (Auto) 0.03 x10-3/uL Neutrophils % (Manual) % Nucleated Red Blood Cells % 0.0 % Nucleated Red Blood Cells # 0.00 x10-3/uL Sodium Level 136 mEq/L Potassium Level 4.1 mmol/L Chloride Level 104 mmol/L Carbon Dioxide Level 27 mmol/L Anion Gap 5 Blood Urea Nitrogen 8 mg/dL Creatinine 0.68 mg/dL Estimat Glomerular Filtration Rate > 60 Random Glucose 146 mg/dL Calcium Level 9.1 mg/dL Total Bilirubin 0.3 mg/dL Direct Bilirubin 0.1 mg/dL Indirect Bilirubin 0.2 mg/dL Aspartate Amino Transf (AST/SGOT) 105 U/L Alanine Aminotransferase (ALT/SGPT) 156 U/L Alkaline Phosphatase 114 U/L Total Protein 8.2 G/dL Albumin 3.7 G/dL Lipase 140 U/L Hepatitis A IgM Antibody Negative Hepatitis A Antibody Total Positive Hepatitis B Surface Antigen Negative Hepatitis B Core IgM Antibody Negative Hepatitis C Antibody Negative Urine pH 7.0 Urine Specific [place] 1.022 Urine Protein Negative mg/dl Urine Glucose (UA) Negative mg/dL Urine Ketones Negative mg/dL Urine Occult Blood Negative Urine Nitrite Negative Urine Bilirubin Negative Urine Urobilinogen 1.0 E.U./dL Urine Leukocyte Esterase Negative Urine RBC /HPF All Available Labs Reviewed: all available labs reviewed Medical Decision Making Medical Decision Making: old records ordered, patient re-evaluated Analgesia: given Xray CT Comment Patient: XENA FORTE /Age/Sex: 1985 - 34 - F Unit#: [id number] Location/Status: SPER/REG ER Mnemonic/Ordering Site: [facility] Ordering Physician: ILEANA BACA PA-C CT Abdomen & Pelvis W Cont - 02/11/20 - 0043 CT scan of the abdomen and pelvis with intravenous contrast (axial sections with sagittal and coronal reformats) - dated 02/11/2020 at 12:41:40 AM Clinical History: Lower abdominal pain, diarrhea x1 month. Surgical history: Hysterectomy 1 month ago; appendectomy, x2. Comparison: Compared and correlated with the prior CT abdomen/pelvis and ultrasound pelvis dated 06/15/2017. Contrast Dose: 90 mL Isovue 370 IV. Technique: Helical axial sections with sagittal and coronal reformats of the abdomen and pelvis were obtained with intravenous contrast. Iterative reconstruction technique was employed to reduce patient radiation exposure. Findings: The lung bases are clear. There is diffuse fatty infiltration of the liver. The right kidney is malrotated. There is no ureteric calculus or hydroureteronephrosis.The gallbladder, pancreas, spleen, left kidney and adrenals are unremarkable. No evidence of bowel obstruction. The appendix is surgically absent. The urinary bladder is unremarkable. The uterus is surgically absent. There is no pelvic mass. Follicles are seen in the right ovary. A small amount of free fluid is seen in the pelvis. Postoperativechanges are seen in the lower ventral abdominal wall. There is no free air or abscess. The osseous structures are unremarkable. Impression: 1. Post hysterectomy. 2. Small amount of free fluid in the pelvis, likely physiologic. 3. No evidence of abscess or pneumoperitoneum. 4. Other findings as described above. Dictating Physician: JUANCARLOS JACKSON MD Electronically Signed by: JUANCARLOS JACKSON MD Dic Date/Time: 02/10/20 4543 Sign date/Time: MTH0 0 Departure Diagnosis: Abdominal pain, transaminitis, diarrhea Disposition: HOME, SELF-CARE Condition: Stable Patient Instructions: Abdominal Pain (ED), Acute Diarrhea (ED) Additional Instructions: Take medications as directed. Tylenol or Motrin for pain. It is okay to take the medication that your surgeon gave you. You can tell them that you had a urinalysis here today that was normal. Follow up with your primary care provider. Call during the next business day to schedule an appointment. Follow-up with your surgeon. Call to schedule a follow-up appointment. Return a stool sample to the lab as soon as you can. Thank you for coming to the [facility] Emergency Department today. Our entire team works together to provide you with the best care possible. Examination and treatment you received in the emergency department has been rendered on an EMERGENCY basis only. It is not intended to be a substitute for or an effort to provide complete medical care. You should follow-up with your primary care provider. Please report to your physician any new or remaining problems, because it is impossible to recognize and treat all elements of injury or illness in a single emergency department visit. If you do not have a primary care provider or require a referral, a follow-up doctor cert occupational therapy asst for the emergency department will be provided in your discharge packet. In the event that you're unable to obtain a followup appointment in a timely fashion, OR you are not getting any better, OR you are getting worse, OR you develop any symptoms of concern, please return here immediately for further evaluation. The emergency department is open 24 hours a day, 7 days aweek. Your discharge report is based on information that was available when you were in the emergency department. The x-ray readings are preliminary and will be reviewed by a radiologist in the next 24 hours. If there is a discrepancy you will be notified by phone. Referrals: HERNAN SCOTT MD (PCP) ILEANA BACA PA-C Feb 11, 2020 00:21 ED Physician: ILEANA BACA PA-C Documentation Date/Time: 02/11/20 0021 Cosigner: SHAHEEN FERRERA MD Cosigner: <Electronically signed by ILEANA BACA PA-C> 02/11/20 [id number] * Telephone Encounter - Erica Brown - 02/11/2020 2:49 PM EST Chief Complaint/problem: Had a bilateral salpingectomy on 01/09/20. Since then she is having severepain at the site of the surgery on the right side. She went to [facility] ER last night. They did an abdominal CAT scan, blood work and urine test. Had an IV for the pain. Still has a pressure on her vagina when sitting or laying down. She is also having extreme diarrhea. No test for COVID 19. Was told to see her OBGYN doctor. How long has the patient had this problem? 1 month Pt???s HUMANITIES DEPARTMENT CHAIR provider: Joao Moody, Last menstrual period (LMP) or EDC (due date): N/A documented in this encounter Plan of Treatment Not on file documented as of this encounter Visit Diagnoses Not on filedocumented in this encounter Additional Health Concerns Infection Onset Date Last Indicated Resolved Time COVID-19 11/07/2021 11/07/2021 01/06/2022 8:30 AM EDT documented as of this encounter Care Teams Manager Meat Relationship Specialty Start Date End Date Peter Ann MD [address] [place] [address] PCP - General Cardiology 05/20/19 02/12/20 Hernan Scott MD [address] [place] [id number] PCP - General Internal Medicine 02/13/20 01/31/21 Sakina Schaeffer MD [address] [place] [address] PCP - General Internal Medicine 02/01/21 10/02/22 Poornima Metcalf MD [address] [place] [address]34 PCP - General Internal Medicine 10/03/22 12/05/22 Sakina Schaeffer MD [address] [place] [address] [id number] PCP - General Internal Medicine 12/06/22 12/24/22 Poornima Metcalf MD [address] [place] [address] [id number] PCP - General Internal Medicine 12/25/22 01/23/24 Lana Branch PA-C [address] [place] [address] [id number] PCP - General Internal Medicine 01/24/24 Hernan Scott MD [address] [place] [address]46 Internal Medicine 05/20/19 documented as of this encounter
--- OUTSIDE RECORDS SUMMARY | 2025-01-11 18:01 | XMS_ITS | Encounter Summary ---
Author Organization [facility] Address [address] [place] [address] Care Team Providers Care Licensed Life And Health Agent Name Role Phone Chantale Scott MD Unavailable Unavailable Poornima Metcalf MD Primary Care Provider [phone] Lana Branch PA-C Primary Care Provider + Encounter Details Date Type Department Care Team Description 01/01/2024 SCAN [facility] [address] [phone] Amado Siduh MD [address] [address] Social History Tobacco Use Types Packs/Day Years [...] on filedocumented in this encounter Care Teams Licensed Life And Health Agent Relationship Specialty Start Date End Date Poornima Metaclf MD PCP - General Internal Medicine 12/25/22 01/23/24 Lana Branch PA-C PCP - General Internal Medicine 01/24/24 Chantale Scott MD Internal Medicine 05/20/19 documented as of this encounter
--- OUTSIDE RECORDS SUMMARY | 2025-01-11 18:01 | XMS_ITS | Encounter Summary ---
Author Organization [facility] Address [address] [place] [address] Care Team Providers Care Staff Training And Development Manager Name Role Phone Danna Burden MD Primary Care Provider Un available Chantale Scott MD Primary Care Provider Unavail able Peter Ann MD Primary Care Provider [phone] Chantale Scott MD Unavailable Unavailable Chantale Scott MD Primary Care Provider Unavail able Sakina Schaeffer MD Primary Care Provider Poornima Metcalf MD Primary Care Provider [phone] Sakina Schaeffer MD Primary Care Provider Poornima Metcalf MD Primary Care Provider Lana Branch PA-C Primary Care Provider + Reason for Visit * Reason Onset Date Comments PT-1 01/16/2018 Encounter Details Date Type Department Care Team Description 01/16/2018 Telephone Adult Medicine [address] [address] Danna Burden MD PT-1 Social History Tobacco Use Types Packs/Day Years [...] encounter Miscellaneous Notes * Telephone Encounter - Jay Davis M.A. - 01/25/2018 4:19 PM EDT Tracking #[id number] * Telephone Encounter - lAmaz Cervantes - 01/16/2018 3:24 PM EDT 07/31/17 [facility] patients will now be included in this workflow: Verify and document patients [place] Health insurance ID # (NOT [facility] ID): [id number] Payor: [employer] / Plan: [employer] / Product Type: MEDICAID RISK Patient mailing address: [address] [place], [place] [id number] Pt. demographics verified? YES If not accurate, update registration. Is this a NEW request or a RENEWAL? New Name of treating facility: [facility] Name (first & last) of treating provider? required : Valentin German What is the medical reason why the patient is seeing the above provider? Fatigue/pt is legally blind Address/Zip code for treating provider: [address] Phone # for treating provider: [phone] Is the provider in the [facility] network (do they accept [place] Health insurance)? YES What specialtly is this provider? Adult Medicine When is the visit scheduled for? 01/18/2018 and 03/14/2018 How often you will be seeing this particular provider? 5 visits Do you have friends or family who can transport you to this visit? NO If yes, do not complete request. Is there anything stopping you from using public transportation? If yes, explain. : YES Is there a medical reason (diagnosis) why you are unable to use public transportation? If yes, explain: yes - legally blind Do you need a wheelchair van? NO Do you need an escort to accompany you? If yes, explain why. YES - has cfo who accompanies her due to blindness Will you have an alternative pick-up address? NO Do you have a service animal? NO PT DOES NOT NEED RELEASE OF INFORMATION SIGNED documented in this encounter Plan of Treatment Not on file documented as of this encounter Visit Diagnoses Not on filedocumented in this encounter Additional Health Concerns Infection Onset Date Last Indicated Resolved Time COVID-19 11/07/2021 11/07/2021 01/06/2022 8:30 AM EDT documented as of this encounter Care Teams Staff Training And Development Manager Relationship Specialty Start Date End Date Danna Burden MD PCP - General Internal Medicine 01/30/17 Chantale Scott MD PCP - General Internal Medicine 11/14/18 05/19/19 Peter Ann MD [address] [facility] [address] [place] [address] PCP - General Cardiology 05/20/19 02/12/20 Chantale Scott MD PCP - General Internal Medicine 02/13/20 01/31/21 Sakina Schaeffer MD [address] [place] [id number] PCP - General Internal Medicine 02/01/21 10/02/22 Poornima Metcalf MD [address] [place] [id number] PCP - General Internal Medicine 10/03/22 12/05/22 Sakina Schaeffer MD [address] [place] [address] PCP - General Internal Medicine 12/06/22 12/24/22 Poornima Metcalf MD [address] [place] [id number] PCP - General Internal Medicine 12/25/22 01/23/24 Lana Branch PA-C [address] [place] [id number] PCP - General Internal Medicine 01/24/24 Chantale Scott MD Internal Medicine 05/20/19 documented as of this encounter
--- OUTSIDE RECORDS SUMMARY | 2025-01-11 18:01 | XMS_ITS | Encounter Summary ---
Author Organization [facility] Address [address] [place] [address] Care Team Providers Care Cleaning Porter Name Role Phone Chantale Scott MD Primary Care Provider Unavail able Peter Ann MD Primary Care Provider [phone] Chantale Scott MD Unavailable Unavailable Chantale Scott MD Primary Care Provider Unavail able Sakina Schaeffer MD Primary Care Provider [phone] Poornima Metcalf MD Primary Care Provider [phone] Sakina Schaeffer MD Primary Care Provider [phone] Poornima Metcalf MD Primary Care Provider [phone] Lana Branch PA-C Primary Care Provider + Encounter Details Date Type Department Care Team Description 02/27/2019 Extrusion Manager Report Medical Records [address] [place] [address] Rehab., Nishant Social History Tobacco Use Types Packs/Day Years [...] documented as of this encounter Care Teams Cleaning Porter Relationship Specialty Start Date End Date Chantale Scott MD PCP - General Internal Medicine 11/14/18 05/19/19 Peter Ann MD [address] [facility] [address] [place] [address] PCP - General Cardiology 05/20/19 02/12/20 Chantale Scott MD PCP - General Internal Medicine 02/13/20 01/31/21 Sakina Schaeffer MD [address] [place] [id number] PCP - General Internal Medicine 02/01/21 10/02/22 Poornima Metcalf MD [address] [place] [id number] PCP - General Internal Medicine 10/03/22 12/05/22 Sakina Schaeffer MD [address] [place] [address] PCP - General Internal Medicine 12/06/22 12/24/22 Poornima Metcalf MD [address] [place] [id number] PCP - General Internal Medicine 12/25/22 01/23/24 Lana Branch PA-C [address] [place] [phone] PCP - General Internal Medicine 01/24/24 Chantale Scott MD Internal Medicine 05/20/19 documented as of this encounter
--- OUTSIDE RECORDS SUMMARY | 2025-01-11 18:01 | XMS_ITS | Encounter Summary ---
Author Organization [employer] [facility] Address [address] [place] [address] Care Team Providers Care Hand Edge Bander Name Role Phone Chantale Scott MD Unavailable Unavailable Sakina Schaeffer MD Primary Care Provider Poornima Metcalf MD Primary Care Provider Sakina Schaeffer MD Primary Care Provider Poornima Metcalf MD Primary Care Provider Lana Branch PA-C Primary Care Provider + Reason for Visit * Reason Comments E-prescribe Rx Request Encounter Details Date Type Department Care Team Description 02/11/2021 Refill Gastroenterology [address] [place] [phone] Pino Ernandez PA-C E-prescribe Rx Request Social History Tobacco Use Types Packs/Day Years [...] documented as of this encounter Care Teams Hand Edge Bander Relationship Specialty Start Date End Date Sakina Schaeffer MD [address] [place] [address] PCP - General Internal Medicine 02/01/21 10/02/22 Poornima Metcalf MD [address] [place] [address] PCP - General Internal Medicine 10/03/22 12/05/22 Sakina Schaeffer MD [address] [place] [address] PCP - General Internal Medicine 12/06/22 12/24/22 Poornima Metcalf MD [address] [place] [address] PCP - General Internal Medicine 12/25/22 01/23/24 Lana Branch PA-C [address] [place] [address] PCP - General Internal Medicine 01/24/24 Chantale Scott MD Internal Medicine 05/20/19 documented as of this encounter
--- OUTSIDE RECORDS SUMMARY | 2025-01-11 18:01 | XMS_ITS | Encounter Summary ---
Author Organization [facility] Address [address] [place] [address] Care Team Providers Care Human Anatomy Teacher Name Role Phone Chantale Scott MD Unavailable Unavailable Sakina Schaeffer MD Primary Care Provider [phone] Poornima Metcalf MD Primary Care Provider Sakina Schaeffer MD Primary Care Provider Poornima Metcalf MD Primary Care Provider Lana Branch PA-C Primary Care Provider + Reason for Visit * Reason Onset Date Comments Mychart Rx Refill 08/15/2021 Encounter Details Date Type Department Care Team Description 08/15/2021 Refill Adult Medicine [address] [address] [place]ke [place] PA-C Mychart Rx Refill Social History Tobacco Use Types Packs/Day Years [...] suspected to have Coronavirus/COVID-19? No / Unsure 08/15/2021 10:51 AM EDT documented as of this encounter Miscellaneous Notes * Telephone Encounter - Fanta Ramirez M.A. - 08/16/2021 11:10 AM EDT STEPHENIE w/PCP 07/13/2021 Next OV 09/08/2021 w/Letitia Lainez documented in this encounter Plan of Treatment Not on file documented as of this encounter Visit Diagnoses Not on filedocumented in this encounter Additional Health Concerns Infection Onset Date Last Indicated Resolved Time COVID-19 11/07/2021 11/07/2021 01/06/2022 8:30 AM EDT documented as of this encounter Care Teams Human Anatomy Teacher Relationship Specialty Start Date End Date Sakina Schaeffer MD [address] [place] [address] PCP - General Internal Medicine 02/01/21 10/02/22 Poornima Metcalf MD [address] [place] [address] PCP - General Internal Medicine 10/03/22 12/05/22 Sakina Schaeffer MD [address] [place] [address] PCP - General Internal Medicine 12/06/22 12/24/22 Poornima Metcalf MD [address] [place] [address] PCP - General Internal Medicine 12/25/22 01/23/24 Lana Branch PA-C [address] [place] [address] PCP - General Internal Medicine 01/24/24 Chantale Scott MD Internal Medicine 05/20/19 documented as of this encounter
--- OUTSIDE RECORDS SUMMARY | 2025-01-11 18:01 | XMS_ITS | Encounter Summary ---
[facility] Organization [facility] Address [address] [place] [address] Care Team Providers Care Rental Clerk Name Role Phone Danna Burden MD Primary Care Provider Un available Chantale Scott MD Primary Care Provider Unavail able Peter Ann MD Primary Care Provider [phone] Chantale Scott MD Unavailable Unavailable Chantale Scott MD Primary Care Provider Unavail able Sakina Schaeffer MD Primary Care Provider Poornima Metcalf MD Primary Care Provider [phone] Sakina Schaeffer MD Primary Care Provider [phone] Poornima Metcalf MD Primary Care Provider [phone] Lana Branch PA-C Primary Care Provider + Encounter Details Date Type Department Care Team Description 09/06/2017 Segmental Paving Supervisor Report Medical Records [address] [place] [address] Mendy Leija, RD, LDN [address] [address] Social History Tobacco Use Types Packs/Day Years [...] documented as of this encounter Care Teams Rental Clerk Relationship Specialty Start Date End Date Danna Burden MD PCP - General Internal Medicine 01/30/17 Chantale Scott MD PCP - General Internal Medicine 11/14/18 05/19/19 Peter Ann MD [address] [facility] [address] [place] [address] PCP - General Cardiology 05/20/19 02/12/20 Chantale Scott MD PCP - General Internal Medicine 02/13/20 01/31/21 Sakina Schaeffer MD [address] [place] [address] PCP - General Internal Medicine 02/01/21 10/02/22 Poonrima Metcalf MD [address] [place] [address] PCP - General Internal Medicine 10/03/22 12/05/22 Sakina Schaeffer MD [address] [place] [address] PCP - General Internal Medicine 12/06/22 12/24/22 Poornima Metcalf MD [address] [place] [address] PCP - General Internal Medicine 12/25/22 01/23/24 Lana Branch PA-C [address] [place] [address] PCP - General Internal Medicine 01/24/24 Chantale Scott MD Internal Medicine 05/20/19 documented as of this encounter
--- OUTSIDE RECORDS SUMMARY | 2025-01-11 18:01 | XMS_ITS | Encounter Summary ---
[facility] Address [address] [place] [address] Care Team Providers Care Lead Qa Analyst Name Role Phone Chantale Scott MD Unavailable Unavailable Chantale Scott MD Primary Care Provider Unavail able Sakina Schaeffer MD Primary Care Provider [phone] Poornima Metcalf MD Primary Care Provider [phone] Sakina Schaeffer MD Primary Care Provider [phone] Poornima Metcalf MD Primary Care Provider [phone] Lana Branch PA-C Primary Care Provider + Encounter Details Date Type Department Care Team Description 05/14/2020 Pt. Non Urgent Medic al Question Gastroenterology - [address] [place] [address] Pino Ernandez PA-C Social History [...] have Coronavirus / COVID-19? Unable to assess 05/14/2020 8:11 AM EST documented as of this encounter Miscellaneous Notes * Telephone Encounter - Carlos Peng M.A. - 05/14/2020 9:40 AM ESTFrom: Brianna Callaway To: Pino Ernandez PA-C Sent: 05/14/2020 9:05 AM EST Subject: Call Are u going to call me now documented in this encounter Plan of Treatment Not on file documented as of this encounter Visit Diagnoses Not on filedocumented in this encounter Additional Health Concerns Infection Onset Date Last Indicated Resolved Time COVID-19 11/07/2021 11/07/2021 01/06/2022 8:30 AM EDT documented as of this encounter Care Teams Lead Qa Analyst Relationship Specialty Start Date End Date Chantale Scott MD PCP - General Internal Medicine 02/13/20 01/31/21 Sakina Schaeffer MD [address] [place] [address] PCP - General Internal Medicine 02/01/21 10/02/22 Poornima Metcalf MD [address] [place] [address] PCP - General Internal Medicine 10/03/22 12/05/22 Sakina Schaeffer MD [address] [place] [address] PCP - General Internal Medicine 12/06/22 12/24/22 Poornima Metcalf MD [address] [place] [address] PCP - General Internal Medicine 12/25/22 01/23/24 Lana Branch PA-C [address] [place] [address] PCP - General Internal Medicine 01/24/24 Chantale Scott MD Internal Medicine 05/20/19 documented as of this encounter
--- OUTSIDE RECORDS SUMMARY | 2025-01-11 18:01 | XMS_ITS | Encounter Summary ---
[facility] Address [address] [place] [address] Care Team Providers Care Family And Marriage Counsellor Name Role Phone Chantale Scott MD Unavailable Unavailable Sakina Schaeffer MD Primary Care Provider Poornima Metcalf MD Primary Care Provider Sakina Schaeffer MD Primary Care Provider Poornima Metcalf MD Primary Care Provider Lana Branch PA-C Primary Care Provider + Reason for Visit * Reason Comments E-prescribe Rx Request Encounter Details Date Type Department Care Team Description 08/23/2021 Refill Adult Medicine [address] [id number] Sakina Schaeffer MD [address] [place] [phone] E-prescribe Rx Request Social History Tobacco Use [...] Telephone Encounter - Fanta Ramirez M.A. - 08/24/2021 10:44 AM EDT Lab Results Component Value Date NA 142 11/09/2020 K 3.8 11/09/2020 CO2 28 11/09/2020 CL 106 11/09/2020 BUN 7 11/09/2020 CREAT 0.70 11/09/2020 GLU 121 11/09/2020 CA 9.2 11/09/2020 GFR > 60 11/09/2020 STEPHENIE w/PCP 07/13/2021 Next OV 09/08/2021 w/Letitia Lainez * Telephone Encounter - Regina Velázquez - 08/24/2021 7:54 AM EDT Patient would like script to be: E-PRESCRIBED/FAXED TO PHARMACY WHEN WAS THE PATIENT'S LAST APPOINTMENT IN ADULT MEDICINE? 07/13/2021 WHEN WAS THE LAST TIME THE PATIENT SAW THEIR PCP? Same as above Does patient have an upcoming appointment? Yes 09/08/2021 (THE MEDICATION REQUESTED IS ON THE MED LIST ABOVE) All of the medications requested were on the CURRENT MEDS list Did you check the Pharmacy information above?: YES Patient wants: 30 -day supply Is this a mail order prescription request ? NO If the refill is from a FAXED refill request what is the RX # listed on the fax? N/A Patients current insurance carrier is: Payor: [employer] FFS / Plan: [employer] / Product Type: MEDICAID RISK documented in this encounter Plan of Treatment Not on file documented as of this encounter Visit Diagnoses Not on filedocumented in this encounter Additional Health Concerns Infection Onset Date Last Indicated Resolved Time COVID-19 11/07/2021 11/07/2021 01/06/2022 8:30 AM EDT documented as of this encounter Care Teams Family And Marriage Counsellor Relationship Specialty Start Date End Date Sakina Schaeffer MD [address] [place] [address] PCP - General Internal Medicine 02/01/21 10/02/22 Poorinma Metcalf MD [address] [place] [address] PCP - General Internal Medicine 10/03/22 12/05/22 Sakina Schaeffer MD [address] [place] [address] PCP - General Internal Medicine 12/06/22 12/24/22 Poornima Metcalf MD [address] [place] [address] PCP - General Internal Medicine 12/25/22 01/23/24 Lana Branch PA-C [address] [place] [address] PCP - General Internal Medicine 01/24/24 Chantale Scott MD Internal Medicine 05/20/19 documented as of this encounter
--- OUTSIDE RECORDS SUMMARY | 2025-01-11 18:01 | XMS_ITS | Encounter Summary ---
Author [facility] Address [address] [place] [address] Care Team Providers Care Manager Book Name Role Phone Danna Burden MD Primary Care Provider Un available Chantale Scott MD Primary Care Provider Unavail able Peter Ann MD Primary Care Provider [phone] Chantale Scott MD Unavailable Unavailable Chantale Scott MD Primary Care Provider Unavail able Sakina Schaeffer MD Primary Care Provider Poornima Metcalf MD Primary Care Provider [phone] Sakina Schaeffer MD Primary Care Provider Poornima Metcalf MD Primary Care Provider [phone] Lana Branch PA-C Primary Care Provider + Reason for Visit * Reason Onset Date Comments PT-1 04/19/2018 Encounter Details Date Type Department Care Team Description 04/19/2018 Telephone Adult Medicine [address] [address] Danna Burden MD PT-1 Social History Tobacco [...] Telephone Encounter - Jay Davis M.A. - 04/20/2018 2:15 PM EST Tracking #[id number] * Telephone Encounter - Netta Marlow - 04/19/2018 9:39 AM EST 07/31/17 [facility] patients will now be included in this workflow: Verify and document patients [employer] insurance ID # (NOT [facility] ID): [id number] Payor: [employer] FFS / Plan: [employer] / Product Type: MEDICAID RISK Patient mailing address: [address] [place] [address] 1st Floor [facility] [address] Pt. demographics verified? YES If not accurate, update registration. Is this a NEW request or a RENEWAL? NEW Name of treating facility: neuro-opthamology [facility] Name (first & last) of treating provider? required : Janna Henry What is the medical reason why the patient is seeing the above provider? Continued blindness Address/Zip code for treating provider: [address] [place] [address] Phone # for treating provider: [phone] Is the provider in the [facility] (do they accept [employer] insurance)? YES What specialtly is this provider? Neuro-opthamology When is the visit scheduled for? 06/20/18 8:30 AM How often you will be seeing this particular provider? 5 times a wee, 52 weeks Do you have friends or family who can transport you to this visit? NO If yes, do not complete request. Is there anything stopping you from using public transportation? If yes, explain. : YES Is there a medical reason (diagnosis) why you are unable to use public transportation? If yes, explain: yes - can't see very well, can Do you need a wheelchair van? NO Do you need an escort to accompany you? If yes, explain why. YES , severe anxiety and ptsd Will you have an alternative pick-up address? [...] as of this encounter Care Teams Manager Book Relationship Specialty Start Date End Date Danna Burden MD PCP - General Internal Medicine 01/30/17 Chantale Scott MD PCP - General Internal Medicine 11/14/18 05/19/19 Peter Ann MD [address] [facility] [address] [place] [address] PCP - General Cardiology 05/20/19 02/12/20 Chantale Scott MD PCP - General Internal Medicine 02/13/20 01/31/21 Sakina Schaeffer MD [address] [place] [address] PCP - General Internal Medicine 02/01/21 10/02/22 Poornima Metcalf MD [address] [place] [address] PCP - General Internal Medicine 10/03/22 12/05/22 Sakina Schaeffer MD [address] [place] [address] PCP - General Internal Medicine 12/06/22 12/24/22 Poornima Metcalf MD [address] [place] [address] PCP - General Internal Medicine 12/25/22 01/23/24 Lana Branch PA-C [address] [place] [address] PCP - General Internal Medicine 01/24/24 Chantale Scott MD Internal Medicine 05/20/19 documented as of this encounter
--- OUTSIDE RECORDS SUMMARY | 2025-01-11 18:01 | XMS_ITS | Encounter Summary ---
Author Organization [facility] Address [address] [place] [address] Care Team Providers Care Rigging And Controls Aircraft Mechanic Name Role Phone Chantale Scott MD Unavailable Unavailable Poornima Metcalf MD Primary Care Provider [phone] Lana Branch PA-C Primary Care Provider + Reason for Visit * Reason Onset Date Comments Faxed Refill 12/20/2023 Encounter Details Date Type Department Care Team Description 12/20/2023 Refill Internal Medicine - [address], [address] [place], [place] [phone] Poornima Metcalf MD [address] [place] [phone] Faxed Refill Social History Tobacco Use Types Packs/Day [...] Miscellaneous Notes * Telephone Encounter - Glenys Milian M.A. - 12/20/2023 3:09 PM EDT Potassium Date/Time Value Ref Range Status 02/27/2018 01:57 PM 5.1 3.5 - 5.5 mEq/L Final K Date/Time Value Ref Range Status 10/29/2023 08:31 AM 4.7 3.5 - 5.5 mmol/L Final * Telephone Encounter - Peyton Joseph - 12/20/2023 1:13 PM EDT REFILL LAST TIME SEEN: 12/19/2023 PCP: - NEXT TIME SEEN: 01/09/2024 documented in this encounter Plan of Treatment Not on file documented as of this encounter Visit Diagnoses Not on filedocumented in this encounter Care Teams Rigging And Controls Aircraft Mechanic Relationship Specialty Start Date End Date Poornima Metcalf MD PCP - General Internal Medicine 12/25/22 01/23/24 Lana Branch PA-C PCP - General Internal Medicine 01/24/24 Chantale Scott MD Internal Medicine 05/20/19 documented as of this encounter
--- OUTSIDE RECORDS SUMMARY | 2025-01-11 18:01 | XMS_ITS | Encounter Summary ---
Author Organization [facility] Address [address] [place] [address] Care Team Providers Care Lathe Operator Contact Lens Name Role Phone Danna Burden MD Primary Care Provider Un available Chantale Scott MD Primary Care Provider Unavail able Peter Ann MD Primary Care Provider [phone] Chantale Scott MD Unavailable Unavailable Chantale Scott MD Primary Care Provider Unavail able Sakina Schaeffer MD Primary Care Provider [phone] Poornima Metcalf MD Primary Care Provider [phone] Sakina Schaeffer MD Primary Care Provider [phone] Poornima Metcalf MD Primary Care Provider [phone] Lana Branch PA-C Primary Care Provider + Encounter Details Date Type Department Care Team Description 11/28/2017 Cut Lace Machine Operator Report Medical Records [address] [place] [address] Social History Tobacco Use Types Packs/Day Years [...] documented as of this encounter Care Teams Lathe Operator Contact Lens Relationship Specialty Start Date End Date Danna Burden MD PCP - General Internal Medicine 01/30/17 Chantale Scott MD PCP - General Internal Medicine 11/14/18 05/19/19 Peter Ann MD [address] [facility] [address] [place] [address] PCP - General Cardiology 05/20/19 02/12/20 Chantale Scott MD PCP - General Internal Medicine 02/13/20 01/31/21 Sakina Schaeffer MD [address] [place] [address] PCP - General Internal Medicine 02/01/21 10/02/22 Poornima Metcalf MD [address] [place] [address] PCP - General Internal Medicine 10/03/22 12/05/22 Sakina Schaeffer MD [address] [place] [address] PCP - General Internal Medicine 12/06/22 12/24/22 Poornima Metcalf MD [address] [place] [address] PCP - General Internal Medicine 12/25/22 01/23/24 Lana Branch PA-C [address] [place] [address] PCP - General Internal Medicine 01/24/24 Chantale Scott MD Internal Medicine 05/20/19 documented as of this encounter
--- OUTSIDE RECORDS SUMMARY | 2025-01-11 18:01 | XMS_ITS | Encounter Summary ---
Author Organization [facility] Address [address] [place] [address] Care Team Providers Care Spring Machine Operator Name Role Phone Chantale Scott MD Primary Care Provider Unavail able Peter Ann MD Primary Care Provider [phone] Chantale Scott MD Unavailable Unavailable Chantale Scott MD Primary Care Provider Unavail able Sakina Schaeffer MD Primary Care Provider Poornima Metcalf MD Primary Care Provider [phone] Sakina Schaeffer MD Primary Care Provider Poornima Metcalf MD Primary Care Provider Lana Branch PA-C Primary Care Provider + Reason for Visit * Reason Onset Date Comments Pre-visit Diabetes Lab Adult Medicine 04/02/2019 DM due 04/16/19 at 1030 Encounter Details Date Type Department Care Team Description 04/02/2019 Telephone Respiratory and Diabetes Medicaid/ACO Pharmacist [address] [place] [address] Chantale Scott MD Pre-visit Diabetes Lab Adult Medicine (DM due 04/16/19 at 1030 ) Social History Tobacco Use Types Packs/Day Years [...] encounter Miscellaneous Notes * Telephone Encounter - Chelsea Viera PA-C - 04/02/2019 9:35 AM EST Signed and added orders. * Telephone Encounter - Arlyn Conte - 04/02/2019 9:19 AM EST Brianna Callaway is scheduled to see you on 04/16/19 for diabetes follow up . I have contactedthe patient and instructed them to have their labwork done 1 week prior to the appointment. Diabetes pre-visit orders have been pended. Please sign the orders then route the encounter back to sender . Do not close the encounter. If there are other orders you would like performed prior to the visit, please add them to the pended orders then sign all the orders. I would ask that any orders entered by the [facility] Medicaid staff be associated with a diabetes diagnosis. You can use any diabetes diagnosis found on the problem list. Arlyn Conte Community Health Worker [facility] [employer] [facility] [email or web address] [phone] documented in this encounter Plan of Treatment Not on file documented as of this encounter Results * MICROALBUMIN/CREATININE, URINE (04/16/2019 11:05 AM EST) MICROALBUMIN, RANDOM 21.9 0.0 - 29.0 mg/L 04/16/2019 4:49 PM EST [facility] MICROALB/CRE RATIO RANDOM 7.2 0.0 - 30.0 mg/G 04/16/2019 4:49 PM EST [facility] CREATININE, RANDOM URINE 301 mg/dL 04/16/2019 4:49 PM EST [facility] 04/16/2019 11:0 5 AM EST 04/16/2019 11:05 AM EST Chelsea Fenton PA-C LAB [facility] * (ABNORMAL) TRANSAMINASE (SGOT)(AST) UV- (04/16/2019 11:04 AM EST) SGOT 55(H) 10 - 42 U/L 04/16/2019 4:07 PM EST [facility] 04/16/2019 11:0 4 AM EST 04/16/2019 11:05 AM EST Chelsea Fenton PA-C LAB Performing Organization Address City/[facility]/ZIP Co de Phone Number [facility] * (ABNORMAL) TRANSAMINASE (SGPT)(ALT) UV- (04/16/2019 11:04 AM EST) SGPT 96(H) 10 - 60 U/L 04/16/2019 4:07 PM EST [facility] 04/16/2019 11:0 4 AM EST 04/16/2019 11:05 AM EST Chelsea Fenton PA-C LAB Performing Organization Address [facility]/ZIP Co de Phone Number [facility] * (ABNORMAL) LIPID PROFILE (04/16/2019 11:04 AM EST) Cholesterol 231(H) 0 - 200 mg/dL 04/16/2019 4:07 PM EST [facility] TRIGLYCERIDES 128 0 - 150 mg/dL 04/16/2019 4:07 PM EST [facility] HDL CHOLESTEROL 37(L) >40 mg/dL 0 4:10 PM EST [facility] LDL CALCULATED 169(H) 0 - 100 mg/dL 04/16/2019 4:10 PM EST [facility] TC-HDLC RATIO 6.2(H) 0 - 4.4 mg/dL 04/16/2019 4:10 PM EST [facility] 04/16/2019 11:0 4 AM EST 04/16/2019 11:05 AM EST Chelsea Winstonlien DIAZ-C LAB [facility] * (ABNORMAL) HEMOGLOBIN A1C (04/16/2019 11:04 AM EST) GLYCATED HEMOGLOBIN A1C 6.6(H) <6.5 % 04/16/2019 5:26 PM EST [facility] ESTIMATED AVERAGE GLUCOSE 143 mg/dL 04/16/2019 5:26 PM EST [facility] 04/16/2019 11:0 4 AM EST 04/16/2019 11:05 AM EST Chelsea Fenton JOE-C [facility] documented in this encounter Visit Diagnoses Diagnosis Type 2 diabetes mellitus without complication, without long-term current use of insulin (HCC)- Primary Mixed hyperlipidemia documented in this encounter Additional Health Concerns Infection Onset Date Last Indicated Resolved Time COVID-19 11/07/2021 11/07/2021 01/06/2022 8:30 AM EDT documented as of this encounter Care Teams Spring Machine Operator Relationship Specialty Start Date End Date Chantale Scott MD PCP - General Internal Medicine 11/14/18 05/19/19 Peter Ann MD [address] [place] [address] PCP - General Cardiology 05/20/19 02/12/20 Chantale Scott MD PCP - General Internal Medicine 02/13/20 01/31/21 Sakina Schaeffer MD [address] [place] [address] PCP - General Internal Medicine 02/01/21 10/02/22 Poornima Metcalf MD [address] [place] [address] PCP - General Internal Medicine 10/03/22 12/05/22 Sakina Schaeffer MD [address] [place] [address] PCP - General Internal Medicine 12/06/22 12/24/22 Poornima Metcalf MD [address] [place] [address] PCP - General Internal Medicine 12/25/22 01/23/24 Lana Branch PA-C [address] [place] [address] PCP - General Internal Medicine 01/24/24 Chantale Scott MD Internal Medicine 05/20/19 documented as of this encounter
--- OUTSIDE RECORDS SUMMARY | 2025-01-11 18:01 | XMS_ITS | Encounter Summary ---
Author Organization [facility] Address [address] [place] [address] Care Team Providers Care Insole Reinforcer Name Role Phone Chantale Scott MD Unavailable Unavailable Sakina Pagan MD Primary Care Provider Poornima Metcalf MD Primary Care Provider Sakina Pagan MD Primary Care Provider Poornima Metcalf MD Primary Care Provider Lana Branch PA-C Primary Care Provider + Reason for Visit * Reason Comments E-prescribe Rx Request Encounter Details Date Type Department Care Team Description 08/03/2021 Refill Adult Medicine [address] [address] Antwon Ibrahim PA-C E-prescribe Rx Request Social History Tobacco [...] suspected to have Coronavirus/COVID-19? No / Unsure 07/13/2021 3:41 PM EDT documented as of this encounter Miscellaneous Notes * Telephone Encounter - Karlie Mahan M.A. - 08/03/2021 1:52 PM EDT Last office visit 07/13/21 Next office visit 09/08/21 @ 2:45 with Letitialuiza Lainez * Telephone Encounter - Sakina Pagan MD - 08/03/2021 1:38 PM EDT Needs to be seen before refill sent; please schedule carla, kirt ok * Telephone Encounter - Gabriela Spicer C.M.A. - 08/03/2021 1:09 PM EDT Please advise Last visit with dr. pagan Lab Results Component Value Date NA 142 11/09/2020 K 3.8 11/09/2020 CO2 28 11/09/2020 CL 106 11/09/2020 BUN 7 11/09/2020 CREAT 0.70 11/09/2020 GLU 121 11/09/2020 CA 9.2 11/09/2020 GFR > 60 11/09/2020 * Telephone Encounter - Gabriela Spicer C.M.A. - 08/03/2021 1:07 PM EDT Patient would like script to be: E-PRESCRIBED/FAXED TO PHARMACY WHEN WAS THE PATIENT'S LAST APPOINTMENT IN ADULT MEDICINE? 07/13/2021 WHEN WAS THE LAST TIME THE PATIENT SAW THEIR PCP? Same as above Does patient have an upcoming appointment? No (THE MEDICATION REQUESTED IS ON THE MED [...] N/A Patients current insurance carrier is: Payor: [employer] FFS / Plan: Behalf / Product Type: MEDICAID RISK documented in this encounter Plan of Treatment Not on file documented as of this encounter Visit Diagnoses Not on filedocumented in this encounter Additional Health Concerns Infection Onset Date Last Indicated Resolved Time COVID-19 11/07/2021 11/07/2021 01/06/2022 8:30 AM EDT documented as of this encounter Care Teams Insole Reinforcer Relationship Specialty Start Date End Date Sakina Pagan MD [address] [place] [address] PCP - General Internal Medicine 02/01/21 10/02/22 Poornima Metcalf MD [address] [place] [address] PCP - General Internal Medicine 10/03/22 12/05/22 Sakina Pagan MD [address] [place] [address] PCP - General Internal Medicine 12/06/22 12/24/22 Poornima Metcalf MD [address] [place] [address] PCP - General Internal Medicine 12/25/22 01/23/24 Lana Branch PA-C [address] [place] [address] PCP - General Internal Medicine 01/24/24 Chantale Scott MD Internal Medicine 05/20/19 documented as of this encounter
--- OUTSIDE RECORDS SUMMARY | 2025-01-11 18:01 | XMS_ITS | Encounter Summary ---
Author Organization [facility] Address [address] [place] [address] Care Team Providers Care Grass Cutter Name Role Phone Chantale Scott MD Unavailable Unavailable Poornima Metcalf MD Primary Care Provider [phone] Lana Branch PA-C Primary Care Provider + Encounter Details Date Type Department Care Team Description 10/26/2023 SCAN [facility] Medical [facility] [address] [phone] Adria Powell DPM [address] [address] Social History Tobacco Use Types Packs/Day Years [...] on filedocumented in this encounter Care Teams Grass Cutter Relationship Specialty Start Date End Date Poornima Metcalf MD PCP - General Internal Medicine 12/25/22 01/23/24 Lana Branch PA-C PCP - General Internal Medicine 01/24/24 Chantale Scott MD Internal Medicine 05/20/19 documented as of this encounter
--- OUTSIDE RECORDS SUMMARY | 2025-01-11 18:01 | XMS_ITS | Encounter Summary ---
Author Organization [facility] Address [address] [place] [address] Care Team Providers Care Resident Services Coordinator Name Role Phone Chantale Scott MD Unavailable Unavailable Poornima Metcalf MD Primary Care Provider [phone] Lana Branch PA-C Primary Care Provider + Encounter Details Date Type Department Care Team Description 09/18/2023 Java Integration Developer Report Medical Records [address] [place] [id number] Manuel Wray, Social History Tobacco Use Types [...] on filedocumented in this encounter Care Teams Resident Services Coordinator Relationship Specialty Start Date End Date Poornima Metcalf MD PCP - General Internal Medicine 12/25/22 01/23/24 Lana Branch PA-C PCP - General Internal Medicine 01/24/24 Chantale Scott MD Internal Medicine 05/20/19 documented as of this encounter
--- OUTSIDE RECORDS SUMMARY | 2025-01-11 18:01 | XMS_ITS | Encounter Summary ---
Author Organization [facility] Address [address] [place] [address] Care Team Providers Care Dramatic Art Teacher Name Role Phone Chantale Scott MD Unavailable Unavailable Sakina Schaeffer MD Primary Care Provider Poornima Metcalf MD Primary Care Provider Sakina Schaeffer MD Primary Care Provider Poornima Metcalf MD Primary Care Provider Lana Branch PA-C Primary Care Provider + Encounter Details Date Type Department Care Team Description 02/16/2021 Orders Only Adult Medicine [address] [address] Antwon Ibrahim PA-C Social History Tobacco Use Types Packs/Day [...] documented as of this encounter Care Teams Dramatic Art Teacher Relationship Specialty Start Date End Date Sakina Schaeffer MD [address] [place] [address] PCP - General Internal Medicine 02/01/21 10/02/22 Poornima Metcalf MD [address] [place] [address] PCP - General Internal Medicine 10/03/22 12/05/22 Sakina Schaeffer MD [address] [place] [address] PCP - General Internal Medicine 12/06/22 12/24/22 Poornima Metcalf MD [address] [place] [address] PCP - General Internal Medicine 12/25/22 01/23/24 Lana Branch PA-C [address] [place] [address] PCP - General Internal Medicine 01/24/24 Chantale Scott MD Internal Medicine 05/20/19 documented as of this encounter
--- OUTSIDE RECORDS SUMMARY | 2025-01-11 18:01 | XMS_ITS | Encounter Summary ---
Author Organization [facility] Address [address] [place] [address] Care Team Providers Care Key Account Executive Name Role Phone Danna Burden MD Primary Care Provider Un available Chantale Scott MD Primary Care Provider Unavail able Peter Ann MD Primary Care Provider [phone] Chantale Scott MD Unavailable Unavailable Chantale Scott MD Primary Care Provider Unavail able Sakina Schaeffer MD Primary Care Provider [phone] Poornima Metcalf MD Primary Care Provider [phone] Sakina Schaeffer MD Primary Care Provider [phone] Poornima Metcalf MD Primary Care Provider [phone] Lana Branch PA-C Primary Care Provider + Encounter Details Date Type Department Care Team Description 05/16/2018 Food Processing Scientist Report Medical Records [address] [place] [address] Abstract, Provider Social History Tobacco Use Types [...] documented as of this encounter Care Teams Key Account Executive Relationship Specialty Start Date End Date Danna Burden MD PCP - General Internal Medicine 01/30/17 Chantale Scott MD PCP - General Internal Medicine 11/14/18 05/19/19 Peter Ann MD [address] [facility] [address] [place] [address] PCP - General Cardiology 05/20/19 02/12/20 Chantale Scott MD PCP - General Internal Medicine 02/13/20 01/31/21 Sakina Schaeffer MD [address] [place] [address] PCP - General Internal Medicine 02/01/21 10/02/22 Poornima Metcalf MD [address] [place] [address] PCP - General Internal Medicine 10/03/22 12/05/22 Sakina Schaeffer MD [address] [place] [address] PCP - General Internal Medicine 12/06/22 12/24/22 Poornima Metcalf MD [address] [place] [address] PCP - General Internal Medicine 12/25/22 01/23/24 Lana Branch PA-C [address] [place] [address] PCP - General Internal Medicine 01/24/24 Chantale Scott MD Internal Medicine 05/20/19 documented as of this encounter
--- OUTSIDE RECORDS SUMMARY | 2025-01-11 18:01 | XMS_ITS | Encounter Summary ---
Author Organization [facility] Address [address] [place] [address] Care Team Providers Care Hat Conditioner Name Role Phone Chantale Scott MD Unavailable Unavailable Poornima Metcalf MD Primary Care Provider Sakina Schaeffer MD Primary Care Provider [phone] Poornima Metcalf MD Primary Care Provider Lana Branch PA-C Primary Care Provider + Encounter Details Date Type Department Care Team Description 11/07/2022 Telephone INFECTIOUS DISEASE [facility] [address], [address] [place], [place] [id number] Poornima Metcalf MD [address] [place] [phone] Social History Tobacco Use Types Packs/Day Years [...] encounter Miscellaneous Notes * Telephone Encounter - Poornima Metcalf MD - 11/08/2022 4:11 PM EDT Sent atorvastatin 10 mg to the pharmacy to take every night * Telephone Encounter - Alea Eastman MA - 11/08/2022 3:46 PM EDT Patient made aware willing to start medication * Telephone Encounter - Cathy Zaidi - 11/08/2022 1:26 PM EDT Patient called please call patient back * Telephone Encounter - Alea Eastman MA - 11/07/2022 2:18 PM EDT Lvm to inform patient of lab results documented in this encounter Plan of Treatment Not on file documented as of this encounter Visit Diagnoses Not on filedocumented in this encounter Care Teams Hat Conditioner Relationship Specialty Start Date End Date Poornima Metcalf MD PCP - General Internal Medicine 10/03/22 12/05/22 Sakina Schaeffer MD [address] [place] [address] PCP - General Internal Medicine 12/06/22 12/24/22 Poornima Metcalf MD PCP - General Internal Medicine 12/25/22 01/23/24 Lana Branch PA-C [address] [place] [address] PCP - General Internal Medicine 01/24/24 Chantale Scott MD Internal Medicine 05/20/19 documented as of this encounter
--- OUTSIDE RECORDS SUMMARY | 2025-01-11 18:01 | XMS_ITS | Encounter Summary ---
Author Organization [facility] Address [address] [place] [address] Care Team Providers Care Splash Line Operator Name Role Phone Lana Barnch Primary Care Provider + Encounter Details Date Type Department Care Team ([facility] st Contact Info) Description 01/09/2025 Telephone Internal Medicine - [place] [address] [facility] [address] [place] [phone] Lana Branch PA [address] [place] [address] Social History Tobacco Use Types Packs/Day Years [...] for your loved ones. For example, child welfare manager or elderly care for an older adult? [...] as of this encounter Progress Notes * JOE Canales - 01/10/2025 11:18 AM EDT Noted. Thank you for the update. Will schedule her ER or hospital f/u once discharged. * Savannah Koehler RN - 01/09/2025 12:07 PM EDT [facility] [facility] [place] * Elyssa Nice - 01/09/2025 11:30 AM EDT LAN Quispe: Patient was having abdominal pain and blood while vomiting today, was sent to [facility]. CB# just in case: [phone] documented in this encounter Plan of Treatment Upcoming Encounters Date Type Department Care Team (Late st Contact Info) Description 01/21/2025 9:30 AM EDT Office Visit Internal Medicine [facility] [address] [phone] Lana Branch PA [address] [address] 03/05/2025 10:15 AM EST Office Visit Orthopedic Surgery - [place] [address] [phone] Adria Powell DPM [address] [phone] documented as of this encounter Goals Goal Patient Goal Type Associated Problems Recent Progress Patient-Stated? Author PLOF General Yes Cullen Mcnair, PT documented as of this encounter Visit Diagnoses Not on filedocumented in this encounter Additional Health Concerns Assessment Noted Time PHQ-9 Depression Total Score: 9 06/25/19 25 1:39 PM EDT documented as of this encounter Care Teams Splash Line Operator Relationship Specialty Start Date End Date Lana Branch PA [address] [place] [address] PCP - General 01/24/24 documented as of this encounter
--- OUTSIDE RECORDS SUMMARY | 2025-01-11 18:01 | XMS_ITS | Encounter Summary ---
Author Organization [facility] Address [address] [place] [address] Care Team Providers Care Commodity Specialist Name Role Phone Lana Branch Primary Care Provider + Reason for Visit * Reason Onset Date Comments Fax PE 12/09/2024 Encounter Details Date Type Department Care Team ([facility] st Contact Info) Description 12/09/2024 Telephone Internal Medicine - [place] [address] [facility] [address] [place] [phone] Lana Branch PA 175 [facility] [address] [place] [address] Social History Tobacco Use Types Packs/Day Years [...] for your loved ones. For example, child abuse worker or elderly care for an older adult? [...] patients last physical appt. Please advise # [phone] documented in this encounter Plan of Treatment Upcoming Encounters Date Type Department Care Team (Late st Contact Info) Description 01/21/2025 9:30 AM EDT Office Visit Internal Medicine - [place] [address] [phone] Lana Branch PA [address] [address] 03/05/2025 10:15 AM EST Office Visit Orthopedic Surgery - [place] [address] [phone] Adria Powell, DPM [address] [phone] documented as of this encounter Goals Goal Patient Goal Type Associated Problems Recent Progress Patient-Stated? Author PLOF General Yes Cullen Mcnair, PT documented as of this encounter Visit Diagnoses Not on filedocumented in this encounter Additional Health Concerns Assessment Noted Time PHQ-9 Depression Total Score: 9 06/25/19 25 1:39 PM EDT documented as of this encounter Care Teams Commodity Specialist Relationship Specialty Start Date End Date Lana Branch PA [address] [place] [address] PCP - General 01/24/24 documented as of this encounter
--- OUTSIDE RECORDS SUMMARY | 2025-01-11 18:01 | XMS_ITS | Encounter Summary ---
Author Organization [facility] Address [address] [place] [address] Care Team Providers Care Prefitter Doors Name Role Phone Chantale Scott MD Primary Care Provider Unavail able Peter Ann MD Primary Care Provider [phone] Chantale Scott MD Unavailable Unavailable Chantale Scott MD Primary Care Provider Unavail able Sakina Schaeffer MD Primary Care Provider Poornima Metcalf MD Primary Care Provider Sakina Schaeffer MD Primary Care Provider Poornima Metcalf MD Primary Care Provider Lana Branch PA-C Primary Care Provider + Reason for Visit * Reason Comments E-prescribe Rx Request Encounter Details Date Type Department Care Team Description 11/20/2018 Refill Adult Medicine [address] [address] Chantale Scott MD E-prescribe Rx Request Social History Tobacco Use [...] Telephone Encounter - Anna Wilkins PA-C - 11/21/2018 2:14 PM EDT Ok to fill. Micheal, Miracle * Telephone Encounter - Doris Ha M.A. - 11/21/2018 2:04 PM EDT Lab Results Component Value Date HGBA1C 6.3 10/04/2018 MALBUR 7.7 03/05/2017 MALBCR 2.9 03/05/2017 CHOL 211 10/04/2018 LDL 149 10/04/2018 HDL 40 10/04/2018 TRIG 112 10/04/2018 GLU 110 11/07/2018 CREAT 0.60 06/24/2018 * Telephone Encounter - Christina Rodriguez - 11/20/2018 9:36 AM EDT Patient would like script to be: E-PRESCRIBED/FAXED TO PHARMACY WHEN WAS THE PATIENT'S LAST APPOINTMENT IN ADULT MEDICINE? 11-14-18 WHEN WAS THE LAST TIME THE PATIENT SAW THEIR PCP? 06-19-17 Does patient have an upcoming appointment? 01-01-19 (THE MEDICATION REQUESTED IS ON THE MED [...] N/A Patients current insurance carrier is: Payor: [employer] FFS / Plan: [facility] / Product Type: MEDICAID RISK documented in this encounter Plan of Treatment Not on file documented as of this encounter Visit Diagnoses Not on filedocumented in this encounter Additional Health Concerns Infection Onset Date Last Indicated Resolved Time COVID-19 11/07/2021 11/07/2021 01/06/2022 8:30 AM EDT documented as of this encounter Care Teams Prefitter Doors Relationship Specialty Start Date End Date Chantale Scott MD PCP - General Internal Medicine 11/14/18 05/19/19 Peter Ann MD [address] [place] [address] PCP - General Cardiology 05/20/19 02/12/20 Chantale Scott MD PCP - General Internal Medicine 02/13/20 01/31/21 Sakina Schaeffer MD [address] [place] [address] PCP - General Internal Medicine 02/01/21 10/02/22 Poornima Metcalf MD [address] [place] [address] PCP - General Internal Medicine 10/03/22 12/05/22 Sakina Schaeffer MD [address] [place] [address] PCP - General Internal Medicine 12/06/22 12/24/22 Poornima Metcalf MD [address] [place] [address] PCP - General Internal Medicine 12/25/22 01/23/24 Lana Branch PA-C [address] [place] [address] PCP - General Internal Medicine 01/24/24 Chantale Scott MD Internal Medicine 05/20/19 documented as of this encounter
--- OUTSIDE RECORDS SUMMARY | 2025-01-11 18:01 | XMS_ITS | Encounter Summary ---
Author Organization [facility] Address [address] [place] [address] Care Team Providers Care Marketing Mgr Name Role Phone Chantale Scott MD Primary Care Provider Unavail able Peter Ann MD Primary Care Provider [phone] Chantale Scott MD Unavailable Unavailable Chantale Scott MD Primary Care Provider Unavail able Sakina Schaeffer MD Primary Care Provider Poornima Metcalf MD Primary Care Provider Sakina Schaeffer MD Primary Care Provider [phone] Poornima Metcalf MD Primary Care Provider [phone] Lana Branch PA-C Primary Care Provider + Encounter Details Date Type Department Care Team Description 04/23/2019 Release of Information Medical Records [address] [place] [address] Abstract, Provider Social History Tobacco Use Types [...] documented as of this encounter Care Teams Marketing Mgr Relationship Specialty Start Date End Date Chantale Scott MD PCP - General Internal Medicine 11/14/18 05/19/19 Peter Ann MD [address] [facility] [address] [place] [address] PCP - General Cardiology 05/20/19 02/12/20 Chantale Scott MD PCP - General Internal Medicine 02/13/20 01/31/21 Sakina Schaeffer MD [address] [place] [address] PCP - General Internal Medicine 02/01/21 10/02/22 Poornima Metcalf MD [address] [place] [address] PCP - General Internal Medicine 10/03/22 12/05/22 Sakina Schaeffer MD [address] [place] [address] PCP - General Internal Medicine 12/06/22 12/24/22 Poornima Metcalf MD [address] [place] [address] PCP - General Internal Medicine 12/25/22 01/23/24 Lana Branch PA-C [address] [place] [address] PCP - General Internal Medicine 01/24/24 Chantale Scott MD Internal Medicine 05/20/19 documented as of this encounter
--- OUTSIDE RECORDS SUMMARY | 2025-01-11 18:01 | XMS_ITS | Clinical Summary ---
[facility] Organization [facility] Address [address] [facility] [place] [address] Care Team Providers Care Bell Valet Name Role Phone Chantale Scott MD Unavailable Unavailable Lana Branch PA-C Primary Care Provider + Allergies Active Allergy Reactions Severity Noted Date Comments Tape 04/22/2021 Cats 03/23/2020 Cefpodoxime Anaphylaxis High 03/21/2021 Dogs 03/23/2020 Dust Mite 03/23/2020 Lactose 09/06/2017 Peanuts 02/06/2017 Medications Medication Sig Dispensed Refills Start Date End Date Status Thiamine HCl (VITAMIN B-1 OR) Take 1 Tab by mouth daily. 0 Active levalbuterol (XOPENEX HFA) 45 MCG/ACT inhalerIndications: Mild persistent asthma without complication Inhale 1-2 Puffs into the lungs every 6 hours as needed for Wheezing, Shortness of Breath or Cough. 1 Inhaler 2 0 Active pantoprazole (Protonix) 40 MG tablet Take 1 tablet by mouth daily for 180 days. 90 tablet 1 1 Active Blood Glucose Monitoring Suppl (FreeStyle Lite) Device Use to check blood sugar daily 1 Each 0 1 Active Cholecalciferol (Vitamin D3) 50 MCG (1999 UT) Tab Take 2,000 Units by mouth daily. 0 2 Active famotidine (PEPCID) 40 MG tablet Take 40 mg by mouth daily. 0 1 Active Azelastine HCl 137 MCG/SPRAY Solution INSTILL 2 SPRAYS IN EACH NOSTRIL TWICE A DAY DIRECTED 30 mL 2 2 Active dicyclomine (BENTYL) 20 MG tablet Take 1 Tablet by mouth 4 times daily as needed (abd cram) for up to 90 days. 120 Tablet 2 2 Active FreeStyle Lancets MiscIndications:Typ e 2 diabetes mellitus without complication, without long-term current use of insulin ([facility]) Use to test blood sugar one times daily 100 Each 1 2 Active Glucose Blood (FREESTYLE LITE) StripIndications:Ty pe 2 diabetes mellitus without complication, without long-term current use of insulin ([facility]) USE TO CHECK BOOD SUGAR ONE TIME DAILY 100 Strip 2 2 Active Colestipol HCl 1 g Tab Take 2 Tablets by mouth 2 times daily (with meals). 360 Tablet 1 2 Active fluticasone 50 MCG/ACT nasal spray 1 [place] by Nasal route 2 times daily. 47.4 mL 1 2 Active Cholecalciferol (Vitamin D) 50 MCG (2000 UT) Tab Take 1 Tablet by mouth daily. 90 Tablet 3 3 Active albuterol (PROVENTIL) (2.5 MG/3ML) 0.083% nebulizer solution Take 1 Vial by nebulization every 4 hours as needed for Wheezing, Shortness of Breath or Cough. 375 mL 1 3 Active EPINEPHrine (EpiPen 2-Emre) 0.3 MG/0.3ML Solution Auto-injector Inject 1 Device as directed as needed (for anaphylaxis). 2 Each 3 3 Active Diclofenac Sodium 1 % Gel Apply 4 g topically 2 times daily. 100 g 2 3 Active loratadine (CLARITIN) 10 MG tablet Take 1 Tablet by mouth daily. 30 Tablet 5 4 Active montelukast (Singulair) 10 MG tablet Take 1 Tablet by mouth. 0 3 Active lidocaine (LIDODERM) 5 % 0 4 Active D3-1000 25 MCG (1000 UT) Tab 0 4 Active aripiprazole (ABILIFY) 2 MG tablet 0 4 Active Cholecalciferol (Vitamin D3) 50 MCG (2000 UT) Cap Take 50 mcg by mouth. 0 3 Active Albuterol-Budesonid e 90-80 MCG/ACT Aerosol Inhale into the lungs. 0 2 Active Fluticasone Propionate, Inhal, 50 MCG/ACT AEROSOL POWDER,BREATH ACTIVATED by Nasal route. 0 3 Active ondansetron (ZOFRAN-ODT) 4 MG disintegrating tablet DISSOLVE 1 TABLET BY MOUTH EVERY 8 HOURS NEEDED FOR NAUSEA 30 Tablet 1 4 Active atorvastatin (LIPITOR) 40 MG tablet Take 1 Tablet by mouth daily. 90 Tablet 1 4 Active cyanocobalamin 1000 MCG/ML injection Inject 1 mL into the muscle every 30 days. 1 mL 5 4 Active hydrocortisone (ANUSOL-HC) [address] 1 Suppository rectally 2 times daily for 14 days. 28 Suppository 0 4 Active sucralfate (Carafate) 1 g tablet Take 1 Tablet by mouth 4 times daily (before meals and nightly) for 90 days. 120 Tablet 2 4 Active metoclopramide (Reglan) 5 MG tablet Take 1 Tablet by mouth 4 times daily (before meals and nightly) for 90 days. For gastroparesis 120 Tablet 2 4 Active potassium chloride SA (K-DUR,KLOR-CON M10) 10 MEQ tablet Take 1 Tablet by mouth daily. 90 Tablet 1 4 Active docusate sodium (Colace) 100 MG capsuleIndications: Constipation, unspecified constipation type Take 1 Capsule by mouth 2 times daily as needed for Constipation for up to 360 days. 180 Capsule 3 4 Active celecoxib (CELEBREX) 100 MG capsuleIndications: Bilateral low back pain, unspecified chronicity, unspecified whether sciatica present,Fibromyalgi a Take 1 Capsule by mouth 2 times daily. 60 Capsule 6 4 Active KETOCONAZOLE, TOPICAL, 1 % ShampooIndications: Tinea capitis Apply 1 g topically daily. Rub into scalp, leave in for 10 minutes, then rinse out thoroughly. 100 mL 3 4 Active lidocaine (LIDODERM) 5 % Place 1 Patch onto the skin every 24 hours for 112 days. Apply for no more than 12 hours in any 24 hour period. 28 Patch 3 4 Active Active Problems Problem Noted Date H. pylori infection 11/18/2020 Irritable bowel syndrome with diarrhea 0 08/27/2020 Marijuana use 08/27/2020 Urinary incontinence without sensory renae reness 06/06/2020 Last Assessment & Plan: Encouraged patient to follow-up with urologist Diarrhea 02/23/2020 Overview: Normal cnsp and biopsy negative for collagenous [...] be repeated. She voiced understanding and agreed. Obstructive sleep apnea mild AHI 6 12/11 Overview: [facility] Polysomnogram: Date 12/09/2019; Wt 189#; [...] without sleep related hypoventilation by 2019 polysomnogram. Atypical chest pain 11/18/2019 Overview: Normal echo on11/03/19 Normal loop recorder March 2020 Snoring 09/23/2019 Overview: 08/2019 Home Sleep Study did not reveal sleep apnea or nocturnal hypoxia. Tobacco abuse 06/03/2019 NAFLD (nonalcoholic fatty liver disease) 04/17/2019 Overview: Ordered Hepatitis panel, US of liver, TSH, and Will discontinue statin therapy at this time. Severe obesity (BMI >= 40) 03/12/2019 Asthma 08/21/2017 Bipolar 1 disorder 08/21/2017 Anxiety 08/21/2017 Diabetes mellitus type 2, uncomplicated 08/21/2017 Hyperlipidemia 08/21/2017 Depression, major 08/21/2017 PTSD (post-traumatic stress disorder) Overview: F/u [place] Mp Resolved Problems Problem Noted Date Resolved Date Nipple discharge 06/06/2020 03/16/2021 Last Assessment & Plan: TSH, prolactin, mammogram and breast ultrasound ordered today. Encouraged patient to wear a tight fitting bra and avoid nipple stimulation. Encouraged patient to continue using eczema cream for itching. Referral to breast care center given. Vaginal bleeding 06/06/2020 04/24/2021 Last Assessment & Plan: I discussed with the patient that there is no evidence of vaginal bleeding on exam today and the vaginal cuff is intact and well healed. UA negative for blood today. Urine culture sent out. I suspect the bleeding is rectal as the patient also describes a reddish color to her stool. She declined rectal exam, therefore I was unable to confirm today. I asked the patient to continue to monitor her symptoms and to follow-up with her GI physician if needed. Dyspareunia, female 06/06/2020 04/24/2021 Last Assessment & Plan: Discussed use of smaller toys with intercourse or avoiding deep penetration to improve comfort. Myofascial pain 05/06/2020 04/24/2021 Last Assessment & Plan: I reviewed findings with Brianna which are classic for abdominal wall myofascial pain, likely related to her surgical scar. I explained that this is not likely the reason for her vaginal pressure sensation, and is definitely not related to her diarrhea, but that we could treat it with a trigger point injection of 0.25% Marcaine. She was very nervous due to her fear of needles and desires to return for this. I reviewed all of her ED, GI and PCP visit notes, imaging including CT, pelvic US, RUQ US, as well as labs including colonoscopy pathology, urine studies, stool testing, and blood work. I discussed with her that no abnormal findings were noted and that the etiology of her pain and diarrhea remains unclear. HENDRICKS (nonalcoholic steatohepatitis) 04/28/2020 04/28/2020 Perennial allergic conjunctivitis of both eyes 1 04/26/2019 11/12/2020 Food allergy 02/24/2020 04/28/2020 Hot flashes 02/23/2020 04/28/2020 Last Assessment & Plan: Discussed with patient that the hot flashes she is experiencing are not likely related to the surgery. Her ovaries were left in place. The pelvic ultrasound performed on 02/13/20 demonstrated good blood flow to bilateral ovaries and a right dominant follicle, which indicates her ovaries are continuing to function normally. TSH ordered Possibly related to one of her medications. Vaginal discharge 02/23/2020 04/28/2020 Last Assessment & Plan: Wet prep done today, will treat as indicated. Right lower quadrant abdominal pain 02/23/2020 04/28/2020 Last Assessment & Plan: Possibly due to right ovarian dominant follicle vs GI source. GI process likely as patient has experienced diarrhea and decreased appetite as well. Not likely related to surgery as postoperative imaging and bloodwork have been negative, she has been afebrile and has not had any nausea or vomiting. Referral placed for GI. Decreased appetite 02/23/2020 04/28/2020 Perennial allergic rhinitis 12/23/2019 08 Dry eyes 12/23/2019 01/07/2020 Peanut allergy 12/23/2019 01/07/2020 Abnormal uterine bleeding (AUB) 12/16/2019 02/22/2022 Overview: S/p hysterectomy Last Assessment & Plan: Pt was counseled re: options for treatment of her symptoms including ibuprofen, oral hormonal therapy, levonorgestrel IUD, TXA, endometrial ablation, and hysterectomy. I reviewed the risks, benefits, and rates of amenorrhea. She was most interested in hysterectomy because she has already tried several hormonal therapy options in the past without success. Pelvic ultrasound ordered. RTO in 4 weeks to review US and further discuss surgical options Severe obesity (BMI 35.0-39.9) with comorbidity 12/11/2018 03/12/2019 Eczema 12/13/2017 04/28/2020 PTSD (post-traumatic stress disorder) 08/21/2017 01/26/2020 Hearing loss of right ear 07/16/20172018 Eustachian tube dysfunction, bilateral 8 04/28/2020 Multiple allergies 07/16/2017 05/08/2019 Hyperlipidemia 03/05/2017 04/28/2020 Diabetes mellitus type 2, uncomplicated 03/25/2020 Asthma 12/23/2019 Bipolar disorder 04/28/2020 Anxiety 01/07/2020 Major depression 01/07/2020 Fatty liver 04/28/2020 Immunizations Name Administration Dates Next Due COVID-19 (Moderna) 06/16/2020,05/19/2020 Influenza (> 6 Months) 01/09/2024 Influenza Vaccine-preservati ve Free-quadrivalent 4 Years 01/06/2022,12/14/2020,01/26/2020 PPD-RBMG 02/20/2018 Tdap 05/22/2017 Social History Tobacco Use Types Packs/Day Years Used Date Smoking Tobacco: Every Day Cigarettes 0.5 8 Smokeless Tobacco: Never Tobacco Cessation:Ready to Q uit: Not Asked; Counseling Given: Not Answered Alcohol Use Standard Drinks/Week Comments No 0 (1 standard drink = 0.6 oz pur e alcohol) Sex Assigned at Date Recorded Female 07/07/2020 2:30 PM E DT Job Start Date Occupation Industry Not on file Not on file Not on file Last Filed Vital Signs Vital Sign Reading Time Taken Comments Blood Pressure 136/62 01/24/2024 2:09 PM EDT Pulse 86 01/24/2024 2:09 PM EDT Temperature 36.4 C (97.6 F) 01/15/2024 3:53 PM EDT Respiratory Rate 16 02/22/2022 8:34 AM EST Oxygen Saturation 99% 01/24/2024 2:09 PM EDT Inhaled Oxygen Concentration - - Weight 76.8 kg (169 lb 6.4 oz) 01/24/2024 2:09 P M EDT Height 147.3 cm (4' 10 ) 01/09/2024 1:09 PM EDT Body Mass Index 35.4 01/09/2024 1:09 PM EDT Plan of Treatment Health Maintenance Due Date Last Done Comments DIABETES: ANNUAL EYE EXAM 08/28/20192018 (External Completion of test per patient (Patient reports normal results)), 11/09/2017, 09/07/2017, Additional history exists CERVICAL CANCER SCREENING 03/14/2020 03/14/2017 DIABETES: ANNUAL FOOT EXAM 01/25/202101/25 (Completed), 01/26/2020, 07/12/2018, Additional history exists DIABETES: ANNUAL URINE PROTE IN TEST (MICROALBUMIN) 01/06/2023 01/06/2022, 04/29/2020, 04/16/2019, Additional history exists DIABETES: BLOOD SUGAR CONTRO L TEST (HGBA1C) 01/29/2024 10/29/2023, 10/31/2022, 01/06/2022, Additional history exists MAMMOGRAM 03/07/2024 03/07/2023, 09/10/2021, 07/07/2020, Additional history exists BMI CHECK/ADVISE 03/26/2024 01/24/2024, , 12/19/2023, Additional history exists DEPRESSION SCREENING/FOLLOWUP 03/26/2024, 10/03/2022, 08/03/2021, Additional history exists SOCIAL NEEDS SCREENING 03/26/2024 , 05/08/2019 (Completed), 08/21/2018 DIABETES/HEART DISEASE: BLAINE AYALA CHOLESTEROL (LDL) 08/22/2024 08/23/2023, 03/23/2023, 10/31/2022, Additional history exists Covid-19 Vaccine (3 - 2022-2 4 season) 2024 06/16/2020, 05/19/2020 INFLUENZA (#1) 2024 01/09/2024, 12/24, 12/14/2020, Additional history exists BASELINE HEALTH EXAM 40-64 10/28/202510/28, 10/29/2023, 10/26/2023, Additional history exists DTAP/TDAP/TD (2 - Td or Tdap) 05/22/2027 05/22/2017 PNEUMOCOCCAL VACCINE FOR HIG H RISK PATIENTS (#2) 08/03/2048 04/27/2016 (External Complet ion of Vaccination per patient) Care Teams Bell Valet Relationship Specialty Start Date End Date Lana Branch PA-C PCP - General Internal Medicine 01/24/24 Chantale Scott MD Internal Medicine 05/20/19
--- OUTSIDE RECORDS SUMMARY | 2025-01-11 18:01 | XMS_ITS | Encounter Summary ---
[facility] Address [address] [place] [address] Care Team Providers Care News Production Supervisor Name Role Phone Peter Ann MD Primary Care Provider [phone] Chantale Scott MD Unavailable Unavailable Chantale Scott MD Primary Care Provider Unavail able Sakina Schaeffer MD Primary Care Provider [phone] Poornima Metcalf MD Primary Care Provider [phone] Sakina Schaeffer MD Primary Care Provider [phone] Poornima Metcalf MD Primary Care Provider [phone] Lana Branch PA-C Primary Care Provider + Reason for Visit * Reason Onset Date Comments refill request 10/27/2019 Encounter Details Date Type Department Care Team Description 10/27/2019 Refill Adult Medicine [address] [address] Chantale Scott MD refill request Social History Tobacco Use Types Packs/Day Years [...] Telephone Encounter - Karlie Mahan M.A. - 10/27/2019 11:31 AM EDT Never received. * Telephone Encounter - Dorian Bliss - 10/27/2019 11:24 AM EDT Patient would like script to be: E-PRESCRIBED/FAXED TO PHARMACY WHEN WAS THE PATIENT'S LAST APPOINTMENT IN ADULT MEDICINE? 08/27/19 WHEN WAS THE LAST TIME THE PATIENT SAW THEIR PCP? 06/03/19 Does patient have an upcoming appointment? No-patient refused appointment, will call back to book appointment (THE MEDICATION REQUESTED IS ON THE MED [...] N/A Patients current insurance carrier is: Payor: [employer] / Plan: [facility] [employer] / Product Type: MEDICAID RISK documented in this encounter Plan of Treatment Not on file documented as of this encounter Visit Diagnoses Diagnosis Mild persistent asthma without complication Unspecified asthma documented in this encounter Additional Health Concerns Infection Onset Date Last Indicated Resolved Time COVID-19 11/07/2021 11/07/2021 01/06/2022 8:30 AM EDT documented as of this encounter Care Teams News Production Supervisor Relationship Specialty Start Date End Date Peter Ann MD [address] [place] [address] PCP - General Cardiology 05/20/19 02/12/20 Chantale Scott MD [address] [facility] [address] [place] [address] PCP - General Internal Medicine 02/13/20 01/31/21 Sakina Schaeffer MD [address] [place] [address] PCP - General Internal Medicine 02/01/21 10/02/22 Poornima Metcalf MD [address] [place] [address] PCP - General Internal Medicine 10/03/22 12/05/22 Sakina Schaeffer MD [address] [place] [address] PCP - General Internal Medicine 12/06/22 12/24/22 Poornima Metcalf MD [address] [place] [address] PCP - General Internal Medicine 12/25/22 01/23/24 Lana Branch PA-C [address] [place] [address] PCP - General Internal Medicine 01/24/24 Chantale Scott MD [address] [place] [address] Internal Medicine 05/20/19 documented as of this encounter
--- OUTSIDE RECORDS SUMMARY | 2025-01-11 18:01 | XMS_ITS | Encounter Summary ---
[facility] Address [address] [place] [address] Care Team Providers Care Architectural Drafter Name Role Phone Chantale Scott MD Unavailable Unavailable Sakina Schaeffer MD Primary Care Provider Poornima Metcalf MD Primary Care Provider [phone] Sakina Schaeffer MD Primary Care Provider Poornima Metcalf MD Primary Care Provider Lana Branch PA-C Primary Care Provider + Reason for Visit * Reason Onset Date Comments Faxed Order 03/03/2021 Encounter Details Date Type Department Care Team Description 03/03/2021 Telephone Adult Medicine [address] [phone] Sakian Schaeffer MD [address] [place] [address] [phone] Faxed Order Social History Tobacco Use Types [...] * Telephone Encounter - Christina Rodriguez - 03/03/2021 11:10 AM EST Orders from [facility] to be signed and faxed back to [phone] . documented in this encounter Plan of Treatment Not on file documented as of this encounter Visit Diagnoses Not on filedocumented in this encounter Additional Health Concerns Infection Onset Date Last Indicated Resolved Time COVID-19 11/07/2021 11/07/2021 01/06/2022 8:30 AM EDT documented as of this encounter Care Teams Architectural Drafter Relationship Specialty Start Date End Date Sakina Schaeffer MD [address] [place] [address] PCP - General Internal Medicine 02/01/21 10/02/22 Poornima Metcalf MD [address] [place] [address] 16455 PCP - General Internal Medicine 10/03/22 12/05/22 Sakina Schaeffer MD [address] [place] [phone] PCP - General Internal Medicine 12/06/22 12/24/22 Poornima Metcalf MD [address] [place] [address] 23865 PCP - General Internal Medicine 12/25/22 01/23/24 Lana Branch PA-C [address] [place] [address] 10327 PCP - General Internal Medicine 01/24/24 Chantale Scott MD Internal Medicine 05/20/19 documented as of this encounter
--- OUTSIDE RECORDS SUMMARY | 2025-01-11 18:01 | XMS_ITS | Encounter Summary ---
Author Organization [facility] Address [address] [place] [address] Care Team Providers Care Commercial Title Examiner Name Role Phone Chantale Scott MD Primary Care Provider Unavail able Peter Ann MD Primary Care Provider [phone] Chantale Scott MD Unavailable Unavailable Chantale Scott MD Primary Care Provider Unavail able Sakina Schaeffer MD Primary Care Provider [phone] Poornima Metcalf MD Primary Care Provider [phone] Sakina Schaeffer MD Primary Care Provider [phone] Poornima Metcalf MD Primary Care Provider [phone] Lana Branch PA-C Primary Care Provider + Encounter Details Date Type Department Care Team Description 11/29/2018 Release of Information Medical Records [address] [place] [id number] Abstract, Provider Social History Tobacco Use Types [...] documented as of this encounter Care Teams Commercial Title Examiner Relationship Specialty Start Date End Date Chantale Scott MD PCP - General Internal Medicine 11/14/18 05/19/19 Peter Ann MD [address] [facility] [address] [place] [address] PCP - General Cardiology 05/20/19 02/12/20 Chantale Scott MD PCP - General Internal Medicine 02/13/20 01/31/21 Sakina Schaeffer MD [address] [place] [address] PCP - General Internal Medicine 02/01/21 10/02/22 Poornima Metcalf MD [address] [place] [address] PCP - General Internal Medicine 10/03/22 12/05/22 Sakina Schaeffer MD [address] [place] [address] PCP - General Internal Medicine 12/06/22 12/24/22 Poornima Metcalf MD [address] [place] [address] PCP - General Internal Medicine 12/25/22 01/23/24 Lana Branch PA-C [address] [place] [address] PCP - General Internal Medicine 01/24/24 Chantale Scott MD Internal Medicine 05/20/19 documented as of this encounter
--- OUTSIDE RECORDS SUMMARY | 2025-01-11 18:01 | XMS_ITS | Encounter Summary ---
Author Organization [facility] Address [address] [place] [address] Care Team Providers Care Data Control Clerk Name Role Phone Chantale Scott MD Unavailable Unavailable Sakina Schaeffer MD Primary Care Provider Poornima Metcalf MD Primary Care Provider Sakina Schaeffer MD Primary Care Provider Poornima Metcalf MD Primary Care Provider Lana Branch PA-C Primary Care Provider + Reason for Visit * Reason Onset Date Comments Faxed Order 08/01/2021 altranis plan of care Encounter Details Date Type Department Care Team Description 08/01/2021 Telephone Adult Medicine [address] [phone] Sakina Schaeffer MD [address] [place] [address] [phone] Faxed Order (altranis plan of care ) Social History Tobacco Use Types Packs/Day [...] documented as of this encounter Care Teams Data Control Clerk Relationship Specialty Start Date End Date Sakina Schaeffer MD [address] [place] [address] PCP - General Internal Medicine 02/01/21 10/02/22 Poornima Metcalf MD [address] [place] [address] PCP - General Internal Medicine 10/03/22 12/05/22 Sakina Schaeffer MD [address] [place] [address] PCP - General Internal Medicine 12/06/22 12/24/22 Poornima Metcalf MD [address] [place] [address] PCP - General Internal Medicine 12/25/22 01/23/24 Lana Branch PA-C [address] [place] [address] PCP - General Internal Medicine 01/24/24 Chantale Scott MD Internal Medicine 05/20/19 documented as of this encounter
--- OUTSIDE RECORDS SUMMARY | 2025-01-11 18:01 | XMS_ITS | Encounter Summary ---
Author Organization [facility] Address [address] [place] [address] Care Team Providers Care Healthcare Specialist Name Role Phone Chantale Scott MD Unavailable Unavailable Chantale Scott MD Primary Care Provider Unavail able Sakina Schaeffer MD Primary Care Provider [phone] Poronima Metcalf MD Primary Care Provider [phone] Sakina Schaeffer MD Primary Care Provider [phone] Poornima Metcalf MD Primary Care Provider [phone] Lana Branch PA-C Primary Care Provider + Reason for Visit * Reason Onset Date Comments Faxed Refill 03/16/2020 Encounter Details Date Type Department Care Team Description 03/16/2020 Refill Pul[facility] [address] [phone] Zoraida Carlin APRN [address] [phone] Faxed Refill Social History Tobacco Use Types [...] have Coronavirus / COVID-19? No / Unsure 02/23/2020 3:45 PM EST documented as of this encounter Miscellaneous Notes * Telephone Encounter - Leobardo Orozcomudez - 03/16/2020 4:35 PM EST [id number] documented in this encounter Plan of Treatment Not on file documented as of this encounter Visit Diagnoses Diagnosis Mild persistent asthma without complication Unspecified asthma documented in this encounter Additional Health Concerns Infection Onset Date Last Indicated Resolved Time COVID-19 11/07/2021 11/07/2021 01/06/2022 8:30 AM EDT documented as of this encounter Care Teams Healthcare Specialist Relationship Specialty Start Date End Date Chantale Scott MD PCP - General Internal Medicine 02/13/20 01/31/21 Sakina Schaeffer MD [address] [place] [address] PCP - General Internal Medicine 02/01/21 10/02/22 Poornima Metcalf MD [address] [place] [address] 18016 PCP - General Internal Medicine 10/03/22 12/05/22 Sakina Schaeffer MD [address] [place] [address] 10008 PCP - General Internal Medicine 12/06/22 12/24/22 Poornima Metcalf MD [address] [place] [address] PCP - General Internal Medicine 12/25/22 01/23/24 Lana Branch PA-C [address] [place] [address] PCP - General Internal Medicine 01/24/24 Chantale Scott MD Internal Medicine 05/20/19 documented as of this encounter
--- OUTSIDE RECORDS SUMMARY | 2025-01-11 18:01 | XMS_ITS | Encounter Summary ---
[facility] Address [address] [place] [address] Care Team Providers Care Processor Inspector Name Role Phone Danna Burden MD Primary Care Provider Un available Chantale Scott MD Primary Care Provider Unavail able Peter Ann MD Primary Care Provider [phone] Chantale Scott MD Unavailable Unavailable Chantale Scott MD Primary Care Provider Unavail able Sakina Schaeffer MD Primary Care Provider Poornima Metcalf MD Primary Care Provider Sakina Schaeffer MD Primary Care Provider Poornima Metcalf MD Primary Care Provider [phone] Lana Branch PA-C Primary Care Provider + Reason for Visit * Reason Onset Date Comments Faxed Order 03/08/2018 Encounter Details Date Type Department Care Team Description 03/08/2018 Telephone Adult Medicine [address] [address] Danna Burden MD Faxed Order Social History [...] * Telephone Encounter - Val Felipe - 03/08/2018 1:36 PM EST [facility] IS FAXING ORDERS TO BE SIGN AND FAX BACK TO [phone]. documented in this encounter Plan of Treatment Not on file documented as of this encounter Visit Diagnoses Not on filedocumented in this encounter Additional Health Concerns Infection Onset Date Last Indicated Resolved Time COVID-19 11/07/2021 11/07/2021 01/06/2022 8:30 AM EDT documented as of this encounter Care Teams Processor Inspector Relationship Specialty Start Date End Date Danna Burden MD PCP - General Internal Medicine 01/30/17 Chantale Scott MD PCP - General Internal Medicine 11/14/18 05/19/19 Peter Ann MD [address] [place] [address] PCP - General Cardiology 05/20/19 02/12/20 Chantale Scott MD PCP - General Internal Medicine 02/13/20 01/31/21 Sakina Schaeffer MD [address] [place] [address] PCP - General Internal Medicine 02/01/21 10/02/22 Poornima Metcalf MD [address] [place] [address] PCP - General Internal Medicine 10/03/22 12/05/22 Sakina Schaeffer MD [address] [place] [address] PCP - General Internal Medicine 12/06/22 12/24/22 Poornima Metcalf MD [address] [place] [address] PCP - General Internal Medicine 12/25/22 01/23/24 Lana Branch PA-C [address] [place] [address] PCP - General Internal Medicine 01/24/24 Chantale Scott MD Internal Medicine 05/20/19 documented as of this encounter
--- OUTSIDE RECORDS SUMMARY | 2025-01-11 18:01 | XMS_ITS | Encounter Summary ---
Author Organization [facility] Address [address] [place] [address] Care Team Providers Care Tool And Die Repairer Name Role Phone Danna Burden MD Primary Care Provider Un available Chantale Scott MD Primary Care Provider Unavail able Peter Ann MD Primary Care Provider [phone] Chantale Scott MD Unavailable Unavailable Chantale Scott MD Primary Care Provider Unavail able Sakina Schaeffer MD Primary Care Provider [phone] Poornima Metcalf MD Primary Care Provider [phone] Sakina Schaeffer MD Primary Care Provider [phone] Poornima Metcalf MD Primary Care Provider [phone] Lana Branch PA-C Primary Care Provider + Reason for Visit * Reason Onset Date Comments Abdominal Pain 06/18/2017 Encounter Details Date Type Department Care Team Description 06/18/2017 Telephone Adult Medicine [address] [address] Danna Burden MD Abdominal Pain Social History Tobacco Use Types Packs/Day Years [...] encounter Miscellaneous Notes * Telephone Encounter - Sanjay Garrido R.N - 06/18/2017 1:04 PM EDT [phone] (home) Called and spoke with pt. Pt sts was seen at [facility] er on Sunday06/16/17 for whole entire lower abd pain. Pt sts comes and goes for about a year. Pt c/o diarrhea also 6-7 times a day started this weekend. Pt advised to try imdiuom and increase fluids and bland food. Pt denies n/v. Pt denies burning urgency or frequency with urinartion. Pt c/o having to push urine out though doesn't just come out. Pt had labs u/a and ct done at [facility] all negative. Pt made an appt for 06/19/17 at 1000. Please get notes * Telephone Encounter - Val Felipe - 06/18/2017 12:41 PM EDT Symptoms patient is presenting: ABDOMINAL PAIN AND DIARRHEA If pain or injury related was it due to an accident at work or from a motor vehicle accident? NO If yes, gather 3rd republican insurance information Date of accident/Injury: How long has patient had these symptoms?: FOR A WHILE PCP: Danna Burden Payor: [facility] / Plan: [facility] / Product Type: MEDICAID RISK documented in this encounter Plan of Treatment Not on file documented as of this encounter Visit Diagnoses Not on filedocumented in this encounter Additional Health Concerns Infection Onset Date Last Indicated Resolved Time COVID-19 11/07/2021 11/07/2021 01/06/2022 8:30 AM EDT documented as of this encounter Care Teams Tool And Die Repairer Relationship Specialty Start Date End Date Danna Burden MD PCP - General Internal Medicine 01/30/17 Chantale Scott MD PCP - General Internal Medicine 11/14/18 05/19/19 Peter Ann MD [address] [facility] [address] [place] [address] PCP - General Cardiology 05/20/19 02/12/20 Chantale Scott MD PCP - General Internal Medicine 02/13/20 01/31/21 Sakina Schaeffer MD [address] [place] [address] PCP - General Internal Medicine 02/01/21 10/02/22 Poornima Metcalf MD [address] [place] [address] PCP - General Internal Medicine 10/03/22 12/05/22 Sakina Schaeffer MD [address] [place] [address] PCP - General Internal Medicine 12/06/22 12/24/22 Poornima Metcalf MD [address] [place] [address] PCP - General Internal Medicine 12/25/22 01/23/24 Lana Branch PA-C [address] [place] [address] PCP - General Internal Medicine 01/24/24 Chantale Scott MD Internal Medicine 05/20/19 documented as of this encounter
--- OUTSIDE RECORDS SUMMARY | 2025-01-11 18:01 | XMS_ITS | Encounter Summary ---
Author Organization [facility] Address [address] [place] [address] Care Team Providers Care Utility Mechanic Supervisor Name Role Phone Peter Ann MD Primary Care Provider [phone] Chantale Scott MD Unavailable Unavailable Chantale Scott MD Primary Care Provider Unavail able Sakina Schaeffer MD Primary Care Provider [phone] Poornima Metcalf MD Primary Care Provider [phone] Sakina Schaeffer MD Primary Care Provider [phone] Poornima Metcalf MD Primary Care Provider [phone] Lana Branch PA-C Primary Care Provider + Encounter Details Date Type Department Care Team Description 05/20/2019 [facility] Medical Records [address] [place] [address] Alissa Hanna NP Social History Tobacco Use Types Packs/Day Years [...] documented as of this encounter Care Teams Utility Mechanic Supervisor Relationship Specialty Start Date End Date Peter Ann MD [address] [address] PCP - General Cardiology 05/20/19 02/12/20 Chantale Scott MD [address] [address] PCP - General Internal Medicine 02/13/20 01/31/21 Sakina Schaeffer MD [address] [place] [address] PCP - General Internal Medicine 02/01/21 10/02/22 Poornima Metcalf MD [address] [place] [address] PCP - General Internal Medicine 10/03/22 12/05/22 Sakina Schaeffer MD [address] [place] [address] PCP - General Internal Medicine 12/06/22 12/24/22 Poornima Metcalf MD [address] [place] [address] PCP - General Internal Medicine 12/25/22 01/23/24 Lana Branch PA-C [address] [place] [address] PCP - General Internal Medicine 01/24/24 Chantale Scott MD [address] [place] [address] Internal Medicine 05/20/19 documented as of this encounter
--- OUTSIDE RECORDS SUMMARY | 2025-01-11 18:01 | XMS_ITS | Encounter Summary ---
Author Organization [facility] Address [address] [place] [address] Care Team Providers Care Meat Counter Clerk Name Role Phone Chantale Scott MD Unavailable Unavailable Sakina Schaeffer MD Primary Care Provider [phone] Poornima Metcalf MD Primary Care Provider Sakina Schaeffer MD Primary Care Provider Poornima Metcalf MD Primary Care Provider Lana Branch PA-C Primary Care Provider + Reason for Visit * Reason Onset Date Comments Faxed Order 07/15/2021 04/24/21- 2 Encounter Details Date Type Department Care Team Description 07/15/2021 Telephone Adult Medicine [facility] [address] [place] [address] Sakina Schaeffer MD [address] [place] [phone] Faxed Order (04/24/21-06/22/21) Social History Tobacco Use Types Packs/Day Years [...] encounter Miscellaneous Notes * Telephone Encounter - Mary Wilbur - 07/15/2021 1:46 PM EDT Fax orders from [facility], please sign and fax back. 04/24/21- 06/22/21 documented in this encounter Plan of Treatment Not on file documented as of this encounter Visit Diagnoses Not on filedocumented in this encounter Additional Health Concerns Infection Onset Date Last Indicated Resolved Time COVID-19 11/07/2021 11/07/2021 01/06/2022 8:30 AM EDT documented as of this encounter Care Teams Meat Counter Clerk Relationship Specialty Start Date End Date Sakina Schaeffer MD [address] [place] [address] PCP - General Internal Medicine 02/01/21 10/02/22 Poornima Metcalf MD [address] [place] [address] PCP - General Internal Medicine 10/03/22 12/05/22 Sakina Schaeffer MD [address] [place] [address] PCP - General Internal Medicine 12/06/22 12/24/22 Poornima Metcalf MD [address] [place] [address] PCP - General Internal Medicine 12/25/22 01/23/24 Lana Branch PA-C [address] [place] [address] PCP - General Internal Medicine 01/24/24 Chantale Scott MD Internal Medicine 05/20/19 documented as of this encounter
--- OUTSIDE RECORDS SUMMARY | 2025-01-11 18:01 | XMS_ITS | Clinical Summary ---
Author Organization [facility] Address [address] [place] [address] Phone Care Team Providers Care Gaming Dealer Name Role Phone Danna Miller MD Primary [...] topic Medical Devices Not on file Insurance [employer] [place] [address] [place] [address] Education Development Center (EDC) [employer] ACO [facility] Education Development Center (EDC) [facility] Education Development Center (EDC) [employer] [address] [place], [place] [address] [facility] [address] [address] [place], [place] [address] [facility] [place] [address] [place] [address] Education Development Center (EDC) [facility] A[facility] Care Teams Gaming Dealer Relationship Specialty Start Date End Date Danna Miller MD [address] [place] [address] PCP - General Internal Medicine 06/17/18 Additional Source Comments The information contained in this document represents components of the legal health record. It is not the complete legal health record.[facility]
--- OUTSIDE RECORDS SUMMARY | 2025-01-11 18:01 | XMS_ITS | Encounter Summary ---
Author Organization [facility] Address [address] [place] [address] Care Team Providers Care Rib Sawyer Name Role Phone Chantale Scott MD Unavailable Unavailable Poornima Metcalf MD Primary Care Provider [phone] Lana Branch PA-C Primary Care Provider + Encounter Details Date Type Department Care Team Description 10/16/2023 SCAN [facility] [address] [phone] Adria Powell DPM [address] [address] Social History Tobacco Use Types Packs/Day Years [...] on filedocumented in this encounter Care Teams Rib Sawyer Relationship Specialty Start Date End Date Poornima Metcalf MD PCP - General Internal Medicine 12/25/22 01/23/24 Lana Branch PA-C PCP - General Internal Medicine 01/24/24 Chantale Scott MD Internal Medicine 05/20/19 documented as of this encounter
--- OUTSIDE RECORDS SUMMARY | 2025-01-11 18:01 | XMS_ITS | Encounter Summary ---
[facility] Address [address] [place] [address] Care Team Providers Care Senior Housekeeper Name Role Phone Danna Burden MD Primary Care Provider Un available Chantale Scott MD Primary Care Provider Unavail able Peter Ann MD Primary Care Provider [phone] Chantale Scott MD Unavailable Unavailable Chantale Scott MD Primary Care Provider Unavail able Sakina Schaeffer MD Primary Care Provider [phone] Poornima Metcalf MD Primary Care Provider [phone] Sakina Schaeffer MD Primary Care Provider [phone] Poornima Metcalf MD Primary Care Provider [phone] Lana Branch PA-C Primary Care Provider + Encounter Details Date Type Department Care Team Description 09/29/2017 Release of Information Medical Records [address] [place] [id number] Abstract, Provider Social History Tobacco Use Types [...] as of this encounter Care Teams Senior Housekeeper Relationship Specialty Start Date End Date Danna Burden MD PCP - General Internal Medicine 01/30/17 Chantale Scott MD PCP - General Internal Medicine 11/14/18 05/19/19 Peter Ann MD [address] [facility] [address] [place] [address] PCP - General Cardiology 05/20/19 02/12/20 Chantale Scott MD PCP - General Internal Medicine 02/13/20 01/31/21 Sakina Schaeffer MD [address] [place] [address] PCP - General Internal Medicine 02/01/21 10/02/22 Poornima Metcalf MD [address] [place] [address] PCP - General Internal Medicine 10/03/22 12/05/22 Sakina Schaeffer MD [address] [place] [address] PCP - General Internal Medicine 12/06/22 12/24/22 Poornima Metcalf MD [address] [place] [address] PCP - General Internal Medicine 12/25/22 01/23/24 Lana Branch PA-C [address] [place] [address] PCP - General Internal Medicine 01/24/24 Chantale Scott MD Internal Medicine 05/20/19 documented as of this encounter
--- OUTSIDE RECORDS SUMMARY | 2025-01-11 18:01 | XMS_ITS | Encounter Summary ---
Author Organization [facility] Address [address] [place] [address] Care Team Providers Care Sample Distributor Name Role Phone Chantale Scott MD Unavailable Unavailable Poornima Metcalf MD Primary Care Provider [phone] Lana Branch PA-C Primary Care Provider + Encounter Details Date Type Department Care Team Description 10/17/2023 Orders Only Medical Records [address] [place] [address] Adria Powell DPM [address] [place] [address] [place] [address] Social History Tobacco Use Types Packs/Day Years [...] Name Priority Date/Time Associated Diagnosis Comments OUTSIDE PATHOLOGY Routine 10/12/2023 documented in this encounter Results * OUTSIDE PATHOLOGY (10/12/2023) Adria Powell DPM OUTSIDE LAB documented in this encounter Visit Diagnoses Not on filedocumented in this encounter Care Teams Sample Distributor Relationship Specialty Start Date End Date Poornima Metcalf MD PCP - General Internal Medicine 12/25/22 01/23/24 Lana Branch PA-C PCP - General Internal Medicine 01/24/24 Chantale Scott MD Internal Medicine 05/20/19 documented as of this encounter
--- OUTSIDE RECORDS SUMMARY | 2025-01-11 18:01 | XMS_ITS | Encounter Summary ---
Author Organization [facility] Address [address] [place] [address] Care Team Providers Care Piece Presser Name Role Phone Chantale Scott MD Unavailable Unavailable Poornima Metcalf MD Primary Care Provider [phone] Lana Branch PA-C Primary Care Provider + Encounter Details Date Type Department Care Team Description 11/06/2023 Telephone Internal Medicine - [address], [address] [place] [address] Poornima Metcalf MD [address] [place] [phone] Social History Tobacco Use Types Packs/Day [...] on filedocumented in this encounter Care Teams Piece Presser Relationship Specialty Start Date End Date Poornima Metcalf MD PCP - General Internal Medicine 12/25/22 01/23/24 Lana Branch PA-C PCP - General Internal Medicine 01/24/24 Chantale Scott MD Internal Medicine 05/20/19 documented as of this encounter
--- OUTSIDE RECORDS SUMMARY | 2025-01-11 18:01 | XMS_ITS | Encounter Summary ---
[facility] Address [address] [place] [address] Care Team Providers Care Pilot Fuel Engineer Name Role Phone Chantale Scott MD Unavailable Unavailable Chantale Scott MD Primary Care Provider Unavail able Sakina Schaeffer MD Primary Care Provider [phone] Poornima Metcalf MD Primary Care Provider [phone] Sakina Schaeffer MD Primary Care Provider [phone] Poornima Metcalf MD Primary Care Provider [phone] Lana Branch PA-C Primary Care Provider + Encounter Details Date Type Department Care Team Description 05/25/2020 Old Medical Records Medical Records [address] [place] [address] Abstract, Provider Social History Tobacco Use Types [...] have Coronavirus / COVID-19? No / Unsure 05/21/2020 2:50 PM EST documented as of this encounter Plan of Treatment Not on file documented as of this encounter Visit Diagnoses Not on filedocumented in this encounter Additional Health Concerns Infection Onset Date Last Indicated Resolved Time COVID-19 11/07/2021 11/07/2021 01/06/2022 8:30 AM EDT documented as of this encounter Care Teams Pilot Fuel Engineer Relationship Specialty Start Date End Date Chantale Scott MD PCP - General Internal Medicine 02/13/20 01/31/21 Sakina Schaeffer MD [address] [place] [address] PCP - General Internal Medicine 02/01/21 10/02/22 Poornima Metcalf MD [address] [place] [address] PCP - General Internal Medicine 10/03/22 12/05/22 Sakina Schaeffer MD [address] [place] [address] PCP - General Internal Medicine 12/06/22 12/24/22 Poornima Metcalf MD [address] [place] [address] PCP - General Internal Medicine 12/25/22 01/23/24 Lana Branch PA-C [address] [place] [address] PCP - General Internal Medicine 01/24/24 Chantale Scott MD Internal Medicine 05/20/19 documented as of this encounter
--- OUTSIDE RECORDS SUMMARY | 2025-01-11 18:01 | XMS_ITS | Encounter Summary ---
Author Organization [facility] Address [address] [place] [address] Care Team Providers Care Wire Fence Builder Name Role Phone Chantale Scott MD Primary Care Provider Unavail able Peter Ann MD Primary Care Provider [phone] Chantale Scott MD Unavailable Unavailable Chantale Scott MD Primary Care Provider Unavail able Sakina Schaeffer MD Primary Care Provider Poornima Metcalf MD Primary Care Provider Sakina Schaeffer MD Primary Care Provider [phone] Poornima Metcalf MD Primary Care Provider Lana Branch PA-C Primary Care Provider + Encounter Details Date Type Department Care Team Description 05/15/2019 [facility] Medical Records [address] [place] [id number] Abstract, Provider Social History Tobacco Use Types [...] documented as of this encounter Care Teams Wire Fence Builder Relationship Specialty Start Date End Date Chantale Scott MD PCP - General Internal Medicine 11/14/18 05/19/19 Peter Ann MD [address] [facility] [address] [place] [address] PCP - General Cardiology 05/20/19 02/12/20 Chantale Scott MD PCP - General Internal Medicine 02/13/20 01/31/21 Sakina Schaeffer MD [address] [place] [address] PCP - General Internal Medicine 02/01/21 10/02/22 Poornima Metcalf MD [address] [place] [address] PCP - General Internal Medicine 10/03/22 12/05/22 Sakina Schaeffer MD [address] [place] [address] PCP - General Internal Medicine 12/06/22 12/24/22 Poornima Metcalf MD [address] [place] [address] PCP - General Internal Medicine 12/25/22 01/23/24 Lana Branch PA-C [address] [place] [address] PCP - General Internal Medicine 01/24/24 Chantale Scott MD Internal Medicine 05/20/19 documented as of this encounter
[2025-01-11 18:13] LABS: Hematocrit 38.0 % (37.0-47.0); Hemoglobin 13.2 g/dl (12.0-16.0); Imm Gran Abs Auto 0.05 X10*3/uL (0.00-0.03); Imm Gran Pct Auto 0.4 % (0.0-0.4); Lymphocytes Absolute Auto 3.4 X10*3/uL (1.2-4.9); Mean Corpuscular HGB Conc 34.7 g/dl (31.0-35.0); Mean Corpuscular Hemoglobin 30.6 pg (27.0-33.0); Mean Corpuscular Volume 88.2 fL (80.0-98.0); NRBC Abs Auto 0.000 X10*3/uL (0.0-0.012); NRBC Pct Auto 0.0 /100WBC (0.0-0.2); Platelet Count 444 X10*3/uL (160-400); Red Blood Count 4.31 X10*6/uL (4.20-5.50); White Blood Count 12.3 X10*3/uL (4.8-10.8)
[2025-01-11 18:21] LABS: Alanine Aminotransferase 26 U/L (0-31); Albumin Level 4.7 g/dL (3.5-5.0); Alkaline Phosphatase 71 U/L (39-117); Anion Gap 13 (12-20); Aspartate Amino Transferase 22 U/L (5-31); Blood Urea Nitrogen 7 mg/dL (9-16); Calcium 9.5 mg/dL (8.4-10.2); Carbon Dioxide 23 mmol/L (22-29); Chloride 107 mmol/L (96-108); Creatinine Clr Calc Pharmacy 91.0; Estimated Glomerular Filt Rate > 60; Lipase 22 U/L (8-78); Magnesium 2.0 mg/dL (1.6-2.6); Potassium 3.4 mmol/L (3.3-5.1); Sodium 140 mmol/L (135-145); Total Protein 8.0 g/dL (6.5-8.0)
== END 2025-01-11 20:33 | disposition left against medical advice (07) ==
PROVIDERS: Registered Nurse Emergency; Emergency Provider Emergency Medicine; PCP Physician Assistant
DX: R10.13 Epigastric pain (principal); Z53.29 Procedure and treatment not carried out because of patient's decision for other reasons; E11.9 Type 2 diabetes mellitus without complications
CPT/HCPCS: 36415; 80053; 83690; 83735; 84702; 85025; 99281; 99283

== ENCOUNTER 2025-01-28 14:03 | Outpatient (AMB) | payer OTHER, SELFPAY ==
--- NOTE | 2025-01-28 14:17 | MHC.OFFVIS ---
Intake Visit Reasons: 6 weeks fm simon Allergies peanut (PEANUT) Allergy (Severe, Verified 01/28/25 14:21) ANAPHYLAXIS cefpodoxime Allergy (Verified 01/28/25 14:21) Swelling Medication List - Last Reconciled 01/28/25 by Blossom Casiano CNP amitriptyline 25 mg orally 1 tablet at bedtime x1 week then 2 tablets at bedtime; 30 days atorvastatin (Lipitor) 40 mg PO DAILY azelastine 2 sprays intranasal BID benzonatate 200 mg PO TID PRN cholecalciferol (vitamin D3) (Vitamin D3) 1 tab PO DAILY colestipol (Colestid) 2 grams PO BID cyclobenzaprine 10 mg PO BID PRN 30 days diclofenac sodium 1% 4 grams topical BID docusate sodium (Colace) 100 mg PO BID ergocalciferol (vitamin D2) 1 tab PO DAILY famotidine (Pepcid) 40 mg PO BEDTIME fluticasone propionate 100 mcg/actuation (Flovent Diskus) 1 inh inhalation DAILY gabapentin 400 mg PO BEDTIME 30 days lidocaine 5% (Lidoderm) 1 patch topical DAILY lidocaine 5% (Lidoderm) 1 patch topical DAILY loratadine 1 tab PO DAILY naproxen 500 mg PO BID PRN omeprazole 40 mg PO DAILY ondansetron 4 mg PO DAILY PRN 5 days HPI Comments Details: Headaches were better with amitriptyline 50mg at bedtime and only happening once in a blue. No medication side effects. Sleep was okay. Ongoing generalized body pains, taking gabapentin and cyclobenzaprine as needed due to side effects of constipation. Ongoing intermittent numbness and tingling in feet since 2023. Saw pain management in 09/2024 who thought symptoms/arthralgia may be related to allergy to metal from bladder stimulator, has appointment with [facility] for allergy testing in mid-03/2025. She [facility] [place] [facility] month where there was apparently some abnormality noted on visual field testing, no report available for review at this time, and MRI brain was ordered. She was waiting to have MRI scheduled at [facility] in [place]. More headaches in 09/2024 with pain all over head, throbbing-type with photophobia. No sonophobia, nausea, or vomiting. Head was sensitive to touch. Paresethesia to R side of head like animals crawling at times. Tried dual ibuprofen-Tylenol as needed with minimal relief. Ongoing generalized body pains with lot of pain to hips, cannot sleep on sides. Has not been taking gabapentin or cyclobenzaprine as medication causing constipation, has IBS and following with GI. Saw pain management in 09/2024 who thought symptoms/arthralgia may be related to allergy to metal from bladder stimulator. Whole body hurts, weather makes it worse. Meds work for 1-2 hrs. She has?severe back pain, sometimes from the neck all the way down to her feet.? She says that this started about 2 months after she had a bladder stimulator implanted in her lower right buttock area in 11/2022. She also says that she has fibromyalgia and her current medications do not help.? In the past, she has been seen for poor balance and tripping and falling frequently. Feet swell. Has a lot of numbness and tingling in feet since around 2023. Lot of bladder control problems with urgency. Still complains of decreased vision in both eyes. She has a history of bipolar disorder, depression, anxiety and PTSD. She's had vision problems since 2014, but was doing okay with her glasses till she started to lose her vision. She says that she had an eye exam on 08/03/17 and was told that she is legally blind because she cannot see on her sides. Her hearing is also going. She says she can see straight ahead. She also noted that the eye doctor did not find anything wrong with. She also gets constant headaches without any other associated symptoms. [facility] Medical History (Updated 01/27/25 @ 14:58 by RENA Sorenson) Neuropathy Depression Bipolar 1 disorder Asthma Diabetes Social History Household Members: Spouse and Other Household Members Other:: dogs Housing: House Alcohol intake: unknown Patient Tobacco Use Status: Current everyday Tobacco user Substance Use Type: Marijuana Advance Directives Date on File: 02/15/21 service: No Current occupational status: disabled Review of Systems Const Denies chills, Denies daytime sleepiness, Reports difficulty sleeping, Denies fatigue, Denies fever(s), Denies frequent falls, Reports headache(s), Denies increased appetite, Denies poor appetite, Denies snoring, Denies weakness, Denies weight gain and Denies weight loss Eyes Denies loss of vision ENT Denies vertigo, Reports dizziness, Reports headache(s) and Reports neck pain Card Denies chest pain at rest, Denies chest pain with activity, Denies syncope, Denies leg edema, Denies palpitations, Denies dyspnea and Denies dyspnea on exertion Resp Denies cough, Denies dyspnea, Denies dyspnea on exertion and Denies snoring GI Denies abdominal pain, Denies constipation, Denies heartburn, Denies diarrhea and Denies nausea Denies urinary frequency, Denies urinary incontinence and Denies urinary urgency Musc Denies abnormal gait, Reports back pain, Reports myalgias, Reports arthralgias, Reports neck pain, Reports numbness and Reports tingling Neuro Denies abnormal gait, Denies vertigo, Reports dizziness, Denies syncope, Denies frequent falls, Reports headache(s), Denies lack of coordination, Denies loss of vision, Reports memory loss, Reports numbness, Denies Other visual disturbances, Denies restless legs, Denies seizure-like activity, Reports tingling, Denies paresthesias, Denies tremor(s) and Denies weakness Psych Reports anxiety, Reports depression, Denies auditory hallucinations, Reports memory loss and Denies visual hallucinations Endo Denies fatigue and Denies palpitations Physical Exam Const Other: General Appearance:? normal, in no acute distress. Heart:? S1, S2 normal, no murmurs. Lungs:? clear anteriorly and posteriorly. Musculoskeletal:? normal. Extremities:? no edema. Psych:? alert, oriented, cognitive function intact, cooperative with exam. Neuro Other: Abnormal Neurological Findings:?DTRs 3+. Plantars are flexor on left and equivocal on right. Mental Status: alert and oriented X 3. Normal attention, orientation, memory, and affect. Cranial Nerves: Pupils are equal, round, and reactive to light. External ocular muscles are intact. Visual martínez are full, no ptosis. Face is symmetrical, no facial weakness or droop. Facial sensations are normal. Tongue protrudes in midline. Palate elevates symmetrically. Shoulder shrugging is normal Motor Examination: Normal muscle tone, bulk and strength. No atrophy or fasciculations. No drift of the extended upper extremities. DTRs 3+. Plantars are flexor on left and equivocal on right. Sensory Exam: Normal light touch, temperature, pinprick, vibration, and joint-position sensations. Rhomberg sign is absent. Coordination: No ataxia. No titubation. Gait Exam: Within normal limits. Cerebellar Signs: [id number] is okay. Extrapyramidal System: No tremor, rigidity with normal facial expressions. No bradykinesia. No bradyphrenia. Normal arm swing and posture. No propulsion or retropulsion. Speech: Normal. Assessment & Plan Assessment & Plan (1) Back pain: Code(s): M54.9 - Dorsalgia, unspecified Category: Medical Qualifiers: Back pain laterality: unspecified Back pain location: back pain in unspecified location Chronicity: unspecified Qualified Code(s): M54.9 - Dorsalgia, unspecified Plan: Continue gabapentin 400mg 1 capsule at bedtime. Continue cyclobenzaprine 10mg 1 tablet twice a day as needed for muscle spasms/pain. (2) Fibromyalgia: Code(s): M79.7 - Fibromyalgia Category: Medical Plan: Amitriptyline may also help with pain. (3) Tension headache: Code(s): G44.209 - Tension-type headache, unspecified, not intractable Category: Medical Plan: Continue amitriptyline 25mg 2 tablets at bedtime. No report/notes available from eye doctor at this time. She was asked to have MRI results sent to office and bring CD of MRI to next appointment. Coding Level of Care Code Est Pt Level 4 (32629) Diagnoses Back pain, unspecified back location, unspecified back pain laterality, unspecified chronicity M54.9 Back pain laterality: unspecified Back pain location: back pain in unspecified location Chronicity: unspecified Fibromyalgia M79.7 Tension headache G44.209
--- OUTSIDE RECORDS SUMMARY | 2025-01-28 17:15 | XMS_ITS | Encounter Summary ---
Author Organization [employer] Address [address] [place] [address] Care Team Providers Care Test Desk Supervisor Name Role Phone Lana Branch Primary Care Provider + Reason for Visit * Reason Onset Date Comments Forms: Housing 11/14/2024 Encounter Details Date Type Department Care Team ([facility] st Contact Info) Description 11/14/2024 Telephone Internal Medicine - [address] [place] [address] Sergey Rodriguez MA Social History Tobacco Use Types Packs/Day Years [...] as of this encounter Progress Notes * Katrin Conte MA - 01/27/2025 8:59 AM EST Placed in providers folder for signature. * Katrin Conte MA - 12/31/2024 3:34 PM EDT Duplicate form was faxed to our office. Patient needs to follow up with provider, appointment 01/21/25 * Katrin Conte MA - 11/21/2024 3:00 PM EDT Ready for warehouse picker. * Katrin Conte MA - 11/19/2024 9:33 AM EDT Placed in providers folder for signature. * Sergey Rodriguez MA - 11/14/2024 8:07 AM EDT Patient dropped off housing paperwork to be filled out for their disability. Call for pickup: [phone] documented in this encounter Plan of Treatment Upcoming Encounters Date Type Department Care Team (Late st Contact Info) Description 03/05/2025 10:15 AM EST Office Visit Orthopedic Surgery - [place] [address] [place] [id number] Adria Powell, DPM [address] [place] [phone] 07/23/2025 10:00 AM EDT Office Visit Internal Medicine - [place] [address] [place] [phone] Lana Branch PA [address] [place] [address] 08/21/2025 11:00 AM EDT Office Visit Gastroenterology - [address] [place] [address] Susan Arambula NP [address] [place] [address] documented as of this encounter Goals Goal Patient Goal Type Associated Problems Recent Progress Patient-Stated? Author PLOF General Yes Cullen Mcnair PT documented as of this encounter Visit Diagnoses Not on filedocumented in this encounter Additional Health Concerns Assessment Noted Time PHQ-9 Depression Total Score: 9 06/25/19 25 1:39 PM EDT documented as of this encounter Care Teams Test Desk Supervisor Relationship Specialty Start Date End Date Lana Branch PA [address] [place] [address] PCP - General 01/24/24 documented as of this encounter
--- OUTSIDE RECORDS SUMMARY | 2025-01-28 17:15 | XMS_ITS | Clinical Summary ---
Author Organization 175 [facility] Address [address] [place] [address] Phone Care Team Providers Care Brake Repairer Hydraulic Name Role Phone Lana Branch Primary Care [...] mcg (2,000 unit) tablet 11/07/19 23 Active diclofenac (VOLTAREN) 1 % topical gel Apply 4 g topically 2 times daily. 03/14/20 23 Active dicyclomine (BENTYL) 20 mg tablet Take 1 Tablet by mouth 4 times daily as needed (abd cram) for up to 90 days. 07/08/19 22 Active famotidine (PEPCID) 40 mg tablet Take 40 mg by mouth daily. 03/16/20 Active fluticasone propionate (FLONASE) 50 mcg/actuation nasal spray 1 [place] by Nasal route 2 times daily. 02/23/20 Active fluticasone propionate (FLOVENT DISKUS) 50 mcg/actuation diskus inhaler by Nasal route. 11/22/19 23 Active FREESTYLE LANCETS MISC Use to test blood sugar one times daily 02/23/20 Active ketoconazole 1 % shampoo Apply 1 g topically daily. Rub into scalp, leave in for 10 minutes, then rinse out thoroughly. Active lidocaine (LIDODERM) 5 % patch 05/14/19 24 Active loratadine (CLARITIN) 10 mg tablet Take 1 Tablet by mouth daily. 07/06/19 24 Active montelukast (SINGULAIR) 10 mg tablet Take 1 Tablet by mouth. 11/22/19 Active ondansetron ODT (ZOFRAN-ODT) 4 mg disintegrating tablet DISSOLVE 1 TABLET BY MOUTH EVERY 8 HOURS NEEDED FOR NAUSEA 08/14/19 24 Active pantoprazole (PROTONIX) 40 mg EC tablet Take 1 tablet by mouth daily for 180 days. 03/21/20 Active potassium chloride (KLOR-CON) 10 mEq CR tablet Take 1 Tablet by mouth daily. 12/20/19 24 Active hydrocortisone (ANUSOL-HC) 2.5 % rectal creamIndications: Hemorrhoids, unspecified hemorrhoid type Insert into the rectum [...] rinse 120 mL 1 10/22/19 25 Active gabapentin (NEURONTIN) 400 mg capsule 12/17/19 25 Active cyclobenzaprine (FLEXERIL) 10 mg tablet 12/17/19 25 Active brimonidine (ALPHAGAN) 0.2 % ophthalmic solution 08/30/19 25 Active metoclopramide (REGLAN) 5 mg tabletIndications :Gastroparesis due to DM (CMS/HCC V24, CMS/HCC V28) Take 1 tablet (5 mg total) by mouth 4 (four) times a day (with meals and nightly). 240 each 01/20/20 25 Active colestipoL (COLESTID) 1 gram tablet Take 2 Tablets by mouth 2 times daily (with meals). 02/23/20 22 Discontin ued(Thera py completed ) docusate sodium (COLACE) 100 mg capsule Take 1 Capsule by mouth 2 times daily as needed for Constipation for up to 360 days. Discontin ued(Thera py completed ) hydrocortisone (ANUSOL-HC) [address] 1 Suppository rectally 2 times daily for 14 days. 11/20/19 24 Discontin ued(Thera py completed ) sucralfate (CARAFATE) 1 gram tablet TAKE 1 TABLET BY MOUTH FOUR TIMES A DAY (BEFORE MEALS & NIGHTLY) 120 tablet 02/29/20 24 Discontin ued(Thera py completed ) dexAMETHasone (DECADRON) 4 mg/mL injection 1 mL (4 mg total) by Other route every 12 (twelve) hours. Use with Physical therapy under iontophoresis 30 mL 2 11/14/19 25 Discontin ued(Thera py completed ) omeprazole (PriLOSEC) [address] capsule Take 1 capsule (40 mg total) by mouth 1 (one) time each day. Do not crush or chew. 30 each 1 01/13/20 25 Discontin ued(Thera py completed ) ondansetron (ZOFRAN) 4 mg tablet Take 1 tablet (4 mg total) by mouth every 8 (eight) hours if needed for nausea or vomiting for up to 7 days. 20 tablet 01/13/20 25 predniSONE (DELTASONE) 10 mg tablet 03/11/20 24 Discontin ued(Thera py completed ) thiamine (VITAMIN B-1) 50 mg tablet Take 1 tablet (50 mg total) by mouth daily. 06/26/19 Discontin ued(Thera py completed ) lamoTRIgine (LaMICtal) 25 mg tablet 05/09/19 025 Discontin ued(Thera py completed ) ibuprofen (ADVIL,MOTRIN) 800 mg tablet 07/17/19 Discontin ued(Thera py completed ) celecoxib (CeleBREX) 100 mg capsule Take 1 capsule (100 mg total) by mouth 2 (two) times a day. 01/09/20 025 Discontin ued(Thera py completed ) amitriptyline (ELAVIL) 25 mg tablet 12/17/19 Discontin ued(Thera py completed ) Hospital, Clinic, or Other Facility Administered Medication Ordered Dose Route Frequency Start Date End Date Status cyanocobalamin (VITAMIN B-12) injection 1,000 mcgIndications:B12 deficiency 1000 mcg IM Every 30 days 02/20/2024 01/21/2025 Discontinue d Active Problems Problem Noted Date Diagnosed Date Gastroparesis 01/21/2025 B12 deficiency 02/26/2024 PTSD (post-traumatic stress disorder) 01/18/2024 Overview (01/18/2024): F/u Mt Mp H. pylori infection 11/18/2020 IBS (irritable bowel syndrome) 08/27/2020 Marijuana use 08/27/2020 Urinary incontinence without sensory awareness 0 06/06/2020 Overview (01/18/2024): Last Assessment & Plan: Encouraged patient to follow-up with urologist Obstructive sleep apnea 12/12/2019 Overview (01/18/2024): [facility] Polysomnogram: Date 12/09/2019; Wt [...] time. Anxiety 08/21/2017 Asthma 08/21/2017 Bipolar disorder ([facility] V24, [facility] V28) 07/25 Major depression 08/21/2017 Hyperlipidemia [...] hypoxia. Severe obesity (BMI >= 40) ( [facility] V24, [facility] V28) 03/12/2019 07/21/2024 Diabetes mellitus type 2, un complicated ([facility] V24, [facility] V28) 08/21/2017 07/21/2024 Encounters Date Type Department Care Team Description 01/21/2025 9:30 AM EDT Office Visit Internal Medicine [address] [phone] Lana Branch PA Obesity (BMI 30-39.9) (Primary Dx); Gastroesophageal reflux disease without esophagitis; Gastroparesis; PTSD (post-traumatic stress disorder); Anxiety and depression; Bipolar affective disorder, remission status unspecified ([facility] V24, [facility] V28); Fibromyalgia; Pure hypercholesterolemia ; Moderate persistent asthma without complication; Allergic rhinitis, unspecified seasonality, unspecified trigger 01/19/2025 1:40 PM EDT Office Visit Gastroenterology [address] [phone] Susan Arambula NP Gastroparesis due to DM ([facility] V24, [facility] V28) (Primary Dx); Abdominal pain, chronic, epigastric; Marijuana use, continuous; Cannabinoid hyperemesis syndrome 01/12/2025 2:30 PM EDT Office Visit Internal Medicine [address] [phone] Deepak Mejia MD Pain of upper abdomen (Primary Dx); Gastroparesis; Gastroesophageal reflux disease without esophagitis; Hospital discharge follow-up 01/12/2025 Telephone Internal Medicine [address] [phone] Lana Branch PA 01/09/2025 Telephone Internal Medicine [address] [address] Lana Branch PA 12/31/2024 11:00 AM EDT Treatment [address] [phone] TabybCullen lucas M, PT Joint stiffness (Primary Dx) 12/15/2024 8:30 AM EDT Treatment [address] [phone] TabbyCullen lucas M, PT Joint stiffness (Primary Dx) 12/09/2024 Telephone Internal Medicine - [place] [address] [phone] Lana Branch PA 12/04/2024 8:30 AM EDT Treatment [address] [address] Cullen Mcnair, PT Joint stiffness (Primary Dx) 12/03/2024 10:15 AM EDT Office Visit Orthopedic Surgery [facility] [address] [phone] dAria Powell, DPM Acquired hallux valgus of left foot (Primary Dx) 12/02/2024 9:30 AM EDT Treatment [address] [address] Joao Brock, NUTRITION ASSOCIATE Joint stiffness (Primary Dx) 12/01/2024 Telephone Internal Medicine [address] [phone] Lana Branch PA 11/26/2024 8:00 AM EDT Treatment [address] [phone] Ravindra Littlejohn, NUTRITION ASSOCIATE Joint stiffness (Primary Dx) 11/14/2024 Telephone Internal Medicine [address] [phone] Sergey Rodriguez MA 11/13/2024 8:30 AM EDT Evaluation [address] [address] Cullen Mcnair M, PT Joint stiffness; Fibromyalgia; Neuritis from Last 3 Months Immunizations Immunization Administration [...] PROCEDURE: HISTORICAL HERNIA REPAIR/UMB OTHER SURGICAL HISTORY 2015 Left PROCEDURE: ---- OTHER ----; COMMENT: removal ovarian cyst TUBAL LIGATION 2008 PROCEDURE: HISTORICAL TUBAL LIGATION OTHER SURGICAL HISTORY 12/2019 PROCEDURE: HI TOTAL ABDOMINAL HYSTERECT W/WO RMVL TUBE OVARY Medical History Medical History Date Comments Asthma DX:Asthma Bipolar disorder (CMS/[facility] V2 4, [facility] V28) DX:Bipolar disorder (HCC) Anxiety DX:Anxiety Major [...] your loved ones. For example, early childhood teacher or elderly care for an older adult? [...] Sign Reading Time Taken Comments Blood Pressure 120/64 01/21/2025 9:16 AM EDT Pulse 80 01/21/2025 9:16 AM EDT Temperature 36.8 C (98.2 F) 01/21/2025 9:16 AM EDT Respiratory Rate - - Oxygen Saturation 99% 01/21/2025 9:16 AM EDT Inhaled Oxygen Concentration - - Weight 76.2 kg (168 lb) 01/21/2025 9:16 AM EDT Height 147.3 cm (4' 10 ) 01/21/2025 9:16 AM EDT Body Mass Index 35.11 01/21/2025 9:16 AM EDT Plan of Treatment Upcoming Encounters Date Type Department Care Team (Late st Contact Info) Description 03/05/2025 10:15 AM EST Office Visit Orthopedic Surgery - [place] [address] [facility] [address] [place] [phone] Adria Powell, DPM 175 [facility] [address] [place] [phone] 07/23/2025 10:00 AM EDT Office Visit Internal Medicine - [place] [address] [facility] [address] [place] [phone] Lana Branch PA [address] [facility] [address] 08/21/2025 11:00 AM EDT Office Visit Gastroenterology - [address] [facility] 299 [facility] [address] [place] [phone] Susan Arambula, BLADIMIR 299 [facility] [address] [place] [address] Health Maintenance Due Date Last Done Comments Diabetes: Annual Foot Exam 08/03/1993 Diabetes: Annual Retina Eye Exam 08/03/1993 Hepatitis B Vaccines (1 of 3 - 19+ 3-dose series) 08/03/2002 Pneumococcal Vaccine: Pediatrics (0 to 5 Years) and At-Risk Patients (6 to 49 Years) (1 of 2 - PCV) 08/03/2002 HPV Vaccines (1 - 3-dose SCDM series) 08/03/2010 Cervical Cancer Screening: Pap Smear 03/14/2020 03/14/2017, 03/14/2017 HIV Screening 03/04/2022 COVID-19 Vaccine ( season) 2024 06/16/2020, 05/19/2020 Influenza Vaccine (#1) 2024 , 01/06/2022, 12/14/2020, Additional history exists Diabetes: Annual Urine Albumin-Creatinine Ratio (uACR) 01/19/2025 01/06/2022 Breast Cancer Screening 03/08/2025 03/08/20 23, 12/01/2021, 07/07/2020, Additional history exists Diabetes: Blood Sugar Control Test (HGBA1C) 04/18/2025 10/16/2024, 10/29/2023, 10/29/2023 Social Influencers of Health Screening 06/24/2025 06/24/2024 Diabetes: Annual GFR (Glomerular Filtration Rate) 10/16/2025 10/16/2024, 10/29/2023, 10/29/2023, Additional history exists DTaP,Tdap,and Td Vaccines (2 - Td or [...] Procedure Name Priority Date/Time Associated Diagnosis Comments COMPREHENSIVE METABOLIC PANEL Routine 10/16/2024 9:12 AM EDT Pure hypercholesterolemia HEMOGLOBIN A1C Routine 10/16/2024 9:12 AM EDT Pure hypercholesterolemia LIPID PANEL Routine 08/23/2023 SANDI SCREENING DIGITAL Routine 03/08/2023 12:31 PM EST Encounter for screening mammogram for malignant neoplasm of breast URINE ALBUMIN CREATININE RATIO Routine 01/06/2022 HEPATITIS C SCREENING Routine 04/18/2019 HPV Routine 03/14/2017 from Last 3 Months or Most Recently Relevant to Health Maintenance Results * Hemoglobin A1c (10/16/2024 9:12 AM EDT) Pathologist [facility] Hemoglobin A1C 5.3 <6.5 % [...] al Result [facility] [address] [place] [address], * (ABNORMAL) Comprehensive metabolic panel (10/16/2024 9:12 AM EDT) Pathologist [facility] Sodium 139 133 - 145 mmol/L LAB CHEMISTRY METHOD 10/16/2024 3:[address] [facility] Potassium 4.5 3.5 - 5.5 mmol/L LAB CHEMISTRY METHOD 10/16/2024 3:[address] [facility] Chloride 107 96 - 110 mmol/L LAB CHEMISTRY METHOD 10/16/2024 3:[address] [facility] CO2 28 21 - 32 mmol/L LAB CHEMISTRY METHOD 10/16/2024 3:[address] [facility] Anion Gap 4 3 - 11 LAB CHEMISTRY METHOD 10/16/2024 3:05 PM [facility] Glucose 112(H) 70 - 100 mg/dL LAB CHEMISTRY METHOD 10/16/2024 3:05 PM [facility] BUN 8 5 - 25 mg/dL LAB CHEMISTRY METHOD 10/16/2024 3:05 PM [facility] Creatinine 0.85 0.50 - 1.10 mg/dL LAB CHEMISTRY METHOD 10/16/2024 3:05 PM [facility] eGFR 88 >=60 mL/min/1. 73m2 LAB CHEMISTRY METHOD 10/16/2024 3:05 PM [facility] Comment:Calculation based on the Chronic Kidney Disease Epidemiology Collaboration (CKD-EPI) equation refit without adjustment for race. BUN/Creatinine Ratio 9.4 LAB CHEMISTRY METHOD 10/16/2024 3:05 PM [facility] Calcium 9.5 8.5 - 10.5 mg/dL LAB CHEMISTRY METHOD 10/16/2024 3:05 PM [facility] AST (SGOT) 19 10 - 42 unit/L LAB CHEMISTRY METHOD 10/16/2024 3:05 PM [facility] ALT (SGPT) 34 10 - 60 unit/L LAB CHEMISTRY METHOD 10/16/2024 3:05 PM [facility] Alkaline Phosphatase 87 42 - 121 unit/L LAB CHEMISTRY METHOD 10/16/2024 3:05 PM [facility] Total Protein 7.5 6.0 - 8.0 g/dL LAB CHEMISTRY METHOD 10/16/2024 3:05 PM [facility] Albumin 3.8 3.2 - 5.0 g/dL LAB CHEMISTRY METHOD 10/16/2024 3:05 PM [facility] Total Bilirubin 0.2 0.0 - 1.4 mg/dL LAB CHEMISTRY METHOD 10/16/2024 3:05 PM [facility] Blood Venous blood specimen / Unknown Venipuncture / Unknown 10/16/2024 9:12 AM EDT 10/16/2024 9:12 AM EDT Lana DIAZ LAB BLOOD ORDERABLES Fin al Result [facility] [address] [place] [address], * (ABNORMAL) Lipid panel (08/23/2023) LDL/HDL Ratio 6(A) 0 - 4 Triglycerides 110 0 - 150 mg/dL Cholesterol 265(A) 0 - 200 mg/dL HDL 47 >=40 mg/dL LDL Cholesterol 196(A) 0 - 100 mg/dL Blood Venous blood specimen / Unknown Historical Provider LAB BLOOD ORDERABLES Elidia l Result * SANDI SCREENING DIGITAL (03/08/2023 12:31 PM EST) Anatomical Region Laterality Modality Mammography 03/07/2023 12:4 0 PM EST Narrative 03/08/2023 12:31 PM EST [facility] Diagnostic Imaging Department [address] [place] [address] Patient: JANNXENA D.O.B./Age/Sex: 1985 - 37 - F Unit#: [id number] Location/Status: SPDIMAM/REG CLI Mnemonic/Ordering Site: [facility] Ordering Physician: SHERRIE METCALF MD [facility] Screening Digital - 03/07/23 - 1557 Report Status:Signed EXAM: [facility] Screening Digital EXAM DATE AND TIME: 03/07/2023 3:19 PM HISTORY: Screening. COMPARISON: 12/01/21, 07/07/20, 04/23/19 ([facility], [place], [place]) TECHNIQUE: Bilateral digital breast tomosynthesis was performed in the CC and MLO projections. Computer aided detection with [employer] 3D 3.1 was employed. TISSUE DENSITY: a. [...] Procedure Note Dariana Schmidt MD - 05/01/2023 [facility] Diagnostic Imaging Department [address] [place] [id number] Patient: XENA FORTE /Age/Sex: 1985 - 37 - F Unit#: [id number] Location/Status: [facility] CLI Mnemonic/Ordering Site: [facility] Ordering Physician: SHERRIE METCALF MD [facility] Screening Digital - 03/07/23 - 1519 Report Status:Signed EXAM: [facility] Screening Digital EXAM DATE AND TIME: 03/07/2023 3:19 PM HISTORY: Screening. COMPARISON: 12/01/21, 07/07/20, 04/23/19 ([facility] [place], [place]) TECHNIQUE: Bilateral digital breast tomosynthesis was performed in the CCand MLO projections. Computer aided detection with [employer] 3D 3.1was employed. TISSUE DENSITY: a. The [...] MD IMG BI PROCEDURES Final Result * Urine Albumin Creatinine Ratio (01/06/2022) Urine Albumin Creatinine Ratio abstracted Historical Provider HEALTH MAINTENANCE Final Result * Hepatitis C Screening (04/18/2019) Hepatitis C Screening abstracted Historical Provider HEALTH MAINTENANCE Final Result * Cervical Cancer Screening: HPV (03/14/2017) Cervical Cancer Screening: HPV no interpretation , abstracted us Historical Provider HEALTH MAINTENANCE Final Result from Last 3 Months or Most Recently Relevant to Health Maintenance Insurance [facility] [employer] Care Teams Brake Repairer Hydraulic Relationship Specialty Start Date End Date Lana Branch PA [address] [place] [address] PCP - General 01/24/24
--- OUTSIDE RECORDS SUMMARY | 2025-01-28 17:15 | XMS_ITS | Encounter Summary ---
Author Organization [facility] Address [address] [place] [address] Care Team Providers Care Bracelet And Brooch Maker Name Role Phone Lana Branch Primary Care Provider + Encounter Details Date Type Department Care Team ([facility] st Contact Info) Description 01/09/2025 Telephone Internal Medicine - [place] 175 [facility] [address] [place] [address] Lana Branch PA [address] [place] [address] Social History Tobacco Use Types Packs/Day Years [...] for your loved ones. For example, children's zoo caretaker or elderly care for an older adult? [...] Koehler RN - 01/09/2025 12:07 PM EDT [id number] in [facility] for vomitus with blood * Elyssa Nice - 01/09/2025 11:30 AM EDT Judy lópez/ LAN Batista: Patient was having abdominal pain and blood while vomiting today, was sent to [facility]. CB# just in case: [phone] documented in this encounter Plan of Treatment Upcoming Encounters Date Type Department Care Team (Late st Contact Info) Description 03/05/2025 10:15 AM EST Office Visit Orthopedic Surgery - [place] [address] [facility] [address] [place] [address] Adria Powell, DPM 175 [facility] [address] [place] [address] 07/23/2025 10:00 AM EDT Office Visit Internal Medicine - [place] 175 [facility] [address] [place] [phone] Lana Branch PA [address] [place] [address] 08/21/2025 11:00 AM EDT Office Visit Gastroenterology - [address] [place] [address] [facility] [address] [place] [phone] Susan Arambula NP 299 [facility] [address] [place] [address] documented as of this encounter Goals Goal Patient Goal Type Associated Problems Recent Progress Patient-Stated? Author PLOF General Yes Cullen Mcnair, PT documented as of this encounter Visit Diagnoses Not on filedocumented in this encounter Additional Health Concerns Assessment Noted Time PHQ-9 Depression Total Score: 9 06/25/19 25 1:39 PM EDT documented as of this encounter Care Teams Bracelet And Brooch Maker Relationship Specialty Start Date End Date Lana Branch PA [address] [place] [address] PCP - General 01/24/24 documented as of this encounter
--- OUTSIDE RECORDS SUMMARY | 2025-01-28 17:15 | XMS_ITS | Clinical Summary ---
Author Organization [facility] Address [address] [place] [address] Phone Care Team Providers Care Therapeutic Activities Services Worker Name Role Phone Danna Miller MD Primary [...] topic Medical Devices Not on file Insurance [facility] [place] [address] [address] [address] [employer]ricity [employer] A[employer] [facility]ric[facility] [employer] [address] [place] [address] [facility] [address] [place] [address] [facility] [place] [address] [address] [employer] [facility] Care Teams Therapeutic Activities Services Worker Relationship Specialty Start Date End Date Danna Miller MD [address] [place] [id number] PCP - General Internal Medicine 06/17/18 Additional Source Comments The information contained in this document represents components of the legal health record. It is not the complete legal health record.[facility]
== END 2025-01-28 14:33 | disposition home or self-care (01) ==
LOC: HO.HSM 14:03
PROVIDERS: PCP Physician Assistant; Visit Provider Registered Nurse
DX: M54.9 Dorsalgia, unspecified (principal); M79.7 Fibromyalgia; G44.209 Tension-type headache, unspecified, not intractable
CPT/HCPCS: 99214

== ENCOUNTER → 2025-01-28 14:03 | Outpatient (BNVA) | payer OTHER, SELFPAY | PROVIDERS: PCP Physician Assistant; Visit Provider Registered Nurse | DX: G44.209 Tension-type headache, unspecified, not intractable (principal); M79.7 Fibromyalgia; M54.9 Dorsalgia, unspecified; Z79.899 Other long term (current) drug therapy | CPT/HCPCS: 99212 ==